=== PATIENT | female | born 1965 | race Caucasian/White ===

== ENCOUNTER 2022-11-11 10:47 | Outpatient (OUT) | payer OTHER, SELFPAY ==
[2022-11-11 12:00] LABS: Alanine Aminotransferase 26 U/L (14-59); Albumin Globulin Ratio 0.9; Albumin Level 3.7 g/dL (3.4-5.0); Alkaline Phosphatase 127 U/L (46-116); Aspartate Amino Transferase 17 U/L (15-37); BUN Creatinine Ratio 19.7; Bilirubin Total 0.4 mg/dL (0.2-1.0); Calcium 9.3 mg/dL (8.5-10.1); Carbon Dioxide 31.5 mmol/L (21.0-32.0); Chloride 103 mmol/L (98-107); Chol HDL Ratio 2.6; Cholesterol 187 mg/dL (<=200); Estimated GFR (African America 58 (>=60); Estimated GFR (Non-African Ame 48 (>=60); Free T3 1.47 pg/mL (2.18-3.98); Globulin 4.2 g/dL; Glucose 93 mg/dL (74-106); HDL Cholesterol 71 mg/dL (40-60); Potassium 4.5 mmol/L (3.5-5.1); Sodium 139 mmol/L (136-145); Total Protein 7.9 g/dL (6.4-8.2); Triglycerides 50 mg/dL (<=150)
[2022-11-11 12:33] LABS: Free T4 0.91 ng/dL (0.76-1.46)
== END 2022-11-11 10:48 | disposition home or self-care (01) ==
PROVIDERS: PCP Family Medicine; Visit Provider Family Medicine
DX: I10 Essential (primary) hypertension (principal); E78.2 Mixed hyperlipidemia; E03.8 Other specified hypothyroidism; E07.81 Sick-euthyroid syndrome
CPT/HCPCS: 36415; 80053; 80061; 84439; 84481

== ENCOUNTER 2023-02-07 09:50 | Outpatient (OUT) | payer OTHER, SELFPAY ==
[2023-02-07 11:09] LABS: Free T3 1.75 pg/mL (2.18-3.98)
[2023-02-08 10:10] LABS: Triiodothyronine (T3) 56 ng/dL (71-180)
[2023-02-11 00:11] LABS: Reverse T3, Serum 14.7 ng/dL (9.2-24.1)
== END 2023-02-07 09:51 | disposition home or self-care (01) ==
PROVIDERS: PCP Family Medicine; Visit Provider Family Medicine
DX: E07.81 Sick-euthyroid syndrome (principal); E03.8 Other specified hypothyroidism
CPT/HCPCS: 36415; 84439; 84480; 84481; 84482

== ENCOUNTER 2023-02-20 12:16 | Day surgery (SDC) | payer OTHER, SELFPAY ==
--- NOTE | 2023-02-20 | FL_ITS ---
[address] [address] Patient Name: FLOYD COLLINS MRN: [id number] date: 1965 Sex: F Assigned Patient Location: [place] Current Patient Location: [place] Accession/Order Number: [id number] Exam Date: 02/20/2023 12:35 Report Date: 02/20/2023 13:43 At the request of: PROSPER ZENDEJAS Procedure: FL hip inj RT EXAMINATION: FL hip inj RT HISTORY: osteoarthritis COMPARISON: No relevant comparison available. FLUOROSCOPY TIME: Fluoro time measures 1.3 min and 2 images were obtained. TECHNIQUE: A joint injection was performed in the usual sterile manner after obtaining informed consent. Standard level fluoroscopic mode of operation utilized. FINDINGS: JOINT: right hip. NEEDLE: 22 gauge, 3.5 spinal needle. MEDICATION: 5cc buffered 1% lidocaine for subcutaneous anesthesia Mixture of Kenalog 40 mg, 0.5% Bupivacaine 2 mL and Omnipaque 300 10mL was injected into the joint space. TECHNIQUE: Anterior approach with prior localization of the femoral artery. A single stick was successful in gaining access to the joint space. CLINICAL: Near complete resolution of hip pain following the injection. COMPLICATIONS: None. OTHER: Negative. FL/FL hip inj RT IMPRESSION: Technically successful right hip arthrogram Electronically authenticated by: TEODORA VIDAL Date: 02/20/2023 13:43
[2023-02-20] MEDS: BUPIVACAINE HCL 0.5% PF 50 MG/10 ML VIAL 2 ML INJ (13:05)
[2023-02-20] MEDS: TRIAMCINOLONE ACETONIDE 40 MG/ML VIAL IM (13:05)
[2023-02-20] MEDS: LIDOCAINE HCL 10 ML, SODIUM BICARBONATE 1 MEQ INJ (13:05)
--- NOTE | 2023-02-20 14:44 | PC.NURSE ---
Pressure applied to site for 2 minutes and then telfa pad and paper tape applied.
== END 2023-02-20 13:25 | disposition home or self-care (01) ==
LOC: FL 12:17
PROVIDERS: Radiology Diagnostic Radiology; PCP Family Medicine; Visit Provider Family Medicine
DX: M16.11 Unilateral primary osteoarthritis, right hip (principal); M25.551 Pain in right hip; G89.29 Other chronic pain
CPT/HCPCS: 20610; 77002; Q9967

== ENCOUNTER 2023-04-24 10:35 | Outpatient (OUT) | payer OTHER, SELFPAY ==
--- NOTE | 2023-04-24 10:40 | MR_ITS ---
[facility] [id number] Patient Name: FLOYD COLLINS MRN: [id number] date: 1965 Sex: F Assigned Patient Location: MRI Current Patient Location: Accession/Order Number: [id number] Exam Date: 04/24/2023 11:10 Report Date: 04/25/2023 08:20 At the request of: NON-STAFF PHYSICIAN Procedure: MR hip RT wo con EXAM: MR hip RT wo con REASON FOR EXAM: Right Hip Pain. TECHNIQUE: Multiplanar, multisequence imaging of the right hip was performed without contrast COMPARISON: [facility], most recent 02/20/2023. FINDINGS: On small iucwr-nb-nyww imaging of the right hip, the right femur is well seated within the acetabulum. No fracture identified. There is serpiginous T1 hypointense, heterogeneous T2 hyperintense signal involving the majority the central weightbearing femoral head measuring 2.1 x 2.3 cm (AP by TR). This is consistent with avascular necrosis. There is also mild subchondral collapse of approximately 2 to 3 mm. Reactive edema is noted in the femoral head dissipating inferiorly into the femoral neck. Again no fracture identified. Diffuse high-grade chondrosis of the femoral acetabular cartilage with reactive subchondral marrow edema involving the right acetabulum. A moderate size joint effusion with synovitis is present. The right hip regional musculature is without discrete muscle strain or tendon tear. On large beaxn-ht-ucyx imaging, moderate multilevel degenerative disc disease of the visualized lower lumbar spine. The sacroiliac joints are congruent with mild joint space narrowing and marginal osteophytes. Trace effusions are present bilaterally. The pubic symphysis is congruent. The left femur is well seated within the acetabulum without fracture or AVN. Mild joint space narrowing marginal osteophytes. The visualized left hip regional musculature is without discrete muscle strain or tendon tear. Limited evaluation of the pelvic viscera is without acute or suspicious abnormality. MR/MR hip RT wo con IMPRESSION: 1. Avascular necrosis involving the majority the central weightbearing femoral head with subchondral collapse. Severe osteoarthritis of the right hip with a moderate size joint effusion and synovitis. 2. Moderate degenerative disc disease the visualized lower lumbar spine, incompletely characterized. 3. Mild osteoarthritis the sacroiliac joints with trace effusions bilaterally likely reflecting mild sacroiliitis bilaterally. Electronically authenticated by: RICARDO MEJIA Date: 04/25/2023 08:20
== END 2023-04-24 10:36 | disposition home or self-care (01) ==
LOC: MRI 10:35
PROVIDERS: PCP Family Medicine
DX: M25.551 Pain in right hip (principal); M87.88 Other osteonecrosis, other site
CPT/HCPCS: 73721

== ENCOUNTER 2023-07-14 10:00 | Outpatient (RCR) | payer OTHER, SELFPAY | END 2023-08-05 15:29 | disposition home or self-care (01) | LOC: PT 10:00 | PROVIDERS: PCP Family Medicine | DX: Z47.1 Aftercare following joint replacement surgery (principal); Z96.641 Presence of right artificial hip joint | CPT/HCPCS: 97110; 97161 ==

== ENCOUNTER 2023-08-07 15:00 | Outpatient (OUT) | payer OTHER, SELFPAY ==
[2023-08-07 16:14] LABS: Free T4 0.63 ng/dL (0.76-1.46)
[2023-08-07 16:20] LABS: Free T3 1.64 pg/mL (2.18-3.98)
== END 2023-08-07 15:01 | disposition home or self-care (01) ==
LOC: LAB 15:00
PROVIDERS: PCP Family Medicine; Visit Provider Family Medicine
DX: N30.01 Acute cystitis with hematuria (principal); E03.8 Other specified hypothyroidism; G93.32 Myalgic encephalomyelitis/chronic fatigue syndrome; E07.81 Sick-euthyroid syndrome
CPT/HCPCS: 36415; 84439; 84481; 87086

== ENCOUNTER 2023-08-29 10:18 | Outpatient (OUT) | payer OTHER, SELFPAY ==
--- NOTE | 2023-08-29 10:21 | US_ITS ---
[address] [address] Patient Name: FLOYD COLLINS MRN: [id number] date: 1965 Sex: F Assigned Patient Location: [facility] Current Patient Location: [facility] Accession/Order Number: [id number] Exam Date: 08/29/2023 10:22 Report Date: 08/29/2023 13:41 At the request of: QUINCY HOWELL Procedure: US pelvis w/ transvaginal EXAMINATION: US pelvis w/ transvaginal HISTORY: VAGINAL BLEEDING POST HYSTERECTOMY IN 2004 COMPARISON: No relevant comparison available. FINDINGS: Transabdominal and transvaginal images The uterus is surgically absent The ovaries are not visualized No focal mass or free fluid US/US pelvis w/ transvaginal IMPRESSION: Nonvisualization of the uterus and ovaries Electronically authenticated by: TEODORA VIDAL Date: 08/29/2023 13:41
--- OUTSIDE RECORDS SUMMARY | 2023-08-29 10:34 | XMS_ITS | CCD ---
Author Organization [facility] Care Team Providers Care 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 Name Role Phone PROSPER ZENDEJAS Primary Care Physician [phone] Tete Romero Unavailable Prosper Zendejas MD Primary Care Provider [phone] CARL RODGERS Referring Unavailable PROSPER ZENDEJAS Primary Care Unavailable KINGSLEY MARTI Referring Unavailable PROSPER ZENDEJAS Primary Care Unavailable CARL RODGERS Referring Unavailable PROSPER ZENDEJAS Primary Care Unavailable Alma Delia RN, Taco Unavailable Unavailbrittany Zendejas MD, Prosper Lopez Primary Care Provider LEONORA CURIEL Attending Unavailable JAKE MARKS JR Referring Unav ailable PROSPER ZENDEJAS Primary Care Unavailab le HEMEYER ., DR CHENG Admitting Unavailable HEMEYER ., DR CHENG Attending Unavailable HEMEYER ., DR CHENG Primary Care Unavailable HEMEYER ., DR CHENG Admitting Unavailable HEMEYER ., DR CHENG Attending Unavailable HEMEYER ., DR CHENG Consulting Unavailable HEMEYER ., DR CHENG Primary Care Unavailable HEMEYER ., DR CHENG Primary Care Unavailable KARASIK ., DR LOVETT Attending Unavailabl e KARASIK ., DR LOVETT Consulting Unavailabl e RASHMI ., DR LOVETT Admitting Unavailabl e SELINA, DR JOSEPH Admitting Unavailable SELINA, DR JOSEPH Attending Unavailable SELINA, DR JOSEPH Consulting Unavailable HEMEARMIDA ., DR CHENG Primary Care Unavailable ZIEBRANJIT, DR ANALISA Brady Consulting Unavailable Cristiana GARCIA, Prosper Lopez Primary Care Provider Prosper Zendejas MD Primary Care Provider Prosper Zendejas MD Unavailable TOMASZ OTERO Admitting Unavailable TOMASZ OTERO Attending Unavailable CRISTIANA ARJUNMIGUELITO LOPEZ Primary Care Unavailab PROSPER Marcelo Primary Care Unavailab TOMASZ Luna Referring Unavailable TOMASZ OTERO Referring Unavailable PROSPER ZENDEJAS Primary Care Unavailab PROSPER Marcelo Attending Unavailable PROSPER ZENDEJAS Attending Unavailable SHENA LICONA Attending Unavailab PROSPER Marcelo Attending Unavailable PROSPER ZENDEJAS Attending Unavailable SHLOMO VAIL Attending Unavailable PROSPER ZENDEJAS Attending Unavailable Allergies Allergy Classification Reported Allergen(s) Allergy Type Date of Onset Reaction(s) Facility (10 sources) Morphine; Translations: [MORPHINE] Drug Allergy 1 Other (See Comments), GI Upset, Nausea/vomitin g, Itching [facility] [facility] Other (1 source) Adhesive Bandages Drug allergy Unknown [place] [facility] Other (2 sources) Adhesive Tape Propensity to adverse reactions to drug 1 Rash [facility] (4 sources) gabapentin Drug Allergy 1 Swelling [facility] Work Phone: (2 sources) Desonide Drug Allergy 4 [facility] (1 source) gabapentin Drug Allergy 3 [facility] (2 sources) Morphine Drug Allergy 4 [facility] (2 sources) Onion extract; Translations: [ONION] Drug Allergy 4 [facility] (1 source) Misc-Food; Translations: [Misc-Food] Food allergy (disorder) 3 [facility] (1 source) onions; Translations: [onions] Food allergy (disorder) [facility] (2 sources) nut Drug allergy (disorder) 7 [facility] (3 sources) Onion extract Drug Allergy 4 [facility] Work Phone: (4 sources) Adhesive Tape-Silicones; Translations: [ADHESIVE TAPE-SILICONES] Drug Allergy 4 Other [facility] (2 sources) Onion extract Drug Allergy 3 Headache [facility] (2 sources) Wound Dressing Adhesive Propensity to adverse reactions 3 Rash [facility] Medications Current Medications Medication Drug Class(es) Dates Sig (Normalized) Sig (Original) acetaminophen 325 mg oral tablet (5 sources) Start: 06-15-2023 take 2 tablets by mouth every six hours acetaminophen (Tylenol) 325 mg tablet Indications: S/P total right hip arthroplasty Take 2 tablets (650 mg) by mouth every 6 hours. 0 06/15/2023 Active Start: 06-14-2023 take 650 mg by mouth every six hours for pain 650 mg, oral, Every 6 hours scheduled, First dose on Mon06/14/23 at 1345, Phase II/On Unit If ordered PRN for pain, nurse is permitted to administer this medication for higher pain scores based on patient preference? Yes Start: 06-13-2023 End: 06-27-2023 take 2 tablets by mouth three times daily for pain, then take 2 tablets by mouth every eight hours for pain acetaminophen (Tylenol) 500 mg tablet Indications: S/P total right hip arthroplasty Take 2 tablets (1,000 mg) by mouth 3 times a day for 14 days. Take two tablets by mouth every 8 hours for 2 weeks for pain after surgery 84 tablet 0 06/13/2023 06/27/2023 Active acetaminophen (T ylenol) 500 mg tablet Take by mouth every 6 hours if needed for mild pain (1 - 3). 0 Suspended ALPRAZolam 0.25 mg oral tablet (5 sources) Benzodiazepine Start: 06-12-2023 End: 07-12-2023 take 1 tablet by mouth once daily as needed for anxiety ALPRAZolam (Xanax) 0.25 MG tablet Indications: Anxiety Take 1 tablet (0.25 mg) by mouth Daily as needed for anxiety (1 tablet as needed for severe anxiety) 30 tablet 0 06/12/2023 07/12/2023 Active Start: 07-13-2021 take 1 tablet by maureen th once daily as needed for anxiety ALPRAZolam (XANAX) 0.25 MG tablet TAKE 1 TO 1 & 1/2 TABLETS BY MOUTH ONCE DAILY NEEDED FOR ANXIETY 0 07/13/2021 Active take 1 tablet by maureen th every twenty-four hours as needed ALPRAZolam 0.25 mg dissolvable tablet Take 0.25 mg by mouth at bedtime as needed. 0 Active Comment on above: Take 0.25 mg by mout h at bedtime as needed. ascorbic acid 1000 mg oral tablet (1 source) Vitamin C take 1 tablet by mouth once daily Ascorbic Acid 1000 MG 1 tablet Orally Once a day Active aspirin 81 mg delayed release oral tablet (2 sources) Platelet Aggregation Inhibitor, Nonsteroidal Anti-inflammatory Drug Start: 4 End: 4 take 81 mg by mouth twice daily 81 mg, oral, 2 times daily, First dose on Mon06/14/23 at 1345, Phase II/On Unit Do not crush, chew, or split. Biotin (1 source) take 2 tablets by mouth once daily Biotin 5000 MCG 2 tablet Orally Once a day Active black cohosh extract 540 mg oral capsule (1 source) Black Cohosh 540 MG Orally Active calcium carbonate 1500 mg / cholecalciferol 200 unt oral tablet (1 source) Vitamin D take 1 tablet by mouth every twenty-four hours Calcium + D 600-200 MG-UNIT 1 tablet with food Orally Once a day Active calcium citrate 950 mg oral tablet (4 sources) take 1 tablet by mouth in the morning calcium citrate (Calcitrate) 950 (200 Ca) MG tablet Take 950 mg by mouth in the morning. 0 Active take 1 tablet by mouth once melinda y calcium citrate (CALCITRATE) 950 (200 Ca) MG tablet Take 1 tablet by mouth daily 0 Active cephalexin 500 mg oral capsule (2 sources) Cephalosporin Antibacterial Start: 06-13-2023 End: 06-20-2023 take 1 capsule by mouth three times daily, then take 1 capsule by mouth every eight hours cephalexin (Keflex) 500 mg capsule Indications: S/P total right hip arthroplasty Take 1 capsule (500 mg) by mouth 3 times a day for 7 days. Take one capsule by mouth every 8 hours for infection prevention after surgery 21 capsule 0 06/13/2023 06/20/2023 Active Start: 02-17-2021 take 1 capsule by mo [facility] every eight hours Cephalexin 500 MG 1 capsule Orally tid for 10 day(s) Feb, Active cholecalciferol 0.125 mg oral tablet (8 sources) Vitamin D Start: 06-14-2023 take 5000 [IU] by mouth once daily 5,000 Units, oral, Daily, First dose on Mon06/14/23 at 1345, Phase II/On Unit take 1 capsule by mouth every we ek cholecalciferol (Vitamin D-3) 1.25 MG (66770 UT) capsule Take 50,000 Units by mouth 1 (one) time per week. 0 Active cyclobenzaprine hydrochloride 10 mg oral tablet (10 sources) Muscle Relaxant Start: 09-26-2016 take 1 tablet by mouth every twenty-four hours as needed 10 mg, oral, Daily PRN, muscle spasms, Starting on Mon06/14/23 at 1318, Phase II/On Unit take 1 tablet by maureen th three times daily as needed cyclobenzaprine (Flexeril) 10 MG tablet Take 10 mg by mouth 3 (three) times a day as needed 0 Active Comment on above: Take by mouth three times daily. diphenhydrAMINE (1 source) Histamine-1 Receptor Antagonist Start: take 12.5 mg intravenously every six hours as needed 12.5 mg, intravenous, Every 6 hours PRN, itching, Starting on Mon06/14/23 at 1318, Phase II/On Unit If giving IV push, max rate of 25 mg/min. docusate sodium 100 mg oral capsule (2 sources) Start: End: take 1 capsule by mouth twice daily as needed for constipation, then take 1 capsule by mouth twice daily as needed for constipation docusate sodium (Colace) 100 mg capsule Indications: S/P total right hip arthroplasty Take 1 capsule (100 mg) by mouth 2 times a day for 7 days. Take one capsule by mouth twice daily as needed for constipation prevention while taking narcotics 14 capsule 0 06/13/2023 06/20/2023 Active take 2 capsules by m outh every twenty-four hours Stool Softener 250 MG 2 capsule as needed Orally Once a day Active 168 hr estradiol 0.96627 mg/hr transdermal system (5 sources) Estrogen Start: 12-08-2022 estradiol (Cli dave) 0.075 MG/24HR Indications: Primary ovarian failure Place 1 patch over 7 days on the skin 1 (one) time per week. 12 patch 3 12/08/2022 Active estradiol (Clima ra) 0.075 mg/[address] 1 patch on the skin 1 (one) time per week. Monday 0 Suspended estrogens, conjugated (shelter) 0.625 mg oral tablet (4 sources) Estrogen Start: 12-05-2016 take 1 tablet by mouth once daily estrogens, conjugated, (PREMARIN) 0.625 MG tablet Take 0.625 mg by mouth daily 0 12/05/2016 Active Premarin 0.45 MG 1 tablet Orally Daily for Three Weeks, 1 Week off Active Comment on above: Take 0.625 mg by maureen th once daily. 72 hr fentaNYL 0.025 mg/hr transdermal system (14 sources) Opioid Agonist Start: 05-11-2023 fentaNYL (DURAGESIC) 25 MCG/HR Indications: Chronic Pain Place 1 patch over 72 hours on the skin every 3rd (third) day 10 patch 0 05/12/2023 Active Start: 11-30-2016 fentaNYL (DURA GESIC) 25 MCG/HR apply 1 dose transde rmal route every hour fentaNYL (Duragesic) 25 mcg/hr patch Place 1 patch on the skin every 3rd day. 0 Suspended fentaNYL (DURAGE SIC) 25 mcg/hr Apply 1 Patch as directed every 72 hours. 0 Active fentaNYL Active Comment on above: Apply 1 Patch as dir ected every 72 hours. Glucosamine Chondroitin Complx (1 source) Glucosamine Sameer droitin Complx Orally Active 0.5 ml HYDROmorphone hydrochloride 1 mg/ml prefilled syringe (3 sources) Opioid Agonist Start: 06-14-2023 0.5 mg, intravenous, Every 2 hour PRN, pain breakthrough, Starting on Mon06/14/23 at 1318, Phase II/On Unit Start: 06-14-2023 End: 06-14-2023 HYDROmorphone (Dilaudid) inj ection 1 mg Start: 06-14-2023 End: 06-14-2023 HYDROmorphone (Dilaudid) inj ection 0.5 mg Iron (1 source) take 1 tablet by mouth once daily Iron 325 (65 Fe) MG 1 tablet Orally Once a day Active lamoTRIgine 150 mg oral tablet (10 sources) Mood Stabilizer, Anti-epileptic Agent Start: 06-12-2023 take 150 mg by mouth twice daily 150 mg, oral, 2 times daily, First dose on Mon06/14/23 at 1345, Phase II/On Unit Start: 02-07-2022 lamoTRIgine (L AMICTAL) 150 MG tablet take 2 tablets by mo uth every twenty-four hours lamoTRIgine 200 MG 2 tablet Orally Once a day Active Comment on above: Take 150 mg by mouth once daily. levothyroxine sodium 0.2 mg oral tablet (4 sources) l-Thyroxine Start: take 0.5 tablet by mouth twice daily levothyroxine (SYNTHROID) 200 MCG tablet TAKE 1/2 TABLET BY MOUTH ON EMPTY STOMACH TWICE DAILY 0 07/12/2021 Active take 1 tablet by maureen once daily before breakfast levothyroxine (SYNTHROID) 200 mcg tablet Take 200 mcg by mouth daily before breakfast. 0 Active Levothroid Activ e Comment on above: Take 200 mcg by mout h daily before breakfast. liothyronine sodium 0.005 mg oral tablet (9 sources) l-Triiodothyronine Start: 05-11-2023 take 5 ug by mouth twice daily 5 mcg, oral, 2 times daily, First dose on Mon06/14/23 at 1345, Phase II/On Unit Start: 07-15-2021 liothyronine ( CYTOMEL) 5 MCG tablet TAKE 2 TABLETS BY MOUTH ON EMPTY STOMACH TWICE DAILY*[employer]* 0 07/15/2021 Active Comment on above: Take 10 mcg by mouth once daily. losartan potassium 50 mg oral tablet (10 sources) Angiotensin 2 Receptor Millie Start: 02-08-2022 take 50 mg by mouth once daily 50 mg, oral, Daily, First dose on Mon06/14/23 at 1345, Phase II/On Unit Losartan [facility] Active Comment on above: Take 50 mg by mouth once daily. magnesium oxide 400 mg oral tablet (8 sources) Start: 06-14-19 take 400 mg by mouth once daily 400 mg, oral, Daily, First dose on Mon06/14/23 at 1345, Phase II/On Unit meloxicam 15 mg oral tablet (1 source) Nonsteroidal Anti-inflammatory Drug Start: 06-13-19 End: 07-11-19 take 1 tablet by mouth once daily for pain, then take 1 tablet by mouth once daily for pain meloxicam (Mobic) 15 mg tablet Indications: S/P total right hip arthroplasty Take 1 tablet (15 mg) by mouth once daily for 28 days. Take one tablet by mouth daily for pain and swelling after surgery. 28 tablet 0 06/13/2023 07/11/2023 Active metFORMIN hydrochloride 850 mg oral tablet (8 sources) Biguanide Start: 11-23-19 End: 11-07-19 24 take 1 tablet by mouth in the morning metFORMIN (Glucophage) 850 MG tablet Indications: Insulin resistance Take 1 tablet (850 mg) by mouth in the morning and 1 tablet (850 mg) in the evening. Take with meals. 180 tablet 1 05/11/2023 11/07/2023 Active take 1 tablet by maureen th every twenty-four hours metFORMIN HCl 850 MG 1 tablet with a meal Orally Once a day Active 1 ml morphine sulfate 2 mg/ml prefilled syringe (1 source) Opioid Agonist Start: 06-14-2023 morphine injection 2 mg Multiple Vitamins-Minerals (THERAPEUTIC MULTIVITAMIN-MINERAL S) tablet (2 sources) take 1 tablet by mouth once daily Multiple Vitamins-Minerals (THERAPEUTIC MULTIVITAMIN-MINERA LS) tablet Take 1 tablet by mouth daily 0 Active Multivitamin preparation (1 source) Multivitamin Ora lly Active multivitamin with minerals 1 tablet (1 source) Start: 06-14-2023 take 1 tablet by mouth once daily 1 tablet, oral, Daily, First dose on Mon06/14/23 at 1345, Phase II/On Unit nabumetone 750 mg oral tablet (6 sources) Nonsteroidal Anti-inflammatory Drug Start: 08-05-2022 take 1 tablet by mouth in the morning nabumetone (Relafen) 750 MG tablet Take 750 mg by mouth in the morning and 750 mg before bedtime. 0 08/05/2022 Active Comment on above: Take 750 mg by mouth twice daily. Naloxone (1 source) Opioid Antagonist Start: 06-14-2023 0.2 mg, intravenous, Every 5 min PRN, respiratory depression, Starting on Mon06/14/23 at 1318, Phase II/On Unit If respiratory rate is less than 8 breaths/minute or patient is difficult to arouse stop any narcotics and contact physician. Administer slow IV push. Repeat as ordered until patient's respiratory rate is greater than 12 breaths/minute. omeprazole 20 mg delayed release oral capsule (1 source) Proton Pump Inhibitor Start: 06-13-2023 End: 07-18-2023 take 1 capsule by mouth once daily, then take 1 capsule by mouth once daily omeprazole (PriLOSEC) [address] capsule Indications: S/P total right hip arthroplasty Take 1 capsule (20 mg) by mouth once daily. Do not crush or chew. Take one capsule by mouth daily for preventing stomach irritation while taking aspirin 35 capsule 0 06/13/2023 07/18/2023 Active ondansetron 4 mg disintegrating oral tablet (1 source) Serotonin-3 Receptor Antagonist Start: 06-13-2023 End: 06-16-2023 take 1 tablet by mouth every eight hours as needed for nausea and nausea, then take 1 tablet by mouth every eight hours as needed for nausea and nausea ondansetron ODT (Zofran-ODT) 4 mg disintegrating tablet Indications: S/P total right hip arthroplasty Take 1 tablet (4 mg) by mouth every 8 hours if needed for nausea or vomiting for up to 3 days. Take one tablet (oral dissolving) by mouth as needed every 8 hours for nausea 6 tablet 0 06/13/2023 06/16/2023 Active ondansetron ODT (Zofran-ODT) disintegrating tablet 4 mg (1 source) Start: 06-14-2023 take 1 tablet by mouth every eight hours as needed ondansetron ODT (Zofran-ODT) disintegrating tablet 4 mg oxyCODONE hydrochloride 10 mg oral tablet (5 sources) Opioid Agonist Start: 06-14-2023 take 1 tablet by mouth every four hours as needed 5 mg, oral, Every 4 hours PRN, pain moderate (4-6), first line, Starting on Mon06/14/23 at 1318, Phase II/On Unit If ordered PRN for pain, nurse is permitted to administer this medication for higher pain scores based on patient preference? Yes Start: 06-14-2023 take 1 tablet by maureen th every four hours as needed oxyCODONE (Roxicodone) immediate release tablet 10 mg Start: 06-13-2023 End: 06-20-2023 take 1 tablet by mouth every six hours as needed oxyCODONE (Roxicodone) immediate release tablet 5 mg oxygen (O2) therapy (1 source) Start: 06-14-2023 2 L/min, inhalation, Continuous, Starting on Mon06/14/23 at 1345, Phase II/On Unit Titrate supplemental oxygen to maintain oxygen saturation greater than or equal to 92%. Device: Nasal Cannula Rate in liters per minute: 2 LPM Keep O2 Sat Above: 92% polyethylene glycol 3350 65717 mg powder for oral solution (1 source) Osmotic Laxative Start: 06-14-2023 17 g, oral, D aily, First dose on Mon06/14/23 at 1345, Phase II/On Unit Bowel Regimen - for prevention of constipation. QUEtiapine 200 mg oral tablet (10 sources) Atypical Antipsychotic Start: 06-14-2023 take 400 mg by mouth once daily 400 mg, oral, Nightly, First dose on Mon06/14/23 at 2100, Phase II/On Unit Start: 01-10-2022 End: 09-10-2023 take 1 tablet by mouth at bedtime QUEtiapine (SEROquel) 400 MG tablet Indications: Bipolar Mood Disorder Take 1 tablet (400 mg) by mouth at bedtime 90 tablet 0 06/12/2023 09/10/2023 Active take 1 tablet by maureen th every twenty-four hours QUEtiapine Fumarate 200 MG 1 tablet at bedtime Orally Once a day Active Comment on above: Take 400 mg by mouth daily at bedtime. sennosides, shelter 8.6 mg oral tablet (1 source) Start: 06-14-2023 take 1 tablet by mouth twice daily 17.2 mg (2 tablet), oral, 2 times daily, First dose on Mon06/14/23 at 1345, Phase II/On Unit Bowel Regimen - for prevention of constipation Ho ld for loose stools sertraline 100 mg oral tablet (9 sources) Serotonin Reuptake Inhibitor Start: 06-12-2023 End: 09-10-2023 take 100 mg by mouth twice daily 100 mg, oral, 2 times daily, First dose on Mon06/14/23 at 1345, Phase II/On Unit Start: 02-16-2022 sertraline (ZO LOFT) 100 MG tablet Comment on above: Take 100 mg by mouth once daily. spironolactone 25 mg oral tablet (8 sources) Aldosterone Antagonist Start: 01-11-20 take 1 tablet by mouth once daily as needed spironolactone (ALDACTONE) 25 MG tablet TAKE 1 TABLET BY MOUTH EVERY DAY NEEDED FOR SWELLING 0 01/10/2022 Active Comment on above: Take 25 mg by mouth once daily. therapeutic multivitamin-minerals (Theragran-M) tablet (2 sources) take 1 tablet by mouth in the morning therapeutic multivitamin-minerals (Theragran-M) tablet Take 1 tablet by mouth in the morning. 0 Active thyroid (shelter) 30 mg oral tablet (6 sources) Start: 06-14-19 take 60 mg by mouth twice daily 60 mg, oral, 2 times daily, First dose on Mon06/14/23 at 1345, Phase II/On Unit Start: 03-02-2023 End: 08-29-2023 take 1 tablet by mouth in the morning thyroid (INTERNAL MEDICINE PHYSICIAN ASSISTANT Thyroid) 60 MG tablet Indications: Central hypothyroidism (CMS/HCC) , Sick-euthyroid syndrome Take 1 tablet (60 mg) by mouth in the morning and 1 tablet (60 mg) in the evening. Take before meals. 180 tablet 1 03/02/2023 08/29/2023 Active zaleplon 10 mg oral capsule (8 sources) gamma-Aminobutyric Acid A Receptor Agonist Start: 08-26-2021 End: 07-15-2023 take 1 capsule by mouth at bedtime zaleplon (Sonata) 10 MG capsule Indications: Other insomnia Take 1 capsule (10 mg) by mouth at bedtime 30 capsule 1 05/16/2023 07/15/2023 Active Comment on above: Take by mouth daily at bedtime. zolpidem tartrate 12.5 mg extended release oral tablet (1 source) gamma-Aminobutyric Acid-ergic Agonist take 1 tablet by mouth every twenty-four hours Zolpidem Tartrate ER 12.5 MG 1 tablet at bedtime as needed Orally Once a day Active Completed/Discontinued Medications Medication Drug Class(es) Dates Sig (Normalized) Sig (Original) albuterol 0.83 mg/ml inhalation solution (1 source) beta2-Adrenergic Agonist Start: 06-14-2023 End: 06-14-2023 albuterol 2.5 mg /3 mL (0.083 %) nebulizer solution 2.5 mg calcium chloride 0.0014 meq/ml / potassium chloride 0.004 meq/ml / sodium chloride 0.103 meq/ml / sodium lactate 0.028 meq/ml injectable solution (2 sources) Start: 06-14-2023 End: 06-15-2023 take 85 mL intravenously every hour 85 mL/hr, intravenous, Continuous, Starting on Mon06/14/23 at 1345, For 24 hours, Phase II/On Unit Start: 06-14-2023 End: 06-14-2023 lactated Ringer's infusion ceFAZolin 2000 mg injection (1 source) Cephalosporin Antibacterial Start: 06-14-2023 End: 06-15-2023 take 2 g intravenously every eight hours 2 g, intravenous, Administer over 30 Minutes, Every 8 hours, First dose on Mon06/14/23 at 1830, For 2 doses, Phase II/On Unit Start 8 hours after pre-op dose given. premix bag Dosing of this medication varies based on severity of illness. Does this patient have sepsis or concern for sepsis (probable or documented infection plus systemic manifestations of infection)? No Suspected Indication (Select all that apply): Surgical Prophylaxis celecoxib 200 mg oral capsule (1 source) Nonsteroidal Anti-inflammatory Drug Start: 06-14-2023 End: 06-14-2023 celecoxib (CeleBREX) capsule 400 mg chlorhexidine gluconate 1.2 mg/ml mouthwash (5 sources) Start: 05-22-2023 chlorhexidine (Peridex) 0.12 % solution Indications: mouth infection prevention , preop 15 milliliter(s) orally once a day for 2 doses 15 ml the night before surgery and 15 ml morning of surgery - swish for 30 seconds -DO NOT SWALLOW, SPIT OUT 473 mL 0 05/22/2023 Suspended 1 ml dexamethasone phosphate 10 mg/ml injection (1 source) Corticosteroid Start: 06-14-2023 End: 06-14-2023 dexAMETHasone (PF) (Decadron) injection 10 mg diazePAM 5 mg oral tablet (1 source) Benzodiazepine Start: 10-13-2014 take 1 tablet by mouth once daily at bedtime Valium 5 mg 1 tab(s) Orally qhs for 5 days Oct, Not-Taking DULoxetine 30 mg delayed release oral capsule (1 source) Serotonin and Norepinephrine Reuptake Inhibitor take 1 capsule by mouth every twelve hours DULoxetine HCl 30 MG 1 capsule Orally Twice a day Not-Taking iopamidol (ISOVUE-370) 76 % injection 120 mL (1 source) Start: 03-08-2022 End: 03-08-2022 iopamidol (ISOVUE-370) 76 % injection 120 mL multivitamin tablet (3 sources) take 1 tablet by mouth once daily multivitamin tablet Take 1 tablet by mouth once daily. 0 Suspended take 1 tablet by mouth once melinda y multivitamin tablet Take 1 tablet by mouth once daily. 0 Active promethazine (Phenergan) 6.25 mg in sodium chloride 0.9% 50 mL IV (1 source) Start: 06-14-2023 End: 06-14-2023 promethazine (Phenergan) 6.25 mg in sodium chloride 0.9% 50 mL IV terbinafine hydrochloride 10 mg/ml topical cream (1 source) Allylamine Antifungal terbinafine HCl (LAMISIL) 1 % cream Apply to affected area twice daily. 0 Active Comment on above: Apply to affected ar ea twice daily. Problems Active Problems Problem Classification Problem Date Documented Da te Episodic/Chronic Anxiety disorders (4 sources) Generalized anxiety disorder; Translations: [Generalized anxiety disorder] Onset: 6 Resolved: 3 09-06-2022 Chronic Disorders of lipid metabolism (2 sources) Secondary hypertriglyceridemia; Translations: [Pure hyperglyceridemia] Onset: 9 10-24-2022 Chronic Esophageal disorders (2 sources) Gastroesophageal reflux disease without esophagitis; Translations: [Gastro-esophageal reflux disease without esophagitis] Onset: 7 10-24-2022 Chronic Essential hypertension (2 sources) Benign essential hypertension; Translations: [Essential (primary) hypertension] Onset: 5 10-24-2022 Chronic Genitourinary symptoms and ill-defined conditions (3 sources) Stress incontinence (female) (male); Translations: [Genuine stress incontinence] Onset: 2 11-15-2022 Chronic Hypertension with complications and secondary hypertension (2 sources) Hypertensive renal disease; Translations: [Hypertensive chronic kidney disease with stage 1 through stage 4 chronic kidney disease, or unspecified chronic kidney disease] Onset: 1 10-24-2022 Chronic Malaise and fatigue (2 sources) Chronic fatigue syndrome; Translations: [Chronic fatigue syndrome] Onset: 5 10-24-2022 Chronic Menopausal disorders (4 sources) Primary ovarian failure; Translations: [Other primary ovarian failure] Onset: 5 10-24-2022 Chronic Mood disorders (6 sources) Bipolar affective disorder, currently depressed, moderate; Translations: [Bipolar disorder, current episode depressed, moderate] Onset: 5 Resolved: 3 10-24-2022 Chronic Osteoarthritis (13 sources) Osteoarthritis of right hip joint; Translations: [Unilateral primary osteoarthritis, right hip] Onset: 3 Resolved: 3 Chronic Other connective tissue disease (3 sources) History of total hip arthroplasty; Translations: [Presence of right artificial hip joint] Onset: 4 06-13-2023 Chronic Other connective tissue disease (3 sources) History of total replacement of right hip joint; Translations: [Presence of right artificial hip joint] Onset: 4 06-15-2023 Chronic Other connective tissue disease (2 sources) Presence of right artificial hip joint; Translations: [Presence of right artificial hip joint] Onset: 4 Chronic Other gastrointestinal disorders (2 sources) Irritable bowel syndrome with diarrhea; Translations: [Irritable bowel syndrome with diarrhea] Onset: 5 10-24-2022 Chronic Other nervous system disorders (2 sources) Chronic pain syndrome; Translations: [Chronic pain syndrome] Onset: 6 10-24-2022 Chronic Other nervous system disorders (2 sources) Inattention; Translations: [Attention and concentration deficit] Onset: 5 10-24-2022 Chronic Other nutritional; endocrine; and metabolic disorders (1 source) Severe obesity; Translations: [Morbid (severe) obesity due to excess calories] Chronic Other nutritional; endocrine; and metabolic disorders (2 sources) Insulin resistance; Translations: [Insulin resistance] Onset: 6 10-24-2022 Chronic Other nutritional; endocrine; and metabolic disorders (2 sources) Morbid obesity; Translations: [Morbid (severe) obesity due to excess calories] Onset: 9 10-24-2022 Chronic Other upper respiratory disease (2 sources) Allergic rhinitis; Translations: [Allergic rhinitis, unspecified] Onset: 5 10-24-2022 Chronic Residual codes; unclassified (2 sources) Insomnia; Translations: [Other insomnia] Onset: 3 10-06-2022 Chronic Residual codes; unclassified (2 sources) Obstructive sleep apnea syndrome; Translations: [Obstructive sleep apnea (adult) (pediatric)] Onset: 5 10-24-2022 Chronic Spondylosis; intervertebral disc disorders; other back problems (10 sources) Lumbosacral spondylosis without myelopathy; Translations: [Spondylosis without myelopathy or radiculopathy, lumbosacral region] Onset: 8 Resolved: 3 10-24-2022 Chronic Thyroid disorders (2 sources) Central hypothyroidism; Translations: [Other specified hypothyroidism] Onset: 5 10-24-2022 Chronic Unclassified (2 sources) CONTACT W/AND (SUSP) EXPOS COVID-19; Translations: [CONTACT W/AND (SUSP) EXPOS COVID-19] Onset: 2 Unclassified (1 source) COUGH, UNSPECIFIED; Translations: [COUGH, UNSPECIFIED] Onset: 2 Viral infection (1 source) COVID-19; Translations: [COVID-19] Onset: 2 Past or Other Problems Problem Classification Problem Date Documented Da te Episodic/Chronic Abdominal hernia (2 sources) Hiatal hernia; Translations: [Diaphragmatic hernia without obstruction or gangrene] Onset: 01-02-2017 10-24-2022 Episodic Bacterial infection; unspecified site (4 sources) Bartonellosis; Translations: [Bartonellosis, unspecified] Onset: 03-19-2015 10-24-2022 Episodic Conditions associated with dizziness or vertigo (4 sources) Benign paroxysmal positional vertigo; Translations: [Benign paroxysmal vertigo, unspecified ear] Onset: 07-04-2016 Resolved: 02-28-2023 10-24-2022 Episodic Genitourinary symptoms and ill-defined conditions (5 sources) Microscopic hematuria; Translations: [Other microscopic hematuria] Onset: 04-19-2018 Episodic Headache; including migraine (2 sources) Headache disorder; Translations: [Headache disorder] Onset: 04-17-2020 10-24-2022 Episodic Heart valve disorders (2 sources) Heart murmur; Translations: [Cardiac murmur, unspecified] Onset: 08-23-2017 10-24-2022 Episodic Immunizations and screening for infectious disease (1 source) Encounter for screening for human papillomavirus (HPV); Translations: [ENC SCREENING HUMAN PAPILLOMAVIRUS] Onset: 10-18-2021 Episodic Other aftercare (2 sources) Drug therapy finding; Translations: [Other fdc (current) drug therapy] Onset: 07-06-2020 05-11-2023 Episodic Other aftercare (2 sources) Taking high risk medication; Translations: [Other oil heaterman (current) drug therapy] Onset: 07-06-2020 Resolved: 11-15-2022 11-15-2022 Episodic Other connective tissue disease (2 sources) Myofascial pain syndrome of neck; Translations: [Myalgia, other site] Onset: 09-13-2018 10-24-2022 Episodic Other connective tissue disease (2 sources) Nocturnal muscle cramp; Translations: [Cramp and spasm] Onset: 11-15-2022 11-15-2022 Episodic Other diseases of veins and lymphatics (2 sources) Peripheral venous insufficiency; Translations: [Venous insufficiency (chronic) (peripheral)] Onset: 06-16-2017 10-24-2022 Episodic Other disorders of stomach and duodenum (2 sources) Cyclical vomiting syndrome; Translations: [Cyclical vomiting syndrome unrelated to migraine] Onset: 03-02-2017 10-24-2022 Episodic Other female genital disorders (2 sources) History of vaginal intraepithelial neoplasia; Translations: [Personal history of vaginal dysplasia] Onset: 11-15-2022 11-15-2022 Episodic Other gastrointestinal disorders (2 sources) Disorder of intestine; Translations: [Other specified diseases of intestine] Onset: 03-28-2016 Resolved: 02-28-2023 02-28-2023 Episodic Other infections; including parasitic (2 sources) Lyme disease; Translations: [Lyme disease, unspecified] Onset: 11-15-2022 11-15-2022 Episodic Other lower respiratory disease (1 source) Respiratory disorder, unspecified; Translations: [RESPIRATORY DISORDER UNSPECIFIED] Onset: 04-16-2022 Episodic Other lower respiratory disease (2 sources) Chronic lung disease; Translations: [Other disorders of lung] Onset: 11-15-2022 11-15-2022 Episodic Other nervous system disorders (2 sources) Paresthesia; Translations: [Paresthesia of skin] Onset: 11-15-2022 11-15-2022 Episodic Other nervous system disorders (2 sources) Skin sensation disturbance; Translations: [Unspecified disturbances of skin sensation] Onset: 09-18-2018 Resolved: 02-28-2023 02-28-2023 Episodic Other non-traumatic joint disorders (2 sources) Multiple joint pain; Translations: [Pain in unspecified joint] Onset: 02-06-2015 10-24-2022 Episodic Other nutritional; endocrine; and metabolic disorders (2 sources) Obese abdomen; Translations: [Abdominal obesity and metabolic syndrome] Onset: 09-28-2018 Resolved: 11-15-2022 11-15-2022 Chronic Other nutritional; endocrine; and metabolic disorders (2 sources) Body mass index 40+ - severely obese; Translations: [Body mass index (BMI) 45.0-49.9, adult] Onset: 11-15-2022 Resolved: 02-28-2023 02-28-2023 Chronic Other screening for suspected conditions (not mental disorders or infectious disease) (4 sources) Encounter for screening for malignant neoplasm of cervix; Translations: [ENC SCREENING MALIG NEOPLASM CERV] Onset: 10-15-2021 Episodic Other upper respiratory infections (1 source) Acute pharyngitis, unspecified; Translations: [ACUTE PHARYNGITIS UNSPECIFIED] Onset: 04-16-2022 Episodic Poisoning by nonmedicinal substances (1 source) Toxic effect of venom of other arthropod, accidental (unintentional), initial encounter; Translations: [Insect stings, accidental or unintentional, initial encounter T63.481A] Onset: 02-17-2021 Resolved: 02-17-2021 Episodic Residual codes; unclassified (1 source) Pain, unspecified; Translations: [PAIN UNSPECIFIED] Onset: 04-16-2022 Episodic Residual codes; unclassified (2 sources) History of hysterectomy for benign disease; Translations: [Acquired absence of both cervix and uterus] Onset: 10-26-2022 10-26-2022 Episodic Screening and history of mental health and substance abuse codes (2 sources) Ex-cigarette smoker; Translations: [Personal history of nicotine dependence] Onset: 11-15-2022 11-15-2022 Episodic Skin and subcutaneous tissue infections (1 source) Cellulitis of left upper limb; Translations: [Cellulitis of forearm, left L03.114] Onset: 02-17-2021 Resolved: 02-17-2021 Episodic Spondylosis; intervertebral disc disorders; other back problems (4 sources) Lumbar radiculopathy; Translations: [Radiculopathy, lumbar region] Onset: 03-06-2019 10-24-2022 Episodic Thyroid disorders (2 sources) Sick-euthyroid syndrome; Translations: [Sick-euthyroid syndrome] Onset: 03-22-2021 03-02-2023 Episodic Unclassified (1 source) CONTACT W/AND (SUSP) EXPOS COVID-19; Translations: [CONTACT W/AND (SUSP) EXPOS COVID-19] Onset: 04-11-2022 Varicose veins of lower extremity (2 sources) Varicose veins of lower extremity; Translations: [Varicose veins of bilateral lower extremities with pain] Onset: 11-15-2022 11-15-2022 Episodic Results Test Name Value Interpretation Reference Range Facility ALL CBC WITH AUTO DIFFon Erythrocyte distribution width (RBC) [Ratio] 13.6 % 11.5 - 14.5 % [facility] Hematocrit (Bld) [Volume fraction] 29.8 % Low 36.0 - 46.0 % [facility] Hemoglobin (Bld) [Mass/Vol] 9.1 g/dL Low 12.0 - 16.0 g/dL [facility] Interpretation and review of laboratory results Abnormal [facility] MCH (RBC) [Entitic mass] 28.1 pg 26.0 - 34.0 pg [facility] MCHC (RBC) [Mass/Vol] 30.5 g/dL Low 32.0 - 36.0 g/dL [facility] MCV (RBC) [Entitic vol] 92 fL 80 - 100 fL [facility] NUCLEATED RBC 0.0 [facility] PLT 311 [facility] RBC 3.24 Low [facility] WBC 8.9 [facility] Original Ordering Provider: JENIFER TORREZ [facility] Basic metabolic 2000 panelon 06-15-2023 Anion gap [Moles/Vol] 12 mmol/L Normal 10-20 [facility] Comment on above: Performed By: #### 2 4321-2 #### EARL NGO ([id number]) [facility] [place] [place] [address] [place] [address] Calcium [Mass/Vol] 8.9 mg/dL Normal 8.6-10.3 [facility] Comment on above: Performed By: #### 2 4321-2 #### EARL NGO ([id number]) [facility] [place] [place] [address] [place] [address] Chloride [Moles/Vol] 102 mmol/L Normal 98-107 [facility] Comment on above: Performed By: #### 2 4321-2 #### EARL NGO ([id number]) [facility] [place] [place] [address] [place] [address] CO2 [Moles/Vol] 25 mmol/L Normal 21-32 [facility] Comment on above: Performed By: #### 2 4321-2 #### EARL NGO ([id number]) [facility] [place] [place] [address] [place] [address] Creatinine [Mass/Vol] 0.96 mg/dL Normal 0.50-1.05 [facility] Comment on above: Performed By: #### 2 4321-2 #### EARL NGO ([id number]) [facility] ([facility] [place] [address] [place] [address] Glomerular filtration rate/1.73 sq M.predicted 68 mL/min/1.73m*2 Normal >60 [facility] Comment on above: Result Comment: Calc ulations of estimated GFR are performed using the 2020 CKD-EPI Study Refit equation without the race variable for the IDMS-Traceable creatinine methods. https://jasn.asnjournals.org/content//ASN.05771490 88 Performed By: #### 2 4321-2 #### [employer]L [employer] ([id number]) [facility] [place] [place] [address] [place] [address] Glucose [Mass/Vol] 118 mg/dL High 74-99 [facility] Comment on above: Performed By: #### 2 4321-2 #### EARL NGO ([id number]) [facility] ([facility] [place] [address] [place] [address] Potassium [Moles/Vol] 4.7 mmol/L Normal 3.5-5.3 [facility] Comment on above: Performed By: #### 2 4321-2 #### E[employer]L [employer] ([id number]) [facility] ([facility] [place] [address] [place] [address] Sodium [Moles/Vol] 134 mmol/L Low 136-145 [facility] Comment on above: Performed By: #### 2 4321-2 #### EARL NGO ([id number]) [facility] ([facility] [place] [address] [place] [address] Urea nitrogen [Mass/Vol] 21 mg/dL Normal 6-23 [facility] Comment on above: Performed By: #### 2 4321-2 #### EARL NGO ([id number]) [facility] ([facility] [place] [address] [place] [address] Anion gap [Moles/Vol] 12 mmol/L 10 - 20 mmol/L [facility] Calcium [Mass/Vol] 8.9 mg/dL 8.6 - 10. 3 mg/dL [facility] Chloride [Moles/Vol] 102 mmol/L 98 - 107 mmol/L [facility] CO2 [Moles/Vol] 25 mmol/L 21 - 32 mmol/L [facility] Creatinine [Mass/Vol] 0.96 mg/dL 0.50 - 1.05 mg/dL [facility] GFR/1.73 sq M.predicted among non-blacks MDRD (S/P/Bld) [Vol rate/Area] 68 mL/min/{1.73_m2} - PINF [facility] Comment on above: Calculations of kristen mated GFR are performed using the 2020 CKD-EPI Study Refit equation without the race variable for the IDMS-Traceable creatinine methods. https://jasn.asnjournals.org/content//ASN.76039316 88 Glucose [Mass/Vol] 118 mg/dL High 74 - 99 mg/dL [facility] Interpretation and review of laboratory results Abnormal [facility] Potassium [Moles/Vol] 4.7 mmol/L 3.5 - 5.3 mmol/L [facility] Sodium [Moles/Vol] 134 mmol/L Low 136 - 145 mmol/L [facility] Urea nitrogen [Mass/Vol] 21 mg/dL 6 - 23 mg/dL [facility] CBC panel Auto (Bld)on 06-15 Erythrocyte distribution width (RBC) [Ratio] 13.6 % Normal 11.5-14.5 [facility] Comment on above: Performed By: #### 5 8410-2 #### EARL [employer] ([id number]) [facility] ([facility] [place] [address] [place] [address] Hematocrit (Bld) [Volume fraction] 29.8 % Low 36.0-46.0 [facility] Comment on above: Performed By: #### 5 8410-2 #### E[employer]L [employer] ([id number]) [facility] ([facility] [place] [address] [place] [address] Hemoglobin (Bld) [Mass/Vol] 9.1 g/dL Low 12.0-16.0 [facility] Comment on above: Performed By: #### 5 8410-2 #### EARL NGO ([id number]) [facility] ([facility] [place] [address] [place] [address] MCH (RBC) [Entitic mass] 28.1 pg Normal 26.0-34.0 [facility] Comment on above: Performed By: #### 5 8410-2 #### E[employer]L [employer] ([id number]) [facility] ([facility] [place] [address] [place] [address] MCHC (RBC) [Mass/Vol] 30.5 g/dL Low 32.0-36.0 [facility] Comment on above: Performed By: #### 5 8410-2 #### [employer]L [employer] ([id number]) [facility] ([facility] [place] [address] [place] [address] MCV (RBC) [Entitic vol] 92 fL Normal 80-100 [facility] Comment on above: Performed By: #### 5 8410-2 #### E[employer]L NGO ([id number]) [facility] ([facility] [place] [address] [place] [address] Nucleated RBC/100 WBC (Bld) [Ratio] 0.0 /100 WBCs Normal 0.0-0.0 [facility] Comment on above: Performed By: #### 5 8410-2 #### [employer]L [employer] ([id number]) [facility] ([facility] [place] [address] [place] [address] Platelets (Bld) [#/Vol] 311 x10*3/uL Normal 150-450 [facility] Comment on above: Performed By: #### 5 8410-2 #### EARL NGO ([id number]) [facility] ([facility] [place] [address] [place] [address] RBC (Bld) [#/Vol] 3.24 x10*6/uL Low 4.00-5.20 [facility] Comment on above: Performed By: #### 5 8410-2 #### EARL NGO ([id number]) [facility] ([facility] [place] [address] [place] [address] WBC (Bld) [#/Vol] 8.9 x10*3/uL Normal 4.4-11.3 [facility] Comment on above: Performed By: #### 5 8410-2 #### EARL NGO ([id number]) [facility] [place] [place] [address] [place] [address] Erythrocyte distribution width (RBC) [Ratio] 13.6 % 11.5 - 14.5 % [facility] Hematocrit (Bld) [Volume fraction] 29.8 % Low 36.0 - 46.0 % [facility] Hemoglobin (Bld) [Mass/Vol] 9.1 g/dL Low 12.0 - 16.0 g/dL [facility] Interpretation and review of laboratory results Abnormal [facility] MCH (RBC) [Entitic mass] 28.1 pg 26.0 - 34.0 pg [facility] MCHC (RBC) [Mass/Vol] 30.5 g/dL Low 32.0 - 36.0 g/dL [facility] MCV (RBC) [Entitic vol] 92 fL 80 - 100 fL [facility] Nucleated RBC/100 WBC (Bld) [Ratio] 0.0 % [facility] Platelets (Bld) [#/Vol] 311 10*3/uL [facility] RBC (Bld) [#/Vol] 3.24 10*6/uL Low [facility] WBC (Bld) [#/Vol] 8.9 10*3/uL [facility] ECG 12-LEADon 06-14-2023 ECG 12-LEAD Ventricular Rate 65 Atrial Rate 65 P-R Interval 188 QRS Duration 90 Q-T Interval 422 QTC Calculation(Bazett) 438 P [place] 47 R [place] 10 T [place] 38 QRS Count 11 Q Onset 218 P Onset 124 P Offset 184 T Offset 429 QTC Fredericia 433 Diagnosis Normal sinus rhythm Low voltage QRS in frontal leads Late transition Borderline ECG When compared with ECG of 22-MAY-2023 09:08, No significant change was found Confirmed by Agustin Nair ([id number]) on 06/18/2023 5:34:04 PM Normal [facility] XR HIP RIGHT WITH PELVIS WHE N PERFORMED 2 OR 3 VIEWSon 06-14-2023 XR HIP RIGHT WITH PELVIS WHEN PERFORMED 2 OR 3 VIEWS Interpreted By: Lei Alves, STUDY: XR HIP RIGHT WITH PELVIS WHEN PERFORMED 2 OR 3 VIEWS INDICATION: Signs/Symptoms:ap and cross table lateral s/p hip replacement, xrays in pacu. COMPARISON: None ACCESSION NUMBER(S): [id number] ORDERING CLINICIAN: TOMASZ OTERO FINDINGS: Right total hip arthroplasty without fracture or dislocation. Alignment normal. IMPRESSION: Satisfactory appearance status post right total hip arthroplasty. Signed by: Lei Alves 06/14/2023 11:04 AM Dictation workstation: [id number] [facility] Comment on above: Order Comment: ap an d cross table lateral s/p hip replacement, xrays in pacu XR Hip Viewson 06-14-2023 Satisfactory appearance status post right total hip arthroplasty. Signed by: Lei Alves 06/14/2023 11:04 AM Dictation workstation: [id number] MMODAL Interpreted By: Lei Alves, STUDY: XR HIP RIGHT WITH PELVIS WHEN PERFORMED 2 OR 3 VIEWS INDICATION: Signs/Symptoms:ap and cross table lateral s/p hip replacement, xrays in pacu. COMPARISON: None ACCESSION NUMBER(S): [id number] ORDERING CLINICIAN: TOMASZ OTERO FINDINGS: Right total hip arthroplasty without fracture or dislocation. Alignment normal. MMODAL Lei lAves MD - 06/14/2023 Interpreted By: Lei Alves, STUDY: XR HIP RIGHT WITH PELVIS WHEN PERFORMED 2 OR 3 VIEWS INDICATION: Signs/Symptoms:ap and cross table lateral s/p hip replacement, xrays in pacu. COMPARISON: None ACCESSION NUMBER(S): [id number] ORDERING CLINICIAN: TOMASZ OTERO FINDINGS: Right total hip arthroplasty without fracture or dislocation. Alignment normal. IMPRESSION: Satisfactory appearance status post right total hip arthroplasty. Signed by: Lei Alves 06/14/2023 11:04 AM Dictation workstation: [id number] [facility] Work Phone: Radiology Study observation (narrative) [facility] Work Phone: XR Hip ViewsOrdered By: Tonny Alves on 06-14-2023 [facility] Work Phone: CT HIP RIGHT WO IV CONTRASTo n 06-02-2023 CT HIP RIGHT WO IV CONTRAST These images are not reportable by radiology and will not be interpreted by Radiologists. [facility] Comment on above: Order Comment: Jamal protocol CT Hip - right WO contraston 06-02-2023 These images are not reportable by radiology and will not be interpreted by Radiologists. IMAGING ECG 12-LEADon 05-22-2023 ECG 12-LEAD Ventricular Rate 74 Atrial Rate 74 P-R Interval 174 QRS Duration 86 Q-T Interval 392 QTC Calculation(Bazett) 435 P [place] 45 R [place] 4 T [place] 27 QRS Count 12 Q Onset 220 P Onset 133 P Offset 191 T Offset 416 QTC Fredericia 420 Diagnosis Normal sinus rhythm Normal ECG No previous ECGs available Confirmed by Ambrose Griffith ([id number]) on 05/23/2023 7:11:15 AM Normal [facility] Staphylococcus aureus.methic illin resistant isolateon 05-22-2023 MRSA isol Org specific cx Ql (Nose) Test: Staphylococcus aureus/MRSA colonization, Culture Specimen Source: Nares/Axilla/Groin Specimen Type: Swab Specimen Date: 05/22/2023 9:40 AM Result Date: 05/24/2023 9:27 AM Result Status: Final result Abnormal: No Resulting Lab: [facility] [address] [place] [address] CULTURE No Staphylococcus aureus isolated Normal [facility] Comment on above: Performed By: #### 5 2969-3 #### LEANDRA Cameron ([id number]) [facility] ([facility]) [address] [place] [address] Lab Reportson 10-04-2022 Lab Reports [id number]:127 Normal [facility] XR HIP RT INJon 08-29-2022 XR HIP RT INJ EXAMINATION: XR HIP RT INJ HISTORY: Osteoarthritis COMPARISON: No relevant comparison available. TECHNIQUE: A joint injection was performed in the usual sterile manner after obtaining informed consent. Standard level fluoroscopic mode of operation utilized. FINDINGS: JOINT: Right hip. NEEDLE: 22 gauge, 3.5 spinal needle. MEDICATION: 2cc buffered 1% lidocaine for subcutaneous anesthesia 2cc Omnipaque-300 iodinated contrast to visualize the joint space Mixture of Kenalog 40 mg, 0.5% Bupivacaine 2 mL, and Omnipaque 300 4 mL was injected into the joint space. TECHNIQUE: Anterior approach with prior localization of the femoral artery. A single stick was successful in gaining access to the joint space. CLINICAL: Near complete resolution of hip pain following the injection (4/10 preinjection; 1/10 post injection). COMPLICATIONS: None. OTHER: Negative. IMPRESSION: 1. Successful therapeutic right hip injection. Electronically authenticated by: ANALISA HUBBARD Date: 2022-08-29 14:16 Normal [facility] CNOVon 08-12-2022 CNOV Office Visit (ORTHMN ) ITALIA COLLINS ([id number]) 1965 F Date Time Provider Department 08/12/22 8:00 AM LEONORA CURIEL During your visit today, we recorded the following information about you: Weight Height 121.6 kg 1.6 m Leonora Curiel MD 08/12/2022 10:03 AM Signed Subjective: [place] Collins is a 57 year old female. Patient was accompanied to the office by her . 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 She has been seen closer to home in [facility] and surgery was deferred secondary to her weight. She has had bariatric surgery in the past. Uses a rolling walker for ambulation. 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 Past Social History: Past Surgical History: No past surgical history on file. Past Medical History: Current Outpatient Medications Medication Sig zaleplon (SONATA) 10 mg capsule Take by mouth daily at bedtime. nabumetone (RELAFEN) 750 mg tablet Take 750 mg by mouth twice daily. spironolactone (ALDACTONE) 25 mg tablet Take 25 mg by mouth once daily. losartan (COZAAR) 50 mg tablet Take 50 mg by mouth once daily. cyclobenzaprine (FLEXERIL) 10 mg tablet Take by mouth three times daily. fentaNYL (DURAGESIC) 25 mcg/hr Apply 1 Patch as directed every 72 hours. levothyroxine (SYNTHROID) 200 mcg tablet Take 200 mcg by mouth daily before breakfast. liothyronine (CYTOMEL) 5 mcg tablet Take 10 mcg by mouth once daily. estrogens conjugated (PREMARIN) 0.625 mg tablet Take 0.625 mg by mouth once daily. QUEtiapine (SEROQUEL) 400 mg tablet Take 400 mg by mouth daily at bedtime. sertraline (ZOLOFT) 100 mg tablet Take 100 mg by mouth once daily. lamoTRIgine (LAMICTAL) 150 mg tablet Take 150 mg by mouth once daily. ALPRAZolam 0.25 mg dissolvable tablet Take 0.25 mg by mouth at bedtime as needed. terbinafine HCl (LAMISIL) 1 % cream Apply to affected area twice daily. No current facility-administered medications for this visit. Past Family History: No family history on file. Review Of Systems GENERAL:No weight loss, malaise or fevers HEENT:Negative for frequent or significant headaches, No changes in hearing or vision, no nose bleeds or other nasal problems NECK:Negative for lumps, goiter, pain and significant neck swelling RESPIRATORY: Negative for cough, hemoptysis, wheezing, COPD, dyspnea or shortness of breath CARDIOVASCULAR: Negative for chest pain, leg swelling, hypertension, CHF or palpitations GASTROINTESTINAL: No nausea, vomiting, or diarrhea GENITOURINARY: Patient has history of stage III CKD. GARNISHMENT SPECIALIST: Negative for abnormal vaginal bleeding, abnormal vaginal discharge MUSCULOSKELETAL: Negative for joint pain or swelling, back pain or muscle pain NEUROLOGIC:Negative for focal numbness or weakness, headaches and dizziness or syncope. SKIN:Negative for lesions, rash, and itching PSYCHIATRIC: Negative for sleep disturbance, mood disorder and recent psychosocial stressors. HEMATOLOGIC/LYMPHATIC /IMMUNOLOGIC:Negative for prolonged bleeding, bruising easily or swollen nodes ENDOCRINE: Negative for cold or heat intolerance, polyuria, polydipsia and goiter The remainder of the ROS was negative. Objective: Ht 160 cm (5' 3 ) Wt 121.6 kg (268 lb) BMI 47.47 kg/m? Physical Exam: Patient is a morbidly obese female no acute distress. She is able to rise from a chair on her own power. She walks across the room with an antalgic gait favoring the right hip. She has 2+ edema in both lower extremities. Motor and sensory intact in both feet. She has tenderness with internal rotation of the right hip. Right hip range of motion is 80 degrees of flexion 10 degree flexion contracture abduction of 20 degrees adduction of 10 degrees internal Tatian of 10 degrees and X rotation of 25 degrees. Imaging Studies: Plain x-rays demonstrate advanced him joint disease of the right hip. 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 She is less than an ideal surgical candidate secondary to her morbid obesity. She was counseled on the risks and complications related to excessive weight. Weight reduction to below 35 BMI was recommended. Will be on as-needed basis. Consultation with bariatrics was provided. MD NAI WuA Professor, Orthopaedic Surgery [facility] [employer] [employer] Referring Provider: JAKE MARKS JR [[id number]] Allergies As of Date: 08/12/2022 Noted Allergy Reaction MORPHINE 08/12/2022 8 - GI Upset Date Reviewed: 08/12/2022 Reviewed by: Leandra Sarah Ma - Fully Assessed Reason for Visit: Right Hip Pain [1554] Primary Visit Diagnosis:Class 2 severe obesity with serious comorbidity in adult, unspecified BMI, unspecified obesity type (HCC) [E66.01] Other Visit Diagnosis:Primary osteoarthritis of right hip [M16.11] Order(s):[facility] [[id number]] Order #: [id number]: 1 FUTURE P (more content not included)... Normal [facility] Covid-19 PCR (CVDTBH)on SARS-CoV-2 (COVID-19) RNA VERNON+probe Ql (Unsp spec) Detected Critically abnormal NOT DETECTED [facility] Comment on above: Result Comment: This test is not yet approved or cleared by the [place] FDA. When there are no FDA-approved or cleared tests available, and other criteria are met, FDA can make tests available under an emergency access mechanism called an Emergency Use Authorization (EUA). The EUA for this test is supported by the Cardiopulmonary Technician of Health and Human Service's (HHS's) declaration that circumstances exist to justify the emergency use of in vitro diagnostics for the detection and/or diagnosis of the virus that causes COVID-19. This EUA will remain in effect (meaning this test can be used) for the duration of the COVID-19 declaration justifying emergency of IVDs, unless it is terminated or revoked by FDA (after which the test may no longer be used). Performed By: #### [facility] #### [facility] [address] [place] [address] UROGRAMon 03-11-2022 CT UROGRAM EXAMINATION: CT UROGRAM 03/08/2022 10:10 am TECHNIQUE: CT of the abdomen and pelvis was performed before and after the administration of intravenous contrast as per CT urogram protocol. Multiplanar reformatted images as well as MIP urogram images are provided for review. Dose modulation, iterative reconstruction, and/or weight based adjustment of the mA/kV was utilized to reduce the radiation dose to as low as reasonably achievable. 3D reconstructed images were performed on a separate workstation and provided for review. COMPARISON: None HISTORY: ORDERING SYSTEM PROVIDED HISTORY: Microscopic hematuria FINDINGS: Lower Chest: Visualized portion of the lower chest demonstrates no acute abnormality. Kidneys and Urinary Tract: Unenhanced images demonstrate no evidence of renal or ureteral calculi. No urinary bladder calculus. Following the administration of IV contrast, there is symmetric and homogeneous enhancement of the renal parenchyma. No solid or cystic renal mass. There is bilateral renal excretion. No masslike filling defect in the renal collecting systems or opacified portions of the ureters. No abnormal urinary bladder wall thickening or evidence of intraluminal mass. Organs: The liver, spleen, pancreas, and adrenal glands are unremarkable. Gallbladder is surgically absent. GI/Bowel: There is evidence of previous gastric bypass surgery. There is no abnormal bowel distention or pericolonic inflammation. No free intraperitoneal air or fluid. Appendix is normal. Pelvis: Uterus is surgically absent. No pelvic lymphadenopathy. Peritoneum/Retroperit oneum: The abdominal aorta is normal in caliber. There is no retroperitoneal or mesenteric lymphadenopathy. Bones/Soft Tissues: There is laxity of the ventral abdominal wall with a broad-based ventral hernia in the anterior pelvic wall, which contains loops of nonobstructed small bowel. Multilobulated tiny fat containing ventral hernias are also noted above and below the umbilicus. IMPRESSION: 1. No urolithiasis or obstructive uropathy. No evidence of renal or urinary bladder mass. No CT urogram findings to explain the patient's reported hematuria. If there is persistent clinical concern, consider cystoscopy and/or retrograde urography. 2. Laxity of the ventral abdominal wall with multifocal ventral hernias. Interpreted by: Reshma Rodriguez DO Signed by: Reshma Rodriguez DO 03/11/22 Final result Normal [facility] BUN & Creatinineon 2 Creatinine [Mass/Vol] 0.94 mg/dL High 0.50 - 0.90 mg/dL [facility] GFR/1.73 sq M.predicted MDRD (S/P/Bld) [Vol rate/Area] - PINF [facility] Comment on above: Effective Feb 07, 2022 These results are not intended for use in patients <18 years of age. eGFR results are calculated without a race factor using the 2020 CKD-EPI equation. Careful clinical correlation is recommended, particularly when comparing to results calculated using previous equations. The CKD-EPI equation is less accurate in patients with extremes of muscle mass, extra-renal metabolism of creatine, excessive creatine ingestion, or following therapy that affects renal tubular secretion. Interpretation and review of laboratory results Abnormal [facility] Urea nitrogen (BldV) [Mass/Vol] 25 mg/dL High 6 - 20 mg/dL [facility] BUN + Creatinineon 2 Creatinine [Mass/Vol] 0.94 mg/dL High 0.50-0.90 [facility] Comment on above: Performed By: #### B UNCRT #### [facility] [address] [place] [address] [place] Head: Jamari Landry MD GFR/1.73 sq M.predicted among non-blacks MDRD (S/P/Bld) [Vol rate/Area] mL/min/{1.73_m2} Normal >60 [facility] Comment on above: Result Comment: Effective Feb 07, 2022 These results are not intended for use in patients <18 years of age. eGFR results are calculated without a race factor using the 2020 CKD-EPI equation. Careful clinical correlation is recommended, particularly when comparing to results calculated using previous equations. The CKD-EPI equation is less accurate in patients with extremes of muscle mass, extra-renal metabolism of creatine, excessive creatine ingestion, or following therapy that affects renal tubular secretion. Performed By: #### B UNCRT #### [facility] [address] [place] [address] [place] Head: Jamari Landry MD Urea nitrogen [Mass/Vol] 25 mg/dL High 6-20 [facility] Comment on above: Performed By: #### B UNCRT #### [facility] [address] [place] [address] [place] Head: Jamari Landry MD Cult,Urineon 02-26-2022 Cult,Urine Specimen Description .CLEAN CATCH URINE Culture NO SIGNIFICANT GROWTH Report Status FINAL 02/26/2022 Normal [facility] Comment on above: Performed By: #### U RC #### [facility] [address] [place], [place] [id number] Tem[place] Head: [place] MD [facility] [address] [place] [address] [place] Head: Jamari Landry MD Urinalysis w/ Microon 2021 Bacteria 2+ Abnormal NONE [facility] Comment on above: Performed By: #### U AMIC #### [facility] [address] [place] [address] [place] Head: Jamari Landry MD Epithelial cells LM Ql (Urine sed) 10 TO 20 Normal 0-25 [facility] Comment on above: Performed By: #### U AMIC #### [facility] [address] [place] [address] [place] Head: Jamari Landry MD Urine RBC's 5 TO 10 Normal 0-2 [facility] Comment on above: Performed By: #### U AMIC #### [facility] [address] [place] [address] [place] Head: Jamari Landry MD Urine WBC's GREATER THAN 100 Normal 0-5 [facility] Comment on above: Performed By: #### U AMIC #### [facility] [address] [place] [address] [place] Head: Jamari Landry MD Bilirubin, SemiQt,Ur Negative Normal NEG [facility] Comment on above: Performed By: #### U AMIC #### [facility] [address] [place] [address] [place] [address] [place] Head: Jamari Landry MD Blood, Urine 1+ Abnormal NEG [facility] Comment on above: Performed By: #### U AMIC #### [facility] [address] [place] [address] [place] [address] [place] Head: Jamari Landry MD Clarity (U) Cloudy Abnormal CLEAR [facility] Comment on above: Performed By: #### U AMIC #### [address] [place] [address] [place] Head: Jamari Landry MD Color (U) Yellow Normal YEL [facility] Comment on above: Performed By: #### U AMIC #### [facility] [address] [place] [address] Dr[place], [place] [id number] [place] Head: Jamari Landry MD Glucose Ql (U) Negative Normal NEG [facility] Comment on above: Performed By: #### U AMIC #### [address] [place] [address] [place] Head: Jamari Landry MD Ketones Ql (U) TRACE Abnormal NEG [facility] Comment on above: Performed By: #### U AMIC #### [facility] [address] [place] [address] Dr[place], [place] [id number] [place] Head: Jamari Landry MD Leukocyte esterase Test strip Ql (U) MODERATE Abnormal NEG [facility] Comment on above: Performed By: #### U AMIC #### [facility] [address] [place] [address] [place] [address] [place] Head: Jamari Landry MD Nitrite,Ur Negative Normal NEG [facility] Comment on above: Performed By: #### U AMIC #### [facility] [address] [place], [place] [id number] [place]: Jamari Landry MD PH,Ur 6.0 Normal 5.0-9.0 [facility] Comment on above: Performed By: #### U AMIC #### [facility] [address] [place], [place] [id number] [place] Head: Jamari Landry MD Protein Ql (U) Negative Normal NEG [facility] Comment on above: Performed By: #### U AMIC #### [facility] [address] [place], [place] [id number] [place] Head: Jamari aLndry MD Spec. Central,Ur >1.030 High 1.010-1.020 [facility] Comment on above: Performed By: #### U AMIC #### [facility] [address] [place], [place] [id number] [place] Head: Jamari Landry MD Urobilinogen,Ur Normal Normal NORM [facility] Comment on above: Performed By: #### U AMIC #### [facility] [address] [place], [place] [id number] [place] Head: Jamari Landry MD US Venous Reflux/Insuff, Esvin Loweron 11-23-2021 US Venous Reflux/Insuff, Esvin Lower RIGHT LEFT DIAMETER RELUX (msec) DIAMETER REFLUX 1.2 CFV1.5 1.1 SFV PROX.65 795 .61SFV MID.88 1522 .84SFV DIS1.09 0 .84SF JUNCTION.92 3064 .94POP1.11 0 .62 GSV PROX1.05 905 .46GSV MID.66 2395 .51GSV DIST.53 2576 .648497AZK KNEE.47 1284 .84067BHG CALF.55 1479 .36GSV ANKLE .33 1292 .11SP JUNCTION.30 0 .11SSV PROX.31 701 .06SSV DIST .23 0 IMPRESSION: Right reflux study: Minimal reflux right greater saphenous vein at the knee level. Left reflex study: Gross reflux throughout the greater saphenous vein and deep system. Resting ALEJANDRO: Normal (Above 0.96), Stenosis (Mild .71-.96), (Moderate .31-.7), (Severe .00-.31) Exercise ALEJANDRO: Normal: Increase or no change in ALEJANDRO Abnormal (Single Segment): Decrease in ALEJANDRO with Recovery within 2-6 minutes Abnormal (Multilevel Segment): Decrease in ALEJANDRO without Recovery after 10 minutes Report reported and signed by John Yanes on 11/23/2021 1210 Normal [facility] Digital Content Marketing Manager PAP ACOG PANEL 2: 30 to 65on 10-19-2021 . . Normal [facility] Comment on above: Result Comment: Perf ormed at: WB Performed By: #### [id number] #### [facility] [address] [address] [address] Marquise aH Age Gdln ACOG Testing 30-65 Normal [facility] Comment on above: Performed By: #### 4 [id number] #### [facility] [address] [address] [address] Marquise Ha DIAGNOSIS: Comment Normal [facility] Comment on above: Result Comment: NEGA TIVE FOR INTRAEPITHELIAL LESION OR MALIGNANCY. Performed at: WB Performed By: #### 4 [id number] #### [facility] [address] [address] [address] Marquise Ha HPV Aptima Negative Normal Negative [facility] Comment on above: Result Comment: This nucleic acid amplification test detects fourteen high-risk HPV types (16,18,31,33,35,39,45,51,52,56,58,59,66,68) without differentiation. Performed at: =G Performed By: #### 4 [id number] #### [facility] [address] [address] [address] Marquise Ha Methodology: Comment Normal [facility] Comment on above: Result Comment: This liquid based ThinPrep(R) pap test was screened with the use of an image guided system. Performed at: WB Performed By: #### 4 [id number] #### [facility] [address] [address] [address] Marquise Ha Note: Comment Normal [facility] Comment on above: Result Comment: The Pap smear is a screening test designed to aid in the detection of premalignant and malignant conditions of the uterine cervix. It is not a diagnostic procedure and should not be used as the sole means of detecting cervical cancer. Both false-positive and false-negative reports do occur. . Performed at: WB Performed By: #### [id number] #### [facility] [address] [address] [address] Marquise Ha Performed by: Comment Normal [facility] Comment on above: Result Comment: Lisandra De Los Santos, Cable Supervisor (ASCP) Performed at: WB Performed By: #### 4 [id number] #### [facility] [address] [address] [address] Marquise Ha Specimen adequacy: Comment Normal [facility] Comment on above: Result Comment: Sati sfactory for evaluation. No endocervical cells are present. This is consistent with a history of hysterectomy. Performed at: WB Performed By: #### 4 [id number] #### [facility] [address] [address] [address] 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 Maximum aortic diameter 1.6 cm, right common iliac 12 mm, left common iliac 10 mm. No significant arterial or venous stenosis. No thrombus within either Common iliac veins or IVC. Normal relationship and size of the bilateral common iliac arteries and veins. No significant compression or venous compromise from the neighboring iliac arteries. Both common iliac veins (approximately 1.0 cm) neighbor normal appearing, non tortuous and non aneurysmal common iliac arteries. IMPRESSION: 1. No significant extrinsic impression upon either common iliac vein. 2. No common iliac or IVC thrombus. 3. No aortic or iliac arterial aneurysm. Report reported and signed by John Yanes on 06/29/2021 1215 Normal [facility] Digital Content Marketing Manager Free T3on 06-14-2021 FT3 3.29 pg/mL Normal 2.00-4.40 [facility] Digital Content Marketing Manager Comment on above: Performed By: #### F T3, FT4 #### [facility] [address] [place], [place] [id number] Free T4on 06-14-2021 Free T4 [Mass/Vol] 1.22 ng/dL Normal 0.80-1.80 [facility] Comment on above: Performed By: #### F T3, FT4 #### [facility] [address] [place], [place] [id number] Q - T3 TOTALon 06-14-2021 T3, TOTAL 137 ng/dL Normal 76-181 [facility] Comment on above: Order Comment: [facility] Testing performed at: [facility], [facility], [address], [address] [place], [address], Metal Buildings Assembler: Spencer Aguero MD [facility] Date/Time: [facility] Results Received Date/Time: [facility] Reported Date/Time: Performed By: #### 8 [id number], [id number] #### [facility] Default [address] [place] [address] Q - T3,REVERSE,LC/MS/MSon T3 REVERSE, LC/MS/MS 14 ng/dL Normal 8-25 [facility] Specialist Comment on above: Order Comment: [facility] Testing performed at: [facility], [facility], [address], [place], [place], , Metal Buildings Assembler: Joao Langston M.D.,PhD [facility] Date/Time: [facility] Results Received Date/Time: [facility] Reported Date/Time: Result Comment: This test was developed and its analytical performance characteristics have been determined by [employer] [place], [place]. It has not been cleared or approved by the U.S. Food and Drug Administration. This assay has been validated pursuant to the CLIA regulations and is used for clinical purposes. Performed By: #### 8 59X, [id number] #### [facility] [address] [place] [address] US Venous, Bilateral, Lower Stout 05-06-2021 US Venous, Bilateral, Lower Ext ASK VEDA WHAT VEINS ARE REFLUXING DON'T SEND OUT HISTORY: Varicose veins FINDINGS: The deep venous system of both lower extremities exhibits full compressibility and normal flow augmentation. These specifically include bilateral common femoral, superficial femoral, and popliteal veins. No evidence of deep venous thrombosis is present. Bilateral reflux identified, both greater and lesser saphenous veins, greater on the left. No cystic or soft tissue mass in the popliteal fossa. IMPRESSION: 1. Bilateral venous insufficiency of both greater and lesser saphenous veins, greater on the left. 2. No deep venous thrombosis. Report reported and signed by John Yanes on 05/10/2021 0852 Normal [facility] Digital Content Marketing Manager Vital Signs Date Time Vital Sign Value Performing Clinician Facility 06-15-2023 16:00-0500 Body temperature 97.9 [degF] Tomasz Otero MD Work Phone: [facility] 06-15-2023 16:00-0500 Diastolic blood pressure 56 mm[Hg] Tomasz Otero MD Work Phone: [facility] 06-15-2023 16:00-0500 Heart rate 85 /min Tomasz Otero MD Work Phone: [facility] 06-15-2023 16:00-0500 Respiratory rate 15 /min Tomasz Otero MD Work Phone: [facility] 06-15-2023 16:00-0500 SaO2% (BldA) [Mass fraction] 97 % Tomasz Otero MD Work Phone: [facility] 06-15-2023 16:00-0500 Systolic blood pressure 118 mm[Hg] Tomasz Otero MD Work Phone: [facility] 06-14-2023 06:44-0500 Body height 160 cm Tomasz Otero MD Work Phone: [facility] 06-14-2023 06:44-0500 Body mass index (BMI) [Ratio] 39.68 kg/m2 Tomasz Otero MD Work Phone: [facility] 06-14-2023 06:44-0500 Body weight 101.61 kg Tomasz Otero MD Work Phone: [facility] 08-12-2022 08:31-0400 Body height 160 cm Leonora Curiel MD Work Phone: [facility] 08-12-2022 08:31-0400 Body weight 121.56 kg Leonora Curiel MD Work Phone: [facility] 02-17-2021 10:50-0400 Body height 160.02 cm Tete Heather Other [facility] Other 02-17-2021 10:50-0400 Body mass index (BMI) [Ratio] 46.94 kg/m2 Tete Heather Other [facility] Other 02-17-2021 10:50-0400 Body temperature 96.8 [degF] Tete Heather Other [facility] Other 02-17-2021 10:50-0400 Body weight 120.2 kg Tete Heather Other [facility] Other 02-17-2021 10:50-0400 Diastolic blood pressure 61 mm[Hg] Tete Heather Other [facility] Other 02-17-2021 10:50-0400 Respiratory rate 18 /min Tete Heather Other [facility] Other 02-17-2021 10:50-0400 SaO2% (BldA) [Mass fraction] 99 % Tete Romero Other [facility] Other 02-17-2021 10:50-0400 Systolic blood pressure 125 mm[Hg] Tete Romero Other [facility] Other Encounters Encounter Date Encounter Type Care Provider Facility Start: 08-21-2023 End: 08-21-2023 ambulatory PROSPER ZENDEJAS Not Available Start: 08-15-2023 End: 08-15-2023 ambulatory SHLOMO VAIL Not Available Start: 08-08-2023 End: 08-08-2023 ambulatory PROSPER ZENDEJAS Not Available Start: 08-01-2023 End: 08-01-2023 ambulatory PROSPER ZENDEJAS Not Available Start: 06-15-2023 Clinisync Result Encounter Generic External Data Provider [facility] External Department Unsolicited Start: 06-15-2023 Clinisync Result Encounter Generic External Data Provider [facility] External Department Unsolicited Start: 06-14-2023 End: 06-15-2023 ambulatory [facility] Start: 06-14-2023 End: 06-15-2023 Subsequent hospital visit by physician Tomasz Otero MD Work Phone: [facility] 4 Observation Comment on above: S/P total right hip arthroplasty (Primary Dx); History of total hip replacement, right Start: 06-13-2023 Refill Prosper garcía MD Work Phone: [facility] Start: 06-12-2023 End: 06-12-2023 ambulatory SHENA Siria LICONA Not Available Start: 06-06-2023 End: 06-06-2023 ambulatory PROSPER ZENDEJAS Not Available Start: 06-02-2023 End: 06-03-2023 ambulatory [facility] Start: 06-02-2023 End: 06-02-2023 Subsequent hospital visit by physician [address] 1 [facility] Comment on above: Unilateral primary o steoarthritis, right hip Start: 05-22-2023 End: 05-23-2023 ambulatory [facility] Start: 05-22-2023 End: 05-23-2023 Encounter for other preprocedural examination [facility] Start: 05-11-2023 End: 05-11-2023 ambulatory PROSPER ZENDEJAS Not Available Start: 09-29-2022 ambulatory Facility:[facility] Start: 08-29-2022 End: 08-29-[address] JAKE MARKS Facility:[facility] Start: 08-12-2022 End: 08-12-2022 ambulatory LEONORA CURIEL Facility:[facility] Start: 08-12-2022 End: 08-12-2022 Patient encounter procedure Leonora Curiel MD Work Phone: Orthopaedics Comment on above: Class 2 severe obesi ty with serious comorbidity in adult, unspecified BMI, unspecified obesity type (HCC) (Primary Dx); Primary osteoarthritis of right hip Start: 04-11-2022 End: 04-11-[address] PROSPER ZENDEJAS . Facility:[facility] Start: 03-08-2022 End: 03-11-2022 ambulatory [facility]ODG[facility] Start: 03-08-2022 End: 03-10-2022 Subsequent hospital visit by physician [facility] Scan Room [facility] Laboratory Comment on above: Microscopic hematuri a Start: 02-25-2022 End: 02-26-2022 ambulatory [facility] Start: 01-06-[address] PROSPER ZENDEJAS . Fac ility:[facility] Start: 10-15-2021 End: 10-15-[address] PROSPER ZENDEJAS . Facility:[facility] Start: 09-06-2021 End: 09-06-2021 Lab Drop off [facility] Start: 06-24-2021 End: 10-13-2021 Recurring [facility] Start: 02-17-2021 Office outpatient ne w 20 minutes Tete Romero [facility] Procedures Date Procedure Procedure Detail Performing Clinician Start: 06-15-2023 DISCHARGE PATIENT FAUSTINO OTERO Start: 06-15-2023 Basic metabolic 2000 panel - Serum or Plasma TOMASZ OTERO Start: 06-15-2023 CBC panel - Blood by Automated count TOMASZ OTERO Start: 06-15-2023 ALL CBC WITH AUTO DIFF Generic External Data Provider Start: 06-15-2023 Basic metabolic pane l calcium total Jenifer M Barmasse PA-C Work Phone: Start: 06-14-2023 FOLLOW-UP EDUCATION ORDER TOMASZ OTERO Start: 06-14-2023 INITIATE EXTENDED RECOVERY TOMASZ OTERO Start: 06-14-2023 INITIATE OBSERVATION STATUS TOMASZ OTERO Start: 06-14-2023 ECG 12-LEAD TOMASZ APPLE Start: 06-14-2023 XR HIP RIGHT WITH PE LVIS WHEN PERFORMED 2 OR 3 VIEWS TOMASZ OTERO Start: 06-14-2023 PULSE OXIMETRY, CONTINUOUS TOMASZ OTERO Start: 06-14-2023 Ecg routine ecg w/le ast 12 lds trcg only w/o i&r Jenifer Paulino PA-C Work Phone: Start: 06-14-2023 Radex hip unilateral with pelvis 2-3 views Tomasz Otero MD Work Phone: Start: 06-14-2023 PULSE OXIMETRY, CONTINUOUS Liv Hammond MD Work Phone: Start: 06-14-2023 FULL CODE TOMASZ GAN ZECHARIAH Start: 06-14-2023 PULSE OXIMETRY, SPOT WI TISHA OTERO Start: 06-14-2023 PLACE IN OUTPATIENT/HOSPITAL AMBULATORY SURGERY TOMASZ OTERO Start: 06-14-2023 End: 06-14-2023 Arthrp acetblr/prox fem prostc agrft/algrft Tomasz Otero MD Work Phone: Start: 06-14-2023 PULSE OXIMETRY, SPOT Wi tisha Otero MD Work Phone: Start: 06-02-2023 CT HIP RIGHT WO IV CONTRAST TOMASZ OTERO Start: 06-02-2023 Ct lower extremity w /o contrast material Tomasz Otero MD Work Phone: Start: 05-22-2023 STAPHYLOCOCCUS AUREU S/MRSA COLONIZATION, CULTURE TOMASZ OTERO Start: 05-22-2023 ECG 12-LEAD TOMASZ APPLE Start: 03-08-2022 Assay of urea nitrog en quantitative Carl Rodgers MACHINE SCALLOP CUTTER - TRIM SETTER HELPER Work Phone: Start: 10-15-2021 Microscopic observat ion [Identifier] in Cervix by Cyto stain Prosper Zendejas MD Work Phone: Start: 10-10-2017 Mammography Prosper alexandra MD Work Phone: Start: 09-16-2013 Colonoscopy Prosper alexandra MD Work Phone: Plan of Treatment Date Care Activity Detail Author Start: 10-15-2026 Screening for malign ant neoplasm of cervix [facility] Start: 10-15-2024 Screening for malign ant neoplasm of cervix Pap smear [facility] Start: 09-17-2023 Screening for malign ant neoplasm of colon [facility] Start: 09-11-2023 End: 09-11-2023 Patient encounter procedure 09/11/2023 1:00 PM EDT Office Visit [facility] [address] [address] Shena Licona, MACHINE SCALL[employer] [facility] [address] [address] [facility] Start: 08-08-2023 End: 08-08-2023 Patient encounter procedure 08/08/2023 10:00 AM EDT Office Visit [facility] [address] [place] [address] Prosper Zendejas MD [address] [place] [address] (Fax) [facility] Start: 06-14-2023 End: 06-14-2023 Admission to same day surgery center 06/14/2023 1:45 PM EST - 06/14/2023 5:00 PM EST [place] [facility] [place] [address] [place] [address] [place] [address] [place] [address] Right posterior total hip replacement with Jamal [91137 (CPT )] [facility] [place] Comment on above: Right posterior tota l hip replacement with Jamal [63010 (CPT )] Start: 06-14-2023 End: 06-14-2023 Arthrp acetblr/prox fem prostc agrft/algrft Arthroplasty Total Hip Posterior Approach Unilateral primary osteoarthritis, right hip 06/14/2023 1:45 PM EST [facility] Start: 06-14-2023 Subsequent hospital visit by physician 06/14/2023 12:15 PM EST Hospital Encounter [facility] [place] [address] [place] [address] [place] [address] [place] [address] [facility] [place] Start: 01-06-2023 Influenza vaccination C [facility] Start: 05-08-2022 DEPRESSION ASSESSMENT DEPRESSION ASS ESSMENT [facility] Start: 03-10-2022 End: 03-10-2022 Patient encounter procedure 03/10/2022 Procedure visit Urology [facility] UROLOGY Part [facility] Start: 12-06-2021 Influenza vaccination Flu vaccine (# 1) [facility] Start: 10-10-2018 Screening for malign ant neoplasm of breast Mammogram [facility] Start: 02-03-2014 Screening for malign ant neoplasm of breast Breast cancer screen [facility] Start: 02-03-2014 Shingles vaccine (1 of 2) Shingles vaccine (1 of 2) [facility] Start: 02-03-2014 SHINGRIX VACCINE (1 of 2) SHINGRIX VACCINE (1 of 2) [facility] Start: 02-03-2014 Zoster Vaccines (1 of 2) Zoste r Vaccines (1 of 2) [facility] Start: 07-24-2009 MMR Vaccines (1 of 1 - Standard series) MMR Vaccines (1 of 1 - Standard series) [facility] Start: 02-03-2009 COLOGUARD (FIT-DNA) COLOGUARD (FIT-D NA) [facility] Start: 02-03-2009 Colonoscopy COLONOSCOPY [facility] Start: 02-03-2009 COLORECTAL CANCER SCREENING COLORECTAL CANCER SCREENING [facility] Start: 02-03-[address] COLONOGRAPHY [facility] Start: 02-03-2009 DIABETES SCREEN DIABETES SCREEN [facility] Start: 02-03-2009 FECAL OCCULT BLOOD FECAL OCCULT BLOO D [facility] Start: 02-03-2009 LIPID SCREEN LIPID SCREEN [facility] Start: 02-03-2009 Screening for malign ant neoplasm of colon [facility] Start: 02-03-2009 SIGMOIDOSCOPY SIGMOIDOSCOPY [facility] Start: 2004 Lipid panel Lipids [facility] Start: 2004 Mammography MAMMOGRAM [facility] Start: 2004 Screening for malign ant neoplasm of breast Mammogram [facility] Start: 02-03-1999 Diabetes screen Diabetes screen [facility] Start: 02-03-1994 HPV TESTING HPV TESTING [facility] Start: 02-03-1986 DTaP/Tdap/Td Vaccine s (1 - Tdap) DTaP/Tdap/Td Vaccines (1 - Tdap) [facility] Start: 02-03-1985 PAP TESTING PAP TESTING [facility] Start: 02-03-1985 Screening for malign ant neoplasm of cervix [facility] Start: 02-03-1983 DTaP/Tdap/Td vaccine (1 - Tdap) DTaP/Tdap/Td vaccine (1 - Tdap) [facility] Start: 02-03-1983 Urine microalbumin profile DTAP,TDAP,TD (1 - Tdap) [facility] Start: 02-03-1982 Diabetes mellitus screening Diabetes Screening [facility] Start: 02-03-1982 Hepatitis C screening B ON [facility] Start: 02-03-1982 HEPATITIS C SCREENING HEPATITIS C SC REENING [facility] Start: 02-03-1982 HIV SCREENING HIV SCREENING [facility] Start: 02-03-1979 HIV screening HIV screen [facility] Start: 1976 Depression Screen Depression Screen [facility] Start: 1964 COVID-19 Vaccine (#1) COVID-19 Vacci ne (#1) [facility] Start: 1964 HEPATITIS B (1 of 3 - 3-dose series) HEPATITIS B (1 of 3 - 3-dose series) [facility] Start: 1964 Hepatitis B Vaccines (1 of 3 - 3-dose series) Hepatitis B Vaccines (1 of 3 - 3-dose series) [facility] Start: 1964 HIV screening HIV Screening [facility] Start: 1964 Lipid panel Lipid Panel [facility] Start: 1964 Screening for malign ant neoplasm of colon [facility] Start: 1964 Thyroid stimulating hormone measurement TSH Level [facility] Start: 1964 Yearly Adult Physical Yearly Adult P hysical [facility] End: 03-08-2022 CT UROGRAM [facility] Work Phone: Comment on above: 1 Occurrences starti ng 03/08/2022 until 03/08/2022 ECG 12 Lead ECG 12 Lead ECG STAT 06/14/2023 11:55 AM EST [facility] Work Phone: Electrocardiogram, 12-lead PRN ACS symptoms Electrocardiogram, 12-lead PRN ACS symptoms ECG Routine As needed until discontinued starting 06/14/2023 [facility] Work Phone: Comment on above: As needed until disc ontinued starting 06/14/2023 End: 06-14-2023 Incentive spirometry Instruct Incentive spirometry Instruct Respiratory Care Routine Once for 1 Occurrences starting 06/14/2023 until 06/14/2023 [facility] Service Area Work Phone: Comment on above: Once for 1 Occurrenc es starting 06/14/2023 until 06/14/2023 [facility] Immunizations Immunization Date Immunization Notes Care Provider Fa [facility] 02-07-2020 influenza, high dose seasonal, preservative-free Prosper Zendejas MD Work Phone: [facility] 02-07-2020 influenza, injectabl e, quadrivalent, preservative free Prosper Zendejas MD Work Phone: [facility] 02-07-2020 influenza virus vaccine, unspecified formulation Stj 1 [facility] Work Phone: 01-29-2019 influenza, injectabl e, quadrivalent, preservative free Prosper Zendejas MD Work Phone: [facility] 12-29-2017 influenza, injectabl e, quadrivalent, preservative free Prosper Zendejas MD Work Phone: [facility] 12-29-2017 influenza, seasonal, injectable Prosper Zendejas MD Work Phone: [facility] 02-05-2016 influenza, seasonal, injectable, preservative free Prosper Zendejas MD Work Phone: [facility] 02-18-2015 influenza, seasonal, injectable Prosper Zendejas MD Work Phone: [facility] 02-18-2015 influenza, seasonal, injectable, preservative free Prosper Zendejas MD Work Phone: [facility] 01-12-2015 influenza, injectabl e, quadrivalent, preservative free Prosper Zendejas MD Work Phone: [facility] 10-13-2014 Toradol per 15 mg Tete Dym ond Other [employer] Other 06-26-2009 novel [id number], preservative-free, injectable Prosper Zendejas MD Work Phone: [facility] Payers Date Payer Category Payer Unknown [id number] 2021 Unknown [employer] 2021-Present [phone] [address] [place] [address] [employer] [id number] 2021 Unknown [employer] 2013 Unknown [id number] 1964 Unknown [id number] 1964 Unknown [id number] [id number] 1964 Unknown [id number] [id number] 1964 Unknown [id number] 2.16.840.1.332602.3.579.2.593 1964 Unknown [id number] 2.16.840.1.394205.3.579.2.593 1964 Unknown [id number] 2.16.840.1.755429.3.579.2.593 1964 Unknown [id number] 2.16.840.1.103935.3.579.2.593 1964 Unknown [id number] 2.16.840.1.508911.3.579.2.727 1964 Unknown [id number] 2.16.840.1.216243.3.579.2.124 3 1964 Unknown [id number] 2.16.840.1.586435.3.579.2.124 3 1964 Unknown [id number] 2.16.840.1.601236.3.579.2.124 3 1964 Unknown [id number] 2.16.840.1.083460.3.579.2.125 9 1964 Unknown [id number] 2.16.840.1.190391.3.579.2.125 9 1964 Unknown [id number] 2.16.840.1.720480.3.579.2.125 9 1964 Unknown [id number] 2.16.840.1.539598.3.579.2.125 9 1964 Unknown [id number] 2.16.840.1.216549.3.579.2.125 9 1964 Unknown [id number] 2.16.840.1.308902.3.579.2.125 9 1964 Unknown [id number] 2.16.840.1.774470.3.579.2.125 9 1959 Unknown [id number] [id number] 1959 Unknown [id number] [id number] 1959 Unknown [id number] Social History Date Type Detail Facility Tobacco smoking status [employer] Other Start: 10-25-2022 End: 05-22-2023 Sex Assigned At Female [facility] [employer] Other Start: 02-25-2022 End: 05-10-2023 Tobacco smoking status MAIS Ex-smoker [employer] Phone: End: 05-08-2002 History of tobacco use Current smoker [employer] Phone: End: 05-08-2002 History of tobacco use Cigarette Smoker [employer] Phone: Start: 02-25-2022 End: 05-10-2023 Tobacco use and exposure Smokeless tobacco non-user [employer] Phone: Start: 02-25-2022 End: 03-10-2022 Alcohol intake Current drinker of alcohol (finding) [employer] Phone: Start: 02-25-2022 Alcohol Comment rare [employer] Phone: Start: 1965 Sex Assigned At Not on file B ON [employer] Phone: Tobacco smoking status [facility] Tobacco smoking consumption unknown [facility] Start: 1965 Sex Assigned At Female C [facility] History of tobacco use Passive smoker [facility] Work Phone: Start: 05-22-2023 End: 06-14-2023 Alcohol intake Lifetime non-drinker (finding) [facility] Work Phone: Start: 10-25-2022 End: 05-22-2023 History of Social function [facility] Start: 09-25-2022 Gender identity Identifies as female gender (finding) [facility] Work Phone: Start: 05-23-2023 End: 06-14-2023 Exposure to SARS-CoV-2 (event) Not sure [facility] Has the electric, gas, oil, or water company threatened to shut off services in your home in past 12Mo Patient declined [facility] How often to you hav e a drink containing alcohol? Never [facility] Start: 06-12-2023 Alcohol intake Ex-drinker (finding) [facility] Within the last year , have you been afraid of your partner or ex-partner? No [facility] Are you now , , , , never or living with a partner? [facility] How often to you hav e a drink containing alcohol? Monthly or less [facility] How many standard drinks containing alcohol do you have on a typical day? 1 or 2 [facility] Do you feel stress - tense, restless, nervous, or anxious, or unable to sleep at night because your mind is troubled all the time - these days [OSQ] Only a little [facility] (I/We) worried whether (my/our) food would run out before (I/we) got money to buy more. Never true [facility] Start: 05-10-2023 Tobacco Comment Last smoked : > 10 years [facility] Start: 05-10-2023 Alcohol Comment Caffeine intak e: 2-3 cups weekly [facility] Start: 09-25-2022 Sexual orientation Heterosexual (jose slater) [facility] NEGATED: Highlighted rowStart: AMANDAF History of tobacco use Passive smoker [facility] [employer] Work Phone: Medical Equipment Procedure Code Equipment Code Equipment Origin al Text Equipment Identifier Dates Insignia Hip Mark Anthony m, High Offset. [id number])N/A, [id number] [facility] Start: 06-14-2023 Shell, Trident I i, Tritanium, Clusterhole, 48d - Sn/A - [id number] [id number]()N/A, [id number] FDA Start: 06-14-2023 Liner, Cocr, Mdm , 38mm D - Sn/A - [id number] Start: 06-14-2023 Head, Femur V40 22.2/+1 Cocr Lfit - Sn/A - [id number] [id number] ()N/A, [id number] FDA Start: 06-14-2023 Insert, Mdm X3 Confucianist, 38od 22id X 7.7mm - Sn/A - [id number] ()N/A, [id number] FDA Start: 06-14-2023 Screw, Low Profi le Hex, 6.5 X 25 Mm - Sn/A - [id number] Start: 06-14-2023 4mm X 170mm Stry ker Pin Bone (Formerly Mfr'D By Jamal) [id number] Start: 06-14-2023 Clinical Notes 02-17-2021 to 06-15-2023 Brandt Landa LPN - 06/15/2023 5:20 PM Mariann Landa LPN - 06/15/2023 5:20 PM Jose Ramirez - 06/15/2023 3:44 PM Rubi Chacko OT - 06/15/2023 1:40 PM ESTDischarge Instructions Note Date & Type Note Facility 06-15-2023 Nurse Note Pt discharge teaching completed. Pt & pt's voiced understanding. IV removed, Pt medicated with a pain pill before she left Home care info has been sent over to [facility] Pt waiting for a wheelchair to head down to the car Bp 118/56 Hr 85 17:50 Pt heading down to the car in the wheelchair [facility] 02-08-2024 Nurse Note Pt discharge teaching completed. Pt & pt's voiced understanding. IV removed, Pt medicated with a pain pill before she left Home care info has been sent over to [facility] Pt waiting for a wheelchair to head down to the car Bp 118/56 Hr 85 17:50 Pt heading down to the car in the wheelchair documented in this encounter [facility] Work Phone: 06-15-2023 History of Presen t illness Narrative Spiritual Care Visit Clinical Encounter Type Visited With: Patient and family together Routine Visit: Introduction Continue Visiting: No Taxonomy Intended Effects: Preserve dignity and respect, Promote sense of peace Methods: Offer spiritual/taoism support Interventions: Share words of hope and inspiration, [place] Patient was with her . Patient is a Religious. Shut Off Worker provided companionship and validation. Shut Off Worker was a supportive presence. Occupational Therapy Evaluation Patient Name: Italia Collins Today's Date: 06/15/2023 Time Calculation Start Time: 938 Stop Time: 1000 Time Calculation (min): 21 min Eval only Assessment IP OT Assessment Prognosis: Good End of Session Communication: Bedside nurse End of Session Patient Position: Up in chair, Alarm on Patient presents with decline in ADLs, functional transfers, functional mobility and would benefit from OT during acute stay to improve functional independence and safety. Recommend low intensity OT to maximize functional independence and safety. Plan: Treatment Interventions: ADL retraining, Functional transfer training, Patient/family training, Equipment evaluation/education, Compensatory technique education OT Frequency: Daily OT Discharge Recommendations: Low intensity level of continued care Equipment Recommended upon Discharge: Wheeled walker (shower chair, security researcher, sock aide, LH shoe horn) OT - OK to Discharge: Yes from acute care OT services to the next level of care when cleared by medical team Subjective Current Problem: 1. S/P total right hip arthroplasty acetaminophen (Tylenol) 500 mg tablet aspirin 81 mg EC tablet cephalexin (Keflex) 500 mg capsule docusate sodium (Colace) 100 mg capsule meloxicam (Mobic) 15 mg tablet omeprazole (PriLOSEC) [address] capsule ondansetron ODT (Zofran-ODT) 4 mg disintegrating tablet oxyCODONE (Roxicodone) 5 mg immediate release tablet General: General Reason for Referral: recent surgery, right posterior DONALDO Referred By: Tomasz Otero MD Past Medical History Relevant to Rehab: Admitted 06/14/2023 after having right posterior THR completed by Dr Otero. Family/Caregiver Present: Yes (spouse) Co-Treatment: PT Co-Treatment Reason: for safety Patient Position Received: Up in chair, Alarm on Preferred Learning Style: verbal General Comment: Patient seated in bedside chair and agreeable to participate in OT evaluation. Precautions: LE Weight Bearing Status: Weight Bearing as Tolerated (right LE) Medical Precautions: Fall precautions Post-Surgical Precautions: Right hip precautions Pain: Pain Assessment Pain Assessment: 0-10 Pain Score: 5 - Moderate pain Pain Type: Surgical pain Pain Location: Hip Pain Orientation: Right Pain Interventions: Rest Objective Cognition: Overall Cognitive Status: Within Functional Limits Home Living: Home Living Comments: Pateint lives at home with spouse with 2 MARK ANTHONY with no railing. Has WIS with shower chair. Prior Function: Prior Function Comments: Was independent with all ADLs. Spouse manages IADLs. Owns cane and WW. ADL: LE Dressing Assistance: Moderate (security researcher) ADL Comments: Educated patient on safety with lower body dressing and use of AE for lower body dressing and patient verbalized understanding. Activity Tolerance: Endurance: Decreased tolerance for upright activites Transfers: CGA sit <>stand with min verbal cues for proper hand placement and technique. Patient reported feeling dizzy on initial stand but symptoms resolved after standing a couple minutes.CGA with WW functional mobility task. Educated patient on safety with car transfers and patient verbalized understanding. Patient reports owning security researcher and sock aide at home from previous spine surgery. Reports will have family to assist as needed. Extremities: RUE RUE : Within Functional Limits and LUE LUE: Within Functional Limits Outcome Measures: [facility] Daily Activity Putting on and taking off regular lower body clothing: A little Bathing (including washing, rinsing, drying): A little Putting on and taking off regular upper body clothing: A little Toileting, which includes using toilet, bedpan or urinal: A little Taking care of personal grooming such as brushing teeth: A little Eating Meals: None Daily Activity - Total Score: 19 EDUCATION: Education Individual(s) Educated: Patient Education Provided: Fall precautons (safety and comp strategies with lower body dressing, safety with car transfers) Patient Response to Education: Patient/Caregiver Verbalized Understanding of Information Goals: Encounter Problems Encounter Problems (Active) Balance STG-Patient will be independent with assistive device dynamic stand task >5 minutes for ADL completion (Progressing) Start: 06/15/23 Expected End: 06/29/23 Dressings Lower Extremities STG - Patient will complete lower body dressing independently with AE and comp strategies (Progressing) Start: 06/15/23 Expected End: 06/29/23 Mobility STG-Patient will be independent with assistive device functional mobility tasks (Progressing) Start: 06/15/23 Expected End: 06/29/23 Transfers STG - Patient will perform car transfers independently demonstrating good safety (Progressing) Start: 06/15/23 Expected End: 06/29/23 STG-Patient will be independent with functional transfers demonstrating good safety (Progressing) Start: 06/15/23 Expected End: 06/29/23 Physical Therapy Physical Therapy Physical Therapy Treatment Patient Name: Italia Collins Today's Date: 06/15/2023 Time Calculation Start Time: 1204 Stop Time: 1244 Time Calculation (min): 40 min 06/15/23 1204 PT Visit PT Received On 06/15/23 General Reason for Referral R DONALDO Prior to Session Communication Bedside nurse Patient Position Received Up in chair General Comment Pt agreeable to therapy and cleared for participation Precautions LE Weight Bearing Status Weight Bearing as Tolerated Medical Precautions Fall precautions Post-Surgical Precautions Right hip precautions Pain Assessment Pain Score 6 Pain Type Surgical pain Pain Location Hip Pain Orientation Right Cognition Overall Cognitive Status WFL Therapeutic Exercise Therapeutic Exercise Performed Yes Therapeutic Exercise Activity 1 GS/QS/AP x10 Ambulation/Gait Training Ambulation/Gait Training Performed Yes Ambulation/Gait Training 1 Surface 1 Level tile Device 1 Rolling walker Gait Support Devices Gait belt Assistance 1 Contact guard Quality of Gait 1 Diminished heel strike;Inconsistent stride length;Decreased step length;Antalgic Comments/Distance (ft) 1 60'x1- step to gait pattern, multiple standing rest breaks with cues to breathe. Increased time and effort to complete Transfers Transfer Yes Transfer 1 Transfer From 1 Sit to Transfer to 1 Stand Technique 1 Sit to stand;Stand to sit Transfer Device 1 Walker;Gait belt Transfer Level of Assistance 1 Close supervision Trials/Comments 1 x6 with cues for hand placement and sequencing Stairs Stairs Yes Stairs Device 1 Single point cane Support Devices 1 Gait belt Assistance 1 Minimum assistance;Moderate assistance Comment/Number of Steps 1 2x 3- min/modAx1 mod cues for sequencing and safety, good follow through. seated rest break between trials Activity Tolerance Endurance Tolerates 10 - 20 min exercise with multiple rests PT Assessment End of Session Communication Bedside nurse Assessment Comment Pt requires increased time and effort for all activities. Cues for pursed lip breathing. Good safety awareness. End of Session Patient Position Up in chair Outcome Measures: [facility] Basic Mobility Turning from your back to your side while in a flat bed without using bedrails: A little Moving from lying on your back to sitting on the side of a flat bed without using bedrails: A little Moving to and from bed to chair (including a wheelchair): A little Standing up from a chair using your arms (e.g. wheelchair or bedside chair): A little To walk in hospital room: A little Climbing 3-5 steps with railing: A lot Basic Mobility - Total Score: 17 EDUCATION: Education Documentation Precautions, taught by Kendra Aguilera PTA at 06/15/2023 1:00 PM. Learner: Family, Patient Readiness: Acceptance Method: Explanation, Demonstration Response: Verbalizes Understanding, Demonstrated Understanding Body Mechanics, taught by Kendra Aguilera PTA at 06/15/2023 1:00 PM. Learner: Family, Patient Readiness: Acceptance Method: Explanation, Demonstration Response: Verbalizes Understanding, Demonstrated Understanding Home Exercise Program, taught by Kendra Aguilera PTA at 06/15/2023 1:00 PM. Learner: Family, Patient Readiness: Acceptance Method: Explanation, Demonstration Response: Verbalizes Understanding, Demonstrated Understanding Mobility Training, taught by Kendra Aguilera PTA at 06/15/2023 1:00 PM. Learner: Family, Patient Readiness: Acceptance Method: Explanation, Demonstration Response: Verbalizes Understanding, Demonstrated Understanding Education Comments No comments found. GOALS: Encounter Problems Encounter Problems (Active) PT Problem Pt will perform bed mobility with mod I. (Progressing) Start: 06/15/23 Expected End: 06/29/23 Pt will complete sit <> stand and bed <> chair transfers with mod I. (Progressing) Start: 06/15/23 Expected End: 06/29/23 Pt will ambulate 300 feet mod I using FWW with no significant gait deviations. (Progressing) Start: 06/15/23 Expected End: 06/29/23 Pt will ascend/descend at least 2 stairs with cane SBA in order to navigate home environment. (Progressing) Start: 06/15/23 Expected End: 06/29/23 Pt will verbalize and demonstrate understanding of DONALDO supine/seated exercises. (Progressing) Start: 06/15/23 Expected End: 06/29/23 Physical Therapy Physical Therapy Evaluation Patient Name: Italia Collins Today's Date: 06/15/2023 Time Calculation Start Time: 937 Stop Time: 957 Time Calculation (min): 20 min Assessment/Plan PT Assessment PT Assessment Results: Decreased strength, Decreased range of motion, Decreased endurance, Impaired balance, Decreased mobility, Pain, Orthopedic restrictions Rehab Prognosis: Good Evaluation/Treatment Tolerance: Patient limited by fatigue Medical Staff Made Aware: Yes End of Session Communication: Bedside nurse Assessment Comment: Pt presents today below baseline level of function and requires continued PT during hospital stay. Pt requires PT at a low intensity level at discharge to maximize functional mobility and safety. End of Session Patient Position: Up in chair, Alarm on IP OR SWING BED PT PLAN Inpatient or Swing Bed: Inpatient PT Plan Treatment/Interventions: Bed mobility, Transfer training, Gait training, Balance training, Neuromuscular re-education, Strengthening, Endurance training, Range of motion, Therapeutic exercise, Therapeutic activity, Home exercise program, Stair training PT Plan: Skilled PT PT Frequency: BID PT Discharge Recommendations: Low intensity level of continued care PT Recommended Transfer Status: Assist x1 (FWW, gait belt) PT - OK to Discharge: Yes (To next level of care when cleared by medical team ) Subjective General Visit Information: General Reason for Referral: DONALDO Referred By: Tomasz Otero MD Past Medical History Relevant to Rehab: Admitted 06/14/23 following completion of right posterior DONALDO. PMH: biplor disorder, HTN, CKD, anemia, glaucoma, COPD, DM Missed Visit: Yes Family/Caregiver Present: Yes (spouse) Co-Treatment: OT Co-Treatment Reason: for safety Prior to Session Communication: Bedside nurse Patient Position Received: Alarm on, Up in chair Preferred Learning Style: verbal General Comment: Pt agreeable to PT, nursing cleared for treatment. Home Living: Home Living Type of Home: House Lives With: Spouse Home Adaptive Equipment: Walker rolling or standard, Cane Home Layout: One level Home Access: Stairs to enter without rails Entrance Stairs-Number of Steps: 2 Bathroom Shower/Tub: Walk-in shower Bathroom Equipment: Shower chair with back Home Living Comments: spouse able to assist Prior Level of Function: Prior Function Per Pt/Caregiver Report ADL Assistance: Independent Homemaking Assistance: (spouse completes) Ambulatory Assistance: Independent Prior Function Comments: denies any falls in the past 6 months Precautions: Precautions LE Weight Bearing Status: Weight Bearing as Tolerated (right LE) Medical Precautions: Fall precautions Post-Surgical Precautions: (posterior hip precautions) Vital Signs: Objective Pain: Pain Assessment Pain Assessment: 0-10 Pain Score: 5 - Moderate pain Pain Type: Surgical pain Pain Location: Hip Pain Orientation: Right Cognition: Cognition Overall Cognitive Status: Within Functional Limits General Assessments: Activity Tolerance Endurance: Tolerates 10 - 20 min exercise with multiple rests Sensation Sensation Comment: numbness and tingling right foot Static Sitting Balance Static Sitting-Comment/Number of Minutes: good Dynamic Sitting Balance Dynamic Sitting-Comments: good Static Standing Balance Static Standing-Comment/Number of Minutes: fair Dynamic Standing Balance Dynamic Standing-Comments: fair Functional Assessments: Bed Mobility Bed Mobility: No Transfers Transfer: Yes Transfer 1 Transfer From 1: Sit to Transfer to 1: Stand Transfer Device 1: Walker Transfer Level of Assistance 1: Close supervision Transfers 2 Transfer From 2: Stand to Transfer to 2: Sit Transfer Device 2: Walker Transfer Level of Assistance 2: Close supervision Ambulation/Gait Training Ambulation/Gait Training Performed: Yes Ambulation/Gait Training 1 Device 1: Rolling walker Gait Support Devices: Gait belt Assistance 1: Contact guard Quality of Gait 1: Decreased step length, Inconsistent stride length, Antalgic (slow pace) Comments/Distance (ft) 1: 30 feet x 2, limited by pain Treatment Cues for safe hand placement with use of FWW for sit<>stand. Instruction provided in gait pattern with cues given for sequencing with FWW. Cues given for turning strategy to avoid pivoting on right LE. Instruction provided in ankle pumps, quad sets, glute sets in order to maximize strength and circulation. Cues given for proper technique and parameters. Extremity/Trunk Assessments: RLE RLE : Within Functional Limits LLE LLE : Within Functional Limits Outcome Measures: [facility] Basic Mobility Turning from your back to your side while in a flat bed without using bedrails: A little Moving from lying on your back to sitting on the side of a flat bed without using bedrails: A little Moving to and from bed to chair (including a wheelchair): A little Standing up from a chair using your arms (e.g. wheelchair or bedside chair): A little To walk in hospital room: A little Climbing 3-5 steps with railing: A little Basic Mobility - Total Score: 18 Goals: Encounter Problems Encounter Problems (Active) PT Problem Pt will perform bed mobility with mod I. Start: 06/15/23 Expected End: 06/29/23 Pt will complete sit <> stand and bed <> chair transfers with mod I. Start: 06/15/23 Expected End: 06/29/23 Pt will ambulate 300 feet mod I using FWW with no significant gait deviations. Start: 06/15/23 Expected End: 06/29/23 Pt will ascend/descend at least 2 stairs with cane SBA in order to navigate home environment. Start: 06/15/23 Expected End: 06/29/23 Pt will verbalize and demonstrate understanding of DONALDO supine/seated exercises. Start: 06/15/23 Expected End: 06/29/23 Education Documentation Precautions, taught by Leigh Cerrato PT at 06/15/2023 12:32 PM. Learner: Patient Readiness: Acceptance Method: Explanation Response: Verbalizes Understanding, Demonstrated Understanding Body Mechanics, taught by Leigh Cerrato PT at 06/15/2023 12:32 PM. Learner: Patient Readiness: Acceptance Method: Explanation Response: Verbalizes Understanding, Demonstrated Understanding Home Exercise Program, taught by Leigh Cerrato PT at 06/15/2023 12:32 PM. Learner: Patient Readiness: Acceptance Method: Explanation Response: Verbalizes Understanding, Demonstrated Understanding Mobility Training, taught by Leigh Cerrato PT at 06/15/2023 12:32 PM. Learner: Patient Readiness: Acceptance Method: Explanation Response: Verbalizes Understanding, Demonstrated Understanding Education Comments No comments found. 06/15/23 0926 Discharge Planning Living Arrangements Spouse/significant other Support Systems Spouse/significant other Type of Residence Private residence Home or Post Acute Services In home services Type of Home Care Services Home OT;Home PT Patient expects to be discharged to: home with HHC Does the patient need discharge transport arranged? No Met with patient at bedside. Admitted for right total hip replacement. Pt lives with spouse and was independent [employer] with no HHC. Pt has a walker. Pt was able to drive and obtain medications. Therapy evals pending. Pt plans to return home with [facility] PT/OT. Referral built and sent in [facility]. Will need outgoing home care referral. Family will provide transport home. [id number] Spoke with [facility] [phone]. They are able to accept patient. SOC with in 48 hours. Therapy updates, progress notes and Home care orders sent in [facility]. Italia Collins is a 58 y.o. female presenting with History of total hip replacement, right. Subjective Ms. Collins tells me that she is feeling much better today, less pain. She was able to sleep a bit overnight. She is looking forward to working with therapy and going home later today. Objective Physical Exam Vitals reviewed. HENT: Head: Normocephalic. Mouth/Throat: Mouth: Mucous membranes are moist. Pharynx: Oropharynx is clear. Eyes: Extraocular Movements: Extraocular movements intact. Cardiovascular: Rate and Rhythm: Normal rate. Pulmonary: Effort: Pulmonary effort is normal. Abdominal: Palpations: Abdomen is soft. Musculoskeletal: Comments: Right hip dressing is dry and intact. light touch sensation is intact, ankle dorsiflexion/plantar flexion is intact. DP 2+/2 palpable Skin: General: Skin is warm and dry. Capillary Refill: Capillary refill takes less than 2 seconds. Neurological: General: No focal deficit present. Mental Status: She is alert. Mental status is at baseline. Psychiatric: Mood and Affect: Mood normal. Last Recorded Vitals Blood pressure 125/53, pulse 65, temperature 36.9 C (98.4 F), temperature source Temporal, resp. rate 18, height 1.6 m (5' 3 ), weight 102 kg (224 lb), SpO2 98 %. Intake/Output last 3 Shifts: I/O last 3 completed shifts: In: 4379.5 (43.1 mL/kg) [P.O.:150; I.V.:4029.5 (39.7 mL/kg); IV Piggyback:200] Out: 1200 (11.8 mL/kg) [Urine:600 (0.2 mL/kg/hr); Blood:600] Weight: 101.6 kg Relevant Results Scheduled medications acetaminophen, 650 mg, oral, q6h INDERJIT acetaminophen, 650 mg, oral, q6h INDERJIT aspirin, 81 mg, oral, BID cholecalciferol, 5,000 Units, oral, Daily fentaNYL, 1 patch, transdermal, q72h lamoTRIgine, 150 mg, oral, BID liothyronine, 5 mcg, oral, BID losartan, 50 mg, oral, Daily magnesium oxide, 400 mg, oral, Daily multivitamin with minerals, 1 tablet, oral, Daily polyethylene glycol, 17 g, oral, Daily QUEtiapine, 400 mg, oral, Nightly sennosides, 2 tablet, oral, BID sertraline, 100 mg, oral, BID thyroid (pork), 60 mg, oral, BID tranexamic acid, 1,000 mg, intravenous, Once tranexamic acid, 1,000 mg, intravenous, Once Continuous medications lactated Ringer's, 85 mL/hr, Last Rate: Stopped (06/15/23 0546) oxygen, 2 L/min PRN medications PRN medications: cyclobenzaprine, diphenhydrAMINE, HYDROmorphone, morphine, naloxone, ondansetron ODT OR ondansetron, oxyCODONE, oxyCODONE, oxyCODONE, oxyCODONE Results for orders placed or performed during the hospital encounter of 06/14/23 (from the past 24 hour(s)) ECG 12 Lead Result Value Ref Range Ventricular Rate 65 BPM Atrial Rate 65 BPM VT Interval 188 ms QRS Duration 90 ms QT Interval 422 ms QTC Calculation(Bazett) 438 ms P [place] 47 degrees R [place] 10 degrees T [place] 38 degrees QRS Count 11 beats Q Onset 218 ms P Onset 124 ms P Offset 184 ms T Offset 429 ms QTC [place] 433 ms CBC Result Value Ref Range WBC 8.9 4.4 - 11.3 x10*3/uL nRBC 0.0 0.0 - 0.0 /100 WBCs RBC 3.24 (L) 4.00 - 5.20 x10*6/uL Hemoglobin 9.1 (L) 12.0 - 16.0 g/dL Hematocrit 29.8 (L) 36.0 - 46.0 % MCV 92 80 - 100 fL MCH 28.1 26.0 - 34.0 pg MCHC 30.5 (L) 32.0 - 36.0 g/dL RDW 13.6 11.5 - 14.5 % Platelets 311 150 - 450 x10*3/uL Basic metabolic panel Result Value Ref Range Glucose 118 (H) 74 - 99 mg/dL Sodium 134 (L) 136 - 145 mmol/L Potassium 4.7 3.5 - 5.3 mmol/L Chloride 102 98 - 107 mmol/L Bicarbonate 25 21 - 32 mmol/L Anion Gap 12 10 - 20 mmol/L Urea Nitrogen 21 6 - 23 mg/dL Creatinine 0.96 0.50 - 1.05 mg/dL eGFR 68 >60 mL/min/1.73m*2 Calcium 8.9 8.6 - 10.3 mg/dL ECG 12 Lead Result Date: 06/15/2023 Normal sinus rhythm Low voltage QRS Borderline ECG When compared with ECG of 22-MAY-2023 09:08, No significant change was found XR hip right with pelvis when performed 2 or 3 views Result Date: 06/14/2023 Interpreted By: Lei Alves, STUDY: XR HIP RIGHT WITH PELVIS WHEN PERFORMED 2 OR 3 VIEWS INDICATION: Signs/Symptoms:ap and cross table lateral s/p hip replacement, xrays in pacu. COMPARISON: None ACCESSION NUMBER(S): [id number] ORDERING CLINICIAN: TOMASZ OTERO FINDINGS: Right total hip arthroplasty without fracture or dislocation. Alignment normal. Satisfactory appearance status post right total hip arthroplasty. Signed by: Lei Alves 06/14/2023 11:04 AM Dictation workstation: [id number] XR hip right with pelvis when performed 2 or 3 views Result Date: 06/14/2023 ap and cross table lateral s/p hip replacement, xrays in pacu Interpreted By: Lei Alves, STUDY: XR HIP RIGHT WITH PELVIS WHEN PERFORMED 2 OR 3 VIEWS INDICATION: Signs/Symptoms:ap and cross table lateral s/p hip replacement, xrays in pacu. COMPARISON: None ACCESSION NUMBER(S): [id number] ORDERING CLINICIAN: TOMASZ OTERO FINDINGS: Right total hip arthroplasty without fracture or dislocation. Alignment normal. IMPRESSION: Satisfactory appearance status post right total hip arthroplasty. Signed by: Lei Alves 06/14/2023 11:04 AM Dictation workstation: [id number] Assessment/Plan Principal Problem: History of total hip replacement, right Active Problems: S/P total right hip arthroplasty POD #1 s/p right DONALDO Continue PT/OT, WBAT right LE Using incentive spirometer Reviewed am labs Multimodal pain regimen Surgical hip dressing to be removed at follow up appointment with Dr. Otero VTE prophylaxis: aspirin 81mg BID X 30 days When appropriate, will discharge home with [facility] Follow up with Dr. Otero in 2 weeks I spent 25 minutes in the professional and overall care of this patient. Jenifer Paulino PA-C Agree with above. I saw her this AM. Pain was reasonably well controlled. She had been up to the chair. Tolerating PO and able to void. Exam showed dressing C/D/I, minimal swelling, distally NVI. Expected acute blood loss anemia. She is eager to get home today. Will see how she does with PT/OT. Dr. Otero Physical Therapy Therapy Communication Note Patient Name: Italia Collins Today's Date: 06/14/2023 Discipline: Physical Therapy Missed Visit Reason: PT order received, chart reviewed. Attempted PT evaluation at 1411. Per RN pt is not appropriate for PT evaluation at this time due to severe pain. Will reattempt PT evaluation as appropriate. Missed Time: Attempt documented in this encounter [facility] Work Phone: 06-15-2023 Plan of care note The patient's goals for the shift include The clinical goals for the shift include pain control and participate in falls intervention preventions Over the shift, the patient did make progress toward the following goals of pain control and participate in falls intervention prevention. [facility] 06-15-2023 Miscellaneous Notes The patient's goals for the shift include The clinical goals for the shift include pain control and participate in falls intervention preventions Over the shift, the patient did make progress toward the following goals of pain control and participate in falls intervention prevention. Right posterior total hip replacement with Jamal (R) Operative Note Date: 06/14/2023 OR Location: [facility] OR Name: Italia Collins, : 1965, Age: 58 y.o., , Sex: female Procedure Summary Anesthesia: Spinal ASA: II Anesthesia Staff: Anesthesiologist: Liv Hammond MD COMPRESSOR OPERATOR: HARITHA Maloney Estimated Blood Loss: 300mL Intra-op Medications: Administrations occurring from 0730 to 1045 on 06/14/23: Medication Name Total Dose bupivacaine PF (Marcaine) 0.5 % (5 mg/mL) injection 30 mL ketorolac (Toradol) injection 30 mg HYDROmorphone (Dilaudid) injection 0.5 mg 1 mg lactated Ringer's infusion 150 mL dexAMETHasone (PF) (Decadron) injection 10 mg 10 mg promethazine (Phenergan) 6.25 mg in sodium chloride 0.9% 50 mL IV 6.25 mg Anesthesia Record Intraprocedure I/O Totals Intake Tranexamic Acid 20.00 mL The total shown is the total volume documented since Anesthesia Start was filed. Propofol Drip 23.77 mL The total shown is the total volume documented since Anesthesia Start was filed. lactated Ringer's infusion 1200.00 mL Total Intake 1243.77 mL Output Est. Blood Loss 300 mL Total Output 300 mL Net Net Volume 943.77 mL Specimen: No specimens collected Staff: Lithographic General Worker: Puma Agustin RN Scrub Person: Arlet Richardson; Sarthak Andrew; Judie Ruggiero RN Drains and/or Catheters: * None in log * Tourniquet Times: Implants: Implants Type Name Action Serial No. 4MM X 170MM Likez PIN BONE (FORMERLY MFR'D BY JAMAL) Implanted Joint HEAD, FEMUR V40 22.2/+1 COCR LFIT - SN/A - [id number] Implanted N/A Insignia hip stem, High offset. Implanted N/A Joint INSERT, MDM X3 CONFUCIANIST, 38OD 22ID X 7.7MM - SN/A - [id number] Implanted N/A Joint Hip SHELL, TRIDENT II, TRITANIUM, CLUSTERHOLE, 48D - SN/A - [id number] Implanted N/A Joint Hip LINER, COCR, MDM, 38MM D - SN/A - [id number] Implanted N/A Screw SCREW, LOW PROFILE HEX, 6.5 X 25 MM - SN/A - [id number] Implanted N/A SURGEON: Tomasz Otero M.D. SHARED SERVICES MANAGER(S): Arjun Andrew SA No qualified resident was available to assist during the case. The assistance was needed in helping position the patient, holding retractors, and assisting with wound closure. 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 Obesity with BMI recorded today of 39.68 POSTOPERATIVE DIAGNOSIS: same PROCEDURE: Right Total Hip Arthroplasty with Jamal Robotic assistance IMPLANTS: Acetabular component: John Trident II Tritanium 48 mm Acetabular screws: 25 mm Acetabular liner: MDM size D Femoral component: john insignia high offset size 4 Femoral head: 22.2 ID +3mm, 38 OD SURGICAL DETAILS: 1) Incision type: Posterior 2) Incision length: Approximately 25-30 cm 3) Muscle repair: External rotators 4) Case duration: 121 min 5) Estimated blood loss: 300cc 6) Crystalloid replacement: IV crystalloid 7) Anesthesia type: General 8) Capsular injection: Bupivacaine with Ketorolac 9) Specimens removed: Femoral head and acetabular reamings consistent with DJD related to AVN, therefore not sent for pathologic review 10) Preoperative antibiotics: weightbased cefazolin 11) TXA: 1g IV TXA at start of case, 1g IV TXA at time of closure INDICATIONS FOR PROCEDURE: This patient presents for total hip arthroplasty for advanced degenerative joint disease of the hip. The patient has failed non-operative treatment. Risks, complications, and benefits of the procedure have been discussed preoperatively to include but not limited to infection, bleeding, anesthesia risks, sciatic nerve palsy, instability, limb length discrepancy, aseptic loosening, osteolysis, DVT, continued pain, iatrogenic fracture, PR, stroke, and . The patient completed preoperative medical clearance and joint arthroplasty education. PROCEDURE: The patient was seen in the preoperative holding area. The operative site was confirmed and marked. SCD was placed on the nonoperative leg. The risks, benefits, and alternatives to surgery were again confirmed with the patient and they wished to proceed. The patient was given iodine swabs for the nares for MRSA decolonization. The patient was brought to the operating room and placed on the operating room table in the supine position. An EKG lead was placed and secured to the area overlying the patella to aid in referencing leg lengths using the Jamal technology. After anesthesia was established, the patient was positioned in the lateral decubitus position with the operative side up. All bony prominences were padded. A surgical time out was taken to confirm the operative side and planned procedure. The patient was given prophylactic antibiotics within one hour of skin incision. The patient was also given TXA at the start of the case and again at skin closure. The hip was prepped and draped in the usual sterile fashion. A formal posterior approach to the hip was performed. The incision was carried through the subcutaneous tissue to the underlying fascia alivia and gluteus dieter fascia, which were incised. The Charnley retractor was placed after carefully palpating the sciatic nerve which was protected throughout the case. The piriformis was released. The posterior capsule with the external rotators was incised maintaining a rectangular flap. The Jamal array pins were placed intra incisional due to her body habitus with a small incision made over the iliac crest for the Jamal crest point. These were placed while avoiding injury to surrounding structures. Check points were placed to the greater trochanter and pelvis and the data for the Jamal was collected. The femoral neck cut was performed after verifying its position using the Jamal tool to mich out the neck cut. The head was removed. The acetabulum was exposed, data collected, and then the acetabulum was reamed to give a line to line press fit, using the Media Armor Robotic arm for assistance. The acetabular component was impacted into position targeting 40 degrees of abduction and 20 degrees of anteversion. Screw fixation was utilized to enhance acetabular component fixation. The acetabular liner was placed and impacted into position. The liner locking mechanism engaged. Attention was then turned to the femoral side. Femoral preparation was started with a box osteotome and Charnley awl. The canal was sequentially broached to a stable fit. The final broach was impacted into position in approximately 15 degrees of anteversion. The trial head was placed and the hip reduced. The Jamal was used to check the offset and leg lengths. Leg length measurements on the table demonstrated good reconstruction of the limb lengths according to our preoperative plan. The hip stability was assessed. I was not happy with the initial stability of the hip with the standard offset stem so we trialed with the high offset stem and also subsequently increased her leg length some to give her greater hip stability. She is a very high risk for post operative dislocation given her body habitus, avascular necrosis, and prior spine surgery. I was ultimately happy with the stability with the high offset stem trial with +3 mm neck adjustment. The hip was stable in extension and external rotation as well as in flexion, adduction of 20 degrees and internal rotation to 80 degrees. Her leg length was slightly longer on the operative side but I elected to accept this due to the high risk of dislocation and felt that at even leg lengths even with the high offset option this still did not provide enough stability to the hip. We had discussed possible leg length discrepancy preoperatively and she was accepting of this risk. The hip was dislocated, the trial broach was removed, the canal irrigated with pulsatile lavage and dried, and the final stem was inserted in routine fashion. After placement of the stem, the trunnion was cleansed and dried and the modular dual mobility head firmly impacted in place and the hip reduced. Again, leg length assessment and stability assessment of the hip were performed to confirm optimal component selection. The wound was irrigated with diluted sterile betadine solution and hemostasis obtained. The pericapsular injection was performed with local anesthetic. The posterior capsule and external rotators were repaired utilizing the #5 Fiberwire through drill holes in the greater trochanter. The piriformis was repaired with #5 Fiberwire through the gluteus medius insertion into the greater trochanter. The fascia alivia and subcutaneous tissue was closed in layers with Stratafix with skin closure using a running subcuticular and glue and mesh dressing followed by Aquacel dressing. The crest incision was closed with monocryl and dressed with a sterile dressing. Abduction pillow was placed and a SCD to the operative limb. The patient tolerated the procedure well and was taken to the recovery room in good condition. Complications: none. Sponge, instrument, and needle counts were correct x 2. The patient underwent risk stratification preoperatively and ASA 81 mg BID was chosen for DVT prophylaxis. This is an addendum for the 22 modifier. Given the patient's obesity, this took additional time for larger skin incision, placement of retractors, maintenance of retractors, and layered wound closure. Thus, this required increased time and effort to complete this procedure compared to the routine case and increased our operative time and effort by 50%. Post-operatively will have her follow strict posterior hip precautions and use of abduction pillow while in bed. I was present for all critical portions of the procedure. Tomasz Otero documented in this encounter [facility] Work Phone: 06-14-2023 Note Formatting of this n ote is different from the original. Right posterior total hip replacement with Jamal (R) Operative Note Date: 06/14/2023 OR Location: [facility] OR Name: Italia Collins, : 1965, Age: 58 y.o., , Sex: female Procedure Summary Anesthesia: Spinal ASA: II Anesthesia Staff: Anesthesiologist: Liv Hammond MD COMPRESSOR OPERATOR: Wali Quinonez APRN-LANCE Estimated Blood Loss: 300mL Intra-op Medications: Administrations occurring from 0730 to 1045 on 06/14/23: Medication Name Total Dose bupivacaine PF (Marcaine) 0.5 % (5 mg/mL) injection 30 mL ketorolac (Toradol) injection 30 mg HYDROmorphone (Dilaudid) injection 0.5 mg 1 mg lactated Ringer's infusion 150 mL dexAMETHasone (PF) (Decadron) injection 10 mg 10 mg promethazine (Phenergan) 6.25 mg in sodium chloride 0.9% 50 mL IV 6.25 mg Anesthesia Record Intraprocedure I/O Totals Intake Tranexamic Acid 20.00 mL The total shown is the total volume documented since Anesthesia Start was filed. Propofol Drip 23.77 mL The total shown is the total volume documented since Anesthesia Start was filed. lactated Ringer's infusion 1200.00 mL Total Intake 1243.77 mL Output Est. Blood Loss 300 mL Total Output 300 mL Net Net Volume 943.77 mL Specimen: No specimens collected Staff: Lithographic General Worker: Puma Agustin RN Scrub Person: Arlet Richardson; Sarthak Andrew; Judie Ruggiero RN Drains and/or Catheters: * None in log * Tourniquet Times: Implants: Implants Type Name Action Serial No. 4MM X 170MM Likez PIN BONE (FORMERLY MFR'D BY JAMAL) Implanted Joint HEAD, FEMUR V40 22.2/+1 COCR LFIT - SN/A - [id number] Implanted N/A Insignia hip stem, High offset. Implanted N/A Joint INSERT, MDM X3 CONFUCIANIST, 38OD 22ID X 7.7MM - SN/A - [id number] Implanted N/A Joint Hip SHELL, TRIDENT II, TRITANIUM, CLUSTERHOLE, 48D - SN/A - [id number] Implanted N/A Joint Hip LINER, COCR, MDM, 38MM D - SN/A - [id number] Implanted N/A Screw SCREW, LOW PROFILE HEX, 6.5 X 25 MM - SN/A - [id number] Implanted N/A SURGEON: Tomasz Otero M.D. SHARED SERVICES MANAGER(S): Arjun Andrew SA No qualified resident was available to assist during the case. The assistance was needed in helping position the patient, holding retractors, and assisting with wound closure. 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 Obesity with BMI recorded today of 39.68 POSTOPERATIVE DIAGNOSIS: same PROCEDURE: Right Total Hip Arthroplasty with Jamal Robotic assistance IMPLANTS: Acetabular component: John Trident II Tritanium 48 mm Acetabular screws: 25 mm Acetabular liner: MDM size D Femoral component: john insignia high offset size 4 Femoral head: 22.2 ID +3mm, 38 OD SURGICAL DETAILS: 1) Incision type: Posterior 2) Incision length: Approximately 25-30 cm 3) Muscle repair: External rotators 4) Case duration: 121 min 5) Estimated blood loss: 300cc 6) Crystalloid replacement: IV crystalloid 7) Anesthesia type: General 8) Capsular injection: Bupivacaine with Ketorolac 9) Specimens removed: Femoral head and acetabular reamings consistent with DJD related to AVN, therefore not sent for pathologic review 10) Preoperative antibiotics: weightbased cefazolin 11) TXA: 1g IV TXA at start of case, 1g IV TXA at time of closure INDICATIONS FOR PROCEDURE: This patient presents for total hip arthroplasty for advanced degenerative joint disease of the hip. The patient has failed non-operative treatment. Risks, complications, and benefits of the procedure have been discussed preoperatively to include but not limited to infection, bleeding, anesthesia risks, sciatic nerve palsy, instability, limb length discrepancy, aseptic loosening, osteolysis, DVT, continued pain, iatrogenic fracture, PR, stroke, and . The patient completed preoperative medical clearance and joint arthroplasty education. PROCEDURE: The patient was seen in the preoperative holding area. The operative site was confirmed and marked. SCD was placed on the nonoperative leg. The risks, benefits, and alternatives to surgery were again confirmed with the patient and they wished to proceed. The patient was given iodine swabs for the nares for MRSA decolonization. The patient was brought to the operating room and placed on the operating room table in the supine position. An EKG lead was placed and secured to the area overlying the patella to aid in referencing leg lengths using the Media Armor technology. After anesthesia was established, the patient was positioned in the lateral decubitus position with the operative side up. All bony prominences were padded. A surgical time out was taken to confirm the operative side and planned procedure. The patient was given prophylactic antibiotics within one hour of skin incision. The patient was also given TXA at the start of the case and again at skin closure. The hip was prepped and draped in the usual sterile fashion. A formal posterior approach to the hip was performed. The incision was carried through the subcutaneous tissue to the underlying fascia alivia and gluteus dieter fascia, which were incised. The Charnley retractor was placed after carefully palpating the sciatic nerve which was protected throughout the case. The piriformis was released. The posterior capsule with the external rotators was incised maintaining a rectangular flap. The Jamal array pins were placed intra incisional due to her body habitus with a small incision made over the iliac crest for the Jamal crest point. These were placed while avoiding injury to surrounding structures. Check points were placed to the greater trochanter and pelvis and the data for the Jamal was collected. The femoral neck cut was performed after verifying its position using the Jamal tool to mich out the neck cut. The head was removed. The acetabulum was exposed, data collected, and then the acetabulum was reamed to give a line to line press fit, using the Jamal Robotic arm for assistance. The acetabular component was impacted into position targeting 40 degrees of abduction and 20 degrees of anteversion. Screw fixation was utilized to enhance acetabular component fixation. The acetabular liner was placed and impacted into position. The liner locking mechanism engaged. Attention was then turned to the femoral side. Femoral preparation was started with a box osteotome and Charnley awl. The canal was sequentially broached to a stable fit. The final broach was impacted into position in approximately 15 degrees of anteversion. The trial head was placed and the hip reduced. The Jamal was used to check the offset and leg lengths. Leg length measurements on the table demonstrated good reconstruction of the limb lengths according to our preoperative plan. The hip stability was assessed. I was not happy with the initial stability of the hip with the standard offset stem so we trialed with the high offset stem and also subsequently increased her leg length some to give her greater hip stability. She is a very high risk for post operative dislocation given her body habitus, avascular necrosis, and prior spine surgery. I was ultimately happy with the stability with the high offset stem trial with +3 mm neck adjustment. The hip was stable in extension and external rotation as well as in flexion, adduction of 20 degrees and internal rotation to 80 degrees. Her leg length was slightly longer on the operative side but I elected to accept this due to the high risk of dislocation and felt that at even leg lengths even with the high offset option this still did not provide enough stability to the hip. We had discussed possible leg length discrepancy preoperatively and she was accepting of this risk. The hip was dislocated, the trial broach was removed, the canal irrigated with pulsatile lavage and dried, and the final stem was inserted in routine fashion. After placement of the stem, the trunnion was cleansed and dried and the modular dual mobility head firmly impacted in place and the hip reduced. Again, leg length assessment and stability assessment of the hip were performed to confirm optimal component selection. The wound was irrigated with diluted sterile betadine solution and hemostasis obtained. The pericapsular injection was performed with local anesthetic. The posterior capsule and external rotators were repaired utilizing the #5 Fiberwire through drill holes in the greater trochanter. The piriformis was repaired with #5 Fiberwire through the gluteus medius insertion into the greater trochanter. The fascia alivia and subcutaneous tissue was closed in layers with Stratafix with skin closure using a running subcuticular and glue and mesh dressing followed by Aquacel dressing. The crest incision was closed with monocryl and dressed with a sterile dressing. Abduction pillow was placed and a SCD to the operative limb. The patient tolerated the procedure well and was taken to the recovery room in good condition. Complications: none. Sponge, instrument, and needle counts were correct x 2. The patient underwent risk stratification preoperatively and ASA 81 mg BID was chosen for DVT prophylaxis. This is an addendum for the 22 modifier. Given the patient's obesity, this took additional time for larger skin incision, placement of retractors, maintenance of retractors, and layered wound closure. Thus, this required increased time and effort to complete this procedure compared to the routine case and increased our operative time and effort by 50%. Post-operatively will have her follow strict posterior hip precautions and use of abduction pillow while in bed. I was present for all critical portions of the procedure. Tomasz Otero [facility] Work Phone: 06-14-2023 History and physical note History Of Present Illness Italia Collins is a 58 y.o. female presenting with right hip pain and plans for right total hip replacement. Past Medical History She has a past medical history of Anemia, Anxiety, Arthritis, Bipolar disorder (CMS/HCC), CKD (chronic kidney disease), Dysfunctional uterine bleeding, Easy bruising, Hypertension, Hypothyroidism, Irritable bowel syndrome, Lumbar disc disease, PONV (postoperative nausea and vomiting), Prediabetes, Spinal stenosis, and Urinary tract infection. Surgical History She has a past surgical history that includes Cholecystectomy; Colonoscopy; Upper gastrointestinal endoscopy; Bariatric Surgery; Lumbar laminectomy; Small intestine surgery; Hysterectomy; Meniscectomy; and Rotator cuff repair. Social History She reports that she quit smoking about 21 years ago. Her smoking use included cigarettes. She has been exposed to tobacco smoke. She has never used smokeless tobacco. She reports current drug use. Drug: Fentanyl. She reports that she does not drink alcohol. Family History Family History Problem Relation Name Age of Onset Depression Mother Hypertension Mother Hyperlipidemia Mother Emphysema Father Other (back surgeries) Father Stroke Father Other (prediabetes) Father Hypertension Sister Other (back surgeries) Sister Other (hip replacement) Sister Hypertension Brother Other (spinal stenosis) Brother Other (thyroid nodule removal) Brother Hypertension Maternal Grandmother Stroke Maternal Grandfather Heart attack Maternal Grandfather Other (high blood pressure) Maternal Grandfather Glaucoma Maternal Grandfather Aortic aneurysm Maternal Grandfather Colon cancer Paternal Grandmother Stomach cancer Paternal Grandmother Other (spinal cancer) Paternal Grandmother Other (stomach ulcers) Paternal Grandmother Heart disease Paternal Grandfather Heart failure Paternal Grandfather Allergies Morphine, Adhesive tape-silicones, and Onion Review of Systems Physical Exam unchanged Last Recorded Vitals Blood pressure 109/55, pulse 73, temperature 36.3 C (97.3 F), temperature source Temporal, resp. rate 18, height 1.6 m (5' 3 ), weight 102 kg (224 lb), SpO2 98 %. Assessment/Plan Right hip AVN with DJD, plan to proceed with surgery. Office note reviewed, in chart. No significant changes. Informed consent obtained, patient marked. All questions answered. Tomasz Otero MD [facility] Work Phone: 06-14-2023 History and physical note History Of Present Illness Italia Collins is a 58 y.o. female presenting with right hip pain and plans for right total hip replacement. Past Medical History She has a past medical history of Anemia, Anxiety, Arthritis, Bipolar disorder (CMS/HCC), CKD (chronic kidney disease), Dysfunctional uterine bleeding, Easy bruising, Hypertension, Hypothyroidism, Irritable bowel syndrome, Lumbar disc disease, PONV (postoperative nausea and vomiting), Prediabetes, Spinal stenosis, and Urinary tract infection. Surgical History She has a past surgical history that includes Cholecystectomy; Colonoscopy; Upper gastrointestinal endoscopy; Bariatric Surgery; Lumbar laminectomy; Small intestine surgery; Hysterectomy; Meniscectomy; and Rotator cuff repair. Social History She reports that she quit smoking about 21 years ago. Her smoking use included cigarettes. She has been exposed to tobacco smoke. She has never used smokeless tobacco. She reports current drug use. Drug: Fentanyl. She reports that she does not drink alcohol. Family History Family History Problem Relation Name Age of Onset Depression Mother Hypertension Mother Hyperlipidemia Mother Emphysema Father Other (back surgeries) Father Stroke Father Other (prediabetes) Father Hypertension Sister Other (back surgeries) Sister Other (hip replacement) Sister Hypertension Brother Other (spinal stenosis) Brother Other (thyroid nodule removal) Brother Hypertension Maternal Grandmother Stroke Maternal Grandfather Heart attack Maternal Grandfather Other (high blood pressure) Maternal Grandfather Glaucoma Maternal Grandfather Aortic aneurysm Maternal Grandfather Colon cancer Paternal Grandmother Stomach cancer Paternal Grandmother Other (spinal cancer) Paternal Grandmother Other (stomach ulcers) Paternal Grandmother Heart disease Paternal Grandfather Heart failure Paternal Grandfather Allergies Morphine, Adhesive tape-silicones, and Onion Review of Systems Physical Exam unchanged Last Recorded Vitals Blood pressure 109/55, pulse 73, temperature 36.3 C (97.3 F), temperature source Temporal, resp. rate 18, height 1.6 m (5' 3 ), weight 102 kg (224 lb), SpO2 98 %. Assessment/Plan Right hip AVN with DJD, plan to proceed with surgery. Office note reviewed, in chart. No significant changes. Informed consent obtained, patient marked. All questions answered. Tomasz Otero MD documented in this encounter [facility] Work Phone: 06-13-2023 Hospital Discharg e instructions Tomasz Otero MD - 06/13/2023 3:06 PM EST See written discharge instructions from Dr. Otero documented in this encounter [facility] Work Phone: 08-12-2022 Note HNO ID: [id number] Author: Leonora Curiel MD Service: ? Author Type: Physician Type: Progress Notes Filed: 08/12/2022 10:03 AM Note Text: Subjective: Italia Collins is a 57 year old female. Patient was accompanied to the office by her . 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 She has been seen closer to home in [facility] and surgery was deferred secondary to her weight. She has had bariatric surgery in the past. Uses a rolling walker for ambulation. 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 Past Social History: Past Surgical History: No past surgical history on file. Past Medical History: Current Outpatient Medications Medication Sig zaleplon (SONATA) 10 mg capsule Take by mouth daily at bedtime. nabumetone (RELAFEN) 750 mg tablet Take 750 mg by mouth twice daily. spironolactone (ALDACTONE) 25 mg tablet Take 25 mg by mouth once daily. losartan (COZAAR) 50 mg tablet Take 50 mg by mouth once daily. cyclobenzaprine (FLEXERIL) 10 mg tablet Take by mouth three times daily. fentaNYL (DURAGESIC) 25 mcg/hr Apply 1 Patch as directed every 72 hours. levothyroxine (SYNTHROID) 200 mcg tablet Take 200 mcg by mouth daily before breakfast. liothyronine (CYTOMEL) 5 mcg tablet Take 10 mcg by mouth once daily. estrogens conjugated (PREMARIN) 0.625 mg tablet Take 0.625 mg by mouth once daily. QUEtiapine (SEROQUEL) 400 mg tablet Take 400 mg by mouth daily at bedtime. sertraline (ZOLOFT) 100 mg tablet Take 100 mg by mouth once daily. lamoTRIgine (LAMICTAL) 150 mg tablet Take 150 mg by mouth once daily. ALPRAZolam 0.25 mg dissolvable tablet Take 0.25 mg by mouth at bedtime as needed. terbinafine HCl (LAMISIL) 1 % cream Apply to affected area twice daily. No current facility-administered medications for this visit. Past Family History: No family history on file. Review Of Systems GENERAL:No weight loss, malaise or fevers HEENT:Negative for frequent or significant headaches, No changes in hearing or vision, no nose bleeds or other nasal problems NECK:Negative for lumps, goiter, pain and significant neck swelling RESPIRATORY: Negative for cough, hemoptysis, wheezing, COPD, dyspnea or shortness of breath CARDIOVASCULAR: Negative for chest pain, leg swelling, hypertension, CHF or palpitations GASTROINTESTINAL: No nausea, vomiting, or diarrhea GENITOURINARY: Patient has history of stage III CKD. GARNISHMENT SPECIALIST: Negative for abnormal vaginal bleeding, abnormal vaginal discharge MUSCULOSKELETAL: Negative for joint pain or swelling, back pain or muscle pain NEUROLOGIC:Negative for focal numbness or weakness, headaches and dizziness or syncope. SKIN:Negative for lesions, rash, and itching PSYCHIATRIC: Negative for sleep disturbance, mood disorder and recent psychosocial stressors. HEMATOLOGIC/LYMPHATIC/IMMUNOLOG IC:Negative for prolonged bleeding, bruising easily or swollen nodes ENDOCRINE: Negative for cold or heat intolerance, polyuria, polydipsia and goiter The remainder of the ROS was negative. Objective: Ht 160 cm (5' 3 ) Wt 121.6 kg (268 lb) BMI 47.47 kg/m? Physical Exam: Patient is a morbidly obese female no acute distress. She is able to rise from a chair on her own power. She walks across the room with an antalgic gait favoring the right hip. She has 2+ edema in both lower extremities. Motor and sensory intact in both feet. She has tenderness with internal rotation of the right hip. Right hip range of motion is 80 degrees of flexion 10 degree flexion contracture abduction of 20 degrees adduction of 10 degrees internal Tatian of 10 degrees and X rotation of 25 degrees. Imaging Studies: Plain x-rays demonstrate advanced him joint disease of the right hip. 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 She is less than an ideal surgical candidate secondary to her morbid obesity. She was counseled on the risks and complications related to excessive weight. Weight reduction to below 35 BMI was recommended. Will be on as-needed basis. Consultation with bariatrics was provided. MD NAI WuA Professor, Orthopaedic Surgery [facility] [employer] [facility] 08-12-2022 History of Presen t illness Narrative Subjective: Italia A Collins is a 57 year old female. Patient was accompanied to the office by her . 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 She has been seen closer to home in [facility] and surgery was deferred secondary to her weight. She has had bariatric surgery in the past. Uses a rolling walker for ambulation. 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 Past Social History: Past Surgical History: No past surgical history on file. Past Medical History: Current Outpatient Medications Medication Sig zaleplon (SONATA) 10 mg capsule Take by mouth daily at bedtime. nabumetone (RELAFEN) 750 mg tablet Take 750 mg by mouth twice daily. spironolactone (ALDACTONE) 25 mg tablet Take 25 mg by mouth once daily. losartan (COZAAR) 50 mg tablet Take 50 mg by mouth once daily. cyclobenzaprine (FLEXERIL) 10 mg tablet Take by mouth three times daily. fentaNYL (DURAGESIC) 25 mcg/hr Apply 1 Patch as directed every 72 hours. levothyroxine (SYNTHROID) 200 mcg tablet Take 200 mcg by mouth daily before breakfast. liothyronine (CYTOMEL) 5 mcg tablet Take 10 mcg by mouth once daily. estrogens conjugated (PREMARIN) 0.625 mg tablet Take 0.625 mg by mouth once daily. QUEtiapine (SEROQUEL) 400 mg tablet Take 400 mg by mouth daily at bedtime. sertraline (ZOLOFT) 100 mg tablet Take 100 mg by mouth once daily. lamoTRIgine (LAMICTAL) 150 mg tablet Take 150 mg by mouth once daily. ALPRAZolam 0.25 mg dissolvable tablet Take 0.25 mg by mouth at bedtime as needed. terbinafine HCl (LAMISIL) 1 % cream Apply to affected area twice daily. No current facility-administered medications for this visit. Past Family History: No family history on file. Review Of Systems GENERAL:No weight loss, malaise or fevers HEENT:Negative for frequent or significant headaches, No changes in hearing or vision, no nose bleeds or other nasal problems NECK:Negative for lumps, goiter, pain and significant neck swelling RESPIRATORY: Negative for cough, hemoptysis, wheezing, COPD, dyspnea or shortness of breath CARDIOVASCULAR: Negative for chest pain, leg swelling, hypertension, CHF or palpitations GASTROINTESTINAL: No nausea, vomiting, or diarrhea GENITOURINARY: Patient has history of stage III CKD. GARNISHMENT SPECIALIST: Negative for abnormal vaginal bleeding, abnormal vaginal discharge MUSCULOSKELETAL: Negative for joint pain or swelling, back pain or muscle pain NEUROLOGIC:Negative for focal numbness or weakness, headaches and dizziness or syncope. SKIN:Negative for lesions, rash, and itching PSYCHIATRIC: Negative for sleep disturbance, mood disorder and recent psychosocial stressors. HEMATOLOGIC/LYMPHATIC/IMMUNOLOG IC:Negative for prolonged bleeding, bruising easily or swollen nodes ENDOCRINE: Negative for cold or heat intolerance, polyuria, polydipsia and goiter The remainder of the ROS was negative. Objective: Ht 160 cm (5' 3 ) Wt 121.6 kg (268 lb) BMI 47.47 kg/m Physical Exam: Patient is a morbidly obese female no acute distress. She is able to rise from a chair on her own power. She walks across the room with an antalgic gait favoring the right hip. She has 2+ edema in both lower extremities. Motor and sensory intact in both feet. She has tenderness with internal rotation of the right hip. Right hip range of motion is 80 degrees of flexion 10 degree flexion contracture abduction of 20 degrees adduction of 10 degrees internal Tatian of 10 degrees and X rotation of 25 degrees. Imaging Studies: Plain x-rays demonstrate advanced him joint disease of the right hip. 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 She is less than an ideal surgical candidate secondary to her morbid obesity. She was counseled on the risks and complications related to excessive weight. Weight reduction to below 35 BMI was recommended. Will be on as-needed basis. Consultation with bariatrics was provided. Leonora Curiel MD LAUREEN Professor, Orthopaedic Surgery [facility] [employer] documented in this encounter [facility] 09-06-2021 Evaluation + Plan note Diagnostic Tests PendingWound Culture 09/06/21 [facility] 02-17-2021 Evaluation note Encounter Date Diagnosis Assessment Notes Feb, Insect stings, accidental or unintentional , initial encounter (ICD-10 - T63.481A) Feb, Cellulitis of forearm, left (ICD-10 - L03.114) Take the antibiotic as prescribed until gone. Continue home medications as prescribed. You may apply [id number] hydrocortisone cream to the area. Continue to take Benadryl for itching. Apply warm compresses to the area once or twice a day. Follow-up with your family physician if no improvement in 2 to 3 days [employer] Other Evaluation note* Diagnosis Microscopic hematuria documented in this encounter [employer] Phone: evaluation note* Diagnosis Microscopic hematuria documented in this encounter [facility] [employer] Phone: evaluation note* Diagnosis Class 2 severe obesity with serious comorbidity in adult, unspecified BMI, unspecified obesity type (HCC)- Primary Primary osteoarthritis of right hip Primary localized osteoarthrosis, pelvic region and thigh [facility] Unilateral primary osteoarthritis, right hip Unilateral primary osteoarthritis, right hip documented in this encounter [facility] [employer] Phone: Evaluation note* Diagnosis History of total hip replacement, right- Primary S/P total right hip arthroplasty History of total hip replacement, right S/P total right hip arthroplasty documented in this encounter [facility] Work Phone: History general Narrative - Reported* Type Description Date Medical History Bipolar affective disorder Medical History Hypertension Medical History kidney disease-stage 3 Medical History Arthritis in Spine Medical History Hypothyroidism Surgical History back surgery x 2 Surgical History hysterectomy Surgical History breast biopsy Surgical History cholecystectomy Surgical History shoulder surgery Surgical History knee arthroscopy Surgical History bladder suspension, unspecified Surgical History bariatric surgery Surgical History ddd Hospitalization History see above [employer] Other Hospital course Narrative No data available for this section [facility] No data available for this section [facility] Summary Purpose Family History No Family History Records FoundNo Family History Records FoundNo Family History Records FoundNo Family History Records FoundNo Family History Records FoundNo Family History Records FoundNo Family History Records FoundNo Family History Records Found Advance Directives No Advanced Directives Records FoundLatest Code Status on File Code Status Date Activated Date Inactivated Comments Full Code 06/14/2023 6:09 AM Question Answer Comments Plan of Care: Code Status Discussion Not Compl eted Decision Maker: Provider Rationale: Patient condition do es not warrant discussion Reason for Referral Specialty Diagnoses / Procedures Referred By Contac t Referred To Contact Home Health Services Diagnoses S/P total right hip arthroplasty History of total hip replacement, right Jyotsna Hurtado PA-C [address], [address] [place] [address] Referral ID Status Reason Start Date Expiration Date Visits Requested Visits Authorized [id number] Authorized Specialty Services Required 06/15/2023 06/14/2024 999 999 Specialty Diagnoses / Procedures Referred By Contac t Referred To Contact Radiology Diagnoses Unilateral primary osteoarthritis, right hip Procedures CT hip [place] [address] [place] [address] Referral ID Status Reason Start Date Expiration Date Visits Requested Visits Authorized [id number] Authorized Perform Procedure 05/15/2023 05/14/2024 1 1 Specialty Diagnoses / Procedures Referred By Contac t Referred To Contact Diagnoses Class 2 severe obesity with serious comorbidity in adult, unspecified BMI, unspecified obesity type (HCC) Procedures [facility] Leonora Curiel MD [address] [place] [address] Referral ID Status Reason Start Date Expiration Date Visits Requested Visits Authorized [id number] Ref Not Required PCP Requested Referral 08/12/2022 08/12/2023 1 1 Specialty Diagnoses / Procedures Referred By Contac t Referred To Contact Radiology Diagnoses Microscopic hematuria R31.29 (ICD-10-CM) - Microscopic hematuria Procedures CT UROGRAM CHG CT SCAN,ABDOMENT AND PELVIS,COMBO [address]1136 - CHG CT SCAN,ABDOMENT AND PELVIS,COMBO Carl Rodgers W, MACHINE SCALLOP CUTTER - TRIM SETTER HELPER [address] [facility] [address] [place] [address] Referral ID Status Reason Start Date Expiration Date Visits Re quested Visits Authorized [id number] Closed 03/07/2022 02/28/2023 1 1 Additional Source Comments REASON FOR VISIT (unrecogniz ed section and content) Specialty Diagnoses / Procedures Referred By Contac t Referred To Contact Radiology Diagnoses Microscopic hematuria R31.29 (ICD-10-CM) - Microscopic hematuria Procedures CT UROGRAM CHG CT SCAN,ABDOMENT AND PELVIS,COMBO [address]8972 - CHG CT SCAN,ABDOMENT AND PELVIS,COMBO Carl Rodgers, MACHINE SCALLOP CUTTER - TRIM SETTER HELPER [address] [facility] [place] [address] Referral ID Status Reason Start Date Expiration Date Visits Re quested Visits Authorized [id number] Closed 03/07/2022 02/28/2023 1 1 Reason Comments Right Hip Pain Specialty Diagnoses / Procedures Referred By Contac t Referred To Contact Radiology Diagnoses Unilateral primary osteoarthritis, right hip Procedures CT hip [place] [address] [place] [address] Referral ID Status Reason Start Date Expiration Date Visits Requested Visits Authorized [id number] Authorized Perform Procedure 05/15/2023 05/14/2024 1 1 Specialty Diagnoses / Procedures Referred By Contac t Referred To Contact Diagnoses Unilateral primary osteoarthritis, right hip M16.11 - Unilateral primary osteoarthritis, right hip, 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 Procedures VT ARTHRP ACETBLR/PROX FEM PROSTC AGRFT/ALGRFT Right posterior [place] [address] [place] [address] [place] [address] [place] [address] Referral ID Status Reason Start Date Expiration Date Visits Re quested Visits Authorized [id number] 1 1 Reason Comments Med Refill INFORMATION SOURCE (unrecogn ized section and content) DATE CREATED AUTHOR 11/26/2021 [facility] dical Specialist DATE CREATED AUTHOR AUTHOR'S ORGANIZ ATION 03/11/2022 [facility] DATE CREATED AUTHOR AUTHOR'S ORGANIZ ATION 08/14/2022 [facility] DATE CREATED AUTHOR AUTHOR'S ORGANIZ ATION 09/02/2022 [facility] DATE CREATED AUTHOR AUTHOR'S ORGANIZ ATION 10/14/2022 Gallo Hennessy [facility] DATE CREATED AUTHOR AUTHOR'S ORGANIZ ATION 06/19/2023 [facility] DATE CREATED AUTHOR AUTHOR'S ORGANIZ ATION 06/20/2023 [facility] DATE CREATED AUTHOR AUTHOR'S ORGANIZ ATION 08/21/2023 [facility] dical Specialists EPIC Care Teams (unrecognized sec tion and content) 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 Relationship Specialty Start Date End Date Prosper Zendejas MD [address] [place] [address] PCP - General 02/25/22 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 Relationship Specialty Start Date End Date Prosper Zendejas MD [address] [place] [address] PCP - General 02/25/22 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 Relationship Specialty Start Date End Date Prosper Zendejas MD [address] [place] [address] (Fax) PCP - General Family Medicine 07/27/22 Taco Flannery, RN Registered Nurse 07/26/22 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 Relationship Specialty Start Date End Date Prosper Zendejas MD [address] [place] [address] (Fax) PCP - General Family Medicine 05/15/23 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 Relationship Specialty Start Date End Date Prosper Zendejas MD [address] [place] [address] (Fax) PCP - General Family Medicine 05/15/23 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 Relationship Specialty Start Date End Date Prosper Zendejas MD [address] [place] [address] (Fax) PCP - General 09/25/22 Prosper Zendejas MD [address] [place] [address] PCP - Medical [employer] 10/06/22 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 Relationship Specialty Start Date End Date Prosper Zendejas MD [address] [place] [address] PCP - General 09/25/22 Prosper Zendejas MD [address] [place] [address] PCP - Medical [employer] 10/06/22 Source Comments (unrecognize d section and content) In the event this informatio n is protected by the Federal Confidentiality of Alcohol and Drug Abuse Patient Records regulations: The Federal rules restrict any use of the information to criminally investigate or prosecute any alcohol or drug abuse patient.[facility] Scheduled Active and Recently Administ ered Medications (unrecognized section and content) Medication Order 06/13/2023 06/14/2023 06/15/2023 acetaminophen (Tylenol) tablet 650 mg 650 mg, oral, Every 6 hours scheduled, First dose on Mon06/14/23 at 1345, Phase II/On Unit, If ordered PRN for pain, nurse is permitted to administer this medication for higher pain scores based on patient preference? Yes 1345 (Not Given - Provider: Celio Thomas RN - Reason: Patient/family refused)1711 (Given - Provider: Tena Thomas RN) 0006 (Given - Provider: Lennie Emerson RN)0536 (Given - Provider: Lennie Emerson RN)1223 (Given - Provider: Brandt Landa LPN)1800 (Due) acetaminophen (Tylenol) tablet 650 mg 650 mg, oral, Every 6 hours scheduled, First dose on Mon06/14/23 at 1345, Recovery & On Unit, If ordered PRN for pain, nurse is permitted to administer this medication for higher pain scores based on patient preference? Yes 1345 (Not Given - Provider: Celio Thomas RN - Reason: Patient/family refused)1800 (Not Given - Provider: Tena Thomas RN - Reason: Other - Comment: duplicate order) 0000 (Not Given - Provider: Lennie Emerson RN - Reason: Contraindicated - Comment: duplicate order)0600 (Not Given - Provider: Lennie Emerson RN - Reason: Contraindicated - Comment: duplicate order)1200 (Not Given - Provider: Brandt Landa LPN - Reason: See Provider Order - Comment: duplicate order)1800 (Due) aspirin EC tablet 81 mg 81 mg, oral, 2 times daily, First dose on Mon06/14/23 at 1345, Phase II/On Unit, Do not crush, chew, or split. 1345 (Not Given - Provider: Celio Thomas RN - Reason: Patient/family refused)2153 (Given - Provider: Lennie mEerson RN) 0950 (Given - Provider: Brandt Landa LPN)2100 (Due) ceFAZolin in dextrose (iso-os) (Ancef) IVPB 2 g (COMPLETED) 2 g, intravenous, Administer over 30 Minutes, Every 8 hours, First dose on Mon06/14/23 at 1830, For 2 doses, Phase II/On Unit, Start 8 hours after pre-op dose given. premix bag, Dosing of this medication varies based on severity of illness. Does this patient have sepsis or concern for sepsis (probable or documented infection plus systemic manifestations of infection)? No, Suspected Indication (Select all that apply): Surgical Prophylaxis 184 (New Bag - Provider: Tena Thomas RN)191 (Stopped - Provider: Lennie Emerson RN) 0237 (New Bag - Provider: Lennie Emerson RN)0307 (Stopped - Provider: Lennie Emerson RN) celecoxib (CeleBREX) capsule 400 mg (COMPLETED) 400 mg, oral, Once, On Mon06/14/23 at 0630, For 1 dose, Preprocedure, In preop before surgery Capsules may be opened and sprinkled on a spoonful of cold or room temperature applesauce. 0655 (Given - Provider: Lisa Lebron RN) cholecalciferol (Vitamin D-3) tablet 5,000 Units 5,000 Units, oral, Daily, First dose on Mon06/14/23 at 1345, Phase II/On Unit 1345 (Not Given - Provider: Celio Thomas RN - Reason: Patient/family refused) 0950 (Given - Provider: Brandt Landa LPN) dexAMETHasone (PF) (Decadron) injection 10 mg (COMPLETED) 10 mg, intravenous, Once, On Mon06/14/23 at 1015, For 1 dose, Recovery (only), On immediate arrival to PACU (this in addition to OR dose) 1024 (Given - Provider: Beryl Nye RN) fentaNYL (Duragesic) 25 mcg/hr patch 1 patch 1 patch, transdermal, Administer over 72 Hours, Every 72 hours, First dose on Jennifer 06/15/23 at 0945, Do not cut patch. Rotate site with each application to intact non-irritated upper arm, chest, back, or flank. Press firmly in place with palm of hand for 30 seconds, ensuring contact especially at the edges. Do not expose to heat sources. If patch begins to pull away, may apply first aid tape to edges, or overlay with transparent adhesive film if necessary. When remove patch, fold adhesive side of patch to itself before disposing per policy. Wash hands immediately after handling patch. 1259 (Medication Devika lied - Provider: Brandt Landa LPN) lamoTRIgine (LaMICtal) tablet 150 mg 150 mg, oral, 2 times daily, First dose on Mon06/14/23 at 1345, Phase II/On Unit 1345 (Not Given - Provider: Celio Thomas RN - Reason: Other - Comment: taken prior to arrival)2155 (Given - Provider: Lennie Emerson RN) 0951 (Given - Provider: Brandt Landa LPN)2100 (Due) liothyronine (Cytomel) tablet 5 mcg 5 mcg, oral, 2 times daily, First dose on Mon06/14/23 at 1345, Phase II/On Unit 1345 (Not Given - Provider: Celio Thomas RN - Reason: Other - Comment: taken prior to arrival) 0539 (Given - Provider: Lennie Emerson RN)1507 (Given - Provider: Brandt Landa LPN) losartan (Cozaar) tablet 50 mg 50 mg, oral, Daily, First dose on Mon06/14/23 at 1345, Phase II/On Unit 1345 (Not Given - Provider: Celio Thomas RN - Reason: Patient/family refused) 0900 (Not Given - Provider: Brandt Landa LPN - Reason: Order parameters not met) magnesium oxide (Mag-Ox) tablet 400 mg 400 mg, oral, Daily, First dose on Mon06/14/23 at 1345, Phase II/On Unit 1431 (Given - Provider: Tena Thomas RN) 0950 (Given - Provider: Brandt Landa LPN) multivitamin with minerals 1 tablet 1 tablet, oral, Daily, First dose on Mon06/14/23 at 1345, Phase II/On Unit 1345 (Not Given - Provider: Celio Thomas RN - Reason: Patient/family refused) 0950 (Given - Provider: Brandt Landa LPN) polyethylene glycol (Glycolax, Miralax) packet 17 g 17 g, oral, Daily, First dose on Mon06/14/23 at 1345, Phase II/On Unit, Bowel Regimen - for prevention of constipation. 1345 (Not Given - Provider: Celio Thomas RN - Reason: Patient/family refused) 0951 (Given - Provider: Brandt Landa LPN) QUEtiapine (SEROquel) tablet 400 mg 400 mg, oral, Nightly, First dose on Mon06/14/23 at 2100, Phase II/On Unit 2153 (Given - Provider: Lennie Emerson, JACLYN) 2100 (Due) sennosides (Senokot) tablet 17.2 mg 17.2 mg (2 tablet), oral, 2 times daily, First dose on Mon06/14/23 at 1345, Phase II/On Unit, Bowel Regimen - for prevention of constipation Hold for loose stools 1345 (Not Given - Provider: Celio Thomas RN - Reason: Patient/family refused)2153 (Given - Provider: Lennie Emerson RN) 0950 (Given - Provider: Brandt Landa LPN)2100 (Due) sertraline (Zoloft) tablet 100 mg 100 mg, oral, 2 times daily, First dose on Mon06/14/23 at 1345, Phase II/On Unit 1345 (Not Given - Provider: Celio Thomas RN - Reason: Other - Comment: taken prior to arrival) 0537 (Given - Provider: Lennie Emerson RN - Comment: pt. takes at 0500 and 1500)1507 (Given - Provider: Brandt Landa LPN) thyroid (pork) (Seagrove) tablet 60 mg 60 mg, oral, 2 times daily, First dose on Mon06/14/23 at 1345, Phase II/On Unit 1345 (Not Given - Provider: Celio Thomas RN - Reason: Patient/family refused) 0537 (Given - Provider: Lennie Emerson RN - Comment: pt. takes at 0500 and 1500)1507 (Given - Provider: Brandt Landa LPN)2100 (Due) tranexamic acid in NaCl,iso-os 1,000 mg/100 mL (10 mg/mL) IV 1,000 mg 1,000 mg, intravenous, Once, On Mon06/14/23 at 1345, For 1 dose, Intraprocedure, 1 g IV at start of case , Tranexamic Acid Indication: Surgical Prophylaxis: Orthopedic 1344 (Not Given - Provider: Celio Thomas RN - Reason: Other - Comment: taken prior to arrival) tranexamic acid in NaCl,iso-os 1,000 mg/100 mL (10 mg/mL) IV 1,000 mg 1,000 mg, intravenous, Once, On Mon06/14/23 at 1345, For 1 dose, Intraprocedure, 1 gram IV at skin closure, Tranexamic Acid Indication: Surgical Prophylaxis: Orthopedic 1344 (Not Given - Provider: Celio Thomas RN - Reason: Other - Comment: given in OR) Continuous Medication Order 06/13/2023 06/14/2023 06/15/2023 lactated Ringer's infusion (CANCELED) 500 mL/hr, intravenous, Continuous, Starting on Mon06/14/23 at 0630, Preprocedure, Give 500 ml bolus and then run at 100 mL/hour 0656 (New Bag - Provider: Lisa Lebron RN)0729 (Paused - Provider: Wali Quinonez APRN-COMPRESSOR OPERATOR - Comment: Switch to gravity)0730 (New Bag - Provider: Wali Quinonez APRNCOMPRESSOR OPERATOR)0744 (Canceled Entry - Provider: Wali Quinonez APRNCOMPRESSOR OPERATOR)0950 (New Bag - Provider: Wali Quinonez APRNCOMPRESSOR OPERATOR)1023 (Stopped - Provider: Wali Quinonez APRNCOMPRESSOR OPERATOR)1027 (New Bag - Provider: Beryl Nye, RN)1318 (Stopped - Provider: Celio Thomas RN) lactated Ringer's infusion 85 mL/hr, intravenous, Continuous, Starting on Mon06/14/23 at 1345, For 24 hours, Phase II/On Unit 1433 (New Bag - Provider: Tena Thomas RN)2133 (Rate/Dose Verify - Provider: Lennie Emerson, JACLYN)2316 (New Bag - Provider: Patsy Neves RN) 0430 (Rate/Dose Verify - Provider: Lennie Emerson, RN)0546 (Stopped - Provider: Lennie Emerson RN) oxygen (O2) therapy 2 L/min, inhalation, Continuous, Starting on Mon06/14/23 at 1345, Phase II/On Unit, Titrate supplemental oxygen to maintain oxygen saturation greater than or equal to 92%., Device: Nasal Cannula, Rate in liters per minute: 2 LPM, Keep O2 Sat Above: 92% 1345 (Start - Provider: Tena Thomas RN) PRN Medication Order 06/13/2023 06/14/2023 06/15/2023 albuterol 2.5 mg /3 mL (0.083 %) nebulizer solution 2.5 mg (CANCELED) 2.5 mg, nebulization, Every 20 min PRN, wheezing, Starting on Mon06/14/23 at 0958, For 3 doses, Recovery (only) 1055 (Given - Provider: Beryl Nye, JACLYN) bupivacaine PF (Marcaine) 0.5 % (5 mg/mL) injection (CANCELED) As needed, Starting on Mon06/14/23 at 0940, Intraprocedure 0940 (Given - Provider: Tomasz Otero MD) cyclobenzaprine (Flexeril) tablet 10 mg 10 mg, oral, Daily PRN, muscle spasms, Starting on Mon06/14/23 at 1318, Phase II/On Unit 1348 (Given - Provider: Celio Thomas RN) diphenhydrAMINE (BENADryl) injection 12.5 mg 12.5 mg, intravenous, Every 6 hours PRN, itching, Starting on Mon06/14/23 at 1318, Phase II/On Unit, If giving IV push, max rate of 25 mg/min. HYDROmorphone (Dilaudid) injection 0.5 mg (CANCELED) 0.5 mg, intravenous, Every 5 min PRN, pain moderate (4-6), first line, Starting on Mon06/14/23 at 0958, Recovery (only), Max total of 4 mg regardless of dose. 1027 (Given - Provider: Beryl Nye RN)1040 (Given - Provider: Beryl Nye RN)1200 (Given - Provider: Ladonna Bedolla RN) HYDROmorphone (Dilaudid) injection 0.5 mg 0.5 mg, intravenous, Every 2 hour PRN, pain breakthrough, Starting on Mon06/14/23 at 1318, Phase II/On Unit HYDROmorphone (Dilaudid) injection 1 mg (CANCELED) 1 mg, intravenous, Every 5 min PRN, pain severe (7-10), first line, Starting on Mon06/14/23 at 0958, Recovery (only), Max total of 4 mg regardless of dose. 1116 (Given - Provider: Ladonna Bedolla, JACLYN) ketorolac (Toradol) injection (CANCELED) As needed, Starting on Mon06/14/23 at 0940, Intraprocedure 0940 (Given - Provider: Tomasz Otero MD) morphine injection 2 mg 2 mg, intravenous, Every 2 hour PRN, pain breakthrough, Starting on Mon06/14/23 at 1318, Recovery & On Unit naloxone (Narcan) injection 0.2 mg 0.2 mg, intravenous, Every 5 min PRN, respiratory depression, Starting on Mon06/14/23 at 1318, Phase II/On Unit, If respiratory rate is less than 8 breaths/minute or patient is difficult to arouse stop any narcotics and contact physician. Administer slow IV push. Repeat as ordered until patient's respiratory rate is greater than 12 breaths/minute. ondansetron (Zofran) injection 4 mg(Linked Group 1) 4 mg, intravenous, Every 8 hours PRN, nausea/vomiting, first line, nausea, vomiting,, Starting on Mon06/14/23 at 1408, Give IV if patient is unable to take orally. When administering via IV Push, administer over 3-5 minutes. 1431 (Given - Provider: Tena Thomas RN) ondansetron ODT (Zofran-ODT) disintegrating tablet 4 mg(Linked Group 1) 4 mg, oral, Every 8 hours PRN, nausea/vomiting, first line, nausea, vomiting,, Starting on Mon06/14/23 at 1408, Patient should allow tablet to dissolve on tongue. Do not remove from blister pack until just before administering. 1431 (See Alternative - Provider: Tena Thomas RN) oxyCODONE (Roxicodone) immediate release tablet 10 mg 10 mg, oral, Every 4 hours PRN, pain severe (7-10), first line, Starting on Mon06/14/23 at 1318, Phase II/On Unit, If ordered PRN for pain, nurse is permitted to administer this medication for higher pain scores based on patient preference? Yes 8471 (Given - Provider: Lennie Emerson RN) oxyCODONE (Roxicodone) immediate release tablet 10 mg 10 mg, oral, Every 4 hours PRN, pain severe (7-10), first line, Starting on Mon06/14/23 at 1318, Recovery & On Unit, If ordered PRN for pain, nurse is permitted to administer this medication for higher pain scores based on patient preference? Yes 1348 (Given - Provider: Celio Thomas RN) oxyCODONE (Roxicodone) immediate release tablet 5 mg 5 mg, oral, Every 4 hours PRN, pain moderate (4-6), first line, Starting on Mon06/14/23 at 1318, Phase II/On Unit, If ordered PRN for pain, nurse is permitted to administer this medication for higher pain scores based on patient preference? Yes 1634 (Given - Provid er: Brandt Landa LPN) oxyCODONE (Roxicodone) immediate release tablet 5 mg 5 mg, oral, Every 6 hours PRN, pain moderate (4-6), first line, Starting on Mon06/14/23 at 1318, Recovery & On Unit, If ordered PRN for pain, nurse is permitted to administer this medication for higher pain scores based on patient preference? Yes 1223 (Given - Provid er: Brandt Landa LPN) promethazine (Phenergan) 6.25 mg in sodium chloride 0.9% 50 mL IV (COMPLETED) 6.25 mg, intravenous, Administer over 15 Minutes, Once as needed, Nausea/vomiting, second line, Starting on Mon06/14/23 at 0958, For 1 dose, Recovery (only) 1045 (New Bag - Provider: Beryl Nye RN)1100 (Stopped - Provider: Ladonna Bedolla RN) Linked Groups Order Group 1: ondansetron ODT (Zofran-ODT) disintegrating tablet 4 mgJump to med 4 mg, oral, Every 8 hours PRN, nausea/vomiting, first line, nausea, vomiting,, Starting on Mon06/14/23 at 1408
Patient should allow tablet to dissolve on tongue. Do not remove from blister pack until just before administering.
Or ondansetron (Zofran) injection 4 mgJump to med 4 mg, intravenous, Every 8 hours PRN, nausea/vomiting, first line, nausea, vomiting,, Starting on Mon06/14/23 at 1408
Give IV if patient is unable to take orally. When administering via IV Push, administer over 3-5 minutes.
FOR RECORDS PERTAINING TO PATIENTS WHO ARE OR HAVE BEEN ENROLLED IN A CHEMICAL DEPENDENCY/SUBSTANCEABUSE PROGRAM, SOME INFORMATION MAY BE OMITTED. This clinical summary was aggregated from multiple sources. Caution should be exercised in using it in the provision of clinical care. This summary normalizes information from multiple sources, and as a consequence, information in this document may materially change the coding, format and clinical context of patient data. In addition, data may be omitted in some cases. CLINICAL DECISIONS SHOULD BE BASED ON THE PRIMARY CLINICAL RECORDS. [facility]. provides no warranty or guarantee of the accuracy or completeness of information in this document.
== END 2023-08-29 10:19 | disposition home or self-care (01) ==
LOC: NOMS 10:19
PROVIDERS: PCP Family Medicine; Visit Provider Obstetrics & Gynecology
DX: N94.9 Unspecified condition associated with female genital organs and menstrual cycle (principal); N93.9 Abnormal uterine and vaginal bleeding, unspecified
CPT/HCPCS: 76830; 76856

== ENCOUNTER 2023-09-20 14:48 | Outpatient (OUT) | payer OTHER, SELFPAY ==
[2023-09-20 15:39] LABS: Free T3 2.44 pg/mL (2.18-3.98)
[2023-09-20 16:49] LABS: Free T4 0.53 ng/dL (0.76-1.46)
== END 2023-09-20 14:49 | disposition home or self-care (01) ==
LOC: LAB 14:51
PROVIDERS: PCP Family Medicine; Visit Provider Family Medicine
DX: E03.8 Other specified hypothyroidism (principal)
CPT/HCPCS: 36415; 84439; 84481

== ENCOUNTER 2023-10-03 10:45 | Outpatient (OUT) | payer OTHER, SELFPAY ==
--- OUTSIDE RECORDS SUMMARY | 2023-10-03 10:54 | XMS_ITS ---
Patient Summarization (C-CDA 2.1 CCD) Created on: October 03, 2023 Laron UGALDE~KARINA : 1965 Sex: Female Author Organization Sample organization Care Team Providers Care Assistant Librarian Name Role Phone RAMIREZ ZENDEJAS Primary Care Physician Tete Romero Unavailable Ramirez Zendejas MD Primary Care Provider CARL RODGERS Referring Unavailable HEMERAMIREZ HUFFMAN Primary Care Unavailable KINGSLEY MARTI Referring Unavailable HEMERAMIREZ HUFFMAN Primary Care Unavailable CARL RODGERS Referring Unavailable HEMEYER, RAMIREZ Nails Primary Care Unavailable Taco Flannery RN Unavailable Unavailbrittany Zendejas MD, Ramirez Lopez Primary Care Provider LEONORA CURIEL Attending Unavailable JAKE MARKS JR Referring Unav ailable HEMEYER, RAMIREZ LOPEZ Primary Care Unavailab le HEMEYER ., DR CHENG Admitting Unavailable HEMEYER ., DR CHENG Attending Unavailable HEMEYER ., DR CHENG Primary Care Unavailable HEMEYER ., DR CHENG Admitting Unavailable HEMEYER ., DR CHENG Attending Unavailable HEMEYER ., DR CHENG Consulting Unavailable HEMEYER ., DR CHENG Primary Care Unavailable HEMEYER ., DR CHENG Primary Care Unavailable KARASIK ., DR LOVETT Attending Unavailabl e KARRACHEAL ., DR LOVETT Consulting Unavailabl e RASHMI ., DR LOVETT Admitting Unavailabl e STEPPAUL, DR JOSEPH Admitting Unavailable SELINA, DR JOSEPH Attending Unavailable SELINA, DR JOSEPH Consulting Unavailable CRISTIANA ., DR CHENG Primary Care Unavailable STEVIE, DR ANALISA Brady Consulting Unavailable Cristiana GARCIA, Ramirez Lopez Primary Care Provider Ramirez Zendejas MD Primary Care Provider Ramirez Zendejas MD Unavailable TOMASZ OTERO Admitting Unavailable TOMASZ OTERO Attending Unavailable RAMIREZ ZENDEJAS Primary Care Unavailab RAMIREZ Marcelo Primary Care Unavailab TOMASZ Luna Referring Unavailable TOMASZ OTERO Referring Unavailable RAMIREZ ZENDEJAS Primary Care Unavailab deanna NOEUNICE, AVINASH M Referring Unavailable RAMIREZ ZENDEJAS Primary Care Unavailable AVINASH ADEN Referring Unavailable RAMIREZ ZENDEJAS Primary Care Unavailable RAMIREZ ZENDEJAS Attending Unavailable RAMIREZ ZENDEJAS Attending Unavailable SHENA LICONA Attending Unavailab RAMIREZ Marcelo Attending Unavailable RAMIREZ ZENDEJAS Attending Unavailable SHLOMO VAIL Attending Unavailable RAMIREZ ZENDEJAS Attending Unavailable QUINCY HOWELL Attending Unavailable CLEO MARIE Attending Unavailable Allergies Allergy Classification Reported Allergen(s) Allergy Type Date of Onset Reaction(s) Facility (10 sources) Morphine; Translations: [MORPHINE] Drug Allergy 1 Other (See Comments), GI Upset, Nausea/vomitin g, Itching LE TOTE Other (1 source) Adhesive Bandages Drug allergy Unknown LE TOTE Other (2 sources) Adhesive Tape Propensity to adverse reactions to drug 1 Rash [facility] [employer] (5 sources) gabapentin; Translations: [GABAPENTIN] Drug Allergy 1 Swelling [facility] [employer] Work Phone: (2 sources) Desonide Drug Allergy 4 [facility] Repository (1 source) gabapentin Drug Allergy 3 [facility] Repository (2 sources) Morphine Drug Allergy 4 [facility] Repository (3 sources) Onion extract; Translations: [ONION] Drug Allergy 3 [facility] Repository (1 source) Misc-Food; Translations: [Misc-Food] Food allergy (disorder) 3 [facility] Repository (1 source) onions; Translations: [onions] Food allergy (disorder) [facility] Repository (2 sources) nut Drug allergy (disorder) 7 [facility] Repository (3 sources) Onion extract Drug Allergy 4 Headache [facility] Work Phone: (4 sources) Adhesive Tape-Silicones; Translations: [ADHESIVE TAPE-SILICONES] Drug Allergy 4 Other [facility] (2 sources) Onion extract Drug Allergy 3 Headache [facility] (2 sources) Wound Dressing Adhesive Propensity to adverse reactions 3 Rash [facility] (1 source) Adhesive agent; Translations: [ADHESIVE] Propensity to adverse reactions to drug (disorder) 1 [facility] Repository (1 source) Morphine; Translations: [MORPHINE SULFATE] Drug Allergy 1 [facility] Repository Encounters Encounter Date Encounter Type Care Provider Facility Start: 09-20-2023 End: 09-20-2023 ambulatory CLEO MARIE Not Available Start: 09-15-2023 End: 09-19-2023 ambulatory [facility] Start: 09-11-2023 End: 09-15-2023 ambulatory [facility] Start: 09-04-2023 End: 09-04-2023 ambulatory QUINCY HOWELL Not Available Start: 08-21-2023 End: 08-21-2023 ambulatory RAMIREZ ZENDEJAS Not Available Start: 08-15-2023 End: 08-15-2023 ambulatory SHLOMO VAIL Not Available Start: 08-08-2023 End: 08-08-2023 ambulatory RAMIREZ ZENDEJAS Not Available Start: 08-01-2023 End: 08-01-2023 ambulatory RAMIREZ ZENDEJAS Not Available Start: 06-15-2023 Clinisync Result Encounter Generic External Data Provider [facility] External Department Unsolicited Start: 06-15-2023 Clinisync Result Encounter Generic External Data Provider [facility] External Department Unsolicited Start: 06-14-2023 End: 06-15-2023 ambulatory TOMASZ OTERO [facility] Start: 06-14-2023 End: 06-15-2023 Subsequent hospital visit by physician Tomasz Otero MD Work Phone: [facility] 4 Observation Comment on above: S/P total right hip arthroplasty (Primary Dx); History of total hip replacement, right Start: 06-13-2023 Refill Ramirez garcía MD Work Phone: [facility] Start: 06-12-2023 End: 06-12-2023 ambulatory SHENA LICONA Not Available Start: 06-06-2023 End: 06-06-2023 ambulatory RAMIREZ ZENDEJAS Not Available Start: 06-02-2023 End: 06-03-2023 ambulatory TOMASZ Brady [facility] Start: 06-02-2023 End: 06-02-2023 Subsequent hospital visit by physician eGrry Ct 1 [facility] Comment on above: Unilateral primary o steoarthritis, right hip Start: 05-22-2023 End: 05-23-2023 ambulatory RAMIREZ LOPEZ [facility] Start: 05-22-2023 End: 05-23-2023 Encounter for other preprocedural examination MIGUELITO [facility] Start: 05-11-2023 End: 05-11-2023 ambulatory RAMIREZ ZENDEJAS Not Available Start: 09-29-2022 ambulatory Facility:[facility] Start: 08-29-2022 End: 08-29-[address] JAKE MARKS Facility: Start: 08-12-2022 End: 08-12-2022 ambulatory LEONORA CURIEL Facility:[facility] Start: 08-12-2022 End: 08-12-2022 Patient encounter procedure Leonora Curiel MD Work Phone: Orthopaedics Comment on above: Class 2 severe obesi ty with serious comorbidity in adult, unspecified BMI, unspecified obesity type (HCC) (Primary Dx); Primary osteoarthritis of right hip Start: 04-11-2022 End: 04-11-[address] RAMIREZ ZENDEJAS . Facility: Start: 03-08-2022 End: 03-11-2022 ambulatory CARL RODGERS [facility] Start: 03-08-2022 End: 03-10-2022 Subsequent hospital visit by physician [facility] Cat Scan Room [facility] Laboratory Comment on above: Microscopic hematuri a Start: 02-25-2022 End: 02-26-2022 ambulatory KINGSLEY [facility] Start: 01-06-[address] RAMIREZ ZENDEJAS . Fac ility:[facility] Start: 10-15-2021 End: 10-15-[address] RAMIREZ ZENDEJAS . Facility:[facility] Start: 09-06-2021 End: 09-06-2021 Lab Drop off [facility] Start: 06-24-2021 End: 10-13-2021 Recurring [facility] Start: 02-17-2021 Office outpatient ne w 20 minutes Tete Romero [facility] Equipment Procedure Code Equipment Code Equipment Origin al Text Equipment Identifier Dates Insignia Hip Mark Anthony m, High Offset. [id number] [id number])N/A, [id number] FDA Start: 06-14-2023 Shell, Trident I i, Tritanium, Clusterhole, 48d - Sn/A - [id number] [id number]()N/A, [id number] FDA Start: 06-14-2023 Liner, Cocr, Mdm , 38mm D - Sn/A - [id number] Start: 06-14-2023 Head, Femur V40 22.2/+1 Cocr Lfit - Sn/A - [id number] [id number] (21)N/A, [id number] FDA Start: 06-14-2023 Insert, Mdm X3 Lutheran, 38od 22id X 7.7mm - Sn/A - [id number] [id number] ()N/A, [id number] FDA Start: 06-14-2023 Screw, Low Profi le Hex, 6.5 X 25 Mm - Sn/A - [id number] Start: 06-14-2023 4mm X 170mm Stry ker Pin Bone (Formerly Mfr'D By Jamal) [id number] Start: 06-14-2023 Immunizations Immunization Date Immunization Notes Care Provider Fa rupesh 02-07-2020 influenza, high dose seasonal, preservative-free Ramirez Zendejas MD Work Phone: [facility] 02-07-2020 influenza, injectabl e, quadrivalent, preservative free Ramirez Zendejas MD Work Phone: [facility] 02-07-2020 influenza virus vaccine, unspecified formulation [address] Work Phone: 01-29-2019 influenza, injectabl e, quadrivalent, preservative free Ramirez eZndejas MD Work Phone: [facility] 12-29-2017 influenza, injectabl e, quadrivalent, preservative free Ramirez Zendejas MD Work Phone: [facility] 12-29-2017 influenza, seasonal, injectable Ramirez Zendejas MD Work Phone: [facility] 02-05-2016 influenza, seasonal, injectable, preservative free Ramirez Zendejas MD Work Phone: [facility] 02-18-2015 influenza, seasonal, injectable Ramirez Zendejas MD Work Phone: [facility] 02-18-2015 influenza, seasonal, injectable, preservative free Ramirez Zendejas MD Work Phone: [facility] 01-12-2015 influenza, injectabl e, quadrivalent, preservative free Ramirez Zendejas MD Work Phone: [facility] 10-13-2014 Toradol per 15 mg Tete Dym ond Other LE TOTE Other 06-26-2009 novel [id number], preservative-free, injectable Ramirez Zendejas MD Work Phone: [facility] Medications Current Medications Medication Drug Class(es) [...] Start: 02-17-2021 take 1 capsule by mo uth every eight hours Cephalexin 500 MG 1 capsule Orally tid for 10 day(s) Feb, Active cholecalciferol 0.125 mg oral tablet (8 sources) Vitamin D Start: 06-14-2023 take 5000 [IU] by mouth once daily 5,000 Units, oral, Daily, First dose on Mon06/14/23 at 1345, Phase II/On Unit take 1 capsule by mouth every we ek cholecalciferol (Vitamin D-3) 1.25 MG (73418 UT) capsule Take 50,000 Units by mouth [...] Once a day Active 168 hr estradiol 0.11585 mg/hr transdermal system (5 sources) Estrogen Start: 12-08-2022 estradiol (Cli dave) 0.075 MG/24HR Indications: Primary ovarian failure Place 1 patch over 7 days on the skin 1 (one) time per week. 12 patch 3 12/08/2022 Active estradiol (Clima ra) 0.075 mg/[address] 1 patch on the skin 1 (one) time per week. Monday 0 Suspended estrogens, conjugated (assisted) 0.625 mg oral tablet (4 sources) Estrogen Start: 12-05-2016 take 1 tablet by mouth once daily estrogens, conjugated, (PREMARIN) 0.625 MG tablet Take 0.625 mg by mouth daily 0 12/05/2016 Active Premarin 0.45 MG 1 tablet Orally Daily for Three Weeks, 1 Week off Active Comment on above: Take 0.625 mg by maureen once daily. 72 hr fentaNYL 0.025 mg/hr [...] 150 MG tablet take 2 tablets by [facility] every twenty-four hours lamoTRIgine 200 MG 2 tablet Orally Once a day Active Comment on above: Take 150 mg by mouth once daily. levothyroxine sodium 0.2 mg oral tablet (4 sources) l-Thyroxine Start: take 0.5 tablet by mouth twice daily levothyroxine (SYNTHROID) 200 MCG tablet TAKE 1/2 TABLET BY MOUTH ON EMPTY STOMACH TWICE DAILY 0 07/12/2021 Active take 1 tablet by [facility] once daily before breakfast levothyroxine (SYNTHROID) 200 mcg tablet Take 200 mcg by mouth daily before breakfast. 0 Active Levothroid Activ e Comment on above: Take 200 mcg by mopa h daily before breakfast. liothyronine sodium 0.005 [...] Mon06/14/23 at 1345, Phase II/On Unit Losartan Potassi um Active Comment on above: Take 50 mg [...] (8 sources) Biguanide Start: 11-23-19 End: 11-07-19 take 1 tablet by mouth in the [...] O2 Sat Above: 92% polyethylene glycol 3350 12017 mg powder for oral solution (1 source) [...] mg by mouth daily at bedtime. sennosides, assisted 8.6 mg oral tablet (1 source) Start: [...] mouth in the morning. 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 Payers Date Payer Category Payer Unknown [id number] 2021 Unknown [employer] R [employer] 2021-Present [phone] [address] [place] [address] [employer] [id number] 2021 Unknown [id number] 2013 Unknown [id number] .[id number] 1965 Unknown [id number] 2.16.840.1.112951.3.579.2.173 1965 Unknown [id number] 2.16.840.1.951024.3.579.2.173 1965 Unknown [id number] 2.16.840.1.621652.3.579.2.173 1965 Unknown [id number] 2.16.840.1.265513.3.579.2.593 1964 Unknown [id number] 2.16.840.1.008130.3.579.2.593 1964 Unknown [id number] 2.16.840.1.229686.3.579.2.593 1964 Unknown [id number] 2.16.840.1.710159.3.579.2.593 1964 Unknown [id number] 2.16.840.1.000479.3.579.2.727 1964 Unknown [id number] 2.16.840.1.414854.3.579.2.124 3 1965 Unknown [id number] 2.16.840.1.782341.3.579.2.124 3 1965 Unknown [id number] 2.16.840.1.803567.3.579.2.124 3 1965 Unknown [id number] 2.16.840.1.304720.3.579.2.125 9 1965 Unknown [id number] 2.16.840.1.069976.3.579.2.125 9 1964 Unknown [id number] 2.16.840.1.824255.3.579.2.125 9 1964 Unknown [id number] 2.16.840.1.965409.3.579.2.125 9 1965 Unknown [id number] 2.16.840.1.628565.3.579.2.125 9 1964 Unknown [id number] 2.16.840.1.749689.3.579.2.125 9 1964 Unknown [id number] 2.16.840.1.688548.3.579.2.125 9 1965 Unknown [id number] 2.16.840.1.874965.3.579.2.125 9 1964 Unknown [id number] 2.16.840.1.499752.3.579.2.125 9 1959 Unknown [id number] 2.16.840.1.725622.19 1959 Unknown [id number] 2.16.840.1.039239.19 1959 Unknown [id number] Plan of Treatment Date Care Activity Detail Author Start: 10-15-2026 Screening for malign ant neoplasm of cervix [facility] Start: 10-15-2024 Screening for malign ant neoplasm of cervix Pap smear [facility] Start: 09-17-2023 Screening for malign ant neoplasm of colon [facility] Start: 09-11-2023 End: 09-11-2023 Patient encounter procedure 09/11/2023 1:00 PM EDT Office Visit [facility] [address] [facility] [address] [place] [address] Shena Licona, DOCK COORDINATOR-[facility] [address] [facility] [address] [place] [address] [facility] Start: 08-08-2023 End: 08-08-2023 Patient encounter procedure 08/08/2023 10:00 AM EDT Office Visit [facility] [address] [place] [address] Ramirez Zendejas MD [address] [place] [address] [facility] S Start: 06-14-2023 End: 06-14-2023 Admission to same day surgery center 06/14/2023 1:45 PM EST - 06/14/2023 5:00 PM EST [place] [facility] [place] [address] [place] [id number] [place] [address] [place] [address] Right posterior total hip replacement with Jamal [85732 (CPT )] [facility] [place] Comment on above: Right posterior tota l hip replacement with Jamal [[id number] (CPT )] Start: 06-14-2023 End: 06-14-2023 Arthrp acetblr/prox fem prostc agrft/algrft Arthroplasty Total Hip Posterior Approach Unilateral primary osteoarthritis, right hip 06/14/2023 1:45 PM EST Virtual [facility] Start: 06-14-2023 Subsequent hospital visit by physician 06/14/2023 12:15 PM EST Hospital Encounter [facility] [place] [address] [place] [phone] [place] [address] [place] [address] [facility] [place] Start: 01-06-2023 Influenza vaccination [facility] Start: 05-08-2022 DEPRESSION ASSESSMENT DEPRESSION ASS ESSMENT [facility] Start: 03-10-2022 End: 03-10-2022 Patient encounter procedure 03/10[facility]22 [facility] Start: 12-06-2021 Influenza vaccination Flu vaccine (# 1) [facility] Start: 10-10-2018 Screening for malign ant neoplasm of breast Mammogram [facility] Start: 02-03-2014 Screening for malign ant neoplasm of breast Breast cancer screen [facility] Start: 02-03-2014 Shingles vaccine (1 of 2) Shingles vaccine (1 of 2) [facility] Start: 02-03-2014 SHINGRIX VACCINE (1 of 2) SHINGRIX VACCINE (1 of 2) [facility] Start: 02-03-2014 Zoster Vaccines (1 of 2) Zoste r Vaccines (1 of 2) [facility] Start: 07-24-2009 MMR Vaccines (1 of 1 - Standard series) MMR Vaccines (1 of 1 - Standard series) [facility] Start: 02-03-2009 COLOGUARD (FIT-DNA) COLOGUARD (FIT-D NA) [facility] Start: 02-03-2009 Colonoscopy COLONOSCOPY [facility] Start: 02-03-2009 COLORECTAL CANCER SCREENING COLORECTAL CANCER SCREENING [facility] Start: 02-03-[address] COLONOGRAPHY [facility] Start: 02-03-2009 DIABETES SCREEN DIABETES SCREEN [facility] Start: 02-03-2009 FECAL OCCULT BLOOD FECAL OCCULT BLOO D [facility] Start: 02-03-2009 LIPID SCREEN LIPID SCREEN [facility] Start: 02-03-2009 Screening for malign ant neoplasm of colon [facility] Start: 02-03-2009 SIGMOIDOSCOPY SIGMOIDOSCOPY [facility] Start: 2004 Lipid panel Lipids [facility] Start: 2004 Mammography MAMMOGRAM [facility] Start: 2004 Screening for malign ant neoplasm of breast Mammogram [facility] Start: 02-03-1999 Diabetes screen Diabetes screen [facility] Start: 02-03-1994 HPV TESTING HPV TESTING [facility] Start: 02-03-1986 DTaP/Tdap/Td Vaccine s (1 - Tdap) DTaP/Tdap/Td Vaccines (1 - Tdap) [facility] Start: 02-03-1985 PAP TESTING PAP TESTING [facility] Start: 02-03-1985 Screening for malign ant neoplasm of cervix [facility] Start: 02-03-1983 DTaP/Tdap/Td vaccine (1 - Tdap) DTaP/Tdap/Td vaccine (1 - Tdap) [facility] Start: 02-03-1983 Urine microalbumin profile DTAP,TDAP,TD (1 - Tdap) [facility] Start: 02-03-1982 Diabetes mellitus screening Diabetes Screening [facility] Start: 02-03-1982 Hepatitis C screening B [facility] Start: 02-03-1982 HEPATITIS C SCREENING HEPATITIS C [facility] Start: 02-03-1982 HIV SCREENING HIV SCREENING [facility] Start: 02-03-1979 HIV screening HIV screen [facility] Start: 1976 Depression Screen Depression Screen [facility] Start: 1965 COVID-19 Vaccine (#1) COVID-19 Vacci ne (#1) [facility] Start: 1965 HEPATITIS B (1 of 3 - 3-dose series) HEPATITIS B (1 of 3 - 3-dose series) [facility] Start: 1965 Hepatitis B Vaccines (1 of 3 - 3-dose series) Hepatitis B Vaccines (1 of 3 - 3-dose series) [facility] Start: 1964 HIV screening HIV Screening [facility] Start: 1964 Lipid panel Lipid Panel [facility] Start: 1964 Screening for malign ant neoplasm of colon [facility] Start: 1964 Thyroid stimulating hormone measurement TSH Level [facility] Start: 1964 Yearly Adult Physical Yearly Adult P hysical [facility] End: 03-08-2022 CT UROGRAM [facility] Work Phone: Comment on above: 1 Occurrences starti ng 03/08/2022 until 03/08/2022 ECG 12 Lead ECG 12 Lead ECG STAT 06/14/2023 11:55 AM EST [facility] Work Phone: Electrocardiogram, 12-lead PRN ACS symptoms Electrocardiogram, 12-lead PRN ACS symptoms ECG Routine As needed until discontinued starting 06/14/2023 [facility] Work Phone: Comment on above: As needed until disc ontinued starting 06/14/2023 End: 06-14-2023 Incentive spirometry Instruct Incentive spirometry Instruct Respiratory Care Routine Once for 1 Occurrences starting 06/14/2023 until 06/14/2023 [facility] Service Area Work Phone: Comment on above: Once for 1 Occurrenc es starting 06/14/2023 until 06/14/2023 [facility] Problems Active Problems Problem Classification Problem Date [...] concentration deficit] Onset: 5 10-24-2022 Chronic Other non-traumatic joint disorders (1 source) Pain in right hip; Translations: [Pain in right hip] Onset: 4 Episodic Other nutritional; endocrine; and metabolic disorders (1 [...] apnea (adult) (pediatric)] Onset: 5 10-24-2022 Chronic Residual codes; unclassified (2 sources) Pain, unspecified; Translations: [PAIN UNSPECIFIED] Onset: 2 Episodic Spondylosis; intervertebral disc disorders; other back [...] (2 sources) Drug therapy finding; Translations: [Other assisted (current) drug therapy] Onset: 07-06-2020 05-11-2023 Episodic Other aftercare (2 sources) Taking high risk medication; Translations: [Other assisted (current) drug therapy] Onset: 07-06-2020 Resolved: 11-15-2022 [...] 02-17-2021 Resolved: 02-17-2021 Episodic Residual codes; unclassified (2 sources) History [...] extremities with pain] Onset: 11-15-2022 11-15-2022 Episodic Procedures Date Procedure Procedure Detail Performing Clinician Start: 06-15-2023 DISCHARGE PATIENT WILLI KERLINE ADALID Start: 06-15-2023 Basic metabolic 2000 panel - Serum or Plasma TOMASZ OTERO Start: 06-15-2023 CBC panel - Blood by Automated count TOMASZ OTERO Start: 06-15-2023 ALL CBC WITH AUTO DIFF Generic External Data Provider Start: 06-15-2023 Basic metabolic pane l calcium total Jenifer Paulino PA-C Work Phone: Start: 06-14-2023 FOLLOW-UP EDUCATION [...] Work Phone: Start: 06-14-2023 FULL CODE TOMASZ APPLE Start: 06-14-2023 PULSE OXIMETRY, SPOT WI TISHA [...] of urea nitrog en quantitative Carl Rodgers DOCK COORDINATOR - CORE MACHINE OPERATOR Work Phone: Start: 10-15-2021 Microscopic observat ion [Identifier] in Cervix by Cyto stain Ramirez Zendejas MD Work Phone: Start: 10-10-2017 Mammography Ramirez alexandra MD Work Phone: Start: 09-16-2013 Colonoscopy Ramirez alexandra MD Work Phone: Results Test Name Value Interpretation Reference Range Facility XR HIP RT 2-3 VIEWS W OR WO PELVISon 09-15-2023 XR HIP RT 2-3 VIEWS W OR WO PELVIS XR HIP RT 2-3 VIEWS W OR WO PELVIS History: Right hip pain Exam/Technique: AP view pelvis, AP and frog-leg views right hip Comparison: No relevant prior studies available. Findings: There are surgical changes of total right hip arthroplasty with satisfactory gross alignment and no gross hardware failure. Left hip joint is grossly unremarkable. IMPRESSION: Satisfactory postsurgical changes with no acute or gross osseous abnormality Finalized by Rosangela Lott MD on 09/15/2023 9:23 AM Normal [facility] XR SPINE LUMBAR 2 OR 3 VWSon 09-11-2023 XR SPINE LUMBAR 2 OR 3 VWS XR SPINE LUMBAR 2 OR 3 VWS XR SPINE LUMBAR 2 OR 3 VWS: 09/11/2023 12:06 PM Clinical: Injury with back pain EXAM: LUMBAR SPINE RADIOGRAPHS Views: Frontal and lateral views only. Comparison: none Findings: There is left convex lumbar scoliosis. There is no compression deformity, malalignment, or destructive lesion. Severe degenerative changes from L2 to L5 with disc space narrowing and spurring and facet hypertrophy. Laminectomy changes. Multiple upper abdominal surgical clips and sutures. Impression: * Scoliosis and degenerative and postoperative changes consider MRI if symptoms persist. Finalized by James Mercedes MD on 09/11/2023 12:18 PM Normal [facility] ALL CBC WITH AUTO DIFFon [facility] NUCLEATED RBC 0.0 [facility] PLT 311 [facility] RBC 3.24 Low [facility] WBC 8.9 [facility] Healthcare Original Ordering Provider: JENIFER PAULINO CLINISYNC Basic metabolic 2000 panelon 06-15-2023 Anion gap [Moles/Vol] 12 mmol/L Normal 10-20 [facility] Comment on above: Performed By: #### 2 4321-2 #### [employer]L [employer] ([id number]) [facility] [address] [place] [address] Calcium [Mass/Vol] 8.9 mg/dL Normal 8.6-10.3 [facility] Comment on above: Performed By: #### 2 4321-2 #### [employer] ([id number]) [facility] ([facility] [address] [place] [address] Chloride [Moles/Vol] 102 mmol/L Normal 98-107 [facility] Comment on above: Performed By: #### 2 4321-2 #### [employer] ([id number]) [facility] ([facility] [address] [place] [address] CO2 [Moles/Vol] 25 mmol/L Normal 21-32 [facility] Comment on above: Performed By: #### 2 4321-2 #### [employer] ([id number]) [facility] ([facility] [address] [place] [address] Creatinine [Mass/Vol] 0.96 mg/dL Normal 0.50-1.05 [facility] Comment on above: Performed By: #### 2 4321-2 #### [employer] ([id number]) [facility] ([facility] [address] [place] [address] GFR/1.73 sq M.predicted among non-blacks MDRD (S/P/Bld) [Vol rate/Area] 68 mL/min/{1.73_m2} - [facility] Comment on above: Calculations of kristen mated GFR are performed using the 2020 CKD-EPI Study Refit equation without the race variable for the IDMS-Traceable creatinine methods. https://jasn.asnjournals.org/content/early/ASN.04917062 88 Glomerular filtration rate/1.73 sq M.predicted 68 mL/min/1.73m*2 Normal >60 [facility] Comment on above: Result Comment: Calc ulations of estimated GFR are performed using the 2020 CKD-EPI Study Refit equation without the race variable for the IDMS-Traceable creatinine methods. https://jasn.asnjournals.org/content/early/ASN.36124812 88 Performed By: #### 2 4321-2 #### [employer] ([id number]) [facility] ([facility] [address] [place] [address] Glucose [Mass/Vol] 118 mg/dL High 74-99 [facility] Comment on above: Performed By: #### 2 4321-2 #### [employer] ([id number]) [facility] ([facility] [address] [place] [address] Potassium [Moles/Vol] 4.7 mmol/L Normal 3.5-5.3 [facility] Comment on above: Performed By: #### 2 4321-2 #### [employer] ([id number]) [facility] ([facility] [address] [place] [address] Sodium [Moles/Vol] 134 mmol/L Low 136-145 [facility] Comment on above: Performed By: #### 2 4321-2 #### [employer] ([id number]) [facility] ([facility] [address] [place] [address] Urea nitrogen [Mass/Vol] 21 mg/dL Normal 6-23 [facility] Comment on above: Performed By: #### 2 4321-2 #### [employer] ([id number]) [facility] ([facility] [address] [place] [address] CBC panel Auto (Bld)on 06-15 Erythrocyte distribution width (RBC) [Ratio] 13.6 % Normal 11.5-14.5 [facility] Comment on above: Performed By: #### 5 8410-2 #### [employer] ([id number]) [facility] ([facility] [address] [place] [address] Hematocrit (Bld) [Volume fraction] 29.8 % Low 36.0-46.0 [facility] Comment on above: Performed By: #### 5 8410-2 #### [employer] ([id number]) [facility] ([facility] [address] [place] [address] Hemoglobin (Bld) [Mass/Vol] 9.1 g/dL Low 12.0-16.0 [facility] Comment on above: Performed By: #### 5 8410-2 #### [employer] ([id number]) [facility] ([facility] [address] [place] [address] MCH (RBC) [Entitic mass] 28.1 pg Normal 26.0-34.0 [facility] Comment on above: Performed By: #### 5 8410-2 #### [employer] ([id number]) [facility] ([facility] [id number] [place] [address] MCHC (RBC) [Mass/Vol] 30.5 g/dL Low 32.0-36.0 [facility] Comment on above: Performed By: #### 5 8410-2 #### [employer] ([id number]) [facility] ([facility] [address] [place] [address] MCV (RBC) [Entitic vol] 92 fL Normal 80-100 [facility] Comment on above: Performed By: #### 5 8410-2 #### [employer] ([id number]) [facility] ([facility] [id number] [place] [address] Nucleated RBC/100 WBC (Bld) [Ratio] 0.0 % [facility] Nucleated RBC/100 WBC (Bld) [Ratio] 0.0 /100 WBCs Normal 0.0-0.0 [facility] Comment on above: Performed By: #### 5 8410-2 #### [employer] ([id number]) [facility] ([facility] [address] [place] [address] Platelets (Bld) [#/Vol] 311 10*3/uL [facility] Platelets (Bld) [#/Vol] 311 x10*3/uL Normal 150-450 [facility] Comment on above: Performed By: #### 5 8410-2 #### [employer] ([id number]) [facility] ([facility] [address] [place] [address] RBC (Bld) [#/Vol] 3.24 10*6/uL Low [facility] RBC (Bld) [#/Vol] 3.24 x10*6/uL Low 4.00-5.20 [facility] Comment on above: Performed By: #### 5 8410-2 #### [employer] ([id number]) [facility] ([facility] [address] [place] [address] WBC (Bld) [#/Vol] 8.9 10*3/uL [facility] WBC (Bld) [#/Vol] 8.9 x10*3/uL Normal 4.4-11.3 [facility] Comment on above: Performed By: #### 5 8410-2 #### [employer] ([id number]) [facility] ([facility] [address] [place] [address] Laboratory - Hematology and Cell countson 06-15-2023 Erythrocyte distribution width (RBC) [Ratio] 13.6 % 11.5 - 14.5 % [facility] Hematocrit (Bld) [Volume fraction] 29.8 % Low 36.0 - 46.0 % [facility] Hemoglobin (Bld) [Mass/Vol] 9.1 g/dL Low 12.0 - 16.0 g/dL [facility] MCH (RBC) [Entitic mass] 28.1 pg 26.0 - 34.0 pg [facility] MCHC (RBC) [Mass/Vol] 30.5 g/dL Low 32.0 - 36.0 g/dL [facility] MCV (RBC) [Entitic vol] 92 fL 80 - 100 fL [facility] No Panel Informationon 06-15 Interpretation and review of laboratory results Abnormal [facility] ECG 12-LEADon 06-14-2023 ECG 12-LEAD Ventricular Rate 65 Atrial Rate 65 P-R Interval 188 QRS Duration 90 Q-T Interval 422 QTC Calculation(Bazett) 438 P Bellerose 47 R Bellerose 10 T Bellerose 38 QRS Count 11 Q Onset 218 P Onset 124 P Offset 184 T Offset 429 QTC Fredericia 433 Diagnosis Normal sinus rhythm Low voltage QRS in frontal leads Late transition Borderline ECG When compared with ECG of 22-MAY-2023 09:08, No significant change was found Confirmed by Agustin Nair ([id number]) on 06/18/2023 5:34:04 PM Normal [facility] XR HIP RIGHT WITH PELVIS WHE N PERFORMED 2 OR 3 VIEWSon 06-14-2023 XR HIP RIGHT WITH PELVIS WHEN PERFORMED 2 OR 3 VIEWS Interpreted By: Lei Alves, STUDY: XR HIP RIGHT WITH PELVIS WHEN PERFORMED 2 OR 3 VIEWS INDICATION: Signs/Symptoms:ap and cross table lateral s/p hip replacement, xrays in pacu. COMPARISON: None ACCESSION NUMBER(S): [id number] ORDERING CLINICIAN: TOMASZ OTERO FINDINGS: Right total hip arthroplasty without fracture or dislocation. Alignment normal. IMPRESSION: Satisfactory appearance status post right total hip arthroplasty. Signed by: Lei Alves 06/14/2023 11:04 AM Dictation workstation: [id number] [facility] Comment on above: Order Comment: ap an d cross table lateral s/p hip replacement, xrays in pacu XR Hip Viewson 06-14-2023 Radiology Study observation (narrative) [facility] Work Phone: Satisfactory appearance status post right total hip arthroplasty. Signed by: Lei Alves 06/14/2023 11:04 AM Dictation workstation: [id number] [facility] MMODAL Interpreted By: Lei Alves, STUDY: XR HIP RIGHT WITH PELVIS WHEN PERFORMED 2 OR 3 VIEWS INDICATION: Signs/Symptoms:ap and cross table lateral s/p hip replacement, xrays in pacu. COMPARISON: None ACCESSION NUMBER(S): [id number] ORDERING CLINICIAN: TOMASZ OTERO FINDINGS: Right total hip arthroplasty without fracture or dislocation. Alignment normal. [facility] MMODAL Lei Alves MD - 06/14/2023 Interpreted By: Lei Alves, STUDY: XR HIP RIGHT WITH PELVIS WHEN PERFORMED 2 OR 3 VIEWS INDICATION: Signs/Symptoms:ap and cross table lateral s/p hip replacement, xrays in pacu. COMPARISON: None ACCESSION NUMBER(S): [id number] ORDERING CLINICIAN: TOMASZ OTERO FINDINGS: Right total hip arthroplasty without fracture or dislocation. Alignment normal. IMPRESSION: Satisfactory appearance status post right total hip arthroplasty. Signed by: Lei Alves 06/14/2023 11:04 AM Dictation workstation: [id number] [facility] Work Phone: XR Hip ViewsOrdered By: Tonny Alves on 06-14-2023 [facility] Work Phone: CT HIP RIGHT WO IV CONTRASTo n 06-02-2023 CT HIP RIGHT WO IV CONTRAST These images are not reportable by radiology and will not be interpreted by Radiologists. Normal [facility] Comment on above: Order Comment: Jamal protocol CT Hip - right WO contraston 06-02-2023 These images are not reportable by radiology and will not be interpreted by Radiologists. IMAGING ECG 12-LEADon 05-22-2023 ECG 12-LEAD Ventricular Rate 74 Atrial Rate 74 P-R Interval 174 QRS Duration 86 Q-T Interval 392 QTC Calculation(Bazett) 435 P Bellerose 45 R Bellerose 4 T Bellerose 27 QRS Count 12 Q Onset 220 P Onset 133 P Offset 191 T Offset 416 QTC Fredericia 420 Diagnosis Normal sinus rhythm Normal ECG No previous ECGs available Confirmed by Ambrose Griffith ([id number]) on 05/23/2023 7:11:15 AM Normal [facility] Staphylococcus aureus.methic illin resistant isolateon 05-22-2023 MRSA isol Org specific cx Ql (Nose) Test: Staphylococcus aureus/MRSA colonization, Culture Specimen Source: Nares/Axilla/Groin Specimen Type: Swab Specimen Date: 05/22/2023 9:40 AM Result Date: 05/24/2023 9:27 AM Result Status: Final result Abnormal: No Resulting Lab: [facility] [address] [place] [address] CULTURE No Staphylococcus aureus isolated [facility] Comment on above: Performed By: #### 5 2969-3 #### LEANDRA Cameron ([id number]) [facility] ([facility]) [id number] [place] [address] Lab Reportson 10-04-2022 Lab Reports [id number]:127 Normal [facility] XR HIP RT INJon 08-29-2022 XR HIP [...] by: ANALISA HUBBARD Date: 2022-08-29 14:16 Normal [facility] CNOVon 08-12-2022 CNOV Office Visit (ORTHMN ) ITALIA COLLINS ([id number]) 1965 F Date Time Provider Department 08/12/22 8:00 AM LEONORA CURIEL During your visit today, we recorded the following information about you: Weight Height 121.6 kg 1.6 m Leonora Curiel MD 08/12/2022 10:03 AM Signed Subjective: Italia Collins is a 57 year old female. Patient was accompanied to the office by her . 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 She has been seen closer to home in [facility] and surgery was deferred secondary to her weight. She has had bariatric surgery in the past. Uses a rolling walker for ambulation. 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 Past Social History: Past Surgical History: No [...] Patient has history of stage III CKD. 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: Negative for abnormal vaginal bleeding, abnormal vaginal [...] Leonora Curiel MD LAUREEN Professor, Orthopaedic Surgery [facility] [employer] Referring Provider: JAKE MARKS JR [[id number]] Allergies As of Date: 08/12/2022 Noted Allergy Reaction MORPHINE 08/12/2022 8 - GI Upset Date Reviewed: 08/12/2022 Reviewed by: Leandra Sarah Ma - Fully Assessed Reason for Visit: Right Hip Pain [1554] Primary Visit Diagnosis:Class 2 severe obesity with serious comorbidity in adult, unspecified BMI, unspecified obesity type (HCC) [E66.01] Other Visit Diagnosis:Primary osteoarthritis of right hip [M16.11] Order(s):[facility] [6198650] Order #: [id number]: 1 FUTURE P (more content not included)... Normal [facility] Covid-19 PCR (CVDTBH)on SARS-CoV-2 (COVID-19) RNA VERNON+probe Ql (Unsp spec) Detected Critically abnormal NOT DETECTED [facility] Comment on above: Result Comment: This test is not yet approved or cleared by the [place] FDA. When there are no FDA-approved or cleared tests available, and other criteria are met, FDA can make tests available under an emergency access mechanism called an Emergency Use Authorization (EUA). The EUA for this test is supported by the Freelance Interpreter/Translator of Health and Human Service's (HHS's) declaration [...] longer be used). Performed By: #### [facility] #### [facility] [address] [place] [address] UROGRAMon 03-11-2022 CT [...] Reshma Rodriguez DO 03/11/22 Final result Normal [facility] BUN & Creatinineon 2 Creatinine [Mass/Vol] 0.94 mg/dL High 0.50 - 0.90 mg/dL [facility] GFR/1.73 sq M.predicted MDRD (S/P/Bld) [Vol rate/Area] - PINF [facility] Comment on above: Effective Feb 07, 2022 [...] Interpretation and review of laboratory results Abnormal [facility] Urea nitrogen (BldV) [Mass/Vol] 25 mg/dL High 6 - 20 mg/dL [facility] BUN + Creatinineon 2 Creatinine [Mass/Vol] 0.94 mg/dL High 0.50-0.90 [facility] Comment on above: Performed By: #### B [facility] #### [facility] [address] [place] [address] [employer]acking And Final Assembly Supervisor: Jamari Landry MD GFR/1.73 sq M.predicted among non-blacks MDRD (S/P/Bld) [Vol rate/Area] mL/min/{1.73_m2} Normal >60 [facility] Comment on above: Result Comment: [...] secretion. Performed By: #### B [facility] #### [address] [place] [address] Packing And Final Assembly Supervisor: Jamari Landry MD Urea nitrogen [Mass/Vol] 25 mg/dL High 6-20 [facility] Comment on above: Performed By: #### B [facility] #### [address] [place] [address] [employer] And Final Assembly Supervisor: Jamari Landry MD Cult,Urineon 02-26-2022 Cult,Urine Specimen Description .CLEAN CATCH URINE Culture NO SIGNIFICANT GROWTH Report Status FINAL 02/26/2022 Normal [facility] Comment on above: Performed By: #### U RC #### [address] [place] [address] [employer]acking And Final Assembly Supervisor: [place] MD [facility] [address] [place] [address] [place] [address] [employer] And Final Assembly Supervisor: Jamari Landry MD Urinalysis w/ Microon 2021 Bacteria 2+ Abnormal NONE [facility] Comment on above: Performed By: #### U AMIC #### [address] [place] [address] [employer] And Final [employer] Supervisor: Jamari Landry MD Bilirubin, SemiQt,Ur Negative Normal NEG [facility] Comment on above: Performed By: #### U AMIC #### [facility] [address] [place], [place] [address] P[employer] Final Assembly Supervisor: Jamari Landry MD Blood, Urine 1+ Abnormal NEG [facility] Comment on above: Performed By: #### U AMIC #### [facility] [address] [place], [place] [address] Packing And Final Assembly Supervisor: Jamari Landry MD Clarity (U) Cloudy Abnormal CLEAR [facility] Comment on above: Performed By: #### U AMIC #### [facility] [address] [place] 2[address] Packing And Final Assembly Supervisor: Jamari Landry MD Color (U) Yellow Normal YEL [facility] Comment on above: Performed By: #### U AMIC #### [address] [place], [place] [address] Packing And Final Assembly Supervisor: Jamari Landry MD Epithelial cells LM Ql (Urine sed) 10 TO 20 Normal 0-25 [facility] Comment on above: Performed By: #### U AMIC #### [address] [place] [address] Packing And Final Assembly Supervisor: Jamari Landry MD Glucose Ql (U) Negative Normal NEG [facility] Comment on above: Performed By: #### U AMIC #### [facility] [address] [place] [address] Dr. [place], [place] [address]6683 Packing And Final Assembly Supervisor: Jamari Landry MD Ketones Ql (U) TRACE Abnormal NEG [facility] Comment on above: Performed By: #### U AMIC #### [facility] [address] [place] [address] [place] [address] Packing And Final Assembly Supervisor: Jamari Landry MD Leukocyte esterase Test strip Ql (U) MODERATE Abnormal NEG [facility] Comment on above: Performed By: #### U AMIC #### [facility] [address] [place] [address] Packing And Final Assembly Supervisor: Jamari Landry MD Nitrite,Ur Negative Normal NEG [facility] Comment on above: Performed By: #### U AMIC #### [facility] [address] [place] [address] Packing And Final Assembly Supervisor: Jamari Landry MD PH,Ur 6.0 Normal 5.0-9.0 [facility] Comment on above: Performed By: #### U AMIC #### [facility] [address] [place] [address] Packing And Final Assembly Supervisor: Jamari Landry MD Protein Ql (U) Negative Normal NEG [facility] Comment on above: Performed By: #### U AMIC #### [facility] [address] [place] [address] [address] [place] [address] Packing And Final Assembly Supervisor: Jamari Landry MD Spec. [place],Ur >1.030 High 1.010-1.020 [facility] Comment on above: Performed By: #### U AMIC #### [facility] [address] [place] [address] [place] [address] Packing And Final Assembly Supervisor: Jamari Landry MD Urine RBC's 5 TO 10 Normal 0-2 [facility] Comment on above: Performed By: #### U AMIC #### [facility] [address] [place], [place] [address] Packing And Final Assembly Supervisor: Jamari Landry MD Urine WBC's GREATER THAN 100 Normal 0-5 [facility] Comment on above: Performed By: #### U AMIC #### [facility] [address] [place], [place] [address] Packing And Final Assembly Supervisor: Jamari Landry MD Urobilinogen,Ur Normal Normal NORM [facility] Comment on above: Performed By: #### U AMIC #### [facility] [address] 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 . Normal [facility] Comment on above: Result Comment: Perf ormed at: WB Performed By: #### 4 [id number] #### [facility] [address] [address] [address] Marquise Ha Age Gdln ACOG Testing 30-65 Normal [facility] Comment on above: Performed By: #### 4 [id number] #### [facility] [address] [address] [address] Marquise Ha DIAGNOSIS: Comment Normal [facility] Comment on above: Result Comment: NEGA TIVE FOR INTRAEPITHELIAL LESION OR MALIGNANCY. Performed at: WB Performed By: #### 4 [id number] #### [facility] [address] [address] [address] Marquise Ha HPV Aptima Negative Normal Negative [facility] Comment on above: Result Comment: This nucleic acid amplification test detects fourteen high-risk HPV types (16,18,31,33,35,39,45,51,52,56,58,59,66,68) without differentiation. Performed at: =G Performed By: #### 4 [id number] #### [facility] [address] [place] [address] Dr. Marquise Ha Methodology: Comment Normal [facility] Comment on above: Result Comment: This liquid based ThinPrep(R) pap test was screened with the use of an image guided system. Performed at: WB Performed By: #### 4 [id number] #### [facility] [address] [place] [address] Dr. Marquise Ha Note: Comment Normal [facility] Comment on above: Result Comment: The Pap smear is a screening test designed to aid in the detection of premalignant and malignant conditions of the uterine cervix. It is not a diagnostic procedure and should not be used as the sole means of detecting cervical cancer. Both false-positive and false-negative reports do occur. . Performed at: WB Performed By: #### 4 [id number] #### [facility] [address] [place] [address] Dr. Marquise Ha Performed by: Comment Normal [facility] Comment on above: Result Comment: Lisandra De Los Santos, Top Dyeing Machine Tender (ASCP) Performed at: WB Performed By: #### 4 [id number] #### [facility] [address] [place] [address] Dr. Marquise Ha Specimen adequacy: Comment Normal [facility] Comment on above: Result Comment: Sati sfactory for evaluation. No endocervical cells are present. This is consistent with a history of hysterectomy. Performed at: WB Performed By: #### 4 [id number] #### [facility] [address] [place], [place] [address] Dr. Marquise Ha Duplex Scan of Illiac [...] by John Yanes on 06/29/2021 1215 Normal [facility] Free T3on 06-14-2021 FT3 3.29 pg/mL Normal 2.00-4.40 [facility] Comment on above: Performed By: #### F T3, FT4 #### [facility] [address] [place], [place] [id number] Free T4on 06-14-2021 Free T4 [Mass/Vol] 1.22 ng/dL Normal 0.80-1.80 [facility] Comment on above: Performed By: #### F T3, FT4 #### [facility] [address] [place], [place] [id number] Q - T3 TOTALon 06-14-2021 T3, TOTAL 137 ng/dL Normal 76-181 [facility] Comment on above: Order Comment: [facility] Testing performed at: [employer] [address], [address] [place] [address], [id number], Polisher And Sander: Spencer Aguero MD [facility] Date/Time: [facility] Results Received Date/Time: [id number] [facility] Reported Date/Time: Performed By: #### 8 59X, 01369 #### [facility] Default [address] [place] [address] Q - T3,REVERSE,LC/MS/MSon T3 REVERSE, LC/MS/MS 14 ng/dL Normal 8-25 [facility] Specialist Comment on above: Order Comment: [facility] Testing performed at: [facility], [address], [place], [place], , Polisher And Sander: Joao Langston M.D.,PhD [facility] Date/Time: [facility] Results Received Date/Time: [id number] [facility] Reported Date/Time: Result Comment: This test was developed and its analytical performance characteristics have been determined by [facility] [place], [place]. It has not been cleared or approved by the U.S. Food and Drug Administration. This assay has been validated pursuant to the CLIA regulations and is used for clinical purposes. 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 Social History Date Type Detail Facility Start: 06-12-2023 Alcohol intake Ex-drinker (finding) [facility] Start: 05-23-2023 End: 06-14-2023 Exposure to SARS-CoV-2 (event) Not sure [facility] Start: 10-25-2022 End: 05-22-2023 Sex Assigned At Female [facility] Other Start: 05-22-2023 End: 06-14-2023 Alcohol intake Lifetime non-drinker (finding) [facility] Work Phone: Start: 10-25-2022 End: 05-22-2023 History of Social function [facility] Start: 05-10-2023 Tobacco Comment Last smoked : > 10 years [facility] Start: 05-10-2023 Alcohol Comment Caffeine intak e: 2-3 cups weekly [facility] Start: 09-25-2022 Gender identity Identifies as female gender (finding) [facility] Work Phone: Start: 09-25-2022 Sexual orientation Heterosexual (fin bryon) [facility] Start: 02-25-2022 End: 05-10-2023 Tobacco smoking status NHIS Ex-smoker [facility] Phone: Start: 02-25-2022 End: 05-10-2023 Tobacco use and exposure Smokeless tobacco non-user [facility] Phone: Start: 02-25-2022 End: 03-10-2022 Alcohol intake Current drinker of alcohol (finding) [facility] Phone: Start: 02-25-2022 Alcohol Comment rare [facility] Phone: Start: 1965 Sex Assigned At Not on file B ON [facility] Phone: Start: 1965 Sex Assigned At Female [facility] Tobacco smoking status [facility] [employer] Other End: 05-08-2002 History of tobacco use Current smoker [facility] Phone: End: 05-08-2002 History of tobacco use Cigarette Smoker [facility] Phone: Tobacco smoking status [facility] Tobacco smoking consumption unknown [facility] History of tobacco use Passive smoker [facility] Work Phone: Has the [employer], [employer], oil, or water [employer] threatened to shut off services in your home in past 12Mo Patient declined [facility] How often to you hav e a drink containing alcohol? Never [facility] Within the last year , [...] to buy more. Never true [facility] NEGATED: Highlighted rowStart: AMANDAF History of tobacco use Passive smoker [facility] Work Phone: Vital Signs Date Time Vital Sign Value Performing Clinician Facility 06-15-2023 16:00-0500 Body temperature 97.9 [degF] Tomasz Otero MD Work Phone: [facility] 06-15-2023 16:00-0500 Diastolic blood pressure 56 mm[Hg] Tomasz Otero MD Work Phone: [facility] 06-15-2023 16:00-0500 Heart rate 85 /min Tomasz Otero MD Work Phone: [facility] 06-15-2023 16:00-0500 Respiratory rate 15 /min Tomasz Otero MD Work Phone: [facility] 06-15-2023 16:00-0500 SaO2% (BldA) [Mass fraction] 97 % Tomasz Otero MD Work Phone: [facility] 06-15-2023 16:00-0500 Systolic blood pressure 118 mm[Hg] Tomasz Otero MD Work Phone: [facility] 06-14-2023 06:44-0500 Body height 160 cm Tomasz Otero MD Work Phone: [facility] 06-14-2023 06:44-0500 Body mass index (BMI) [Ratio] 39.68 kg/m2 Tomasz Otero MD Work Phone: [facility] 06-14-2023 06:44-0500 Body weight 101.61 kg Tomasz Otero MD Work Phone: [facility] 08-12-2022 08:31-0400 Body height 160 cm Leonora Curiel MD Work Phone: [facility] 08-12-2022 08:31-0400 Body weight 121.56 kg Leonora Curiel MD Work Phone: [facility] 02-17-2021 10:50-0400 Body height 160.02 cm Tete Heather Other [facility] Other 02-17-2021 10:50-0400 Body mass index (BMI) [Ratio] 46.94 kg/m2 Tete Heather Other [facility] Other 02-17-2021 10:50-0400 Body temperature 96.8 [degF] Tete Heather Other [facility] Other 02-17-2021 10:50-0400 Body weight 120.2 kg Tete Heather Other [facility] Other 02-17-2021 10:50-0400 Diastolic blood pressure 61 mm[Hg] Tete Heather Other [facility] Other 02-17-2021 10:50-0400 Respiratory rate 18 /min Tete Haether Other [facility] Other 02-17-2021 10:50-0400 SaO2% (BldA) [Mass fraction] 99 % Tete Romero Other [facility] Other 02-17-2021 10:50-0400 Systolic blood pressure 125 mm[Hg] Tete Romero Other [employer] Other Clinical Notes 02-17-2021 to 06-15-2023 Brandt Landa LPN - 06/15/2023 5:20 PM Mariann Landa LPN - 06/15/2023 5:20 PM Jose Ramirez - 06/15/2023 3:44 PM ESTVictorvianney Chacko, OT - 06/15/2023 1:40 PM ESTDischarge Instructions Note Date & Type Note Facility 06-15-2023 Nurse Note Pt discharge teaching completed. Pt & pt's voiced understanding. IV removed, Pt medicated with a pain pill before she left Home care info has been sent over to [facility] Pt waiting for a wheelchair to head down to the car Bp 118/56 Hr 85 17:50 Pt heading down to the car in the wheelchair [facility] 06-15-2023 Nurse Note Pt discharge teaching completed. Pt & pt's voiced understanding. IV removed, Pt medicated with a pain pill before she left Home care info has been sent [facility] Pt waiting for a wheelchair to head down to the car Bp 118/56 Hr 85 17:50 Pt heading down to the car in the wheelchair documented in this encounter [facility] Work Phone: 06-15-2023 History of Presen t illness Narrative Spiritual Care Visit Clinical Encounter Type Visited With: Patient and family together Routine Visit: Introduction Continue Visiting: No Taxonomy Intended Effects: Preserve dignity and respect, Promote sense of peace Methods: Offer spiritual/caodaism support Interventions: Share words of hope and inspiration, [place] Patient was with her . Patient is a Holiness. Technical Mgr provided companionship and validation. Technical Mgr was a supportive presence. Occupational Therapy Evaluation [...] Recommended upon Discharge: Wheeled walker (shower chair, biophysics teacher, sock aide, LH shoe horn) OT - [...] and WW. ADL: LE Dressing Assistance: Moderate (biophysics teacher) ADL Comments: Educated patient on safety with [...] and patient verbalized understanding. Patient reports owning biophysics teacher and sock aide at home from previous spine surgery. Reports will have family to assist as needed. 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 Pt has a walker. Pt was able to drive and obtain medications. Therapy evals pending. Pt plans to return home with [facility] Care PT/OT. Referral built and sent in [facility]. Will need outgoing home care referral. Family will provide transport home. 1458 Sp[facility] with [facility] [phone]. They are able to accept patient. SOC with in 48 hours. Therapy updates, progress notes and Home care orders sent in [facility]. Italia Collins is a 58 y.o. female [...] 422 ms QTC Calculation(Bazett) 438 ms P [place] 47 degrees R [place] 10 degrees T [place] 38 degrees QRS Count 11 beats Q [...] xrays in pacu. COMPARISON: None ACCESSION NUMBER(S): [id number] ORDERING CLINICIAN: TOMASZ OTERO FINDINGS: Right total hip arthroplasty without fracture or dislocation. Alignment normal. Satisfactory appearance status post right total hip arthroplasty. Signed by: Lei Alves 06/14/2023 11:04 AM Dictation workstation: [id number] XR hip right with pelvis when performed 2 or 3 views Result Date: 06/14/2023 ap and cross table lateral s/p hip replacement, xrays in pacu Interpreted By: Lei Alves, STUDY: XR HIP RIGHT WITH PELVIS WHEN PERFORMED 2 OR 3 VIEWS INDICATION: Signs/Symptoms:ap and cross table lateral s/p hip replacement, xrays in pacu. COMPARISON: None ACCESSION NUMBER(S): [id number] ORDERING CLINICIAN: TOMASZ OTERO FINDINGS: Right total hip arthroplasty without fracture or dislocation. Alignment normal. IMPRESSION: Satisfactory appearance status post right total hip arthroplasty. Signed by: Lei Alves 06/14/2023 11:04 AM Dictation workstation: [id number] Assessment/Plan Principal Problem: History of total hip replacement, right Active Problems: S/P total right hip arthroplasty POD #1 s/p right DONALDO Continue PT/OT, WBAT right LE Using incentive spirometer Reviewed am labs Multimodal pain regimen Surgical hip dressing to be removed at follow up appointment with Dr. Otero VTE prophylaxis: aspirin 81mg BID X 30 days When appropriate, will discharge home with [facility] Follow up with Dr. Otero in [...] Missed Time: Attempt documented in this encounter [facility] Work Phone: 06-15-2023 Plan of care note The patient's goals for the shift include The clinical goals for the shift include pain control and participate in falls intervention preventions Over the shift, the patient did make progress toward the following goals of pain control and participate in falls intervention prevention. [facility] 06-15-2023 Miscellaneous Notes The patient's goals for the shift include The clinical goals for the shift include pain control and participate in falls intervention preventions Over the shift, the patient did make progress toward the following goals of pain control and participate in falls intervention prevention. Right posterior total hip replacement with Jamal (R) Operative Note Date: 06/14/2023 OR Location: [facility] OR Name: Italia Collins, : 1965, Age: 58 y.o., , Sex: female Procedure Summary Anesthesia: Spinal ASA: II Anesthesia Staff: Anesthesiologist: Liv Hammond MD BI DEVELOPER: Wali Quinonez APRN-LANCE Estimated Blood Loss: 300mL [...] 943.77 mL Specimen: No specimens collected Staff: Marine Equipment Engineer: Puma Agustin RN Scrub Person: Arlet Richardson; Sarthak Andrew; Judie Ruggiero, JACLYN Drains and/or Catheters: * None in log * Tourniquet Times: Implants: Implants Type Name Action Serial No. 4MM X 170MM ROSA PIN BONE (FORMERLY MFR'D BY JAMAL) Implanted Joint HEAD, FEMUR V40 22.2/+1 COCR LFIT - SN/A - [id number] Implanted N/A Insignia hip stem, High offset. Implanted N/A Joint INSERT, MDM X3 JAIN, 38OD 22ID X 7.7MM - SN/A - [id number] Implanted N/A Joint Hip SHELL, TRIDENT II, TRITANIUM, CLUSTERHOLE, 48D - SN/A - [id number] Implanted N/A Joint Hip LINER, COCR, MDM, 38MM D - SN/A - [id number] Implanted N/A Screw SCREW, LOW PROFILE HEX, 6.5 X 25 MM - SN/A - [id number] Implanted N/A SURGEON: Tomasz Otero M.D. PATROL COMMANDER(S): Wesley Andrew SA No qualified resident was available [...] with Jamal Robotic assistance IMPLANTS: Acetabular component: [place] Trident II Tritanium 48 mm Acetabular screws: 25 mm Acetabular liner: MDM size D Femoral component: rosa insignia high offset size 4 Femoral head: [...] loosening, osteolysis, DVT, continued pain, iatrogenic fracture, RI, stroke, and . The patient completed preoperative [...] procedure. Tomasz Otero documented in this encounter [facility] Work Phone: 06-14-2023 Note Formatting of this n ote is different from the original. Right posterior total hip replacement with Jamal (R) Operative Note Date: 06/14/2023 OR Location: [facility] OR Name: Italia Collins, : 1965, Age: 58 y.o., , Sex: female Procedure Summary Anesthesia: Spinal ASA: II Anesthesia Staff: Anesthesiologist: Liv Hammond MD BI DEVELOPER: Wali Quinonez APRN-LANCE Estimated Blood Loss: 300mL [...] 943.77 mL Specimen: No specimens collected Staff: Marine Equipment Engineer: Puma Agustin RN Scrub Person: Arlet Richardson; Sarthak Andrew; Judie Ruggiero RN Drains and/or Catheters: * None in log * Tourniquet Times: Implants: Implants Type Name Action Serial No. 4MM X 170MM ROSA PIN BONE (FORMERLY MFR'D BY JAMAL) Implanted Joint HEAD, FEMUR V40 22.2/+1 COCR LFIT - SN/A - [id number] Implanted N/A Insignia hip stem, High offset. Implanted N/A Joint INSERT, MDM X3 JAIN, 38OD 22ID X 7.7MM - SN/A - [id number] Implanted N/A Joint Hip SHELL, TRIDENT II, TRITANIUM, CLUSTERHOLE, 48D - SN/A - [id number] Implanted N/A Joint Hip LINER, COCR, MDM, 38MM D - SN/A - [id number] Implanted N/A Screw SCREW, LOW PROFILE HEX, 6.5 X 25 MM - SN/A - [id number] Implanted N/A SURGEON: Tomasz Otero M.D. PATROL COMMANDER(S): Wesley Andrew SA No qualified resident was available [...] with Jamal Robotic assistance IMPLANTS: Acetabular component: Rosa Trident II Tritanium 48 mm Acetabular screws: 25 mm Acetabular liner: MDM size D Femoral component: rosa insignia high offset size 4 Femoral head: [...] loosening, osteolysis, DVT, continued pain, iatrogenic fracture, RI, stroke, and . The patient completed preoperative [...] line to line press fit, using the [employer] Robotic arm for assistance. The acetabular component [...] critical portions of the procedure. Tomasz Otero [facility] Work Phone: 06-14-2023 History and physical note [...] marked. All questions answered. Tomasz Otero MD [facility] Work Phone: 06-14-2023 History and physical note [...] Tomasz Otero MD documented in this encounter [facility] Work Phone: 06-13-2023 Hospital Discharg e instructions Tomasz Otero MD - 06/13/2023 3:06 PM EST See written discharge instructions from Dr. Otero documented in this encounter [facility] Work Phone: 08-12-2022 Note HNO ID: [id number] Author: Leonora Curiel MD Service: ? Author Type: Physician Type: Progress Notes Filed: 08/12/2022 10:03 AM Note Text: Subjective: Italia Collins is a 57 year old female. Patient was accompanied to the office by her . 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 She has been seen closer to home in [facility] and surgery was deferred secondary to her weight. She has had bariatric surgery in the past. Uses a rolling walker for ambulation. 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 Past Social History: Past Surgical History: No [...] Patient has history of stage III CKD. 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 MD NAI WuA Professor, Orthopaedic Surgery [facility] [employer] [facility] 08-12-2022 History of Presen t illness Narrative Subjective: Italia Collins is a 57 year old female. Patient was accompanied to the office by her . 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 She has been seen closer to home in [facility] and surgery was deferred secondary to her weight. She has had bariatric surgery in the past. Uses a rolling walker for ambulation. 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 Past Social History: Past Surgical History: No [...] Patient has history of stage III CKD. 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 MD NAI WuA Professor, Orthopaedic Surgery [facility] [employer] documented in this encounter [facility] 09-06-2021 Evaluation + Plan note Diagnostic Tests PendingWound Culture 09/06/[address] [facility] 02-17-2021 Evaluation note Encounter Date Diagnosis Assessment Notes Feb, Insect stings, accidental or unintentional , initial encounter (ICD-10 - T63.481A) Feb, Cellulitis of forearm, left (ICD-10 - L03.114) Take the antibiotic as prescribed until gone. Continue home medications as prescribed. You may apply adrg-tjk-fwykzli hydrocortisone cream to the area. Continue to take Benadryl for itching. Apply warm compresses to the area once or twice a day. Follow-up with your family physician if no improvement in 2 to 3 days [facility] Other Evaluation note* Diagnosis Microscopic hematuria documented in this encounter [facility] Phone: evaluation note* Diagnosis Microscopic hematuria documented in this encounter [facility] [employer] Phone: evaluation note* Diagnosis Class 2 severe obesity with serious comorbidity in adult, unspecified BMI, unspecified obesity type (HCC)- Primary Primary osteoarthritis of right hip Primary localized osteoarthrosis, pelvic region and thigh [facility] Diagnosis Unilateral primary osteoarthritis, right hip Unilateral primary osteoarthritis, right hip documented in this encounter [facility] Work Phone: Evaluation note* Diagnosis History of total hip replacement, right- Primary S/P total right hip arthroplasty History of total hip replacement, right S/P total right hip arthroplasty documented in this encounter [facility] Work Phone: History general Narrative - Reported* [...] Surgical History ddd Hospitalization History see above [facility] Other Hospital course Narrative No data available for this section [facility] No data available for this section [facility] Summary Purpose Family History No Family History [...] Referral Specialty Diagnoses / Procedures Referred By Nimco garvin Referred To Contact Home Health Services Diagnoses S/P total right hip arthroplasty History of total hip replacement, right Jyotsna Hurtado [place]-C [address] Department [place] [address] Referral ID Status Reason Start Date Expiration Date Visits Requested Visits Authorized [id number] Authorized Specialty Services Required 06/15/2023 06/14/[phone] Specialty Diagnoses / Procedures Referred By Nimco garvin Referred To Contact Radiology Diagnoses Unilateral primary osteoarthritis, right hip Procedures CT hip [place] [address] [place] [address] Referral ID Status Reason Start Date Expiration Date Visits Requested Visits Authorized [id number] Authorized Perform Procedure 05/15/2023 05/14/2024 1 1 Specialty Diagnoses / Procedures Referred By Nimco garvin Referred To Contact Diagnoses Class 2 severe obesity with serious comorbidity in adult, unspecified BMI, unspecified obesity type (HCC) Procedures [facility] Leonora Curiel MD [address] [place] [address] Referral ID Status Reason Start Date Expiration Date Visits Requested Visits Authorized [id number] Ref Not Required PCP Requested Referral 08/12/2022 08/12/2023 1 1 Specialty Diagnoses / Procedures Referred By Contac t Referred To Contact Radiology Diagnoses Microscopic hematuria R31.29 (ICD-10-CM) - Microscopic hematuria Procedures CT UROGRAM CHG CT SCAN,ABDOMENT AND PELVIS,COMBO 10024 - CHG CT SCAN,ABDOMENT AND PELVIS,COMBO Carl Rodgers, DOCK COORDINATOR - CORE MACHINE OPERATOR [address] [place] [address] Referral ID Status Reason Start Date Expiration Date Visits Re quested Visits Authorized [id number] Closed 03/07/2022 02/28/2023 1 1 Additional Source Comments REASON FOR VISIT (unrecogniz ed section and content) Specialty Diagnoses / Procedures Referred By Contac t Referred To Contact Radiology Diagnoses Microscopic hematuria R31.29 (ICD-10-CM) - Microscopic hematuria Procedures CT UROGRAM CHG CT SCAN,ABDOMENT AND PELVIS,COMBO [address]459 - CHG CT SCAN,ABDOMENT AND PELVIS,COMBO Carl Rodgers, DOCK COORDINATOR - CORE MACHINE OPERATOR [address] [place] [address] Referral ID Status Reason Start Date Expiration Date Visits Re quested Visits Authorized [id number] Closed 03/07/2022 02/28/2023 1 1 Reason Comments Right Hip Pain Specialty Diagnoses / Procedures Referred By Contac t Referred To Contact Radiology Diagnoses Unilateral primary osteoarthritis, right hip Procedures CT hip [place] [address] [place] [address] Referral ID Status Reason Start Date Expiration Date Visits Requested Visits Authorized [id number] Authorized Perform Procedure 05/15/2023 05/14/2024 1 1 Specialty Diagnoses / Procedures Referred By Contac t Referred To Contact Diagnoses Unilateral primary osteoarthritis, right hip M16.11 - Unilateral primary osteoarthritis, right hip, 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 Procedures VT ARTHRP ACETBLR/PROX FEM PROSTC AGRFT/ALGRFT Right posterior [place] [address] [place] [address] [place] [address] [place] [address] Referral ID Status Reason Start Date Expiration Date Visits Re quested Visits Authorized [id number] 1 1 Reason Comments Med Refill INFORMATION SOURCE (unrecogn ized section and content) DATE CREATED AUTHOR 11/26/2021 [facility] dical Specialist DATE CREATED AUTHOR AUTHOR'S ORGANIZ ATION 03/11/2022 [facility] DATE CREATED AUTHOR AUTHOR'S ORGANIZ ATION 08/14/2022 [facility] DATE CREATED AUTHOR AUTHOR'S ORGANIZ ATION 09/02/2022 [facility] DATE CREATED AUTHOR AUTHOR'S ORGANIZ ATION 10/14/2022 [facility] ical Center DATE CREATED AUTHOR AUTHOR'S ORGANIZ ATION 06/19/2023 [facility] ical Center DATE CREATED AUTHOR AUTHOR'S ORGANIZ ATION 09/04/2023 [facility] DATE CREATED AUTHOR AUTHOR'S ORGANIZ ATION 09/20/2023 [facility] DATE CREATED AUTHOR AUTHOR'S ORGANIZ ATION 09/22/2023 [facility] dical Specialists EPIC Care Teams (unrecognized sec tion and content) Assistant Librarian Relationship Specialty Start Date End Date Ramirez Zendejas MD [address] [place] [address] PCP - General 02/25/22 Assistant Librarian Relationship Specialty Start Date End Date Ramirez Zendejas MD [address] [place] [address] PCP - General 02/25/22 Assistant Librarian Relationship Specialty Start Date End Date Ramirez Zendejas MD [address] [place] [address] (Fax) PCP - General Family Medicine 07/27/22 Taco Flannery, RN Registered Nurse 07/26/22 Assistant Librarian Relationship Specialty Start Date End Date Ramirez Zendejas MD [address] [place] [address] (Fax) PCP - General Family Medicine 05/15/23 Assistant Librarian Relationship Specialty Start Date End Date Ramirez Zendejas MD [address] [place] [address] (Fax) PCP - General Family Medicine 05/15/23 Assistant Librarian Relationship Specialty Start Date End Date Ramirez Zendejas MD [address] [place] [address] (Fax) PCP - General 09/25/22 Ramirez Zendejas MD [address] [place] [address] (Fax) PCP - Medical [facility] [employer] 10/06/22 Assistant Librarian Relationship Specialty Start Date End Date Ramirez Zendejas MD [address] [place] [address] (Fax) PCP - General 09/25/22 Ramirez Zendejas MD [address] [place] [address] (Fax) PCP - Medical [employer] 10/06/22 Source Comments (unrecognize d section and content) In the event this informatio n is protected by the Federal Confidentiality of Alcohol and Drug Abuse Patient Records regulations: The Federal rules restrict any use of the information to criminally investigate or prosecute any alcohol or drug abuse patient.[facility] Scheduled Active and Recently Administ ered [...] Indication (Select all that apply): Surgical Prophylaxis 1846 (New Bag - Provider: Tena Thomas RN)1916 (Stopped - Provider: Lennie Emerson RN) 0237 [...] II/On Unit 2153 (Given - Provider: Lennie Emerson RN) 2100 (Due) sennosides (Senokot) tablet 17.2 mg 17.2 mg (2 tablet), oral, 2 times daily, First dose on Mon06/14/23 at 1345, Phase II/On Unit, Bowel Regimen - for prevention of constipation Hold for loose stools 1344 (Not Given - Provider: Celio Thomas RN - Reason: Patient/family refused)215 (Given - Provider: Lennie Emerson RN) 0950 [...] - Provider: Brandt Landa LPN) thyroid (pork) ([place]) tablet 60 mg 60 mg, oral, 2 [...] , Tranexamic Acid Indication: Surgical Prophylaxis: Orthopedic 1345 (Not Given - Provider: Celio Thmoas RN - Reason: Other - Comment: taken prior to arrival) tranexamic acid in NaCl,iso-os 1,000 mg/100 mL (10 mg/mL) IV 1,000 mg 1,000 mg, intravenous, Once, On Mon06/14/23 at 1345, For 1 dose, Intraprocedure, 1 gram IV at skin closure, Tranexamic Acid Indication: Surgical Prophylaxis: Orthopedic 1345 (Not Given - Provider: Celio Thomas RN - Reason: Other - Comment: given in OR) Continuous Medication Order 06/13/2023 06/14/2023 06/15/2023 lactated Ringer's infusion (CANCELED) 500 mL/hr, intravenous, Continuous, Starting on Mon06/14/23 at 0630, Preprocedure, Give 500 ml bolus and then run at 100 mL/hour 0656 (New Bag - Provider: Lisa Lebron RN)0729 (Paused - Provider: Wali Quinonez APRN-LANCE - Comment: Switch to gravity)0730 (New Bag - Provider: Wali Quinonez APRN-BI DEVELOPER)0744 (Canceled Entry - Provider: Wali Quinonez APRN-BI DEVELOPER)0950 (New Bag - Provider: Wali Quinonez APRN-BI DEVELOPER)1023 (Stopped - Provider: Wali Quinonez APRN-BI DEVELOPER)1027 (New Bag - Provider: Beryl Nye RN)1318 (Stopped - Provider: Celio Thomas RN) lactated Ringer's infusion 85 mL/hr, intravenous, Continuous, Starting on Mon06/14/23 at 1345, For 24 hours, Phase II/On Unit 1433 (New Bag - Provider: Tena Thomas RN)2133 (Rate/Dose Verify - Provider: Lennie Emerson RN)2316 (New Bag - Provider: Patsy Neves RN) 0430 (Rate/Dose Verify - Provider: Lennie Emerson RN)0546 (Stopped - Provider: Lennie Emerson RN) [...] Recovery (only) 1055 (Given - Provider: Beryl Nye RN) bupivacaine PF (Marcaine) 0.5 % (5 mg/mL) [...] of dose. 1116 (Given - Provider: Ladonna Bedolla RN) ketorolac (Toradol) injection (CANCELED) As needed, Starting [...] pain scores based on patient preference? Yes 2154 (Given - Provider: Lennie Emerson RN) oxyCODONE [...] BE BASED ON THE PRIMARY CLINICAL RECORDS. [facility]. provides no warranty or guarantee of the accuracy or completeness of information in this document.
--- NOTE | 2023-10-03 10:55 | MM_ITS ---
Patient Name: FLOYD COLLINS MR#: [id number] : 1965 Exam Date: 10/03/2023 Ordering Doctor: DR QUINCY HOWELL . RADIOLOGY REPORT PROCEDURE: MM TOMOSYNTHESIS SCREENING BI COMPARISON: MG MAMM SCREEN JIMMY W CAD, 10/10/2017. MG MAMM JIMMY SCRN W CAD DIG, 05/28/2014. INDICATIONS: Screening Calculator Name NCI Breast Cancer Risk Assessment Tool 5 Year Breast Cancer Risk 1.50% Lifetime Breast Cancer Risk 7.90% Personal Breast Cancer No Personal Ovarian Cancer No Treatments None Family Cancers None LOCATION: [facility] BREAST COMPOSITION: There are scattered areas of fibroglandular density. FINDINGS: DIAGNOSTIC CATEGORY 1--NEGATIVE. NO CHANGE FROM COMPARISON ASSESSMENT. RIGHT BREAST: No significant suspicious finding. No significant change has occurred. LEFT BREAST: No significant suspicious finding. No significant change has occurred. RECOMMENDATIONS: ROUTINE MAMMOGRAM AND CLINICAL EVALUATION IN 12 MONTHS. PLEASE NOTE: A NORMAL MAMMOGRAM DOES NOT EXCLUDE THE POSSIBILITY OF BREAST CANCER. A CLINICALLY SUSPICIOUS PALPABLE LUMP SHOULD BE BIOPSIED. Dictated by: Anant Zhou M.D. on 10/03/2023 at 14:39 Approved by: Anant Zhou M.D. on 10/03/2023 at 14:44
--- NOTE | 2023-10-03 10:56 | XR_ITS ---
[address] [address] Patient Name: FLOYD COLLINS MRN: [id number] date: 1965 Sex: F Assigned Patient Location: RAD Current Patient Location: RAD Accession/Order Number: [id number] Exam Date: 10/03/2023 11:15 Report Date: 10/03/2023 11:53 At the request of: QUINCY HOWELL Procedure: XR DEXA axial skeleton EXAMINATION: XR DEXA axial skeleton HISTORY: Postmenopausal state Z78.0 COMPARISON: DEXA bone densitometry 10/10/2017 TECHNIQUE: Dual-energy X-ray absorptiometry (DXA) was performed. FINDINGS: FOREARM ANALYSIS: Average bone mineral density is 0.773 g/cm2. T-score (standard deviation relative to young adult mean): 0.8 . +0.6% change since prior study. HIP ANALYSIS: Lowest bone mineral density is within the left femoral neck, 0.771 g/cm2. T-score (standard deviation relative to young adult mean): -1.9 . +2.1% change since prior study. XR/XR DEXA axial skeleton IMPRESSION: [employer] Classification: Osteopenia - Moderate Fracture Risk FRAX: Cannot be calculated. Electronically authenticated by: ANALISA HUBBARD Date: 10/03/2023 11:53
--- NOTE | 2023-10-03 12:19 | CT_ITS ---
[address] [address] Patient Name: FLOYD COLLINS MRN: [id number] date: 1965 Sex: F Assigned Patient Location: [facility] Current Patient Location: RAD Accession/Order Number: [id number] Exam Date: 10/03/2023 12:13 Report Date: 10/03/2023 14:33 At the request of: QUINCY HOWELL Procedure: CT abdomen pelvis wo con EXAMINATION: CT abdomen pelvis wo con HISTORY: Pelvic pain in female R10.2, Postmenopausal state Z78.0 COMPARISON: CT abdomen pelvis 07/27/2020 TECHNIQUE: Axial, Coronal, and Sagittal images were obtained without and/or with IV contrast as indicated by examination type. Dose reduction techniques were achieved by using automated exposure control and/or adjustment of mA and/or kV according to patient size and/or use of iterative reconstruction technique. FINDINGS: LUNG BASES: Small pericardial effusion. LIVER: No enlargement, atrophy, suspicious density, or significant focal lesion. BILIARY: Cholecystectomy. PANCREAS: No lesion, fluid collection, or abnormal duct dilatation. SPLEEN: No enlargement or focal lesion. ADRENALS: No mass or enlargement. KIDNEYS: No mass, obstruction, or calcification. BOWEL/MESENTERY: Prior gastric bypass surgery. No visible mass, obstruction, or bowel wall thickening. AORTA/VASCULAR: No aneurysm or dissection. RETROPERITONEUM: No mass or adenopathy. LYMPH NODES: No adenopathy. URINARY BLADDER: No visible focal wall thickening, lesion, or calculus. PELVIC ORGANS: Hysterectomy. ABDOMINAL WALL: Supraumbilical 4.0 cm fat filled hernia with wide neck. Eventration of the midline abdominal wall below the umbilicus extending into the pannus, 12.0 9.7 x 4.2 cm. This has a wide neck; no strangulation or obstruction. 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 Prior right hip replacement. OTHER: Negative. CT/CT abdomen pelvis wo con IMPRESSION: 1. 2 separate anterior abdominal wall hernias; both have wide necks without strangulation or obstruction. 2. Prior gastric bypass surgery. No bowel obstruction, abnormal dilation, or acute findings. 3. Small pericardial effusion of uncertain etiology; new since prior study. 4. degenerative changes of lumbar spine. Electronically authenticated by: ANALISA HUBBARD Date: 10/03/2023 14:33
== END 2023-10-03 10:46 | disposition home or self-care (01) ==
PROVIDERS: PCP Family Medicine; Visit Provider Obstetrics & Gynecology
DX: Z12.31 Encounter for screening mammogram for malignant neoplasm of breast (principal); Z78.0 Asymptomatic menopausal state; R10.2 Pelvic and perineal pain; E27.8 Other specified disorders of adrenal gland; K43.9 Ventral hernia without obstruction or gangrene; M85.80 Other specified disorders of bone density and structure, unspecified site
CPT/HCPCS: 74176; 77063; 77067; 77080

== ENCOUNTER 2023-11-10 13:29 | Outpatient (OUT) | payer OTHER, SELFPAY ==
--- OUTSIDE RECORDS SUMMARY | 2023-11-10 13:34 | XMS_ITS | CCD ---
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 Name Role Phone PROSPER ZENDEJAS Primary Care Physician [phone] Tete Romero Unavailable Prosper Zendejas MD Primary Care Provider CARL RODGERS Referring Unavailable PROSPER ZENDEJAS Primary [...] HEMEYER ., DR CHENG Primary Care Unavailable KARASILottie ., DR LOVETT Attending Unavailabl e KARRACHEAL ., DR LOVETT Consulting Unavailabl e KARRACHEAL ., DR LOVETT Admitting Unavailabl e STEPPAUL, DR JOSEPH Admitting Unavailable STEPPAUL, DR JOSEPH Attending Unavailable SELINA, DR JOSEPH Consulting Unavailable HEMEARMIDA ., DR CHENG Primary Care Unavailable STEVIE, DR ANALISA Brayd Consulting Unavailable Cristiana GARCIA, Prosper Lopez Primary Care Provider Prosper Zendejas MD Primary Care Provider Prosper Zendejas MD Unavailable [phone] TOMASZ OTERO Admitting Unavailable TOMASZ OTERO Attending Unavailable PROSPER ZENDEJAS Primary Care Unavailab le CRISTIANA, PROSPER LOPEZ Primary Care Unavailab TOMASZ Luna Referring Unavailable TOMASZ OTERO Referring Unavailable MICHAELPROSPER HUFFMAN Primary Care Unavailab deanna NOAVINASH DAWSON M Referring Unavailable PROSPER ZENDEJAS Primary Care Unavailable AVINASH ADEN Referring Unavailable PROSPER ZENDEJAS Primary Care Unavailable PROSPER ZENDEJAS Attending Unavailable PROSPER ZENDEJAS Attending Unavailable SHENA LICONA Attending Unavailab PROSPER Marcelo Attending Unavailable PROSPER ZENDEJAS Attending Unavailable SHLOMO VAIL Attending Unavailable PROSPER ZENDEJAS Attending Unavailable QUINCY HOWELL Attending Unavailable CLEO MARIE Attending Unavailable PROSPER ZENDEJAS Attending Unavailable Allergies Allergy Classification Reported Allergen(s) Allergy Type Date of Onset Reaction(s) Facility (10 sources) Morphine; Translations: [MORPHINE] Drug Allergy 1 Other (See Comments), GI Upset, Nausea/vomitin g, Itching Beepi Other (1 source) Adhesive Bandages Drug allergy Unknown Beepi Other (2 sources) Adhesive Tape Propensity to adverse reactions to drug 1 Rash [facility] Nonpareil (5 sources) gabapentin; Translations: [GABAPENTIN] Drug Allergy 1 Swelling [facility] Nonpareil Work Phone: (2 sources) Desonide Drug Allergy 4 [facility] Repository (1 source) gabapentin Drug Allergy 3 [facility] (2 sources) Morphine Drug Allergy 4 [facility] (3 sources) Onion extract; Translations: [ONION] Drug Allergy 3 [facility] Rep[facility] (1 source) Misc-Food; Translations: [Misc-Food] Food allergy (disorder) 3 [facility] Rep[facility] (1 source) onions; Translations: [onions] Food allergy (disorder) [facility] (2 sources) nut Drug allergy (disorder) 7 [facility] (3 sources) Onion extract Drug Allergy 4 Headache [facility] Work Phone: (4 sources) Adhesive Tape-Silicones; Translations: [ADHESIVE TAPE-SILICONES] Drug Allergy 4 Other [facility] (2 sources) Onion extract Drug Allergy 3 Headache [facility] (2 sources) Wound Dressing Adhesive Propensity to adverse reactions 3 Rash [facility] (1 source) Adhesive agent; Translations: [ADHESIVE] Propensity to adverse reactions to drug (disorder) 1 [facility] Repository (1 source) Morphine; Translations: [MORPHINE SULFATE] Drug Allergy 1 [facility] Repository Medications Current Medications Medication Drug Class(es) Dates [...] Platelet Aggregation Inhibitor, Nonsteroidal Anti-inflammatory Drug Start: End: 4 take 81 mg by mouth [...] Active Start: 02-17-2021 take 1 capsule by [facility] every eight hours Cephalexin 500 MG 1 capsule Orally tid for 10 day(s) Feb, Active cholecalciferol 0.125 mg oral tablet (8 sources) Vitamin D Start: 06-14-2023 take 5000 [IU] by mouth once daily 5,000 Units, oral, Daily, First dose on Mon06/14/23 at 1345, Phase II/On Unit take 1 capsule by mouth every we ek cholecalciferol (Vitamin D-3) 1.25 MG (16506 UT) capsule Take 50,000 Units by mouth 1 (one) time per week. 0 Active cyclobenzaprine hydrochloride 10 mg oral tablet (10 sources) Muscle Relaxant Start: 09-26-2016 take 1 tablet by mouth every twenty-four hours as needed 10 mg, oral, Daily PRN, muscle spasms, Starting on Mon06/14/23 at 1318, Phase II/On Unit take 1 tablet by [facility] three times daily as needed cyclobenzaprine (Flexeril) [...] Once a day Active 168 hr estradiol 0.33384 mg/hr transdermal system (5 sources) Estrogen Start: 12-08-2022 estradiol (Cli dave) 0.075 MG/24HR Indications: Primary ovarian failure Place 1 patch over 7 days on the skin 1 (one) time per week. 12 patch 3 12/08/2022 Active estradiol (Clima ra) 0.075 mg/[address] 1 patch on the skin 1 (one) time per week. Monday 0 Suspended estrogens, conjugated (retirement) 0.625 mg oral tablet (4 sources) Estrogen [...] MG tablet take 2 tablets by mo [facility] every twenty-four hours lamoTRIgine 200 MG 2 [...] O2 Sat Above: 92% polyethylene glycol 3350 59263 mg powder for oral solution (1 source) [...] mg by mouth daily at bedtime. sennosides, retirement 8.6 mg oral tablet (1 source) Start: [...] mouth in the morning. 0 Active thyroid (retirement) 30 mg oral tablet (6 sources) Start: 06-14-19 take 60 mg by mouth twice daily 60 mg, oral, 2 times daily, First dose on Mon06/14/23 at 1345, Phase II/On Unit Start: 03-02-2023 End: 08-29-2023 take 1 tablet by mouth in the morning thyroid ([employer]IST Thyroid) 60 MG tablet Indications: Central hypothyroidism [...] hypertension; Translations: [Essential (primary) hypertension] Onset: 5 06-19-2023 Chronic Genitourinary symptoms and ill-defined conditions (3 [...] (2 sources) Drug therapy finding; Translations: [Other longterm (current) drug therapy] Onset: 07-06-2020 05-11-2023 Episodic Other aftercare (2 sources) Taking high risk medication; Translations: [Other predatory animal exterminator (current) drug therapy] Onset: 07-06-2020 Resolved: 11-15-2022 [...] Lott MD on 09/15/2023 9:23 AM Normal [facility] XR SPINE LUMBAR 2 OR 3 VWSon [...] Mercedes MD on 09/11/2023 12:18 PM Normal [facility] ALL CBC WITH AUTO DIFFon Erythrocyte distribution width (RBC) [Ratio] 13.6 % 11.5 - 14.5 % [facility] Hematocrit (Bld) [Volume fraction] 29.8 % Low 36.0 - 46.0 % [facility] Hemoglobin (Bld) [Mass/Vol] 9.1 g/dL Low 12.0 - 16.0 g/dL [facility] Interpretation and review of laboratory results Abnormal [facility] MCH (RBC) [Entitic mass] 28.1 pg 26.0 - 34.0 pg [facility] MCHC (RBC) [Mass/Vol] 30.5 g/dL Low 32.0 - 36.0 g/dL [facility] MCV (RBC) [Entitic vol] 92 fL 80 - 100 fL [facility] NUCLEATED RBC 0.0 [facility] PLT 311 [facility] RBC 3.24 Low [facility] WBC 8.9 [facility] Original Ordering Provider: JENIFER TORREZ [facility] Basic metabolic 2000 panelon 06-15-2023 Anion gap [Moles/Vol] 12 mmol/L Normal 10-20 [facility] Comment on above: Performed By: #### 2 4321-2 #### EARL [employer] ([id number]) [facility]) [address] [place] [address] Calcium [Mass/Vol] 8.9 mg/dL Normal 8.6-10.3 [facility] Comment on above: Performed By: #### 2 4321-2 #### [employer] ([id number]) [facility]) [address] [place] [address] Chloride [Moles/Vol] 102 mmol/L Normal 98-107 [facility] Comment on above: Performed By: #### 2 4321-2 #### [employer] ([id number]) [facility]) [address] [place] [address] CO2 [Moles/Vol] 25 mmol/L Normal 21-32 [facility] Comment on above: Performed By: #### 2 4321-2 #### [employer] ([id number]) [facility]) [address] [place] [address] Creatinine [Mass/Vol] 0.96 mg/dL Normal 0.50-1.05 [facility] Comment on above: Performed By: #### 2 4321-2 #### [employer] ([id number]) [facility]) [address] [place] [address] Glomerular filtration rate/1.73 sq M.predicted 68 mL/min/1.73m*2 Normal >60 [facility] Comment on above: Result Comment: Calc ulations of estimated GFR are performed using the 2020 CKD-EPI Study Refit equation without the race variable for the IDMS-Traceable creatinine methods. https://jasn.asnjournals.org/content//ASN.21839354 88 Performed By: #### 2 4321-2 #### [employer] ([id number]) [facility]) [address] [place] [address] Glucose [Mass/Vol] 118 mg/dL High 74-99 [facility] Comment on above: Performed By: #### 2 4321-2 #### [employer] ([id number]) [facility]) [address] [place] [address] Potassium [Moles/Vol] 4.7 mmol/L Normal 3.5-5.3 [facility] Comment on above: Performed By: #### 2 4321-2 #### [employer] ([id number]) [facility] ([facility]) [address] [place] [address] Sodium [Moles/Vol] 134 mmol/L Low 136-145 [facility] Comment on above: Performed By: #### 2 4321-2 #### [employer] ([id number]) [facility] ([facility]) [address] [place] [address] Urea nitrogen [Mass/Vol] 21 mg/dL Normal 6-23 [facility] Comment on above: Performed By: #### 2 4321-2 #### [employer] ([id number]) [facility]) [address] [place] [address] Anion gap [Moles/Vol] 12 mmol/L 10 - 20 mmol/L [facility] Calcium [Mass/Vol] 8.9 mg/dL 8.6 - 10. 3 mg/dL [facility] Chloride [Moles/Vol] 102 mmol/L 98 - 107 mmol/L [facility] CO2 [Moles/Vol] 25 mmol/L 21 - 32 mmol/L [facility] Creatinine [Mass/Vol] 0.96 mg/dL 0.50 - 1.05 mg/dL [facility] GFR/1.73 sq M.predicted among non-blacks MDRD (S/P/Bld) [Vol rate/Area] 68 mL/min/{1.73_m2} - PINF [facility] Comment on above: Calculations of kristen mated GFR are performed using the 2020 CKD-EPI Study Refit equation without the race variable for the IDMS-Traceable creatinine methods. https://jasn.asnjournals.org/content//ASN.56359740 88 Glucose [Mass/Vol] 118 mg/dL High 74 - 99 mg/dL [facility] Interpretation and review of laboratory results Abnormal [facility] Potassium [Moles/Vol] 4.7 mmol/L 3.5 - 5.3 mmol/L [facility] Sodium [Moles/Vol] 134 mmol/L Low 136 - 145 mmol/L [facility] Urea nitrogen [Mass/Vol] 21 mg/dL 6 - 23 mg/dL [facility] CBC panel Auto (Bld)on 06-15 Erythrocyte distribution width (RBC) [Ratio] 13.6 % Normal 11.5-14.5 [facility] Comment on above: Performed By: #### 5 8410-2 #### [employer] ([id number]) [facility]) [address] [place] [address] Hematocrit (Bld) [Volume fraction] 29.8 % Low 36.0-46.0 [facility] Comment on above: Performed By: #### 5 8410-2 #### [employer] ([id number]) [facility] ([facility]) [address] [place] [address] Hemoglobin (Bld) [Mass/Vol] 9.1 g/dL Low 12.0-16.0 [facility] Comment on above: Performed By: #### 5 8410-2 #### [employer] ([id number]) [facility] ([facility]) [address] [place] [address] MCH (RBC) [Entitic mass] 28.1 pg Normal 26.0-34.0 [facility] Comment on above: Performed By: #### 5 8410-2 #### [employer] ([id number]) [facility] ([facility]) [address] [place] [address] MCHC (RBC) [Mass/Vol] 30.5 g/dL Low 32.0-36.0 [facility] Comment on above: Performed By: #### 5 8410-2 #### [employer] ([id number]) [facility] ([facility]) [address] [place] [address] MCV (RBC) [Entitic vol] 92 fL Normal 80-100 [facility] Comment on above: Performed By: #### 5 8410-2 #### [employer] ([id number]) [facility] ([facility]) [address] [place] [address] Nucleated RBC/100 WBC (Bld) [Ratio] 0.0 /100 WBCs Normal 0.0-0.0 [facility] Comment on above: Performed By: #### 5 8410-2 #### [employer] ([id number]) [facility] ([facility]) [address] [place] [address] Platelets (Bld) [#/Vol] 311 x10*3/uL Normal 150-450 [facility] Comment on above: Performed By: #### 5 8410-2 #### [employer] ([id number]) [facility]) [address] [place] [address] RBC (Bld) [#/Vol] 3.24 x10*6/uL Low 4.00-5.20 [facility] Comment on above: Performed By: #### 5 8410-2 #### [employer] ([id number]) [facility]) [address] [place] [address] WBC (Bld) [#/Vol] 8.9 x10*3/uL Normal 4.4-11.3 [facility] Comment on above: Performed By: #### 5 8410-2 #### [employer] ([id number]) [facility]) [address] [place] [address] Erythrocyte distribution width (RBC) [Ratio] 13.6 % 11.5 - 14.5 % [facility] Hematocrit (Bld) [Volume fraction] 29.8 % Low 36.0 - 46.0 % [facility] Hemoglobin (Bld) [Mass/Vol] 9.1 g/dL Low 12.0 - 16.0 g/dL [facility] Interpretation and review of laboratory results Abnormal [facility] MCH (RBC) [Entitic mass] 28.1 pg 26.0 - 34.0 pg [facility] MCHC (RBC) [Mass/Vol] 30.5 g/dL Low 32.0 - 36.0 g/dL [facility] MCV (RBC) [Entitic vol] 92 fL 80 - 100 fL [facility] Nucleated RBC/100 WBC (Bld) [Ratio] 0.0 % [facility] Platelets (Bld) [#/Vol] 311 10*3/uL [facility] RBC (Bld) [#/Vol] 3.24 10*6/uL Low [facility] WBC (Bld) [#/Vol] 8.9 10*3/uL [facility] ECG 12-LEADon 06-14-2023 ECG 12-LEAD Ventricular Rate 65 Atrial Rate 65 P-R Interval 188 QRS Duration 90 Q-T Interval 422 QTC Calculation(Bazett) 438 P Cerrillos 47 R Cerrillos 10 T Cerrillos 38 QRS Count 11 Q Onset 218 P Onset 124 P Offset 184 T Offset 429 QTC Fredericia 433 Diagnosis Normal sinus rhythm Low voltage QRS in frontal leads Late transition Borderline ECG When compared with ECG of 22-MAY-2023 09:08, No significant change was found Confirmed by Agustin Nair ([id number]) on 06/18/2023 5:34:04 PM Normal [facility] XR HIP RIGHT WITH PELVIS WHE N PERFORMED 2 OR 3 VIEWSon 06-14-2023 XR HIP RIGHT WITH PELVIS WHEN PERFORMED 2 OR 3 VIEWS Interpreted By: Lei Alves, STUDY: XR HIP RIGHT WITH PELVIS WHEN PERFORMED 2 OR 3 VIEWS INDICATION: Signs/Symptoms:ap and cross table lateral s/p hip replacement, xrays in pacu. COMPARISON: None ACCESSION NUMBER(S): [id number] ORDERING CLINICIAN: TOMASZ OTERO FINDINGS: Right total hip arthroplasty without fracture or dislocation. Alignment normal. IMPRESSION: Satisfactory appearance status post right total hip arthroplasty. Signed by: Lei Alves 06/14/2023 11:04 AM Dictation workstation: [id number] [facility] Comment on above: Order Comment: ap an d cross table lateral s/p hip replacement, xrays in pacu XR Hip Viewson 06-14-2023 Satisfactory appearance status post right total hip arthroplasty. Signed by: Lei Alves 06/14/2023 11:04 AM Dictation workstation: [id number] [facility]AL Interpreted By: Lei Alves, STUDY: XR HIP RIGHT WITH PELVIS WHEN PERFORMED 2 OR 3 VIEWS INDICATION: Signs/Symptoms:ap and cross table lateral s/p hip replacement, xrays in pacu. COMPARISON: None ACCESSION NUMBER(S): [id number] ORDERING CLINICIAN: TOMASZ OTERO FINDINGS: Right total hip arthroplasty without fracture or dislocation. Alignment normal. MMODAL Lei Alves MD - 06/14/2023 Interpreted By: Lei Alves, STUDY: XR HIP RIGHT WITH PELVIS WHEN PERFORMED 2 OR 3 VIEWS INDICATION: Signs/Symptoms:ap and cross table lateral s/p hip replacement, xrays in pacu. COMPARISON: None ACCESSION NUMBER(S): [id number] ORDERING CLINICIAN: TOMASZ OTERO FINDINGS: Right total hip arthroplasty without fracture or dislocation. Alignment normal. IMPRESSION: Satisfactory appearance status post right total hip arthroplasty. Signed by: Lei Alvse 06/14/2023 11:04 AM Dictation workstation: [id number] [facility] Work Phone: Radiology Study observation (narrative) [facility] Work Phone: XR Hip ViewsOrdered By: Tonny Alves on 06-14-2023 [facility] Work Phone: CT HIP RIGHT WO IV CONTRASTo n 06-02-2023 CT HIP RIGHT WO IV CONTRAST These images are not reportable by radiology and will not be interpreted by Radiologists. [facility] Comment on above: Order Comment: Jamal protocol CT Hip - right WO contraston 06-02-2023 These images are not reportable by radiology and will not be interpreted by Radiologists. IMAGING ECG 12-LEADon 05-22-2023 ECG 12-LEAD Ventricular Rate 74 Atrial Rate 74 P-R Interval 174 QRS Duration 86 Q-T Interval 392 QTC Calculation(Bazett) 435 P Cerrillos 45 R Cerrillos 4 T Cerrillos 27 QRS Count 12 Q Onset 220 P Onset 133 P Offset 191 T Offset 416 QTC Fredericia 420 Diagnosis Normal sinus rhythm Normal ECG No previous ECGs available Confirmed by Ambrose Griffith ([id number]) on 05/23/2023 7:11:15 AM Normal [facility] Staphylococcus aureus.methic illin resistant isolateon 05-22-2023 MRSA isol Org specific cx Ql (Nose) Test: Staphylococcus aureus/MRSA colonization, Culture Specimen Source: Nares/Axilla/Groin Specimen Type: Swab Specimen Date: 05/22/2023 9:40 AM Result Date: 05/24/2023 9:27 AM Result Status: Final result Abnormal: No Resulting Lab: [facility] [address] [place] [address] CULTURE No Staphylococcus aureus isolated Normal [facility] Comment on above: Performed By: #### 5 2969-3 #### LEANDAR Cameron ([id number]) [facility] ([facility]) [address] [place] [address] Lab Reportson 10-04-2022 Lab Reports [id number]:127 Normal [facility] XR HIP RT INJon 08-29-2022 XR HIP [...] by: ANALISA HUBBARD Date: 2022-08-29 14:16 Normal [facility] CNOVon 08-12-2022 CNOV Office Visit (ORTHMN ) ITALIA COLLINS ([id number]) 1965 F Date Time Provider Department 08/12/22 8:00 AM LEONORA CURIEL During your visit today, we recorded the following information about you: Weight Height 121.6 kg 1.6 m Leonora Curiel MD 08/12/2022 10:03 AM Signed Subjective: Italia Collins is a 57 year old female. Patient was accompanied to the office by her . 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 She has been seen closer to home in [facility] and surgery was deferred secondary to her weight. She has had bariatric surgery in the past. Uses a rolling walker for ambulation. 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 Past Social History: Past Surgical History: No [...] Patient has history of stage III CKD. LAB AID: Negative for abnormal vaginal bleeding, abnormal vaginal [...] Leonora Curiel MD LAUREEN Professor, Orthopaedic Surgery [employer] Referring Provider: JAKE MARKS JR [[id number]] Allergies As of Date: 08/12/2022 Noted Allergy Reaction MORPHINE 08/12/2022 8 - GI Upset Date Reviewed: 08/12/2022 Reviewed by: Leandra Sarah Ma - Fully Assessed Reason for Visit: Right Hip Pain [1554] Primary Visit Diagnosis:Class 2 severe obesity with serious comorbidity in adult, unspecified BMI, unspecified obesity type (HCC) [E66.01] Other Visit Diagnosis:Primary osteoarthritis of right hip [M16.11] Order(s):[facility] [[id number]] Order #: [id number]: 1 FUTURE P (more content not included)... Normal [place] Covid-19 PCR (CVDTBH)on SARS-CoV-2 (COVID-19) RNA VERNON+probe Ql (Unsp spec) Detected Critically abnormal NOT DETECTED [facility] Comment on above: Result Comment: This test is not yet approved or cleared by the [place] FDA. When there are no FDA-approved or cleared tests available, and other criteria are met, FDA can make tests available under an emergency access mechanism called an Emergency Use Authorization (EUA). The EUA for this test is supported by the [place] of Health and Human Service's (HHS's) declaration [...] longer be used). Performed By: #### [facility] #### [facility] [address] UROGRAMon 03-11-2022 CT [...] Reshma Rodriguez DO 03/11/22 Final result Normal [facility] BUN & Creatinineon 2 Creatinine [Mass/Vol] 0.94 mg/dL High 0.50 - 0.90 mg/dL [facility] GFR/1.73 sq M.predicted MDRD (S/P/Bld) [Vol rate/Area] - PINF [facility] Comment on above: Effective Feb 07, 2022 [...] and review of laboratory results Abnormal [facility] Urea nitrogen (BldV) [Mass/Vol] 25 mg/dL High 6 - 20 mg/dL [facility] BUN + Creatinineon 2 Creatinine [Mass/Vol] 0.94 mg/dL High 0.50-0.90 [facility] Comment on above: Performed By: #### B UNCRT #### [facility] [address] [place] [address] Video Game Technician: Jamari Landry MD GFR/1.73 sq M.predicted among non-blacks MDRD (S/P/Bld) [Vol rate/Area] mL/min/{1.73_m2} Normal >60 [facility] Comment on above: Result Comment: Effective Feb [...] secretion. Performed By: #### B UNCRT #### [facility] [address] [place] [address] Video Game Technician: Jamari Landry MD Urea nitrogen [Mass/Vol] 25 mg/dL High 6-20 [facility] Comment on above: Performed By: #### B UNCRT #### [facility] [address] [place], [place] [id number] Video Game Technician: Jamari Landry MD Cult,Urineon 02-26-2022 Cult,Urine Specimen Description .CLEAN CATCH URINE Culture NO SIGNIFICANT GROWTH Report Status FINAL 02/26/2022 Normal [facility] Comment on above: Performed By: #### U RC #### [facility] [address] [place], [place] [id number] Video Game Technician: [place] MD [facility] [address] [place] [address] Dr. [place], [place] [id number] Video Game Technician: Jamari Landry MD Urinalysis w/ Microon 2021 Bacteria 2+ Abnormal NONE [facility] Comment on above: Performed By: #### U AMIC #### [facility] [address] [place], [place] [address] Video Game Technician: Jamari Landry MD Epithelial cells LM Ql (Urine sed) 10 TO 20 Normal 0-25 [facility] Comment on above: Performed By: #### U AMIC #### [facility] [address] [place], [place] [address] Video Game Technician: Jamari Landry MD Urine RBC's 5 TO 10 Normal 0-2 [facility] Comment on above: Performed By: #### U AMIC #### [facility] [address] [place], [place] [id number] Video Game Technician: Jamari Landry MD Urine WBC's GREATER THAN 100 Normal 0-5 [facility] Comment on above: Performed By: #### U AMIC #### [facility] [address] [place] [address] Video Game Technician: Jamari Landry MD Bilirubin, SemiQt,Ur Negative Normal NEG [facility] Comment on above: Performed By: #### U AMIC #### [facility] [facility] [address] [place] [address] Dr. Castillo, [facility]83 Video Game Technician: Jamari Landry MD Blood, Urine 1+ Abnormal NEG [facility] Comment on above: Performed By: #### U AMIC #### [facility] [address] [place] [address] Dr. Castillo, [facility]83 Video Game Technician: Jamari Landry MD Clarity (U) Cloudy Abnormal CLEAR [facility] Comment on above: Performed By: #### U AMIC #### [address] [place] [address] Video Game Technician: Jamari Landry MD Color (U) Yellow Normal YEL [facility] Comment on above: Performed By: #### U AMIC #### [address] Castillo, [facility]83 Video Game Technician: Jamari Landry MD Glucose Ql (U) Negative Normal NEG [facility] in Hospital Comment on above: Performed By: #### U AMIC #### [address] [place] [id number] Video Game Technician: Jamari Landry MD Ketones Ql (U) TRACE Abnormal NEG [facility] Hospital Comment on above: Performed By: #### U AMIC #### [address] Castillo, [facility]83 Video Game Technician: Jamari aLndry MD Leukocyte esterase Test strip Ql (U) MODERATE Abnormal NEG [facility] Comment on above: Performed By: #### U AMIC #### [address] [place] [address] Video Game Technician: Jamari Landry MD Nitrite,Ur Negative Normal NEG [facility] Comment on above: Performed By: #### U AMIC #### [facility] [address] Castillo, [place] [id number] Video Game Technician: Jamari Landry MD PH,Ur 6.0 Normal 5.0-9.0 [facility] Comment on above: Performed By: #### U AMIC #### [facility] [address] Castillo, [place] [id number] Video Game Technician: Jamari Landry MD Protein Ql (U) Negative Normal NEG [facility] Comment on above: Performed By: #### U AMIC #### [facility] [address] Castillo, [place] [id number] Video Game Technician: Jamari Landry MD Spec. [place],Ur >1.030 High 1.010-1.020 [facility] Comment on above: Performed By: #### U AMIC #### [facility] [address] [place] [address] Dr. Castillo, [place] [id number] Video Game Technician: Jamari Landry MD Urobilinogen,Ur Normal Normal NORM [facility] Comment on above: Performed By: #### U AMIC #### [facility] [address] [place] [address] Dr. Castillo, [place] [id number] Video Game Technician: Jamari Landry MD US Venous Reflux/Insuff, Esvin Loweron 11-23-2021 US Venous Reflux/Insuff, Esvin Lower RIGHT LEFT DIAMETER RELUX (msec) DIAMETER REFLUX 1.2 CFV1.5 1.1 SFV PROX.65 795 .61SFV MID.88 1522 .84SFV DIS1.09 0 .84SF JUNCTION.92 3064 .94POP1.11 0 .62 GSV PROX1.05 905 .46GSV MID.66 2395 .51GSV DIST.53 2576 .188558WWG KNEE.47 1284 .82785XNT CALF.55 1479 .36GSV ANKLE .33 1292 .11SP [...] by John Yanes on 11/23/2021 1210 Normal [facility] Custodian PAP ACOG PANEL 2: 30 to 65on 10-19-2021 . . Normal [facility] Comment on above: Result Comment: Perf ormed at: WB Performed By: #### 4 [id number] #### [facility] [address] [address] [address] Marquise Ha Age Gdln ACOG Testing 30-65 [facility] Comment on above: Performed By: #### 4 [id number] #### [facility] [address] [address] [address] Marquise Ha DIAGNOSIS: Comment Normal [facility] Comment on above: Result Comment: NEGA TIVE FOR INTRAEPITHELIAL LESION OR MALIGNANCY. Performed at: WB Performed By: #### 4 [id number] #### [facility] [address] [address] [address] Marquise Ha HPV Aptima Negative Normal Negative [facility] Comment on above: Result Comment: This nucleic acid amplification test detects fourteen high-risk HPV types (16,18,31,33,35,39,45,51,52,56,58,59,66,68) without differentiation. Performed at: =G Performed By: #### 4 [id number] #### [facility] [address] [address] [address] Marquise Ha Methodology: Comment Normal [facility] Comment on above: Result Comment: This liquid based ThinPrep(R) pap test was screened with the use of an image guided system. Performed at: WB Performed By: #### 4 [id number] #### [facility] [address] [address] [address] Marquise Ha Note: Comment Normal [facility] Comment on above: Result Comment: The Pap smear is a screening test designed to aid in the detection of premalignant and malignant conditions of the uterine cervix. It is not a diagnostic procedure and should not be used as the sole means of detecting cervical cancer. Both false-positive and false-negative reports do occur. . Performed at: WB Performed By: #### 4 [id number] #### [facility] [address] [address] [address] Marquise Ha Performed by: Comment Normal [facility] Comment on above: Result Comment: Lisandra De Los Santos, Retail Pricing Coordinator (ASCP) Performed at: WB Performed By: #### 4 [id number] #### [facility] [address] [address] [address] Marquise Ha Specimen adequacy: Comment Normal [facility] Comment on above: Result Comment: Sati sfactory for evaluation. No endocervical cells are present. This is consistent with a history of hysterectomy. Performed at: WB Performed By: #### 4 [id number] #### [facility] [address] [address] [address] Marquise Ha Duplex Scan of Illiac [...] by John Yanes on 06/29/2021 1215 Normal [facility] Custodian Free T3on 06-14-2021 FT3 3.29 pg/mL Normal 2.00-4.40 [facility] Custodian Comment on above: Performed By: #### F T3, FT4 #### [facility] [address] [place], [place] [id number] Free T4on 06-14-2021 Free T4 [Mass/Vol] 1.22 ng/dL Normal 0.80-1.80 [facility] Comment on above: Performed By: #### F T3, FT4 #### [facility] [address] [place], [place] [id number] Q - T3 TOTALon 06-14-2021 T3, TOTAL 137 ng/dL Normal 76-181 [facility] Comment on above: Order Comment: [facility] Testing performed at: [facility], [employer] [facility], [address] [facility], [address] [facility], [place], [address], Quarry Extraction Worker: Spencer Aguero MD [facility] Collection Date/Time: [facility] Results Received Date/Time: [facility] Reported Date/Time: Performed By: #### 8 59X, [id number] #### [facility] Default [address] [place] [address] Q - T3,REVERSE,LC/MS/MSon T3 REVERSE, LC/MS/MS 14 ng/dL Normal 8-25 [facility] Comment on above: Order Comment: [facility] Testing performed at: [facility], [employer], [address], [place], [place], , Quarry Extraction Worker: Joao Langston M.D.,PhD [facility] Collection Date/Time: [facility] Results Received Date/Time: [facility] Reported Date/Time: Result Comment: This test was developed and its analytical performance characteristics have been determined by [employer] [place], [place]. It has not been cleared or approved by the U.S. Food and Drug Administration. This assay has been validated pursuant to the CLIA regulations and is used for clinical purposes. Performed By: #### 8 59X, 14030 #### [facility] Default [address] [place] [address] US Venous, Bilateral, Lower [place] 12-30-2021 US Venous, Bilateral, Lower Ext ASK VEDA [...] by John Yanes on 05/10/2021 0852 Normal [facility] Specialist Vital Signs Date Time Vital Sign Value Performing Clinician Facility 06-15-2023 16:00-0500 Body temperature 97.9 [degF] Tomasz Otero MD Work Phone: [facility] 06-15-2023 16:00-0500 Diastolic blood pressure 56 mm[Hg] Tomasz Otero MD Work Phone: [facility] 06-15-2023 16:00-0500 Heart rate 85 /min Tomasz Otero MD Work Phone: [facility] 06-15-2023 16:00-0500 Respiratory rate 15 /min Tomasz Otero MD Work Phone: [facility] 06-15-2023 16:00-0500 SaO2% (BldA) [Mass fraction] 97 % Tomasz Otero MD Work Phone: [facility] 06-15-2023 16:00-0500 Systolic blood pressure 118 mm[Hg] Tomasz Otero MD Work Phone: [facility] 06-14-2023 06:44-0500 Body height 160 cm Tomasz Otero MD Work Phone: [facility] 06-14-2023 06:44-0500 Body mass index (BMI) [Ratio] 39.68 kg/m2 Tomasz Otero MD Work Phone: [facility] 06-14-2023 06:44-0500 Body weight 101.61 kg Tomasz Otero MD Work Phone: [facility] 08-12-2022 08:31-0400 Body height 160 cm Leonora Curiel MD Work Phone: [facility] 08-12-2022 08:31-0400 Body weight 121.56 kg Leonora Curiel MD Work Phone: [facility] 02-17-2021 10:50-0400 Body height 160.02 cm Tete Romero Other [facility] Other 02-17-2021 10:50-0400 Body mass index (BMI) [Ratio] 46.94 kg/m2 Tete Heather Other [facility] Other 02-17-2021 10:50-0400 Body temperature 96.8 [degF] Tete Heather Other [facility] Other 02-17-2021 10:50-0400 Body weight 120.2 kg Tete Heather Other [facility] Other 02-17-2021 10:50-0400 Diastolic blood pressure 61 mm[Hg] Tete Heather Other [facility] Other 02-17-2021 10:50-0400 Respiratory rate 18 /min Tete Romero Other [facility] Other 02-17-2021 10:50-0400 SaO2% (BldA) [Mass fraction] 99 % Tete Romero Other [facility] Other 02-17-2021 10:50-0400 Systolic blood pressure 125 mm[Hg] Tete Romero Other [facility] Other Encounters Encounter Date Encounter Type Care Provider Facility Start: 11-06-2023 End: 11-06-2023 ambulatory PROSPER ZENDEJAS Not Available Start: 09-20-2023 End: 09-20-2023 ambulatory CLEO MARIE Not Available Start: 09-15-2023 End: 09-19-2023 ambulatory AVINASH [facility] Start: 09-11-2023 End: 09-15-2023 ambulatory AVINASH [facility] Start: 09-04-2023 End: 09-04-2023 ambulatory QUINCY HOWELL Not Available Start: 08-21-2023 End: 08-21-2023 ambulatory PROSPER ZENDEJAS [...] Department Unsolicited Start: 06-14-2023 End: 06-15-2023 ambulatory [facility] Start: 06-14-2023 End: 06-15-2023 Subsequent hospital visit by physician Tomasz Otero MD Work Phone: [facility] 4 Observation Comment on above: S/P total right hip arthroplasty (Primary Dx); History of total hip replacement, right Start: 06-13-2023 Refill Prosper garcía MD Work Phone: [facility] Start: 06-12-2023 End: 06-12-2023 ambulatory SHEAN Siria LICONA Not Available Start: 06-06-2023 End: 06-06-2023 ambulatory PROSPER ZENDEJAS Not Available Start: 06-02-2023 End: 06-03-2023 ambulatory [facility] Start: 06-02-2023 End: 06-02-2023 Subsequent hospital visit by physician [address] [facility] Comment on above: Unilateral primary o steoarthritis, right hip Start: 05-22-2023 End: 05-23-2023 ambulatory PROSPER LOPEZ [facility] Start: 05-22-2023 End: 05-23-2023 Encounter for other preprocedural examination [facility] Start: 05-11-2023 End: 05-11-2023 ambulatory PROSPER ZENDEJAS Not Available Start: 09-29-2022 ambulatory Facility: Amanda ALVAREZ Betty Start: 08-29-2022 End: 08-29-[address] JAKE MARKS Facility: Start: 08-12-2022 End: 08-12-2022 ambulatory LEONORA CURIEL Facility:[facility] Start: 08-12-2022 End: 08-12-2022 Patient encounter procedure Leonora Curiel MD Work Phone: Orthopaedics Comment on above: Class 2 severe obesi ty with serious comorbidity in adult, unspecified BMI, unspecified obesity type (HCC) (Primary Dx); Primary osteoarthritis of right hip Start: 04-11-2022 End: 04-11-[address] PROSPER ZENDEJAS . Facility:[facility] Start: 03-08-2022 End: 03-11-2022 ambulatory CARL W AGAANJEL [facility] Start: 03-08-2022 End: 03-10-2022 Subsequent hospital visit by physician [facility] Scan Room [facility] Comment on above: Microscopic hematuri a Start: 02-25-2022 End: 02-26-2022 amb[facility] Start: 01-06-[address] PROSPER ZENDEJAS . Fac ility:[facility] Start: 10-15-2021 End: 10-15-[address] PROSPER ZENDEJAS . Facility:[facility] Start: 09-06-2021 End: 09-06-2021 Lab Drop off [facility] Start: 06-24-2021 End: 10-13-2021 [facility] Start: 02-17-2021 Office outpatient ne w 20 minutes Tete Romero [facility] [place] Procedures Date Procedure Procedure [...] Start: 06-14-2023 PULSE OXIMETRY, SPOT WI TISHA OTEOR Start: 06-14-2023 PLACE IN OUTPATIENT/HOSPITAL AMBULATORY SURGERY [...] CULTURE TOMASZ OTERO Start: 05-22-2023 ECG 12-LEAD TOMSAZ GAN RDNay Start: 03-08-2022 Assay of urea nitrog en quantitative Carl Rodgers SHADING PAINTER - PHOTOENGRAVING APPRENTICE Work Phone: Start: 10-15-2021 Microscopic observat ion [Identifier] in Cervix by Cyto stain Prosper Zendejas MD Work Phone: Start: 10-10-2017 Mammography Prosper alexandra MD Work Phone: Start: 09-16-2013 Colonoscopy Prosper alexandra MD Work Phone: Plan of Treatment Date Care Activity Detail Author Start: 10-15-2026 Screening for malign ant neoplasm of cervix [facility] Start: 10-15-2024 Screening for malign ant neoplasm of cervix Pap smear [facility] Start: 09-17-2023 Screening for malign ant neoplasm of colon [facility] Start: 09-11-2023 End: 09-11-2023 Patient encounter procedure 09/11/2023 1:00 PM EDT Office Visit [facility] [address] [address] Shena Licona, SHADING PAINTER-[facility] [address] [facility] [address] [place] [address] [facility] Start: 08-08-2023 End: 08-08-2023 Patient encounter procedure 08/08/2023 10:00 AM EDT Office Visit [facility] [address] [place] [address] Prosper Zendejas MD [address] [facility] [place] [address] (Fax) [facility] Start: 06-14-2023 End: 06-14-2023 Admission to same day surgery center 06/14/2023 1:45 PM EST - 06/14/2023 5:00 PM EST Surgery [facility] [place] [id number] [place] [address] [place] [address] [place] [address] [facility] [place] [address] Right posterior total hip replacement with Jamal [74084 (CPT )] [facility] [place] Comment on above: Right posterior tota l hip replacement with Jamal [32604 (CPT )] Start: 06-14-2023 End: 06-14-2023 Arthrp acetblr/prox fem prostc agrft/algrft Arthroplasty Total Hip Posterior Approach Unilateral primary osteoarthritis, right hip 06/14/2023 1:45 PM EST [facility] Start: 06-14-2023 Subsequent hospital visit by physician 06/14/2023 12:15 PM EST Hospital Encounter [facility] [place] [id number] [place], [place] [address] [address] [place] [address] [place] [address] [facility] [place] Start: 01-06-2023 Influenza vaccination C [facility] Start: 05-08-2022 DEPRESSION ASSESSMENT DEPRESSION ASS ESSMENT [facility] Start: 03-10-2022 End: 03-10-2022 Patient encounter procedure 03/10/2022 Procedure visit Urology [facility] Start: 12-06-2021 Influenza vaccination Flu vaccine (# 1) [facility] Start: 10-10-2018 Screening for malign ant neoplasm of breast Mammogram [facility] Start: 02-03-2014 Screening for malign ant neoplasm of breast Breast cancer screen [facility] Start: 02-03-2014 Shingles vaccine (1 of 2) Shingles vaccine (1 of 2) [facility] Start: 02-03-2014 SHINGRIX VACCINE (1 of 2) SHINGRIX VACCINE (1 of 2) [facility] Start: 02-03-2014 Zoster Vaccines (1 of 2) Zoste r Vaccines (1 of 2) [facility] Start: 07-24-2009 MMR Vaccines (1 of 1 - Standard series) MMR Vaccines (1 of 1 - Standard series) [facility] Start: 02-03-2009 COLOGUARD (FIT-DNA) COLOGUARD (FIT-D NA) [facility] Start: 02-03-2009 Colonoscopy COLONOSCOPY [facility] Start: 02-03-2009 COLORECTAL CANCER SCREENING COLORECTAL CANCER SCREENING [facility] Start: 02-03-[address] COLONOGRAPHY [facility] Start: 02-03-2009 DIABETES SCREEN DIABETES SCREEN [facility] Start: 02-03-2009 FECAL OCCULT BLOOD FECAL OCCULT BLOO D [facility] Start: 02-03-2009 LIPID SCREEN LIPID SCREEN [facility] Start: 02-03-2009 Screening for malign ant neoplasm of colon [facility] Start: 02-03-2009 SIGMOIDOSCOPY SIGMOIDOSCOPY [facility] Start: 2004 Lipid panel Lipids [facility] Start: 2004 Mammography MAMMOGRAM [facility] Start: 2004 Screening for malign ant neoplasm of breast Mammogram [facility] Start: 02-03-1999 Diabetes screen Diabetes screen [facility] Start: 02-03-1994 HPV TESTING HPV TESTING [facility] Start: 02-03-1986 DTaP/Tdap/Td Vaccine s (1 - Tdap) DTaP/Tdap/Td Vaccines (1 - Tdap) [facility] Start: 02-03-1985 PAP TESTING PAP TESTING [facility] Start: 02-03-1985 Screening for malign ant neoplasm of cervix [facility] Start: 02-03-1983 DTaP/Tdap/Td vaccine (1 - Tdap) DTaP/Tdap/Td vaccine (1 - Tdap) [facility] Start: 02-03-1983 Urine microalbumin profile DTAP,TDAP,TD (1 - Tdap) [facility] Start: 02-03-1982 Diabetes mellitus screening Diabetes Screening [facility] Start: 02-03-1982 Hepatitis C screening B ON [facility] Start: 02-03-1982 HEPATITIS C SCREENING HEPATITIS C SC REENING [facility] Start: 02-03-1982 HIV SCREENING HIV SCREENING [facility] Start: 02-03-1979 HIV screening HIV screen [facility] Start: 1976 Depression Screen Depression Screen [facility] Start: 1964 COVID-19 Vaccine (#1) COVID-19 Vacci ne (#1) [facility] Start: 1964 HEPATITIS B (1 of 3 - 3-dose series) HEPATITIS B (1 of 3 - 3-dose series) [facility] Start: 1964 Hepatitis B Vaccines (1 of 3 - 3-dose series) Hepatitis B Vaccines (1 of 3 - 3-dose series) [facility] Start: 1964 HIV screening HIV Screening [facility] Start: 1964 Lipid panel Lipid Panel [facility] Start: 1964 Screening for malign ant neoplasm of colon [facility] Start: 1964 Thyroid stimulating hormone measurement TSH Level [facility] Start: 1964 Yearly Adult Physical Yearly Adult P hysical [facility] End: 03-08-2022 CT UROGRAM [facility] Work Phone: Comment on above: 1 Occurrences starti ng 03/08/2022 until 03/08/2022 ECG 12 Lead ECG 12 Lead ECG STAT 06/14/2023 11:55 AM EST [facility] Work Phone: Electrocardiogram, 12-lead PRN ACS symptoms Electrocardiogram, 12-lead PRN ACS symptoms ECG Routine As needed until discontinued starting 06/14/2023 [facility] Work Phone: Comment on above: As needed until disc ontinued starting 06/14/2023 End: 06-14-2023 Incentive spirometry Instruct Incentive spirometry Instruct Respiratory Care Routine Once for 1 Occurrences starting 06/14/2023 until 06/14/2023 [facility] Service Area Work Phone: Comment on above: Once for 1 Occurrenc es starting 06/14/2023 until 06/14/2023 [facility] Immunizations Immunization Date Immunization Notes Care Provider Fa edwina 02-07-2020 influenza, high dose seasonal, preservative-free Prosper Zendejas MD Work Phone: [facility] 02-07-2020 influenza, injectabl e, quadrivalent, preservative free Prosper Zendejas MD Work Phone: [facility] 02-07-2020 influenza virus vaccine, unspecified formulation St [facility] Work Phone: 01-29-2019 influenza, injectabl e, quadrivalent, preservative free Prosper Zendejas MD Work Phone: [facility] 12-29-2017 influenza, injectabl e, quadrivalent, preservative free Prosper Zendejas MD Work Phone: [facility] 12-29-2017 influenza, seasonal, injectable Prosper Zendejas MD Work Phone: [facility] 02-05-2016 influenza, seasonal, injectable, preservative free Prosper Zendejas MD Work Phone: [facility] 02-18-2015 influenza, seasonal, injectable Prosper Zendejas MD Work Phone: [facility] 02-18-2015 influenza, seasonal, injectable, preservative free Prosper Zendejas MD Work Phone: [facility] 01-12-2015 influenza, injectabl e, quadrivalent, preservative free Prosper Zendejas MD Work Phone: [facility] 10-13-2014 Toradol per 15 mg Tete Dym ond Other [facility] Other 06-26-2009 novel [id number], preservative-free, injectable Prosper Zendejas MD Work Phone: [facility] Healthcare Payers Date Payer Category Payer Unknown [id number] 2021 Unknown [employer] 2021-Present [phone] [address] [place] [address] [employer] [id number] 2021 Unknown BETTY SCHMID 2013 Unknown [id number] [id number] 1964 Unknown [id number] 2.16.840.1.722238.3.579.2.173 1964 Unknown [id number] 2.16.840.1.301571.3.579.2.173 1964 Unknown [id number] 2.16.840.1.769020.3.579.2.173 1964 Unknown [id number] 2.16.840.1.292985.3.579.2.593 1964 Unknown [id number] 2.16.840.1.618814.3.579.2.593 1964 Unknown [id number] 2.16.840.1.054900.3.579.2.593 1964 Unknown [id number] 2.16.840.1.089112.3.579.2.593 1964 Unknown [id number] 2.16.840.1.734674.3.579.2.727 1964 Unknown [id number] 2.16.840.1.948600.3.579.2.124 3 1964 Unknown [id number] 2.16.840.1.383014.3.579.2.124 3 1964 Unknown [id number] 2.16.840.1.758141.3.579.2.124 3 1964 Unknown [id number] 2.16.840.1.121393.3.579.2.125 9 1964 Unknown [id number] 2.16.840.1.581860.3.579.2.125 9 1964 Unknown [id number] 2.16.840.1.265554.3.579.2.125 9 1964 Unknown [id number] 2.16.840.1.504296.3.579.2.125 9 1964 Unknown [id number] 2.16.840.1.698446.3.579.2.125 9 1964 Unknown [id number] 2.16.840.1.136449.3.579.2.125 9 1964 Unknown [id number] 2.16.840.1.308522.3.579.2.125 9 1964 Unknown [id number] 2.16.840.1.632217.3.579.2.125 9 1964 Unknown [id number] 2.16.840.1.377613.3.579.2.125 9 1964 Unknown [id number] 2.16.840.1.079868.3.579.2.125 9 1959 Unknown [id number] 2.16.840.1.255526.19 1959 Unknown [id number] 2.16.840.1.223322.19 1959 Unknown [id number] Social History Date Type Detail Facility Tobacco smoking status [facility] Other Start: 10-25-2022 End: 05-22-2023 Sex Assigned At Female [facility] Other Start: 02-25-2022 End: 05-10-2023 Tobacco smoking status [facility] Ex-smoker [employer] Phone: End: 05-08-2002 History of tobacco use Current smoker [facility] [employer] Phone: End: 05-08-2002 History of tobacco use Cigarette Smoker [employer] Phone: Start: 02-25-2022 End: 05-10-2023 Tobacco use and exposure Smokeless tobacco non-user [employer] Phone: Start: 02-25-2022 End: 03-10-2022 Alcohol intake Current drinker of alcohol (finding) [facility] [employer] [facility] Phone: Start: 02-25-2022 Alcohol Comment rare [facility] W[facility] [employer] [facility] Phone: Start: 1965 Sex Assigned At Not on file [facility] [employer] Phone: Tobacco smoking status MAIS Tobacco smoking consumption unknown [facility] Start: 1965 Sex Assigned At Female C [facility] History of tobacco use Passive smoker [facility] Work Phone: Start: 05-22-2023 End: 06-14-2023 Alcohol intake Lifetime non-drinker (finding) [facility] Work Phone: Start: 10-25-2022 End: 05-22-2023 History of Social function [facility] Start: 09-25-2022 Gender identity Identifies as female gender (finding) [facility] Work Phone: Start: 05-23-2023 End: 06-14-2023 Exposure to SARS-CoV-2 (event) Not sure [facility] Has the PICS Auditing, gas, oil, or water [employer] threatened to shut off services in your home in past 12Mo Patient declined [facility] How often to you hav e [...] Healthcare Start: 09-25-2022 Sexual orientation Heterosexual (jose lsater) [facility] NEGATED: Highlighted rowStart: AMANDAF History of tobacco use Passive smoker [facility] Work Phone: Medical Equipment Procedure Code Equipment Code Equipment Origin al Text Equipment Identifier Dates Insignia Hip Mark Anthony m, High Offset. [id number] [id number] (21)N/A, [id number] FDA Start: 06-14-2023 Shell, Trident I i, Tritanium, Clusterhole, 48d - Sn/A - [id number] [id number]()N/A, [id number] FDA Start: 06-14-2023 Liner, Cocr, Mdm , 38mm D - Sn/A - [id number] Start: 06-14-2023 Head, Femur V40 22.2/+1 Cocr Lfit - Sn/A - [id number] [id number] (21)N/A, [id number] FDA Start: 06-14-2023 Insert, Mdm X3 Amish, 38od 22id X 7.7mm - Sn/A - [id number] [id number] ()N/A, [id number] FDA Start: 06-14-2023 Screw, Low Profi le Hex, 6.5 X 25 Mm - Sn/A - [id number] Start: 06-14-2023 4mm X 170mm Stry ker Pin Bone (Formerly Mfr'D By Jamal) [id number] Start: 06-14-2023 Clinical Notes 02-17-2021 to 06-15-2023 Brandt Landa LPN - 06/15/2023 5:20 PM Mariann Landa LPN - 06/15/2023 5:20 PM Jose Ramirez - 06/15/2023 3:44 PM ESTGale Chacko, EUGENIA - 06/15/2023 1:40 PM ESTDischarge Instructions Note Date & Type Note Facility 06-15-2023 Nurse Note Pt discharge teaching completed. Pt & pt's voiced understanding. IV removed, Pt medicated with a pain pill before she left Home care info has been sent over to [facility] Pt waiting for a wheelchair to head down to the car Bp 118/56 Hr 85 17:50 Pt heading down to the car in the wheelchair [facility] 06-15-2023 Nurse Note Pt discharge teaching completed. Pt & pt's voiced understanding. IV removed, Pt medicated with a pain pill before she left Home care info has been sent over to [facility] Pt waiting for a wheelchair to head down to the car Bp 118/56 Hr 85 17:50 Pt heading down to the car in the wheelchair documented in this encounter [facility] Work Phone: 06-15-2023 History of Presen t illness Narrative Spiritual Care Visit Clinical Encounter Type Visited With: Patient and family together Routine Visit: Introduction Continue Visiting: No Taxonomy Intended Effects: Preserve dignity and respect, Promote sense of peace Methods: Offer spiritual/adventism support Interventions: Share words of hope and inspiration, Bricelyn Patient was with her . Patient is a Hindu. Atomic Physics Teacher provided companionship and validation. Atomic Physics Teacher was a supportive presence. Occupational Therapy Evaluation Patient Name: Italia Collins Today's Date: 06/15/2023 Time Calculation Start Time: 0939 Stop Time: 1000 Time Calculation (min): 21 [...] Recommended upon Discharge: Wheeled walker (shower chair, business banking representative, sock aide, LH shoe horn) OT - [...] and WW. ADL: LE Dressing Assistance: Moderate (business banking representative) ADL Comments: Educated patient on safety with [...] and patient verbalized understanding. Patient reports owning business banking representative and sock aide at home from previous spine surgery. Reports will have family to assist as needed. Extremities: RUE RUE : Within Functional Limits and LUE LUE: Within Functional Limits Outcome Measures: [facility] Daily Activity Putting on and taking off [...] Patient Position Up in chair Outcome Measures: [facility] Basic Mobility Turning from your back to [...] LLE : Within Functional Limits Outcome Measures: [facility] Basic Mobility Turning from your back to [...] Pt lives with spouse and was independent JORDAN MAN with no HHC. Pt has a walker. Pt was able to drive and obtain medications. Therapy evals pending. Pt plans to return home with [facility] PT/OT. Referral built and sent in [facility]. Will need outgoing home care referral. Family will provide transport home. 1458 Spoke with [facility] [phone]. They are able to accept patient. SOC with in 48 hours. Therapy updates, progress notes and Home care orders sent in [facility]. Italia Collins is a 58 y.o. female [...] Rate 65 BPM Atrial Rate 65 BPM [place] Interval 188 ms QRS Duration 90 ms QT Interval 422 ms QTC Calculation(Bazett) 438 ms P Cerrillos 47 degrees R Cerrillos 10 degrees T Cerrillos 38 degrees QRS Count 11 beats Q [...] xrays in pacu. COMPARISON: None ACCESSION NUMBER(S): [id number] ORDERING CLINICIAN: TOMASZ OTERO FINDINGS: Right total hip arthroplasty without fracture or dislocation. Alignment normal. Satisfactory appearance status post right total hip arthroplasty. Signed by: Lei Alves 06/14/2023 11:04 AM Dictation workstation: [id number] XR hip right with pelvis when performed 2 or 3 views Result Date: 06/14/2023 ap and cross table lateral s/p hip replacement, xrays in pacu Interpreted By: Lei Alves, STUDY: XR HIP RIGHT WITH PELVIS WHEN PERFORMED 2 OR 3 VIEWS INDICATION: Signs/Symptoms:ap and cross table lateral s/p hip replacement, xrays in pacu. COMPARISON: None ACCESSION NUMBER(S): [id number] ORDERING CLINICIAN: TOMASZ OTERO FINDINGS: Right total hip arthroplasty without fracture or dislocation. Alignment normal. IMPRESSION: Satisfactory appearance status post right total hip arthroplasty. Signed by: Lei Alves 06/14/2023 11:04 AM Dictation workstation: [id number] Assessment/Plan Principal Problem: History of total hip replacement, right Active Problems: S/P total right hip arthroplasty POD #1 s/p right DONALDO Continue PT/OT, WBAT right LE Using incentive spirometer Reviewed am labs Multimodal pain regimen Surgical hip dressing to be removed at follow up appointment with Dr. Otero VTE prophylaxis: aspirin 81mg BID X 30 days When appropriate, will discharge home with [facility] Follow up with Dr. Otero in [...] Missed Time: Attempt documented in this encounter [facility] Work Phone: 06-15-2023 Plan of care note The patient's goals for the shift include The clinical goals for the shift include pain control and participate in falls intervention preventions Over the shift, the patient did make progress toward the following goals of pain control and participate in falls intervention prevention. [facility] 06-15-2023 Miscellaneous Notes The patient's goals [...] II Anesthesia Staff: Anesthesiologist: Liv Hammond MD BULK TRUCK DRIVER: Wali Quinonez APRN-LANCE Estimated Blood Loss: 300mL [...] 943.77 mL Specimen: No specimens collected Staff: Sprinkler Irrigation Equipment Mechanic: Puma Agustin RN Scrub Person: Arlet Richardson; Sarthak Andrew; Judie Ruggiero, JACLYN Drains and/or Catheters: * None in log * Tourniquet Times: Implants: Implants Type Name Action Serial No. 4MM X 170MM ROSA PIN BONE (FORMERLY MFR'D BY JAMAL) Implanted Joint HEAD, FEMUR V40 22.2/+1 COCR LFIT - SN/A - [id number] Implanted N/A Insignia hip stem, High offset. Implanted N/A Joint INSERT, MDM X3 ORTHODOX, 38OD 22ID X 7.7MM - SN/A - [id number] Implanted N/A Joint Hip SHELL, TRIDENT II, TRITANIUM, CLUSTERHOLE, 48D - SN/A - [id number] Implanted N/A Joint Hip LINER, COCR, MDM, 38MM D - SN/A - [id number] Implanted N/A Screw SCREW, LOW PROFILE HEX, 6.5 X 25 MM - SN/A - [id number] Implanted N/A SURGEON: Tomasz Otero M.D. FOIL STAMP OPERATOR(S): Wesley Andrew SA No qualified resident was [...] loosening, osteolysis, DVT, continued pain, iatrogenic fracture, ND, stroke, and . The patient completed preoperative [...] line to line press fit, using the [employer] Robotic arm for assistance. The acetabular component [...] procedure. Tomasz Otero documented in this encounter [facility] Work Phone: 06-14-2023 Note Formatting of this n ote is different from the original. Right posterior total hip replacement with Jamal (R) Operative Note Date: 06/14/2023 OR Location: ST OR Name: Italia Collins, : 1965, Age: 58 y.o., , Sex: female Procedure Summary Anesthesia: Spinal ASA: II Anesthesia Staff: Anesthesiologist: Liv Hammond MD BULK TRUCK DRIVER: Wali Quinonez, SHADING PAINTER-BULK TRUCK DRIVER Estimated Blood Loss: 300mL Intra-op Medications: Administrations [...] 943.77 mL Specimen: No specimens collected Staff: Sprinkler Irrigation Equipment Mechanic: Puma Agustin RN Scrub Person: Arlet Richardson; Sarthak Andrew; Judie Ruggiero, JACLYN Drains and/or Catheters: * None in log * Tourniquet Times: Implants: Implants Type Name Action Serial No. 4MM X 170MM ROSA PIN BONE (FORMERLY MFR'D BY JAMAL) Implanted Joint HEAD, FEMUR V40 22.2/+1 COCR LFIT - SN/A - [id number] Implanted N/A Insignia hip stem, High offset. Implanted N/A Joint INSERT, MDM X3 ORTHODOX, 38OD 22ID X 7.7MM - SN/A - [id number] Implanted N/A Joint Hip SHELL, TRIDENT II, TRITANIUM, CLUSTERHOLE, 48D - SN/A - [id number] Implanted N/A Joint Hip LINER, COCR, MDM, 38MM D - SN/A - [id number] Implanted N/A Screw SCREW, LOW PROFILE HEX, 6.5 X 25 MM - SN/A - [id number] Implanted N/A SURGEON: Tomasz Otero M.D. FOIL STAMP OPERATOR(S): Wesley Andrew SA No qualified resident was [...] with Jamal Robotic assistance IMPLANTS: Acetabular component: Scotts Trident II Tritanium 48 mm Acetabular screws: [...] loosening, osteolysis, DVT, continued pain, iatrogenic fracture, ND, stroke, and . The patient completed preoperative [...] critical portions of the procedure. Tomasz Otero [facility] Work Phone: 06-14-2023 History and physical [...] marked. All questions answered. Tomasz Otero MD [facility] Work Phone: 06-14-2023 History and physical note History Of Present Illness Italia Collins is a 58 y.o. female presenting with right hip pain and plans for right total hip replacement. Past Medical History She has a past medical history of Anemia, Anxiety, Arthritis, Bipolar disorder ([facility]), CKD (chronic kidney disease), Dysfunctional uterine bleeding, [...] Tomasz Otero MD documented in this encounter [facility] Work Phone: 06-13-2023 Hospital Discharg e instructions Tomsaz Otero MD - 06/13/2023 3:06 PM EST See written discharge instructions from Dr. Otero documented in this encounter [facility] Work Phone: 08-12-2022 Note HNO ID: [id number] Author: Leonora Curiel MD Service: ? Author Type: Physician Type: Progress Notes Filed: 08/12/2022 10:03 AM Note Text: Subjective: Italia Collins is a 57 year old female. Patient was accompanied to the office by her . 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 She has been seen closer to home in [facility] and surgery was deferred secondary to her weight. She has had bariatric surgery in the past. Uses a rolling walker for ambulation. 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 Past Social History: Past Surgical History: No [...] Patient has history of stage III CKD. LAB AID: Negative for abnormal vaginal bleeding, abnormal vaginal [...] provided. MD NAI WuA Professor, Orthopaedic Surgery [facility] [employer] [place] 08-12-2022 History of Presen t illness Narrative Subjective: Italia Collins is a 57 year old female. Patient was accompanied to the office by her . 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 She has been seen closer to home in [facility] and surgery was deferred secondary to her weight. She has had bariatric surgery in the past. Uses a rolling walker for ambulation. 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 Past Social History: Past Surgical History: No [...] Patient has history of stage III CKD. LAB AID: Negative for abnormal vaginal bleeding, abnormal vaginal [...] Leonora Curiel MD LAUREEN Professor, Orthopaedic Surgery [facility] [employer] documented in this encounter [facility] 09-06-2021 Evaluation + Plan note Diagnostic Tests PendingWound Culture 09/06/21 [facility] 02-17-2021 Evaluation note Encounter Date Diagnosis Assessment Notes Feb, Insect stings, accidental or unintentional , initial encounter (ICD-10 - T63.481A) Feb, Cellulitis of forearm, left (ICD-10 - L03.114) Take the antibiotic as prescribed until gone. Continue home medications as prescribed. You may apply gcjw-uup-vehocfm hydrocortisone cream to the area. Continue to take Benadryl for itching. Apply warm compresses to the area once or twice a day. Follow-up with your family physician if no improvement in 2 to 3 days [facility] Other Evaluation note* Diagnosis Microscopic hematuria documented in this encounter [facility] Phone: evaluation note* Diagnosis Microscopic hematuria documented in this encounter [facility] Phone: evaluation note* Diagnosis Class 2 severe obesity with serious comorbidity in adult, unspecified BMI, unspecified obesity type (HCC)- Primary Primary osteoarthritis of right hip Primary localized osteoarthrosis, pelvic region and thigh [facility] Unilateral primary osteoarthritis, right hip Unilateral primary osteoarthritis, right hip documented in this encounter [facility] Work Phone: Evaluation note* Diagnosis History of total hip replacement, right- Primary S/P total right hip arthroplasty History of total hip replacement, right S/P total right hip arthroplasty documented in this encounter [facility] Work Phone: History general Narrative - [...] Surgical History ddd Hospitalization History see above [facility] Other Hospital course Narrative No data available for this section [facility] No data available for this section [facility] Summary Purpose Family History No Family [...] total hip replacement, right Jyotsna Hurtado PA-C [address] [place] [address] Referral ID Status Reason Start Date Expiration Date Visits Requested Visits Authorized [id number] Authorized Specialty Services Required 06/15/2023 06/14/[phone] Specialty Diagnoses / Procedures Referred By Nimco garvin Referred To Contact Radiology Diagnoses Unilateral primary osteoarthritis, right hip Procedures CT hip [place] [address] [place] [address] Referral ID Status Reason Start Date Expiration Date Visits Requested Visits Authorized [id number] Authorized Perform Procedure 05/15/2023 05/14/2024 1 1 Specialty Diagnoses / Procedures Referred By Nimco garvin Referred To Contact Diagnoses Class 2 severe obesity with serious comorbidity in adult, unspecified BMI, unspecified obesity type (HCC) Procedures [facility] Leonora Curiel MD [address] [place] [address] Referral ID Status Reason Start Date Expiration Date Visits Requested Visits Authorized [id number] Ref Not Required PCP Requested Referral 08/12/2022 08/12/2023 1 1 Specialty Diagnoses / Procedures Referred By Contac t Referred To Contact Radiology Diagnoses Microscopic hematuria R31.29 (ICD-10-CM) - Microscopic hematuria Procedures CT UROGRAM CHG CT SCAN,ABDOMENT AND PELVIS,COMBO 79554 - CHG CT SCAN,ABDOMENT AND PELVIS,COMBO Carl Rodgers, SHADING PAINTER - PHOTOENGRAVING APPRENTICE [address] [place] [address] Referral ID Status Reason Start Date Expiration Date Visits Re quested Visits Authorized [id number] Closed 03/07/2022 02/28/2023 1 1 Additional Source Comments REASON FOR VISIT (unrecogniz ed section and content) Specialty Diagnoses / Procedures Referred By Contac t Referred To Contact Radiology Diagnoses Microscopic hematuria R31.29 (ICD-10-CM) - Microscopic hematuria Procedures CT UROGRAM CHG CT SCAN,ABDOMENT AND PELVIS,COMBO [address] - CHG CT SCAN,ABDOMENT AND PELVIS,COMBO Carl Rodgers, SHADING PAINTER - PHOTOENGRAVING APPRENTICE [address] [place] [address] Referral ID Status Reason Start Date Expiration Date Visits Re quested Visits Authorized [id number] Closed 03/07/2022 02/28/2023 1 1 Reason Comments Right Hip Pain Specialty Diagnoses / Procedures Referred By Contac t Referred To Contact Radiology Diagnoses Unilateral primary osteoarthritis, right hip Procedures CT hip [place] [address] [place] [address] Referral ID Status Reason Start Date Expiration Date Visits Requested Visits Authorized [id number] Authorized Perform Procedure 05/15/2023 05/14/2024 1 1 Specialty Diagnoses / Procedures Referred By Contac t Referred To Contact Diagnoses Unilateral primary osteoarthritis, right hip M16.11 - Unilateral primary osteoarthritis, right hip, 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 Procedures [place] ARTHRP ACETBLR/PROX FEM PROSTC AGRFT/ALGRFT Right posterior [place] [address] [place] [address] [place] [address] [place] [address] Referral ID Status Reason Start Date Expiration Date Visits Re quested Visits Authorized [id number] 1 1 Reason Comments Med Refill INFORMATION SOURCE (unrecogn ized section and content) DATE CREATED AUTHOR 11/26/2021 [facility] dical Specialist DATE CREATED AUTHOR AUTHOR'S ORGANIZ ATION 03/11/2022 [facility] DATE CREATED AUTHOR AUTHOR'S ORGANIZ ATION 08/14/2022 [place] DATE CREATED AUTHOR AUTHOR'S ORGANIZ ATION 09/02/2022 [facility] DATE CREATED AUTHOR AUTHOR'S ORGANIZ ATION 10/14/2022 [facility] DATE CREATED AUTHOR AUTHOR'S ORGANIZ ATION 06/19/2023 [facility] ical Center DATE CREATED AUTHOR AUTHOR'S ORGANIZ ATION 09/04/2023 [facility] DATE CREATED AUTHOR AUTHOR'S ORGANIZ ATION 09/20/2023 [facility] DATE CREATED AUTHOR AUTHOR'S ORGANIZ ATION 11/07/2023 [facility] dical Specialists EPIC Care Teams (unrecognized sec tion and content) Tray Setter Relationship Specialty Start Date End Date Prosper Zendejas MD [address] [place] [address] PCP - General 02/25/22 Tray Setter Relationship Specialty Start Date End Date Prosper Zendejas MD [address] [place] [address] PCP - General 02/25/22 Tray Setter Relationship Specialty Start Date End Date Prosper Zendejas MD [address] [place] [address] (Fax) PCP - General Family Medicine 07/27/22 Taco Flannery, RN Registered Nurse 07/26/22 Tray Setter Relationship Specialty Start Date End Date Prosper Zendejas MD [address] [place] [address] (Fax) PCP - General Family Medicine 05/15/23 Tray Setter Relationship Specialty Start Date End Date Prosper Zendejas MD [address] [place] [address] (Fax) PCP - General Family Medicine 05/15/23 Tray Setter Relationship Specialty Start Date End Date Prosper Zendejas MD [address] [place] [address] (Fax) PCP - General 09/25/22 Prosper Zendejas MD [address] [place] [address] (Fax) PCP - Medical [employer] 10/06/22 Tray Setter Relationship Specialty Start Date End Date Prosper Zendejas MD [address] [place] [address] (Fax) PCP - General 09/25/22 Prosper Zendejas MD [address] [place] [address] (Fax) PCP - Medical [employer] 10/06/22 Source Comments (unrecognize d section and content) In the event this informatio n is protected by the Federal Confidentiality of Alcohol and Drug Abuse Patient Records regulations: The Federal rules restrict any use of the information to criminally investigate or prosecute any alcohol or drug abuse patient.[facility] Scheduled Active and Recently Administ ered [...] 184 (New Bag - Provider: Tena Thomas RN)1916 [...] II/On Unit 1345 (Not Given - Provider: Celoi Thomas RN - Reason: Other - Comment: [...] on Mon06/14/23 at 2100, Phase II/On Unit 215 (Given - Provider: Lennie Emerson RN) 2100 (Due) sennosides (Senokot) tablet 17.2 mg 17.2 mg (2 tablet), oral, 2 times daily, First dose on Mon06/14/23 at 1345, Phase II/On Unit, Bowel Regimen - for prevention of constipation Hold for loose stools 1344 (Not Given - Provider: Celio Thomas RN - Reason: Patient/family refused)2152 (Given - Provider: Lennie Emerson RN) 0950 [...] - Provider: Brandt Landa LPN) thyroid (pork) (Clinton) tablet 60 mg 60 mg, oral, 2 [...] Lebron RN)0729 (Paused - Provider: Wali Quinonez APRN-BULK TRUCK DRIVER - Comment: Switch to gravity)0730 (New Bag - Provider: OFELIA MaloneyBULK TRUCK DRIVER)0744 (Canceled Entry - Provider: Wali Quinonez APRN-BULK TRUCK DRIVER)0950 (New Bag - Provider: OFELIA MaloneyBULK TRUCK DRIVER)1023 (Stopped - Provider: HARITHA Maloney)1027 (New Bag - Provider: Beryl Nye, JACLYN)1318 (Stopped - Provider: Celio Thomas RN) lactated Ringer's infusion 85 mL/hr, intravenous, Continuous, Starting on Mon06/14/23 at 1345, For 24 hours, Phase II/On Unit 1433 (New Bag - Provider: Tena Thomas, JACLYN)2133 (Rate/Dose Verify - Provider: Lennie Emerson, JACLYN)2316 (New Bag - Provider: Patsy Neves, JACLYN) 0430 (Rate/Dose Verify - Provider: Lennie Emerson [...] of dose. 1027 (Given - Provider: Beryl Nye, JACLYN)1040 (Given - Provider: Beryl Nye, JACLYN)1200 (Given - Provider: Ladonna Bedolla RN) HYDROmorphone [...] BE BASED ON THE PRIMARY CLINICAL RECORDS. [employer] provides no warranty or guarantee of the accuracy or completeness of information in this document.
[2023-11-10 14:01] LABS: Basophils Absolute Auto 0.1 10^3/uL (0.0-0.1); Basophils Percent Auto 0.9 % (0.2-2.0); Eosinophils Absolute Auto 0.3 10^3/uL (0.0-0.7); Eosinophils Percent Auto 4.6 % (0.9-7.0); Hematocrit 36.4 % (36.0-48.0); Immature Granulocytes Abs Auto 0.02 10^3/uL (0.00-0.03); Immature Granulocytes Pct Auto 0.3 % (0.0-0.5); Lymphocytes Absolute Auto 1.5 10^3/uL (1.2-3.8); Lymphocytes Percent Auto 20.9 % (20.5-60.0); Mean Corpuscular HGB Conc 30.2 g/dL (29.9-35.2); Mean Corpuscular Hemoglobin 25.8 pg (26.7-34.0); Mean Corpuscular Volume 85.2 fL (81.0-99.0); Mean Platelet Volume 9.2 fL (9.5-13.5); Monocytes Absolute Auto 0.4 10^3/uL (0.3-0.8); Monocytes Percent Auto 5.8 % (1.7-12.0); Neutrophils Absolute Auto 4.7 10^3/uL (1.4-6.5); Neutrophils Percent Auto 67.5 % (43.0-75.0); Platelet Count 335 10^3/uL (150-450); Red Blood Count 4.27 10^6/uL (4.20-5.40); White Blood Count 6.9 10^3/uL (4.0-11.0)
[2023-11-10 14:30] LABS: Free T4 0.57 ng/dL (0.76-1.46)
[2023-11-10 14:40] LABS: Free T3 2.94 pg/mL (2.18-3.98)
[2023-11-10 14:59] LABS: Percent Iron Saturation 13.9 %
== END 2023-11-10 13:30 | disposition home or self-care (01) ==
LOC: LAB 13:30
PROVIDERS: PCP Family Medicine; Visit Provider Family Medicine
DX: E03.8 Other specified hypothyroidism (principal); E07.81 Sick-euthyroid syndrome; G93.32 Myalgic encephalomyelitis/chronic fatigue syndrome; D50.0 Iron deficiency anemia secondary to blood loss (chronic)
CPT/HCPCS: 36415; 83540; 83550; 84439; 84481; 85025

== ENCOUNTER 2024-03-29 07:10 | Emergency (ER) | payer OTHER, SELFPAY ==
[2024-03-29 07:12] VITALS: BP 130/75; PULSE 80; TEMP 36.7; O2SAT 96; BMI 42.5
--- NOTE | 2024-03-29 07:28 | XR_ITS ---
[place] [id number] Patient Name: FLOYD COLLINS MRN: [id number] date: 1965 Sex: F Assigned Patient Location: ER Current Patient Location: ED.MAIN Accession/Order Number: [id number] Exam Date: 03/29/2024 07:53 Report Date: 03/29/2024 08:16 At the request of: LEVAR AMBROCIO Procedure: XR knee RT 3V PROCEDURE: XR femur RT 2V HISTORY: fall COMPARISON: None. FINDINGS: BONES:Right hip replacement; no appreciable hardware fracture or loosening. No bone fracture or dislocation. No significant narrowing of the knee joint spaces. Small degenerative osteophyte along inferior articular margin of the patella. SOFT TISSUES:No visible soft tissue swelling. EFFUSION:None visible. OTHER: Negative. XR/XR knee RT 3V IMPRESSION: 1. No acute bone abnormality of the right hip or right knee. 2. Right hip replacement without evidence of hardware failure. 3. Minimal degenerative changes of the knee. Electronically authenticated by: ANALISA HUBBARD Date: 03/29/2024 08:16
--- NOTE | 2024-03-29 07:28 | XR_ITS ---
[address] [address] Patient Name: FLOYD COLLINS MRN: [id number] date: 1965 Sex: F Assigned Patient Location: ER Current Patient Location: ED.MAIN Accession/Order Number: [id number] Exam Date: 03/29/2024 07:53 Report Date: 03/29/2024 08:16 At the request of: LEVAR AMBROCIO Procedure: XR femur RT 2V PROCEDURE: XR femur RT 2V HISTORY: fall COMPARISON: None. FINDINGS: BONES:Right hip replacement; no appreciable hardware fracture or loosening. No bone fracture or dislocation. No significant narrowing of the knee joint spaces. Small degenerative osteophyte along inferior articular margin of the patella. SOFT TISSUES:No visible soft tissue swelling. EFFUSION:None visible. OTHER: Negative. XR/XR femur RT 2V IMPRESSION: 1. No acute bone abnormality of the right hip or right knee. 2. Right hip replacement without evidence of hardware failure. 3. Minimal degenerative changes of the knee. Electronically authenticated by: ANALISA HUBBARD Date: 03/29/2024 08:16
--- NOTE | 2024-03-29 07:28 | ED.LOWEXI1 ---
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, at the second step the patient felt that her right knee got twisted and she fell to the floor getting out of the bus, there was no head injury, the patient had no loss of consciousness She has been complaining of severe pain in the right knee and she came to us by the EMS she is not able to put weight on it Related Data Home Medications ?Medication ?Instructions ?Recorded ?Confirmed estradiol 0.075 mg/24 hr weekly 1 patch transdermal QWEEK 02/14/23 02/20/23 transdermal patch fentanyl 25 mcg/hr transdermal 1 patch transdermal Q72H 02/14/23 02/20/23 patch lamotrigine 150 mg tablet 150 mg PO BID 02/14/23 02/20/23 losartan 50 mg tablet 50 mg PO DAILY 02/14/23 02/20/23 magnesium oxide 500 mg capsule 500 mg PO DAILY 02/14/23 02/20/23 metformin 850 mg tablet 850 mg PO BID 02/14/23 02/20/23 multivitamin 1 tab PO DAILY 02/14/23 02/20/23 nabumetone 1,000 mg tablet 1,500 mg PO DAILY PRN pain 02/14/23 02/20/23 quetiapine 400 mg tablet 400 mg PO BEDTIME 02/14/23 02/20/23 semaglutide 1 mg/dose (2 mg/1.5 1 mg subcut QWEEK 02/14/23 02/20/23 mL) subcutaneous pen injector (Ozempic) sertraline 100 mg tablet 100 mg PO DAILY 02/14/23 02/20/23 spironolactone 25 mg tablet 25 mg PO QAM 02/14/23 02/20/23 (Aldactone) thyroid 60 mg tablet mg PO 02/20/23 Previous Rx's ?Medication ?Instructions ?Recorded diclofenac sodium 75 mg 75 mg PO Q12H PRN pain #14 tabs 03/29/24 tablet,delayed release Allergies Allergy/AdvReac Type Severity Reaction Status Date / Time adhesive tape Allergy Mild Rash Verified 03/29/24 07:16 gabapentin Allergy swelling Verified 03/29/24 07:16 morphine Allergy Vomiting Verified 03/29/24 07:16 onion Allergy Headache Verified 03/29/24 07:16 nuts AdvReac Nausea Uncoded 03/29/24 07:16 Opioid HPI Opioid Management Most Recent Pain and Opioid Data: Last Pain Scale 2 03/29/24 08:57 03/29/24 Last MAR Pain Assessment 03/29/24 07:37 Review of Systems ROS Status of ROS 10 or more systems reviewed and unremarkable except as noted in history and below [facility] Medical History (Updated 03/29/24 @ 09:06 by Pippa Dyson MD) Normal colonoscopy Normal esophagogastroduodenoscopy (EGD) ?Z01.89 - Encounter for other specified special examinations (ICD-10) Fusion of lumbar spine ?M43.26 - Fusion of spine, lumbar region (ICD-10) Bipolar 1 disorder ?F31.9 - Bipolar disorder, unspecified (ICD-10) IBS (irritable bowel syndrome) ?K58.9 - Irritable bowel syndrome without diarrhea (ICD-10) Diabetes ?E11.9 - Type 2 diabetes mellitus without complications (ICD-10) Anemia ?D64.9 - Anemia, unspecified (ICD-10) Migraines ?G43.909 - Migraine, unspecified, not intractable, without status migrainosus (ICD-10) Hiatal hernia ?K44.9 - Diaphragmatic hernia without obstruction or gangrene (ICD-10) GERD (gastroesophageal reflux disease) ?K21.9 - Gastro-esophageal reflux disease without esophagitis (ICD-10) Lyme disease ?A69.20 - Lyme disease, unspecified (ICD-10) Hypothyroid ?E03.9 - Hypothyroidism, unspecified (ICD-10) CKD (chronic kidney disease) stage 3, GFR 30-59 ml/min ?N18.30 - Chronic kidney disease, stage 3 unspecified (ICD-10) GI bleed ?K92.2 - Gastrointestinal hemorrhage, unspecified (ICD-10) Arthritis ?M19.90 - Unspecified osteoarthritis, unspecified site (ICD-10) Surgical History (Updated 02/14/23 @ 15:24 by Yolis Rodriguez) H/O arthroscopy of shoulder ?Z98.890 - Other specified postprocedural states (ICD-10) H/O arthroscopy of right knee ?Z98.890 - Other specified postprocedural states (ICD-10) H/O arthroscopy of left knee ?Z98.890 - Other specified postprocedural states (ICD-10) History of resection of small bowel ?Z90.49 - Acquired absence of other specified parts of digestive tract (ICD-10) History of vaginal hysterectomy ?Z90.710 - Acquired absence of both cervix and uterus (ICD-10) H/O gastric bypass ?Z98.84 - Bariatric surgery status (ICD-10) History of breast biopsy ?Z98.890 - Other specified postprocedural states (ICD-10) History of laminectomy ?Z98.890 - Other specified postprocedural states (ICD-10) Hx laparoscopic cholecystectomy ?Z90.49 - Acquired absence of other specified parts of digestive tract (ICD-10) History of bladder suspension procedure ?Z98.890 - Other specified postprocedural states (ICD-10) ?Z87.448 - Personal history of other diseases of urinary system (ICD-10) Social History Little interest or pleasure in doing things: not at all Feeling down, depressed, or hopeless: not at all Exam Narrative Exam Narrative: Nurses notes and vital signs reviewed and patient is not hypoxic. Right leg examination: The patient have a good anterior tibial pulse the right ankle and the right foot have no pathology detected no tenderness. The patient have tenderness with palpation of the lateral aspect as well as the inferior to the patella aspect of the knee the patient have tenderness upon palpation mild effusion. In addition to the patient have limited flexion due to pain General: Well-appearing and in no apparent distress. Skin: Warm, dry, no pallor noted. No rash. Head: Normocephalic, atraumatic. Neck: Supple, non-tender. Eye: Pupils are equal, round and EOMI. No scleral icterus. Ears, Nose, Mouth, and Throat: TM are clear, no nasal mucosal hypertrophy. Oral mucosa is moist, no posterior oropharynx erythema, uvula is mid-line Cardiovascular: Regular Rate and Rhythm without murmur, gallop or rub. Respiratory: No accessory muscle use or respiratory distress. Neurological: A&O x4. No cranial nerve dysfunction observed. No truncal ataxia. Moves all extremities. Sensation intact. Psychiatric: Cooperative and interactive. Normal mood and affect. Constitutional Vital Signs, click to edit/add: Last Vital Signs Temp 98.1 F 03/29/24 07:12 Pulse 80 03/29/24 07:12 Resp 18 03/29/24 07:12 BP 130/75 03/29/24 07:12 Pulse Ox 96 03/29/24 07:12 O2 Del Method Room Air 03/29/24 07:12 Course Vital Signs Vital signs: Vital Signs Temperature 98.1 F 03/29/24 07:12 Pulse Rate 80 03/29/24 07:12 Respiratory Rate 18 03/29/24 07:12 Blood Pressure 130/75 03/29/24 07:12 Pulse Oximetry 96 03/29/24 07:12 Oxygen Delivery Method Room Air 03/29/24 07:12 Temperature 98.1 F 03/29/24 07:12 Pulse Rate 80 03/29/24 07:12 Respiratory Rate 18 03/29/24 07:12 Blood Pressure 130/75 03/29/24 07:12 Pulse Oximetry 96 03/29/24 07:12 Oxygen Delivery Method Room Air 03/29/24 07:12 MDM - Extremity Injury (Lower) MDM Narrative Medical decision making narrative: The patient x-ray of the femur as well as x-ray of the right knee showed no acute pathology Right now the patient had a nebulizer applied that she will have nonweightbearing by walker as she mentioned that she have a walker at home and she did not want any crutches The patient will be referred to occupational health and she will need further evaluation by possible MRI in case of no improvement The patient is to rest her right knee elevate and ice addition to NSAIDs Discharge Plan Discharge Chief Complaint: Extremity Injury, Lower Clinical Impression: Injury of knee, ligament Qualifiers: Encounter type: initial encounter Laterality: right Qualified Code(s): S89.91XA - Unspecified injury of right lower leg, initial encounter Patient Disposition: Home, Self-Care Time of Disposition Decision: 09:06 Condition: Good Prescriptions / Home Meds: New diclofenac sodium 75 mg tablet,delayed release (DR/EC) 75 mg PO Q12H PRN (Reason: pain) Qty: 14 0RF Held nabumetone 1,000 mg tablet 1,500 mg PO DAILY PRN (Reason: pain) Hold Instructions: Resume on 04/02/24. until you stop voltaren No Action fentanyl 25 mcg/hr patch 72 hour 1 patch transdermal Q72H lamotrigine 150 mg tablet 150 mg PO BID losartan 50 mg tablet 50 mg PO DAILY magnesium oxide 500 mg capsule 500 mg PO DAILY metformin 850 mg tablet 850 mg PO BID multivitamin Tablet 1 tab PO DAILY quetiapine 400 mg tablet 400 mg PO BEDTIME sertraline 100 mg tablet 100 mg PO DAILY spironolactone [Aldactone] 25 mg tablet 25 mg PO QAM estradiol 0.075 mg/24 hr patch weekly 1 patch transdermal QWEEK Ozempic 1 mg/dose (2 mg/1.5 mL) pen injector 1 mg subcut QWEEK thyroid 60 mg tablet PO Print Language: [place] Instructions: Knee Sprain (DC), Knee Pain (ED), Knee Immobilizer (ED) Referrals: PROSPER ZENDEJAS [Primary Care Provider] - 1 week Anant Hernandez MD [Physician] - 1 week
--- OUTSIDE RECORDS SUMMARY | 2024-03-29 07:28 | XMS_ITS | CCD ---
Author Organization [facility] Care Team Providers Care Grease Man Name Role Phone PROSPER ZENDEJAS Primary Care Physician Tete Romero Unavailable Cristiana GARCIA, Prosper Nails Primary Care Provider CARL RODGERS Referring Unavailable HEMEYER, PROSPER Nails Primary Care Unavailable KINGSLEY MARTI Referring Unavailable HEMEYER, PROSPER Nails Primary Care Unavailable CARL RODGERS Referring Unavailable HEMEYER, PROSPER Nails Primary Care Unavailable Taco Flannery RN Unavailable Unavailbrittany Zendejas MD, Prosper Lopez Primary Care Provider LEONORA CURIEL Attending Unavailable JAKE MARKS JR Referring Unav ailable CRISTIANA, PROSPER LOPEZ Primary Care Unavailab le HEMEYER ., [...] KARASIK ., DR LOVETT Consulting Unavailabl e KARASIK ., DR LOVETT Admitting Unavailabl e STEPPAUL, DR JOSEPH Admitting Unavailable STEPPAUL, DR JOSEPH Attending Unavailable STEPPAUL, DR JOSEPH Consulting Unavailable HEMEYER ., DR CHENG Primary Care Unavailable ZIEBRANJIT, DR ANALISA Brady Consulting Unavailable Cristiana GARCIA, Prosper Lopez Primary Care Provider Prosper Zendejas MD Primary Care Provider Prosper Zendejas MD Unavailable [phone] AVINASH ADEN Referring Unavailable PROSPER ZENDEJAS Primary Care Unavailable AVINASH ADEN Referring Unavailable PROSPER ZENDEJAS Primary Care Unavailable TOMASZ OTERO Admitting Unavailable TOMASZ OTERO Attending Unavailable PROSPER ZENDEJAS Primary Care Unavailable PROSPER ZENDEJAS Primary Care Unavailable TOMASZ OTERO Referring Unavailable TOMASZ OTERO Referring Unavailable PROSPER ZENDEJAS Primary Care Unavailable [place] SKINNER-Shena DANG Unavailable Tomasz Otero MD Unavailable [phone] Idania Singh Unavailable PROSPER ZENDEJAS Attending Unavailable PROSPER ZENDEJAS Attending Unavailable SHENA LICONA Attending Unavailab PROSPER Marcelo Attending Unavailable PROSPER ZENDEJAS Attending Unavailable IDANIA KU Attending Unavailable PROSPER ZENDEJAS Attending Unavailable QUINCY HOWELL Attending Unavailable CLEO MARIE Attending Unavailable PROSPER ZENDEJAS Attending Unavailable SHENA LICONA Attending Unavailab SHENA Ervin Attending Unavailab le PROSPER ZENDEJAS Attending Unavailable PROSPER ZENDEJAS Attending Unavailable Prosper Zendejas MD Primary Care Provider Allergies Allergy Classification Reported Allergen(s) Allergy Type Date of Onset Reaction(s) Facility (17 sources) Morphine; Translations: [MORPHINE] Drug Allergy 1 Other (See Comments), GI Upset, Nausea/vomitin g, Itching [facility] Other (1 source) Adhesive Bandages Drug allergy Unknown [facility] Other (2 sources) Adhesive Tape Propensity to adverse reactions to drug 1 Rash [facility] (12 sources) gabapentin; Translations: [GABAPENTIN] Drug Allergy 1 Swelling [facility] Work Phone: (2 sources) Desonide Drug Allergy 4 [facility] Repository (1 source) gabapentin Drug Allergy 3 [facility] Rep[facility] (2 sources) Morphine Drug Allergy 4 [facility] Rep[facility] (3 sources) Onion extract; Translations: [ONION] Drug Allergy 3 [facility] Rep[facility] (1 source) Misc-Food; Translations: [Misc-Food] Food allergy (disorder) 3 [facility] Rep[facility] (1 source) onions; Translations: [onions] Food allergy (disorder) [facility] (2 sources) nut Drug allergy (disorder) 7 [facility] (3 sources) Onion extract Drug Allergy 4 Headache [facility] Work Phone: (4 sources) Adhesive Tape-Silicones; Translations: [ADHESIVE TAPE-SILICONES] Drug Allergy 4 Other [facility] (9 sources) Onion extract Drug Allergy 3 [facility] (9 sources) Wound Dressing Adhesive Propensity to adverse reactions 3 Rash [facility] (1 source) Adhesive agent; Translations: [ADHESIVE] Propensity to adverse reactions to drug (disorder) 1 [facility] Repository (1 source) Morphine; Translations: [MORPHINE SULFATE] Drug Allergy 1 [facility] Repository Medications Current Medications Medication Drug Class(es) Dates Sig (Normalized) Sig (Original) acetaminophen 325 mg oral tablet (8 sources) Start: 06-15-2023 End: 02-12-2024 acetaminophen (Tylenol) 325 MG tablet Take 650 mg by mouth in the morning and 650 mg at noon and 650 mg in the evening and 650 mg before bedtime. 06/15/2023 02/12/2024 Discontinued (Therapy completed) Start: 06-14-2023 take 650 mg by mouth [...] mild pain (1 - 3). 0 Suspended [id number] 200 actuat albuterol 0.09 mg/actuat metered dose inhaler (4 sources) beta2-Adrenergic Agonist Start: 02-26-2024 End: 03-27-2024 take 2 puff(s) by inhalation every four hours for wheezing albuterol HFA 90 mcg/act inhaler Indications: Pneumonia of right lower lobe due to infectious organism Inhale 2 puffs every 4 (four) hours if needed for wheezing or shortness of breath 18 g 02/26/2024 03/27/2024 Active Start: 06-14-2023 End: 06-14-2023 albuterol 2.5 mg /3 mL (0.08 3 %) nebulizer solution 2.5 mg ALPRAZolam 0.25 mg oral tablet (12 sources) Benzodiazepine Start: 07-13-2021 End: 07-12-2023 take 1 tablet by mouth once daily as needed for anxiety ALPRAZolam (Xanax) 0.25 MG tablet Indications: Anxiety Take 1 tablet (0.25 mg) by mouth Daily as needed for anxiety (1 tablet as needed for severe anxiety) 30 tablet 0 06/12/2023 07/12/2023 Active take 1 tablet by maureen th every twenty-four hours as needed ALPRAZolam 0.25 mg dissolvable tablet Take 0.25 mg by mouth at bedtime as needed. 0 Active Comment on above: Take 0.25 mg by mout h at bedtime as needed. amoxicillin 500 mg oral capsule (3 sources) Penicillin-class Antibacterial Start: 02-26-20 24 take 1 capsule by mouth in the morning, then take 1 capsule by mouth in the evening, then take 1 capsule by mouth at bedtime amoxicillin (Amoxil) 500 MG capsule Take 500 mg by mouth in the morning and 500 mg in the evening and 500 mg before bedtime. 02/26/2024 Active ascorbic acid 1000 mg oral tablet (1 source) Vitamin C take 1 tablet by mouth once daily Ascorbic Acid 1000 MG 1 tablet Orally Once a day Active aspirin 81 mg delayed release oral tablet (2 sources) Platelet Aggregation Inhibitor, Nonsteroidal Anti-inflammatory Drug Start: 06-13-19 End: 07-18-19 24 take 81 mg by mouth twice daily [...] Active Start: 02-17-2021 take 1 capsule by [facility] every eight hours Cephalexin 500 MG 1 capsule Orally tid for 10 day(s) Feb, Active CHELATED IRON PO (7 sources) CHELATED IRON PO Take by mouth Active cholecalciferol 0.125 mg oral tablet (15 sources) Vitamin D Start: 06-14-2023 take 5000 [IU] by mouth once daily 5,000 Units, oral, Daily, First dose on Mon06/14/23 at 1345, Phase II/On Unit take 1 capsule by mouth every we ek cholecalciferol (Vitamin D-3) 1.25 MG (59577 UT) capsule Take 50,000 Units by mouth 1 (one) time per week. Active cyclobenzaprine hydrochloride 10 mg oral tablet (17 sources) Muscle Relaxant Start: 09-26-2016 take 1 tablet by mouth every twenty-four hours as needed 10 mg, oral, Daily PRN, muscle spasms, Starting on Mon06/14/23 at 1318, Phase II/On Unit take 1 tablet by maureen three times daily as needed cyclobenzaprine (Flexeril) 10 MG tablet Take 10 mg by mouth 3 (three) times a day as needed Active Comment on above: Take by mouth [...] Once a day Active 168 hr estradiol 0.17044 mg/hr transdermal system (14 sources) Estrogen Start: 12-18-2023 End: 02-25-2025 estradiol (Climara) 0.075 MG/24HR Indications: Primary ovarian failure Place 1 patch over 7 days on the skin 1 (one) time per week 12 patch 3 02/26/2024 02/25/2025 Active Start: 12-08-2022 estradiol (Cli dave) 0.075 MG/24HR Indications: Primary ovarian failure Place 1 patch over 7 days on the skin 1 (one) time per week. 12 patch 3 12/08/2022 Active estradiol (Clima ra) 0.075 mg/[address] 1 patch on the skin 1 (one) time per week. Monday 0 Suspended estrogens, conjugated (long-term) 0.625 mg oral tablet (4 sources) Estrogen Start: 12-05-2016 take 1 tablet by mouth once daily estrogens, conjugated, (PREMARIN) 0.625 MG tablet Take 0.625 mg by mouth daily 0 12/05/2016 Active Premarin 0.45 MG 1 tablet Orally Daily for Three Weeks, 1 Week off Active Comment on above: Take 0.625 mg by maureen th once daily. 72 hr fentaNYL 0.025 mg/hr transdermal system (20 sources) Opioid Agonist Start: 11-06-2023 End: 04-03-2024 fentaNYL (DURAGESIC) 25 MCG/HR Indications: Chronic pain syndrome Place 1 patch over 72 hours on the skin every 3rd (third) day 10 patch 03/04/2024 04/03/2024 Active Start: 05-11-2023 fentaNYL (DURA GESIC) 25 MCG/HR Indications: Chronic Pain Place 1 [...] day Active lamoTRIgine 150 mg oral tablet (17 sources) Mood Stabilizer, Anti-epileptic Agent Start: 01-29-2024 End: 04-28-2024 take 1 tablet by mouth in the morning lamoTRIgine (LaMICtal) 150 MG tablet Indications: Bipolar affective disorder, currently depressed, moderate (CMS/HCC) Take 1 tablet (150 mg) by mouth in the morning and 1 tablet (150 mg) before bedtime. 180 tablet 01/29/2024 04/28/2024 Active Start: 06-12-2023 take 150 mg by mouth twice pedro ly 150 mg, oral, 2 times daily, First dose on Mon06/14/23 at 1345, Phase II/On Unit Start: 02-07-2022 lamoTRIgine (L AMICTAL) 150 MG tablet take 2 tablets by mo uth every twenty-four hours lamoTRIgine 200 MG 2 tablet Orally Once a day Active Comment on above: Take 150 mg by mouth once daily. levoFLOXacin 750 mg oral tablet (3 sources) Quinolone Antimicrobial Start: End: take 1 tablet by mouth once daily levoFLOXacin (Levaquin) 750 MG tablet Indications: Pneumonia of right lower lobe due to infectious organism Take 1 tablet (750 mg) by mouth Daily for 10 days 10 tablet 02/26/2024 03/07/2024 Active levothyroxine sodium 0.05 mg oral tablet (11 sources) l-Thyroxine Start: End: take 1 tablet by mouth before mealtime levothyroxine (Synthroid) 50 MCG tablet Indications: Central hypothyroidism (CMS/HCC) Take 1 tablet (50 mcg) by mouth in the morning. Take before meals. 90 tablet 01/10/2024 04/09/2024 Active Start: 07-12-2021 take 0.5 tablet by m outh twice daily levothyroxine (SYNTHROID) 200 MCG tablet TAKE 1/2 TABLET BY MOUTH ON EMPTY STOMACH TWICE DAILY 0 07/12/2021 Active take 1 tablet by maureen th once daily before breakfast levothyroxine (SYNTHROID) 200 [...] daily. magnesium oxide 400 mg oral tablet (15 sources) Start: 06-14-19 take 400 mg by mouth once daily 400 mg, oral, Daily, First dose on Mon06/14/23 at 1345, Phase II/On Unit meloxicam 15 mg oral tablet (1 source) Nonsteroidal Anti-inflammatory Drug Start: 06-13-19 End: 07-11-19 24 take 1 tablet by mouth once daily [...] Active metFORMIN hydrochloride 850 mg oral tablet (17 sources) Biguanide Start: 11-23-19 End: 08-11-19 25 take 1 tablet by mouth in the morning metFORMIN (Glucophage) 850 MG tablet Indications: Insulin resistance Take 1 tablet (850 mg) by mouth in the morning and 1 tablet (850 mg) in the evening. Take with meals. 180 tablet 1 02/12/2024 08/10/2024 Active take 1 tablet by maureen th [...] II/On Unit nabumetone 750 mg oral tablet (13 sources) Nonsteroidal Anti-inflammatory Drug Start: 08-05-2022 take 1 tablet by mouth twice daily as needed nabumetone (Relafen) 750 MG tablet Take 750 mg by mouth 2 (two) times a day as needed 08/05/2022 Active Comment on above: Take 750 [...] O2 Sat Above: 92% polyethylene glycol 3350 20622 mg powder for oral solution (1 source) Osmotic Laxative Start: 06-14-2023 17 g, oral, Daily, First dose on Mon06/14/23 at 1345, Phase II/On Unit Bowel Regimen - for prevention of constipation. QUEtiapine 400 mg oral tablet (17 sources) Atypical Antipsychotic Start: 01-29-2024 End: 04-28-2024 take 1 tablet by mouth at bedtime QUEtiapine (SEROquel) 400 MG tablet Indications: Bipolar Mood Disorder Take 1 tablet (400 mg) by mouth at bedtime 90 tablet 01/29/2024 04/28/2024 Active Start: 06-14-2023 take 400 mg by mouth once melinda y 400 mg, oral, Nightly, First dose on [...] mg by mouth daily at bedtime. sennosides, long-term 8.6 mg oral tablet (1 source) Start: 06-14-2023 take 1 tablet by mouth twice daily 17.2 mg (2 tablet), oral, 2 times daily, First dose on Mon06/14/23 at 1345, Phase II/On Unit Bowel Regimen - for prevention of constipation Ho ld for loose stools sertraline 100 mg oral tablet (16 sources) Serotonin Reuptake Inhibitor Start: 01-29-2024 End: 04-28-2024 take 1 tablet by mouth in the morning sertraline (Zoloft) 100 MG tablet Indications: Generalized Anxiety Disorder Take 1 tablet (100 mg) by mouth in the morning and 1 tablet (100 mg) before bedtime. 180 tablet 01/29/2024 04/28/2024 Active Start: 06-12-2023 End: 09-10-2023 take 100 mg by mouth twice daily 100 mg, oral, 2 times daily, First dose on Mon06/14/23 at 1345, Phase II/On Unit Start: 02-16-2022 sertraline (ZO LOFT) 100 MG tablet Comment on above: Take 100 mg by mouth once daily. Spacer/Aero-Holding Chambers (BreatheRite Sofia Spacer Adult) misc (3 sources) Start: 02-26-20 Spacer/Aero-Holding Chambers (BreatheRite Sofia Spacer Adult) misc Indications: Pneumonia of right lower lobe due to infectious organism 2 puffs 4 (four) times a day as needed (sob and cough) 1 each 02/26/2024 Active spironolactone 25 mg oral tablet (15 sources) Aldosterone Antagonist Start: 01-11-20 take 1 tablet by mouth every twenty-four hours as needed spironolactone (Aldactone) 25 MG tablet Take 25 mg by mouth Daily as needed 01/10/2022 Active Comment on above: Take 25 mg by mouth once daily. therapeutic multivitamin-minerals (Theragran-M) tablet (9 sources) take 1 tablet by mouth in the morning therapeutic multivitamin-minerals (Theragran-M) tablet Take 1 tablet by mouth in the morning. Active take 1 tablet by maureen th in the morning therapeutic multivitamin-minerals (Thera gran-M) tablet Take 1 tablet by mouth in the morning. 0 Active thyroid (long-term) 120 mg oral tablet (13 sources) Start: 01-10-2024 End: 04-09-2024 take 1 tablet by mouth in the morning thyroid ([place]) 120 MG tablet Indications: Central hypothyroidism (CMS/HCC) Take 1 tablet (120 mg) by mouth in the morning and 1 tablet (120 mg) in the evening. Take before meals. 180 tablet 01/10/2024 04/09/2024 Active Start: 06-14-2023 take 60 mg by mouth twice daily 60 mg, oral, 2 times daily, First dose on Mon06/14/23 at 1345, Phase II/On Unit Start: 03-02-2023 End: 08-29-2023 take 1 tablet by mouth in the morning thyroid (MONITORING TECH Thyroid) 60 MG tablet Indications: Central hypothyroidism (CMS/HCC) , Sick-euthyroid syndrome Take 1 tablet (60 mg) by mouth in the morning and 1 tablet (60 mg) in the evening. Take before meals. 180 tablet 1 03/02/2023 08/29/2023 Active zaleplon 10 mg oral capsule (15 sources) gamma-Aminobutyric Acid A Receptor Agonist Start: 01-29-2024 End: 03-29-2024 take 1 capsule by mouth at bedtime zaleplon (Sonata) 10 MG capsule Indications: Other insomnia Take 1 capsule (10 mg) by mouth at bedtime 30 capsule 1 01/29/2024 03/29/2024 Active Start: 08-26-2021 End: 07-15-2023 take 1 capsule [...] Drug Class(es) Dates Sig (Normalized) Sig (Original) calcium chloride 0.0014 meq/ml / potassium chloride [...] Date Documented Da te Episodic/Chronic Anxiety disorders (18 sources) Generalized anxiety disorder; Translations: [Generalized anxiety disorder] Onset: 6 Resolved: 3 09-06-2022 Chronic Disorders of lipid metabolism (9 sources) Secondary hypertriglyceridemia; Translations: [Pure hyperglyceridemia] Onset: 9 10-24-2022 Chronic Esophageal disorders (9 sources) Gastroesophageal reflux disease without esophagitis; Translations: [Gastro-esophageal reflux disease without esophagitis] Onset: 7 10-24-2022 Chronic Essential hypertension (9 sources) Benign essential hypertension; Translations: [Essential (primary) hypertension] Onset: 5 10-24-2022 Chronic Genitourinary symptoms and ill-defined conditions (10 sources) Stress incontinence (female) (male); Translations: [Genuine stress incontinence] Onset: 2 11-15-2022 Chronic Hypertension with complications and secondary hypertension (9 sources) Hypertensive renal disease; Translations: [Hypertensive chronic kidney disease with stage 1 through stage 4 chronic kidney disease, or unspecified chronic kidney disease] Onset: 1 10-24-2022 Chronic Malaise and fatigue (9 sources) Chronic fatigue syndrome; Translations: [Chronic fatigue syndrome] Onset: 5 10-24-2022 Chronic Menopausal disorders (20 sources) Primary ovarian failure; Translations: [Other primary ovarian failure] Onset: 5 10-24-2022 Chronic Mood disorders (20 sources) Bipolar affective disorder, currently depressed, moderate; Translations: [Bipolar disorder, current episode depressed, moderate] Onset: 5 Resolved: 3 10-24-2022 Chronic Osteoarthritis (20 sources) Osteoarthritis of right hip joint; Translations: [Unilateral primary osteoarthritis, right hip] Onset: 3 Resolved: 3 Chronic Other connective tissue disease (3 sources) History of total hip arthroplasty; Translations: [Presence of right artificial hip joint] Onset: 4 06-13-2023 Chronic Other connective tissue disease (10 sources) History of total replacement of right hip joint; Translations: [Presence of right artificial hip joint] Onset: 4 06-15-2023 Chronic Other connective tissue disease (2 sources) Presence of right artificial hip joint; Translations: [Presence of right artificial hip joint] Onset: 4 Chronic Other gastrointestinal disorders (9 sources) Irritable bowel syndrome with diarrhea; Translations: [Irritable bowel syndrome with diarrhea] Onset: 5 10-24-2022 Chronic Other lower respiratory disease (2 sources) Wheezing; Translations: [Wheezing] 02-26-2024 Episodic Other nervous system disorders (12 sources) Chronic pain syndrome; Translations: [Chronic pain syndrome] Onset: 6 10-24-2022 Chronic Other nervous system disorders (9 sources) Inattention; Translations: [Attention and concentration deficit] Onset: 5 10-24-2022 Chronic Other non-traumatic joint disorders (1 source) Pain in right hip; Translations: [Pain in right hip] Onset: 4 Episodic Other nutritional; endocrine; and metabolic disorders (1 source) Severe obesity; Translations: [Morbid (severe) obesity due to excess calories] Chronic Other nutritional; endocrine; and metabolic disorders (11 sources) Insulin resistance; Translations: [Insulin resistance] Onset: 6 10-24-2022 Chronic Other nutritional; endocrine; and metabolic disorders (11 sources) Morbid obesity; Translations: [Morbid (severe) obesity due to excess calories] Onset: 9 10-24-2022 Chronic Other nutritional; endocrine; and metabolic disorders (18 sources) Body mass index 40+ - severely obese; Translations: [Body mass index (BMI) 45.0-49.9, adult] Onset: 3 Resolved: 3 02-28-2023 Chronic Other upper respiratory disease (9 sources) Allergic rhinitis; Translations: [Allergic rhinitis, unspecified] Onset: 5 10-24-2022 Chronic Pneumonia (except that caused by tuberculosis or sexually transmitted disease) (2 sources) Right lower zone pneumonia; Translations: [Pneumonia, unspecified organism] 02-26-2024 Episodic Residual codes; unclassified (9 sources) Insomnia; Translations: [Other insomnia] Onset: 3 10-06-2022 Chronic Residual codes; unclassified (9 sources) Obstructive sleep apnea syndrome; Translations: [Obstructive sleep apnea (adult) (pediatric)] Onset: 5 10-24-2022 Chronic Residual codes; unclassified (2 sources) Pain, unspecified; Translations: [PAIN UNSPECIFIED] Onset: 2 Episodic Spondylosis; intervertebral disc disorders; other back problems (20 sources) Lumbosacral spondylosis without myelopathy; Translations: [Spondylosis without myelopathy or radiculopathy, lumbosacral region] Onset: 8 Resolved: 3 10-24-2022 Chronic Thyroid disorders (9 sources) Central hypothyroidism; Translations: [Other specified hypothyroidism] Onset: 5 10-24-2022 Chronic Unclassified (2 sources) CONTACT W/AND (SUSP) EXPOS COVID-19; Translations: [CONTACT W/AND (SUSP) EXPOS COVID-19] Onset: 2 Unclassified (1 source) COUGH, UNSPECIFIED; Translations: [COUGH, UNSPECIFIED] Onset: 2 Viral infection (1 source) COVID-19; Translations: [COVID-19] Onset: 2 Past or Other Problems Problem Classification Problem Date Documented Da te Episodic/Chronic Abdominal hernia (9 sources) Hiatal hernia; Translations: [Diaphragmatic hernia without obstruction or gangrene] Onset: 01-02-2017 10-24-2022 Episodic Bacterial infection; unspecified site (18 sources) Bartonellosis; Translations: [Bartonellosis, unspecified] Onset: 03-19-2015 10-24-2022 Episodic Conditions associated with dizziness or vertigo (18 sources) Benign paroxysmal positional vertigo; Translations: [Benign paroxysmal vertigo, unspecified ear] Onset: 07-04-2016 Resolved: 02-28-2023 10-24-2022 Episodic Genitourinary symptoms and ill-defined conditions (12 sources) Microscopic hematuria; Translations: [Other microscopic hematuria] Onset: 04-19-2018 Episodic Headache; including migraine (9 sources) Headache disorder; Translations: [Headache disorder] Onset: 04-17-2020 10-24-2022 Episodic Heart valve disorders (9 sources) Heart murmur; Translations: [Cardiac murmur, unspecified] Onset: 08-23-2017 10-24-2022 Episodic Immunizations and screening for infectious disease (1 source) Encounter for screening for human papillomavirus (HPV); Translations: [ENC SCREENING HUMAN PAPILLOMAVIRUS] Onset: 10-18-2021 Episodic Mood disorders (7 sources) Mood disorders Onset: 01-29-2024 01-29-2024 Other aftercare (11 sources) Drug therapy finding; Translations: [Other mcc (current) drug therapy] Onset: 07-06-2020 05-11-2023 Episodic Other aftercare (9 sources) Taking high risk medication; Translations: [Other manager intermediate (current) drug therapy] Onset: 07-06-2020 Resolved: 11-15-2022 11-15-2022 Episodic Other connective tissue disease (11 sources) Myofascial pain syndrome of neck; Translations: [Myalgia, other site] Onset: 09-13-2018 10-24-2022 Episodic Other connective tissue disease (11 sources) Nocturnal muscle cramp; Translations: [Cramp and spasm] Onset: 11-15-2022 11-15-2022 Episodic Other diseases of veins and lymphatics (9 sources) Peripheral venous insufficiency; Translations: [Venous insufficiency (chronic) (peripheral)] Onset: 06-16-2017 10-24-2022 Episodic Other disorders of stomach and duodenum (9 sources) Cyclical vomiting syndrome; Translations: [Cyclical vomiting syndrome unrelated to migraine] Onset: 03-02-2017 Resolved: 08-04-2023 10-24-2022 Episodic Other female genital disorders (9 sources) History of vaginal intraepithelial neoplasia; Translations: [Personal history of vaginal dysplasia] Onset: 11-15-2022 11-15-2022 Episodic Other gastrointestinal disorders (9 sources) Disorder of intestine; Translations: [Other specified diseases of intestine] Onset: 03-28-2016 Resolved: 02-28-2023 02-28-2023 Episodic Other infections; including parasitic (9 sources) Lyme disease; Translations: [Lyme disease, unspecified] Onset: 11-15-2022 11-15-2022 Episodic Other lower respiratory disease (1 source) Respiratory disorder, unspecified; Translations: [RESPIRATORY DISORDER UNSPECIFIED] Onset: 04-16-2022 Episodic Other lower respiratory disease (9 sources) Chronic lung disease; Translations: [Other disorders of lung] Onset: 11-15-2022 11-15-2022 Episodic Other nervous system disorders (9 sources) Paresthesia; Translations: [Paresthesia of skin] Onset: 11-15-2022 11-15-2022 Episodic Other nervous system disorders (9 sources) Skin sensation disturbance; Translations: [Unspecified disturbances of skin sensation] Onset: 09-18-2018 Resolved: 02-28-2023 02-28-2023 Episodic Other non-traumatic joint disorders (11 sources) Multiple joint pain; Translations: [Pain in unspecified joint] Onset: 02-06-2015 10-24-2022 Episodic Other nutritional; endocrine; and metabolic disorders (2 sources) Obese abdomen; Translations: [Abdominal obesity and metabolic syndrome] Onset: 09-28-2018 Resolved: 11-15-2022 11-15-2022 Chronic Other nutritional; endocrine; and metabolic disorders (7 sources) Metabolic disease; Translations: [Abdominal obesity and metabolic syndrome] Onset: 09-28-2018 Resolved: 11-15-2022 11-15-2022 Chronic Other screening for suspected conditions (not [...] 02-17-2021 Resolved: 02-17-2021 Episodic Residual codes; unclassified (9 sources) History of hysterectomy for benign disease; Translations: [Acquired absence of both cervix and uterus] Onset: 10-26-2022 10-26-2022 Episodic Screening and history of mental health and substance abuse codes (11 sources) Ex-cigarette smoker; Translations: [Personal history of nicotine dependence] Onset: 11-15-2022 11-15-2022 Episodic Skin and subcutaneous tissue infections (1 source) Cellulitis of left upper limb; Translations: [Cellulitis of forearm, left L03.114] Onset: 02-17-2021 Resolved: 02-17-2021 Episodic Spondylosis; intervertebral disc disorders; other back problems (20 sources) Lumbar radiculopathy; Translations: [Radiculopathy, lumbar region] Onset: 03-06-2019 10-24-2022 Episodic Thyroid disorders (9 sources) Sick-euthyroid syndrome; Translations: [Sick-euthyroid syndrome] Onset: 03-22-2021 03-02-2023 Episodic Unclassified (1 source) CONTACT W/AND (SUSP) EXPOS COVID-19; Translations: [CONTACT W/AND (SUSP) EXPOS COVID-19] Onset: 04-11-2022 Varicose veins of lower extremity (9 sources) Varicose veins of lower extremity; Translations: [...] Lott MD on 09/15/2023 9:23 AM Normal [facility] XR SPINE LUMBAR 2 OR 3 VWSon [...] Mercedes MD on 09/11/2023 12:18 PM Normal [facility] ALL CBC WITH AUTO DIFFon Erythrocyte distribution width (RBC) [Ratio] 13.6 % 11.5 - 14.5 % [facility] Hematocrit (Bld) [Volume fraction] 29.8 % Low 36.0 - 46.0 % [facility] Hemoglobin (Bld) [Mass/Vol] 9.1 g/dL Low 12.0 - 16.0 g/dL [facility] Interpretation and review of laboratory results Abnormal [facility] MCH (RBC) [Entitic mass] 28.1 pg 26.0 - 34.0 pg [facility] MCHC (RBC) [Mass/Vol] 30.5 g/dL Low 32.0 - 36.0 g/dL [facility] MCV (RBC) [Entitic vol] 92 fL 80 - 100 fL [facility] NUCLEATED RBC 0.0 [facility] PLT 311 [facility] RBC 3.24 Low [facility] WBC 8.9 [facility] Original Ordering Provider: JENIFER HAYESISYFER [facility] Basic metabolic 2000 panelon 06-15-2023 Anion gap [Moles/Vol] 12 mmol/L 10 - 20 mmol/L [facility] Calcium [Mass/Vol] 8.9 mg/dL 8.6 - 10. 3 mg/dL [facility] Chloride [Moles/Vol] 102 mmol/L 98 - 107 mmol/L [facility] CO2 [Moles/Vol] 25 mmol/L 21 - 32 mmol/L [facility] Creatinine [Mass/Vol] 0.96 mg/dL 0.50 - 1.05 mg/dL [facility] GFR/1.73 sq M.predicted among non-blacks MDRD (S/P/Bld) [Vol rate/Area] 68 mL/min/{1.73_m2} - PINF [facility] Comment on above: Calculations of kristen mated GFR are performed using the 2020 CKD-EPI Study Refit equation without the race variable for the IDMS-Traceable creatinine methods. https://jasn.asnjournals.org/content//ASN.97632722 88 Glucose [Mass/Vol] 118 mg/dL High 74 - 99 mg/dL [facility] Interpretation and review of laboratory results Abnormal [facility] Potassium [Moles/Vol] 4.7 mmol/L 3.5 - 5.3 mmol/L [facility] Sodium [Moles/Vol] 134 mmol/L Low 136 - 145 mmol/L [facility] Urea nitrogen [Mass/Vol] 21 mg/dL 6 - 23 mg/dL [facility] Anion gap [Moles/Vol] 12 mmol/L Normal 10-20 [facility] Comment on above: Performed By: #### 2 4321-2 #### EARL [employer] ([id number]) [facility] ([facility] [address] [place] [address] Calcium [Mass/Vol] 8.9 mg/dL Normal 8.6-10.3 [facility] Comment on above: Performed By: #### 2 4321-2 #### E[employer] ([id number]) [facility] ([facility] [address] [place] [address] Chloride [Moles/Vol] 102 mmol/L Normal 98-107 [facility] Comment on above: Performed By: #### 2 4321-2 #### [employer] ([id number]) [facility] ([facility] [address] [place] [address] CO2 [Moles/Vol] 25 mmol/L Normal 21-32 [facility] Comment on above: Performed By: #### 2 4321-2 #### [employer] ([id number]) [facility] ([facility] [address] [place] [address] Creatinine [Mass/Vol] 0.96 mg/dL Normal 0.50-1.05 [facility] Comment on above: Performed By: #### 2 4321-2 #### [employer] ([id number]) [facility] ([facility] [address] [place] [address] Glomerular filtration rate/1.73 sq M.predicted 68 mL/min/1.73m*2 Normal >60 [facility] Comment on above: Result Comment: Calc ulations of estimated GFR are performed using the 2020 CKD-EPI Study Refit equation without the race variable for the IDMS-Traceable creatinine methods. https://jasn.asnjournals.org/content///ASN.46260154 88 Performed By: #### 2 4321-2 #### [employer] ([id number]) [facility] ([facility] [address] [place] [address] Glucose [Mass/Vol] 118 mg/dL High 74-99 [facility] Comment on above: Performed By: #### 2 4321-2 #### [employer] ([id number]) [facility] ([facility] [address] [place] [address] Potassium [Moles/Vol] 4.7 mmol/L Normal 3.5-5.3 [facility] Comment on above: Performed By: #### 2 4321-2 #### [employer] ([id number]) [facility] ([facility] [address] [place] [address] Sodium [Moles/Vol] 134 mmol/L Low 136-145 [facility] Comment on above: Performed By: #### 2 4321-2 #### [employer] ([id number]) [facility] ([facility] [address] [place] [address] Urea nitrogen [Mass/Vol] 21 mg/dL Normal 6-23 [facility] Comment on above: Performed By: #### 2 4321-2 #### [employer] ([id number]) [facility] ([facility] [address] [place] [address] CBC panel Auto (Bld)on 06-15 Erythrocyte distribution width (RBC) [Ratio] 13.6 % 11.5 - 14.5 % [facility] Hematocrit (Bld) [Volume fraction] 29.8 % Low 36.0 - 46.0 % [facility] Hemoglobin (Bld) [Mass/Vol] 9.1 g/dL Low 12.0 - 16.0 g/dL [facility] Interpretation and review of laboratory results Abnormal [facility] MCH (RBC) [Entitic mass] 28.1 pg 26.0 - 34.0 pg [facility] MCHC (RBC) [Mass/Vol] 30.5 g/dL Low 32.0 - 36.0 g/dL [facility] MCV (RBC) [Entitic vol] 92 fL 80 - 100 fL [facility] Nucleated RBC/100 WBC (Bld) [Ratio] 0.0 % [facility] Platelets (Bld) [#/Vol] 311 10*3/uL [facility] RBC (Bld) [#/Vol] 3.24 10*6/uL Low [facility] WBC (Bld) [#/Vol] 8.9 10*3/uL [facility] Erythrocyte distribution width (RBC) [Ratio] 13.6 % Normal 11.5-14.5 [facility] Comment on above: Performed By: #### 5 8410-2 #### [employer] ([id number]) [facility] ([facility] [address] [place] [address] Hematocrit (Bld) [Volume fraction] 29.8 % Low 36.0-46.0 [facility] Comment on above: Performed By: #### 5 8410-2 #### [employer] ([id number]) [facility] ([facility] [id number] [place] [address] Hemoglobin (Bld) [Mass/Vol] 9.1 g/dL Low 12.0-16.0 [facility] Comment on above: Performed By: #### 5 8410-2 #### [employer] ([id number]) [facility] ([facility] [address] [place] [address] MCH (RBC) [Entitic mass] 28.1 pg Normal 26.0-34.0 [facility] Comment on above: Performed By: #### 5 8410-2 #### [employer] ([id number]) [facility] ([facility] [address] [place] [address] MCHC (RBC) [Mass/Vol] 30.5 g/dL Low 32.0-36.0 [facility] Comment on above: Performed By: #### 5 8410-2 #### [employer] ([id number]) [facility] ([facility] [address] [place] [address] MCV (RBC) [Entitic vol] 92 fL Normal 80-100 [facility] Comment on above: Performed By: #### 5 8410-2 #### [employer] ([id number]) [facility] ([facility] [address] [place] [address] Nucleated RBC/100 WBC (Bld) [Ratio] 0.0 /100 WBCs Normal 0.0-0.0 [facility] Comment on above: Performed By: #### 5 8410-2 #### [employer] ([id number]) [facility] ([facility] [address] [place] [address] Platelets (Bld) [#/Vol] 311 x10*3/uL Normal 150-450 [facility] Comment on above: Performed By: #### 5 8410-2 #### [employer] ([id number]) [facility] ([facility] [address] [place] [address] RBC (Bld) [#/Vol] 3.24 x10*6/uL Low 4.00-5.20 [facility] Comment on above: Performed By: #### 5 8410-2 #### [employer] ([id number]) [facility] ([facility] [address] [place] [address] WBC (Bld) [#/Vol] 8.9 x10*3/uL Normal 4.4-11.3 [facility] Comment on above: Performed By: #### 5 8410-2 #### [employer] ([id number]) [facility] ([facility] [address] [place] [address] ECG 12-LEADon 06-14-2023 ECG 12-LEAD Ventricular Rate 65 Atrial Rate 65 P-R Interval 188 QRS Duration 90 Q-T Interval 422 QTC Calculation(Bazett) 438 P Hoople 47 R Hoople 10 T Hoople 38 QRS Count 11 Q Onset 218 P Onset 124 P Offset 184 T Offset 429 QTC Fredericia 433 Diagnosis Normal sinus rhythm Low voltage QRS in frontal leads Late transition Borderline ECG When compared with ECG of 22-MAY-2023 09:08, No significant change was found Confirmed by Agustin Nair ([id number]) on 06/18/2023 5:34:[address] [facility] XR HIP RIGHT WITH PELVIS WHE N PERFORMED 2 OR 3 VIEWSon 06-14-2023 XR HIP RIGHT WITH PELVIS WHEN PERFORMED 2 OR 3 VIEWS Interpreted By: Lei Alves, STUDY: XR HIP RIGHT WITH PELVIS WHEN PERFORMED 2 OR 3 VIEWS INDICATION: Signs/Symptoms:ap and cross table lateral s/p hip replacement, xrays in pacu. COMPARISON: None ACCESSION NUMBER(S): [id number] ORDERING CLINICIAN: OTMASZ OTERO FINDINGS: Right total hip arthroplasty without fracture or dislocation. Alignment normal. IMPRESSION: Satisfactory appearance status post right total hip arthroplasty. Signed by: Lei Alves 06/14/2023 11:04 AM Dictation workstation: [id number] [facility] Comment on above: Order Comment: ap an d cross table lateral s/p hip replacement, xrays in pacu XR Hip Viewson 06-14-2023 Satisfactory appearance status post right total hip arthroplasty. Signed by: Lei Alves 06/14/2023 11:04 AM Dictation workstation: [id number] Interpreted By: Lei Alves STUDY: XR HIP RIGHT WITH PELVIS WHEN PERFORMED 2 OR 3 VIEWS INDICATION: Signs/Symptoms:ap and cross table lateral s/p hip replacement, xrays in pacu. COMPARISON: None ACCESSION NUMBER(S): [id number] ORDERING CLINICIAN: TOMASZ OTERO FINDINGS: Right total hip arthroplasty without fracture or dislocation. Alignment normal. [facility] MMODAL Lei Alves MD - 06/14/2023 Interpreted By: Lei Alves STUDY: XR HIP RIGHT WITH PELVIS WHEN PERFORMED 2 OR 3 VIEWS INDICATION: Signs/Symptoms:ap and cross table lateral s/p hip replacement, xrays in pacu. COMPARISON: None ACCESSION NUMBER(S): [id number] ORDERING CLINICIAN: TOMASZ OTERO FINDINGS: Right total hip arthroplasty without fracture or dislocation. Alignment normal. IMPRESSION: Satisfactory appearance status post right total hip arthroplasty. Signed by: Lei Alves 06/14/2023 11:04 AM Dictation workstation: [id number] [facility] Work Phone: Radiology Study observation (narrative) [facility] Work Phone: XR Hip ViewsOrdered By: Tonny Alves on 06-14-2023 [facility] Work Phone: CT HIP RIGHT WO IV CONTRASTo n 06-02-2023 CT HIP RIGHT WO IV CONTRAST These images are not reportable by radiology and will not be interpreted by Radiologists. Normal [facility] Comment on above: Order Comment: Jamal protocol CT Hip - right WO contraston 06-02-2023 These images are not reportable by radiology and will not be interpreted by Radiologists. IMAGING ECG 12-LEADon 05-22-2023 ECG 12-LEAD Ventricular Rate 74 Atrial Rate 74 P-R Interval 174 QRS Duration 86 Q-T Interval 392 QTC Calculation(Bazett) 435 P Hoople 45 R Hoople 4 T Hoople 27 QRS Count 12 Q Onset 220 P Onset 133 P Offset 191 T Offset 416 QTC Fredericia 420 Diagnosis Normal sinus rhythm Normal ECG No previous ECGs available Confirmed by Ambrose Griffith ([id number]) on 05/23/2023 7:11:[address] [facility] Staphylococcus aureus.methic illin resistant isolateon 05-22-2023 MRSA isol Org specific cx Ql (Nose) Test: Staphylococcus aureus/MRSA colonization, Culture Specimen Source: Nares/Axilla/Groin Specimen Type: Swab Specimen Date: 05/22/2023 9:40 AM Result Date: 05/24/2023 9:27 AM Result Status: Final result Abnormal: No Resulting Lab: [facility] [address] [place] [address] CULTURE No Staphylococcus aureus isolated [facility] Comment on above: Performed By: #### 5 2969-3 #### LEANDRA Cameron ([id number]) [facility] ([facility]) [address] [place] [address] Lab Reportson 10-04-2022 Lab Reports [id number]:127 Normal [facility] XR HIP RT INJon 08-29-2022 [...] by: ANALISA HUBBARD Date: 2022-08-29 14:16 Normal [facility] CNOVon 08-12-2022 CNOV Office Visit (ORTHMN ) COLLINSITALIA ([id number]) 1965 F Date Time Provider Department 08/12/22 8:00 AM LEONORA CURIEL During your visit today, we recorded the following information about you: Weight Height 121.6 kg 1.6 m Leonora Curiel MD 08/12/2022 10:03 AM Signed Subjective: Italia Larry Collins is a 57 year old female. Patient was accompanied to the office by her . 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 She has been seen closer to home in [facility] and surgery was deferred secondary to her weight. She has had bariatric surgery in the past. Uses a rolling walker for ambulation. 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 Past Social History: Past Surgical History: No [...] Patient has history of stage III CKD. 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: Negative for abnormal vaginal bleeding, abnormal vaginal [...] Leonora Curiel MD LAUREEN Professor, Orthopaedic Surgery [employer] Referring Provider: JAKE MARKS JR [[id number]] Allergies As of Date: 08/12/2022 Noted Allergy Reaction MORPHINE 08/12/2022 8 - GI Upset Date Reviewed: 08/12/2022 Reviewed by: Leandra Sarah Ma - Fully Assessed Reason for Visit: Right Hip Pain [1554] Primary Visit Diagnosis:Class 2 severe obesity with serious comorbidity in adult, unspecified BMI, unspecified obesity type (HCC) [E66.01] Other Visit Diagnosis:Primary osteoarthritis of right hip [M16.11] Order(s):[facility] [[id number]] Order #: [id number]: 1 FUTURE P (more content not included)... Normal [facility] Covid-19 PCR (CVDTBH)on SARS-CoV-2 (COVID-19) RNA VERNON+probe Ql (Unsp spec) Detected Critically abnormal NOT DETECTED [facility] Comment on above: Result Comment: This test is not yet approved or cleared by the [place] FDA. When there are no FDA-approved or cleared tests available, and other criteria are met, FDA can make tests available under an emergency access mechanism called an Emergency Use Authorization (EUA). The EUA for this test is supported by the [place] of Health and Human Service's (HHS's) declaration [...] longer be used). Performed By: #### [facility] #### [facility] [address] [place] [address] UROGRAMon 03-11-2022 CT [...] Reshma Rodriguez DO 03/11/22 Final result Normal [facility] BUN & Creatinineon 2 Creatinine [Mass/Vol] 0.94 mg/dL High 0.50 - 0.90 mg/dL [facility] GFR/1.73 sq M.predicted MDRD (S/P/Bld) [Vol rate/Area] [facility] Comment on above: Effective Feb 07, [...] Interpretation and review of laboratory results Abnormal [facility] Urea nitrogen (BldV) [Mass/Vol] 25 mg/dL High 6 - 20 mg/dL [facility] BUN + Creatinineon 2 Creatinine [Mass/Vol] 0.94 mg/dL High 0.50-0.90 [facility] Comment on above: Performed By: #### B UNCRT #### [facility] [address] [place] [address] Sales Exhibitor: Jamari Landry MD GFR/1.73 sq M.predicted among non-blacks MDRD (S/P/Bld) [Vol rate/Area] mL/min/{1.73_m2} Normal >60 [facility] Comment on above: Result Comment: Effective [...] secretion. Performed By: #### B [facility]CRT #### [address] [place] [address] Sales Exhibitor: Jamari Landry MD Urea nitrogen [Mass/Vol] 25 mg/dL High 6-20 [facility] Comment on above: Performed By: #### B [facility] #### [address] [place] [address] Sales Exhibitor: Jamari Landry MD Cult,Urineon 02-26-2022 Cult,Urine Specimen Description .CLEAN CATCH URINE Culture NO SIGNIFICANT GROWTH Report Status FINAL 02/26/2022 Normal [facility] Comment on above: Performed By: #### U RC #### [facility] [address] [place] [address] Sales Exhibitor: [place] MD [address] [place] [address] Sales Exhibitor: Jamari Landry MD Urinalysis w/ Microon 2021 Bacteria 2+ Abnormal NONE [facility] Comment on above: Performed By: #### U AMIC #### [address] [place] [address] Sales Exhibitor: Jamari Landry MD Epithelial cells LM Ql (Urine sed) 10 TO 20 Normal 0-25 [facility] Comment on above: Performed By: #### U AMIC #### [address] [place] [id number] Sales Exhibitor: Jamari Landry MD Urine RBC's 5 TO 10 Normal 0-2 [facility] Comment on above: Performed By: #### U AMIC #### [facility] [address] [place] [address] Sales Exhibitor: Jamari Landry MD Urine WBC's GREATER THAN 100 Normal 0-5 [facility] Comment on above: Performed By: #### U AMIC #### [facility] [address] [place], [place] [phone] Sales Exhibitor: Jamari Landry MD Bilirubin, SemiQt,Ur Negative Normal NEG [facility] Comment on above: Performed By: #### U AMIC #### [facility] [address] [place], [place] [phone] Sales Exhibitor: Jamari Landry MD Blood, Urine 1+ Abnormal NEG [facility] Comment on above: Performed By: #### U AMIC #### [facility] [address] [place], [place] [phone] Sales Exhibitor: Jamari Landry MD Clarity (U) Cloudy Abnormal CLEAR [facility] Comment on above: Performed By: #### U AMIC #### [facility] [address] [place], [place] [phone] Sales Exhibitor: Jamari Landry MD Color (U) Yellow Normal YEL [facility] Comment on above: Performed By: #### U AMIC #### [facility] [address] [place], [place] [phone] Sales Exhibitor: Jamari Landry MD Glucose Ql (U) Negative Normal NEG [facility] Comment on above: Performed By: #### U AMIC #### [facility] [address] [place], [place] [phone] Sales Exhibitor: Jamari Landry MD Ketones Ql (U) TRACE Abnormal NEG [facility] Comment on above: Performed By: #### U AMIC #### [facility] [address] [place] [address] Dr. [place], [place] [phone] Sales Exhibitor: Jamari Landry MD Leukocyte esterase Test strip Ql (U) MODERATE Abnormal NEG [facility] Comment on above: Performed By: #### U AMIC #### [facility] [address] [place] [address] Dr. [place], [place] [phone] Sales Exhibitor: Jamari Landry MD Nitrite,Ur Negative Normal NEG [facility] Comment on above: Performed By: #### U AMIC #### [facility] [address] [place] [address] [place], [place] [phone] Sales Exhibitor: Jamari Landry MD PH,Ur 6.0 Normal 5.0-9.0 [facility] Comment on above: Performed By: #### U AMIC #### [facility] [address] [place] [address] Dr. [place], [place] [phone] Sales Exhibitor: Jamari Landry MD Protein Ql (U) Negative Normal NEG [facility] Comment on above: Performed By: #### U AMIC #### [address] [place], [place] [phone] Sales Exhibitor: Jamari Landry MD Spec. [place],Ur >1.030 High 1.010-1.020 [facility] Comment on above: Performed By: #### U AMIC #### [facility] [address] [place] [address] Dr. [place], [place] [phone] Sales Exhibitor: Jamari Landry MD Urobilinogen,Ur Normal Normal NORM [facility] Comment on above: Performed By: #### U AMIC #### [facility] [address] [place] [address] [place] [address] Sales Exhibitor: Jamari Landry MD US Venous Reflux/Insuff, Esvin Loweron 11-23-2021 US Venous Reflux/Insuff, Esvin Lower RIGHT LEFT DIAMETER RELUX (msec) DIAMETER REFLUX 1.2 CFV1.5 1.1 SFV PROX.65 795 .61SFV MID.88 1522 .84SFV DIS1.09 0 .84SF JUNCTION.92 3064 .94POP1.11 0 .62 GSV PROX1.05 905 .46GSV MID.66 2395 .51GSV DIST.53 2576 .484710KDX KNEE.47 1284 .98949WPZ CALF.55 1479 .36GSV ANKLE .33 1292 .11SP [...] by John Yanes on 11/23/2021 1210 Normal [facility] [employer] PAP ACOG PANEL 2: 30 to 65on 10-19-2021 . . Normal [facility] Comment on above: Result Comment: Perf ormed at: WB Performed By: #### 4 [id number] #### [facility] [address] [address] [address] Marquise Ha Age Gdln ACOG Testing 30-65 Normal [facility] Comment on above: Performed By: #### 4 [id number] #### [facility] [address] [address] [address] Marquise Ha DIAGNOSIS: Comment Normal [facility] Comment on above: Result Comment: NEGA TIVE FOR INTRAEPITHELIAL LESION OR MALIGNANCY. Performed at: WB Performed By: #### 4 [id number] #### [facility] [address] [address] [address] Marquise Ha HPV Aptima Negative Normal Negative [facility] Comment on above: Result Comment: This nucleic acid amplification test detects fourteen high-risk HPV types (16,18,31,33,35,39,45,51,52,56,58,59,66,68) without differentiation. Performed at: =G Performed By: #### 4 [id number] #### [facility] [facility] [address] [place] [address] Dr. Marquise Ha Methodology: Comment Normal [facility] Comment on above: Result Comment: This liquid based ThinPrep(R) pap test was screened with the use of an image guided system. Performed at: WB Performed By: #### [id number] #### [facility] [address] [place] [address] Dr. Marquise Ha Note: Comment Normal [facility] Comment on above: Result Comment: The Pap smear is a screening test designed to aid in the detection of premalignant and malignant conditions of the uterine cervix. It is not a diagnostic procedure and should not be used as the sole means of detecting cervical cancer. Both false-positive and false-negative reports do occur. . Performed at: WB Performed By: #### [id number] #### [facility] [address] [place] [address] Dr. Marquise Ha Performed by: Comment Normal [facility] Comment on above: Result Comment: Lisandra De Los Santos, Patient Services Technician (ASCP) Performed at: WB Performed By: #### [id number] #### [facility] [address] [place] [address] Dr. Marquise Ha Specimen adequacy: Comment Normal [facility] Comment on above: Result Comment: Sati sfactory for evaluation. No endocervical cells are present. This is consistent with a history of hysterectomy. Performed at: WB Performed By: #### [id number] #### [facility] [address] [place] [address] Dr. Marquise Ha Duplex Scan of Illiac [...] by John Yanes on 06/29/2021 1215 Normal [facility] Free T3on 06-14-2021 FT3 3.29 pg/mL Normal 2.00-4.40 [facility] Comment on above: Performed By: #### F T3, FT4 #### [facility] [address] [place], [place] [id number] Free T4on 06-14-2021 Free T4 [Mass/Vol] 1.22 ng/dL Normal 0.80-1.80 [facility] Comment on above: Performed By: #### F T3, FT4 #### [facility] [address] [place], [place] [id number] Q - T3 TOTALon 06-14-2021 T3, TOTAL 137 ng/dL Normal 76-181 [facility] Comment on above: Order Comment: [facility] Testing performed at: [facility], [email or web address] [facility], [address] [place] [address], [address] [place] [address], [id number], [employer] Operator: Spencer Aguero MD [facility] Collection Date/Time: [facility] Results Received Date/Time: [facility] Reported Date/Time: Performed By: #### 8 [id number], [id number] #### [facility] Default [address] [place] [address] Q - T3,REVERSE,LC/MS/MSon T3 REVERSE, LC/MS/MS 14 ng/dL Normal 8-25 [facility] Specialist Comment on above: Order Comment: [facility] performed at: [facility], [email or web address] [facility], [address], [place], [place], , [employer] Operator: Joao Langston M.D.,PhD [facility] Collection Date/Time: [id number] [facility] Results Received Date/Time: [id number] [facility] Reported Date/Time: [id number] Result Comment: This test was developed and its analytical performance characteristics have been determined by [place] It has not been cleared or approved by the U.S. Food and Drug Administration. This assay has been validated pursuant to the CLIA regulations and is used for clinical purposes. Performed By: #### 8 [id number], [id number] #### [facility] Default [address] [place] [address] US Venous, Bilateral, Lower [place] 05-06-2021 US Venous, Bilateral, Lower Ext ASK [...] by John Yanes on 05/10/2021 0852 Normal [facility] [employer] Associate Vital Signs Date Time Vital Sign Value Performing Clinician Facility 02-26-2024 11:46-0400 Body height 160 cm Prosper Zendejas MD Work Phone: [facility] 02-26-2024 11:46-0400 Body mass index (BMI) [Ratio] 42.16 kg/m2 Prosper Zendejas MD Work Phone: [facility] 02-26-2024 11:46-0400 Body weight 107.96 kg Prosper Zendejas MD Work Phone: [facility] 02-26-2024 11:46-0400 Heart rate 98 /min Prosper Zendejas MD Work Phone: [facility] 02-26-2024 11:46-0400 SaO2% (BldA) [Mass fraction] 98 % Prosper Zendejas MD Work Phone: [facility] 02-12-2024 09:52-0400 Body height 160 cm Prosper Zendejas MD Work Phone: [facility] 02-12-2024 09:52-0400 Body mass index (BMI) [Ratio] 42.16 kg/m2 Prosper Zendejas MD Work Phone: [facility] 02-12-2024 09:52-0400 Body weight 107.96 kg Prosper Zendejas MD Work Phone: [facility] 02-12-2024 09:52-0400 Heart rate 74 /min Prosper Zendejas MD Work Phone: [facility] 02-12-2024 09:52-0400 SaO2% (BldA) [Mass fraction] 99 % Prosper Zendejas MD Work Phone: [facility] 06-15-2023 16:00-0500 Body temperature 97.9 [degF] Tomasz Otero MD Work Phone: [facility] 06-15-2023 16:00-0500 Diastolic blood pressure 56 mm[Hg] Tomasz Otero MD Work Phone: [facility] 06-15-2023 16:00-0500 Heart rate 85 /min Tomasz Otero MD Work Phone: [facility] 06-15-2023 16:00-0500 Respiratory rate 15 /min Tomasz Otero MD Work Phone: [facility] 06-15-2023 16:00-0500 SaO2% (BldA) [Mass fraction] 97 % Tomasz Otero MD Work Phone: [facility] 06-15-2023 16:00-0500 Systolic blood pressure 118 mm[Hg] Tomasz Otero MD Work Phone: [facility] 06-14-2023 06:44-0500 Body height 160 cm Tomasz Otero MD Work Phone: [facility] 06-14-2023 06:44-0500 Body mass index (BMI) [Ratio] 39.68 kg/m2 Tomasz Otero MD Work Phone: [facility] 06-14-2023 06:44-0500 Body weight 101.61 kg Tomasz Otero MD Work Phone: [facility] 08-12-2022 08:31-0400 Body height 160 cm Leonora Curiel MD Work Phone: [facility] 08-12-2022 08:31-0400 Body weight 121.56 kg Leonora Curiel MD Work Phone: [facility] 02-17-2021 10:50-0400 Body height 160.02 cm Tete Romero Other [facility] Other 02-17-2021 10:50-0400 Body mass index (BMI) [Ratio] 46.94 kg/m2 Tete Heather Other [facility] Other 02-17-2021 10:50-0400 Body temperature 96.8 [degF] Tete Heather Other [facility] Other 02-17-2021 10:50-0400 Body weight 120.2 kg Tete Heather Other [facility] Other 02-17-2021 10:50-0400 Diastolic blood pressure 61 mm[Hg] Tete Heather Other [facility] Other 02-17-2021 10:50-0400 Respiratory rate 18 /min Tete Romero Other [facility] Other 02-17-2021 10:50-0400 SaO2% (BldA) [Mass fraction] 99 % Tete Romero Other [facility] Other 02-17-2021 10:50-0400 Systolic blood pressure 125 mm[Hg] Tete Romero Other [employer] Other Encounters Encounter Date Encounter Type Care Provider Facility Start: 03-04-2024 End: 03-04-2024 Orders Only Prosper Zendejas MD Work Phone: [facility] Comment on above: Chronic pain syndrom e Start: 02-26-2024 End: 02-26-2024 Bamboo flowsheet Prosper Zendejas MD Work Phone: [facility] Start: 02-26-2024 End: 02-26-2024 Bamboo flowsheet Prosper Zendejas MD Work Phone: [facility] Start: 02-26-2024 End: 02-26-2024 Office outpatient visit 25 minutes Prosper Zendejas MD Work Phone: [facility] Comment on above: Pneumonia of right l ower lobe due to infectious organism (Primary Dx); Wheezing; Primary ovarian failure Start: 02-26-2024 End: 02-26-2024 ambulatory PROSPER ZENDEJAS Not Available Start: 02-12-2024 End: 02-12-2024 Bamboo flowsheet Prosper Zendejas MD Work Phone: [facility] Start: 02-12-2024 End: 02-12-2024 Bamboo flowsheet Prosper Zendejas MD Work Phone: [facility] Start: 02-12-2024 End: 02-12-2024 Office outpatient visit 25 minutes Prosper Zendejas MD Work Phone: [facility] Comment on above: Sacroiliitis (CMS/HC C) (Primary Dx); Chronic pain syndrome; Lumbar radiculopathy; Arthralgia of multiple joints; Cervical myofascial pain syndrome; Primary osteoarthritis of right hip; Nocturnal muscle cramps; Controlled substance agreement signed; Former cigarette smoker; Morbid obesity ([facility]); BMI 40.0-44.9, adult ([facility]); Insulin resistance Start: 02-12-2024 End: 02-12-2024 ambulatory PROSPER ZENDEJAS Not Available Start: 01-29-2024 End: 01-29-2024 ambulatory SHENA Beverly BEVERLY-NOSSEK Not Available Start: 11-15-2023 End: 11-15-2023 ambulatory SHENA Beverly [facility] Not Available Start: 11-06-2023 End: 11-06-2023 ambulatory PROSPER ZENDEJAS Not Available Start: 09-20-2023 End: 09-20-2023 ambulatory CLEO MARIE Not Available Start: 09-15-2023 End: 09-19-2023 ambulatory [facility] Start: 09-11-2023 End: 09-15-2023 ambulatory [facility] Start: 09-04-2023 End: 09-04-2023 ambulatory QUINCY DANTE Not Available Start: 08-21-2023 End: 08-21-2023 ambulatory PROSPER ZENDEJAS Not Available Start: 08-15-2023 End: 08-15-2023 ambulatory IDANIA KU Not Available Start: 08-08-2023 End: 08-08-2023 ambulatory PROSPER ZENDEJAS Not Available Start: 08-01-2023 End: 08-01-2023 ambulatory PROSPER ZENDEJAS Not Available Start: 06-15-2023 Clinisync Result Encounter Generic External Data Provider [facility] External Department Unsolicited Start: 06-15-2023 Clinisync Result Encounter Generic External Data Provider [facility] External Department Unsolicited Start: 06-14-2023 End: 06-15-2023 ambulatory TOMASZ OTERO [facility] Start: 06-14-2023 End: 06-15-2023 Subsequent hospital visit by physician Tomasz Otero MD Work Phone: [facility] 4 Observation Comment on above: S/P total right hip arthroplasty (Primary Dx); History of total hip replacement, right Start: 06-13-2023 Refill Prosper garcía MD Work Phone: [facility] Start: 06-12-2023 End: 06-12-2023 ambulatory SHENA M LIVAN Not Available Start: 06-06-2023 End: 06-06-2023 ambulatory PROSPER ZENDEJAS Not Available Start: 06-02-2023 End: 06-02-2023 ambulatory TOMASZ Brady [facility] Start: 06-02-2023 End: 06-02-2023 Subsequent hospital visit by physician Gerry Garcia 1 [facility] Comment on above: Unilateral primary o steoarthritis, right hip Start: 05-22-2023 End: 05-22-2023 ambulatory PROSPER ZENDEJAS [facility] Start: 05-22-2023 End: 05-22-2023 Encounter for other preprocedural examination [facility] Start: 05-11-2023 End: 05-11-2023 ambulatory PROSPER ZENDEJAS Not Available Start: 09-29-2022 ambulatory Facility:[facility] Hern[facility]dez Start: 08-29-2022 End: 08-29-[address] JAKE MARKS Facility: Start: 08-12-2022 End: 08-12-2022 ambulatory LEONORA CURIEL Facility:[facility] Start: 08-12-2022 End: 08-12-2022 Patient encounter procedure Leonora Curiel MD Work Phone: Orthopaedics Comment on above: Class 2 severe obesi ty with serious comorbidity in adult, unspecified BMI, unspecified obesity type (HCC) (Primary Dx); Primary osteoarthritis of right hip Start: 04-11-2022 End: 04-11-[address] PROSPER ZENDEJAS . Facility:[facility] Start: 03-08-2022 End: 03-11-2022 ambulatory [facility] Start: 03-08-2022 End: 03-10-2022 Subsequent hospital visit by physician Mth Cat Scan Room [facility] Comment on above: Microscopic hematuri a Start: 02-25-2022 End: 02-26-2022 ambulatory KINGSLEY [facility] Start: 01-06-[address] PROSPER ZENDEJAS . Fac ility:[facility] Start: 10-15-2021 End: 10-15-[address] PROSPER ZENDEJAS . Facility:[facility] Start: 09-06-2021 End: 09-06-2021 Lab Drop off Aldo [facility] Start: 06-24-2021 End: 10-13-2021 Recurring Aldo Antunez Kristin [facility] Start: 02-17-2021 Office outpatient ne w 20 minutes Tete Romero [facility] [place] Procedures Date Procedure Procedure Detail Performing Clinician Start: 10-03-2023 Mammography Prosper alexandra MD Work Phone: Start: 06-15-2023 DISCHARGE PATIENT FAUSTINO OTERO Start: [...] TOMASZ OTERO Start: 06-14-2023 ECG 12-LEAD TOMASZ GAN RDИрина Start: 06-14-2023 XR HIP RIGHT WITH PE [...] Phone: Start: 06-14-2023 FULL CODE TOMASZ GAN RDY Start: 06-14-2023 PULSE OXIMETRY, SPOT WI TISHA [...] of urea nitrog en quantitative Carl Rodgers BOTTLE ASSEMBLER - VOICER Work Phone: Start: 10-15-2021 Microscopic observat ion [Identifier] in Cervix by Cyto stain Prosper Zendejas MD Work Phone: Start: 10-10-2017 Mammography Prosper alexandra MD Work Phone: Start: 09-16-2013 Colonoscopy Prosper alexandra MD Work Phone: Plan of Treatment Date Care Activity Detail Author Start: 10-15-2026 Screening for malign ant neoplasm of cervix [facility] Start: 10-15-2024 Screening for malign ant neoplasm of cervix Pap smear [facility] Start: 10-02-2024 Screening for malign ant neoplasm of breast Mammogram [facility] Start: 05-06-2024 End: 05-06-2024 Telemedicine consultation with patient [facility] Start: 04-29-2024 End: 04-29-2024 Patient encounter procedure 04/29/2024 11:00 AM EST Office Visit [facility] [address] [place] [id number] Beverly-Nossek, Shena M, BOTTLE ASSEMBLER-WOOD MACHINIST APPRENTICE [address] [facility] [address] [place] [address] [facility] Start: 02-26-2024 End: 02-26-2024 Patient encounter procedure 02/26/2024 11:45 AM EDT Office Visit [facility] [address] [facility] [address] [place] [address] Prosper Zendejas MD [address] [place] [address] (Fax) Arrived [facility] Comment on above: Arrived Start: 02-12-2024 End: 02-12-2024 Patient encounter procedure 02/12/2024 10:00 AM EDT Office Visit [facility] [address] [facility] [address] [place] [address] Prosper Zendejas MD [address] [place] [id number] (Fax) Chronic pain syndrome; Lumbar radiculopathy; Arthralgia of multiple joints; Cervical myofascial pain syndrome; Primary osteoarthritis of right hip; Nocturnal muscle cramps; Controlled substance agreement signed; Former cigarette smoker; Morbid obesity ([facility]/H[facility]); BMI 40.0-44.9, adult ([facility]) [facility] Comment on above: Chronic pain syndrom e; Lumbar radiculopathy; Arthralgia of multiple joints; Cervical myofascial pain syndrome; Primary osteoarthritis of right hip; Nocturnal muscle cramps; Controlled substance agreement signed; Former cigarette smoker; Morbid obesity ([facility]/HCC); BMI 40.0-44.9, adult ([facility]) Start: 01-07-2024 Influenza vaccination Influenza Vacc ine (#1) [facility] Start: 09-17-2023 Screening for malign ant neoplasm of colon [facility] Start: 09-11-2023 End: 09-11-2023 Patient encounter procedure 09/11/2023 1:00 PM EDT Office Visit [facility] [address] [facility] [address] [place] [address] Shena Licona, BOTTLE ASSEMBLER-WOOD MACHINIST APPRENTICE [address] [address] [place] Start: 08-08-2023 End: 08-08-2023 Patient encounter procedure 08/08/2023 10:00 AM EDT Office Visit KIRAN ALVAREZ [address] [place] [address] Prosper Zendejas MD [address] [place] [address] [facility] Start: 06-14-2023 End: 06-14-2023 Admission to same day surgery center 06/14/2023 1:45 PM EST - 06/14/2023 5:00 PM EST Surgery [facility] [place] [address] [address] [place] [phone] [place] [address] [place] [address] Right posterior total hip replacement with Jamal [22394 (CPT )] [facility] [place] Comment on above: Right posterior tota l hip replacement with Jamal [[id number] (CPT )] Start: 06-14-2023 End: 06-14-2023 Arthrp acetblr/prox fem prostc agrft/algrft Arthroplasty Total Hip Posterior Approach Unilateral primary osteoarthritis, right hip 06/14/2023 1:45 PM EST [facility] Start: 06-14-2023 Subsequent hospital visit by physician 06/14/2023 12:15 PM EST Hospital Encounter [facility] [place] [address] [place] [phone] [place] [address] [address] [address] [facility] [place] Start: 01-06-2023 Influenza vaccination C [facility] Start: 05-08-2022 DEPRESSION ASSESSMENT DEPRESSION ASS ESSMENT [facility] Start: 03-10-2022 End: 03-10-2022 Patient encounter procedure 03/10/2022 Procedure visit Urology [facility] Start: 12-06-2021 Influenza vaccination Flu vaccine (# 1) [facility] Start: 10-10-2018 Screening for malign ant neoplasm of breast Mammogram [facility] Start: 02-03-2014 Screening for malign ant neoplasm of breast Breast cancer screen [facility] Start: 02-03-2014 Shingles vaccine (1 of 2) Shingles vaccine (1 of 2) [facility] Start: 02-03-2014 SHINGRIX VACCINE (1 of 2) SHINGRIX VACCINE (1 of 2) [facility] Start: 02-03-2014 Zoster Vaccines (1 of 2) Zoster Vacc lindsey (1 of 2) [facility] Start: 07-24-2009 MMR Vaccines (1 of 1 - Standard series) MMR Vaccines (1 of 1 - Standard series) [facility] Start: 02-03-2009 COLOGUARD (FIT-DNA) COLOGUARD (FIT-D NA) [facility] Start: 02-03-2009 Colonoscopy COLONOSCOPY [facility] Start: 02-03-2009 COLORECTAL CANCER SCREENING COLORECTAL CANCER SCREENING [facility] Start: 02-03-[address] COLONOGRAPHY [facility] Start: 02-03-2009 DIABETES SCREEN DIABETES SCREEN [facility] Start: 02-03-2009 FECAL OCCULT BLOOD FECAL OCCULT BLOO D [facility] Start: 02-03-2009 LIPID SCREEN LIPID SCREEN [facility] Start: 02-03-2009 Screening for malign ant neoplasm of colon [facility] Start: 02-03-2009 SIGMOIDOSCOPY SIGMOIDOSCOPY [facility] Start: 2004 Lipid panel Lipids [facility] Start: 2004 Mammography MAMMOGRAM [facility] Start: 2004 Screening for malign ant neoplasm of breast Mammogram [facility] Start: 02-03-1999 Diabetes screen Diabetes screen [facility] Start: 02-03-1994 HPV TESTING HPV TESTING [facility] Start: 02-03-1986 DTaP/Tdap/Td Vaccine s (1 - Tdap) DTaP/Tdap/Td Vaccines (1 - Tdap) [facility] Start: 02-03-1985 PAP TESTING PAP TESTING [facility] Start: 02-03-1985 Screening for malign ant neoplasm of cervix [facility] Start: 02-03-1983 DTaP/Tdap/Td vaccine (1 - Tdap) DTaP/Tdap/Td vaccine (1 - Tdap) [facility] Start: 02-03-1983 Urine microalbumin profile DTAP,TDAP,TD (1 - Tdap) [facility] Start: 02-03-1982 Diabetes mellitus screening Diabetes Screening [facility] Start: 02-03-1982 Hepatitis C screening B [facility] Start: 02-03-1982 HEPATITIS C SCREENING [facility]IT[facility] C [facility] Start: 02-03-1982 HIV SCREENING HIV SCREENING [facility] Start: 02-03-1979 HIV screening HIV screen [facility] Start: 1976 Depression Screen Depression Screen [facility] Start: 1964 COVID-19 Vaccine (#1) COVID-19 Vacci ne (#1) [facility] Start: 1964 HEPATITIS B (1 of 3 - 3-dose series) HEPATITIS B (1 of 3 - 3-dose series) [facility] Start: 1964 Hepatitis B Vaccines (1 of 3 - 3-dose series) Hepatitis B Vaccines (1 of 3 - 3-dose series) [facility] Start: 1964 HIV screening HIV Screening [facility] Start: 1964 Lipid panel Lipid Panel [facility] Start: 1964 Screening for malign ant neoplasm of colon [facility] Start: 1964 Thyroid stimulating hormone measurement TSH Level [facility] Start: 1964 Yearly Adult Physical Yearly Adult P hysical [facility] End: 03-08-2022 CT UROGRAM [facility] Work Phone: Comment on above: 1 Occurrences starti ng 03/08/2022 until 03/08/2022 ECG 12 Lead ECG 12 Lead ECG STAT 06/14/2023 11:55 AM EST [facility] Work Phone: Electrocardiogram, 12-lead PRN ACS symptoms Electrocardiogram, 12-lead PRN ACS symptoms ECG Routine As needed until discontinued starting 06/14/2023 [facility] Work Phone: Comment on above: As needed until disc ontinued starting 06/14/2023 End: 06-14-2023 Incentive spirometry Instruct Incentive spirometry Instruct Respiratory Care Routine Once for 1 Occurrences starting 06/14/2023 until 06/14/2023 [facility] Service Area Work Phone: Comment on above: Once for 1 Occurrenc es starting 06/14/2023 until 06/14/2023 [facility] Immunizations Immunization Date Immunization Notes Care Provider [facility] 02-07-2020 influenza, high dose seasonal, preservative-free Prosper Zendejas MD Work Phone: [facility] 02-07-2020 influenza, injectabl e, quadrivalent, preservative free Prosper Zendejas MD Work Phone: [facility] 02-07-2020 influenza virus vaccine, unspecified formulation Stj 1 [facility] Work Phone: 01-29-2019 influenza, injectabl e, quadrivalent, preservative free Prosper Zendejas MD Work Phone: [facility] 12-29-2017 influenza, injectabl e, quadrivalent, preservative free Prosper Zendejas MD Work Phone: [facility] 12-29-2017 influenza, seasonal, injectable Prosper Zendejas MD Work Phone: [facility] 02-05-2016 influenza, seasonal, injectable, preservative free Prosper Zendejas MD Work Phone: [facility] 02-18-2015 influenza, seasonal, injectable Prosper Zendejas MD Work Phone: [facility] 02-18-2015 influenza, seasonal, injectable, preservative free Prosper Zendejas MD Work Phone: [facility] 01-12-2015 influenza, injectabl e, quadrivalent, preservative free Prosper Zendejas MD Work Phone: [facility] 10-13-2014 Toradol per 15 mg Tete Dym ond Other [facility] Other 06-26-2009 novel [id number], preservative-free, injectable Prosper Zendejas MD Work Phone: [facility] Payers Date Payer Category Payer Private Health Insurance [employer] [id number] 2022 Unknown [id number] 2021 Unknown [employer] R [employer] 2021-Present [phone] [address] [place] [address] [employer] [id number] 2021 Unknown [id number] 2013 Unknown [id number] [id number]. [id number] 1964 Unknown [id number] 2.16.840.1.323159.3.579.2. 173 1964 Unknown [id number] 2.16.840.1.371652.3.579.2. 173 1964 Unknown [id number] 2.16.840.1.733234.3.579.2. 173 1964 Unknown [id number] 2.16.840.1.285852.3.579.2. 593 1964 Unknown [id number] 2.16.840.1.724058.3.579.2. 593 1964 Unknown [id number] 2.16.840.1.479906.3.579.2. 593 1964 Unknown [id number] 2.16.840.1.498849.3.579.2. 593 1964 Unknown [id number] 2.16.840.1.163507.3.579.2. 727 1964 Unknown [id number] 2.16.840.1.716646.3.579.2. 1243 1964 Unknown [id number] 2.16840.1.036708.3.579.2. 1243 1964 Unknown [id number] 2.16.840.1.716160.3.579.2. 1243 1964 Unknown [id number] 2.16.840.1.498874.3.579.2. 125 1964 Unknown [id number] 2.16.840.1.018817.3.579.2. 1259 1964 Unknown [id number] 2.16840.1.172956.3.579.2. 1259 1964 Unknown [id number] 2.16.840.1.979688.3.579.2. 1259 1964 Unknown [id number] 2.16.840.1.023326.3.579.2. 1259 1964 Unknown [id number] 2.16.840.1.256230.3.579.2. 1259 1964 Unknown [id number] 2.16.840.1.074433.3.579.2. 1259 1964 Unknown [id number] 2.16.840.1.704455.3.579.2. 9 1964 Unknown [id number] 2.16.840.1.724723.3.579.2. 1258 1964 Unknown [id number] 1965 Unknown [id number] 1965 Unknown [id number] [id number] 1965 Unknown [id number] 1258 1965 Unknown [id number] 1959 Unknown [id number] 1959 Unknown [id number] 1959 Unknown [id number] Social History Date Type Detail Facility Tobacco smoking status [facility] Start: 05-22-2023 End: 02-05-2024 Sex Assigned At Female [facility] Start: 02-25-2022 End: 11-06-2023 Tobacco smoking status [facility] Ex-smoker [facility] Phone: End: 05-08-2002 History of tobacco use Current smoker [facility] Phone: End: 05-08-2002 History of tobacco use Cigarette Smoker [facility] Phone: Start: 02-25-2022 End: 11-06-2023 Tobacco use and exposure Smokeless tobacco non-user [facility] Phone: Start: 02-25-2022 End: 03-10-2022 Alcohol intake Current drinker of alcohol (finding) [facility] Phone: Start: 02-25-2022 Alcohol Comment rare ANASTASIA WATTS [facility] Phone: Start: 1965 Sex Assigned At Not on file [facility] Phone: [place] [facility] [place] [facility] consumption [facility] Start: 1965 Sex Assigned At Female [facility] History of tobacco use Passive smoker [facility] Work Phone: Start: 05-22-2023 End: 06-14-2023 Alcohol intake Lifetime non-drinker (finding) [facility] Work Phone: Start: 05-22-2023 End: 02-05-2024 History of Social function [facility] Start: 09-25-2022 Gender identity Identifies as female gender (finding) [facility] Work Phone: Start: 05-23-2023 End: 06-14-2023 Exposure to SARS-CoV-2 (event) Not sure [facility] Has the sifonr, Mobile Messenger, or water [email or web address] threatened to shut off services in your home in past 12Mo Patient declined [facility] How often to you hav e a drink containing alcohol? Never [facility] Start: 06-12-2023 End: 02-26-2024 Alcohol intake Ex-drinker (finding) [facility] Within [...] Only a little [facility] (I/We) worried wheth er (my/our) food would run out before (I/we) got money to buy more. Never true [facility] Start: 05-10-2023 Tobacco Comment Last smoked : > 10 years [facility] Start: 05-10-2023 Alcohol Comment Caffeine intak e: 2-3 cups weekly [facility] Start: 09-25-2022 Sexual orientation Heterosexua l (finding) [facility] Do you belong to any clubs or organizations such as christianity groups, unions, fraternal or athletic groups, or school groups? Yes [facility] How hard is it for y ou to pay for the very basics like food, housing, medical care, and heating Not very hard [facility] Do you feel stress - tense, restless, nervous, or anxious, or unable to sleep at night because your mind is troubled all the time - these days [OSQ] Rather much [facility] Start: 01-29-2024 Alcohol Comment Caffeine intak e: 2-3 cups daily [facility] NEGATED: Highlighted rowStart: AMANDAF History of tobacco use Passive smoker ANASTASIA ROLANDO [facility] Work Phone: Medical Equipment Procedure Code Equipment Code Equipment Origin al Text Equipment Identifier Dates Insignia Hip Mark Anthony m, High Offset. [id number] [id number] (21)N/A, [id number] FDA Start: 06-14-2023 Shell, Trident I i, Tritanium, Clusterhole, 48d - Sn/A - [id number] [id number] A()N/A, [id number] FDA Start: 06-14-2023 Liner, Cocr, Mdm , 38mm D - Sn/A - [id number] Start: 06-14-2023 Head, Femur V40 22.2/+1 Cocr Lfit - Sn/A - [id number] [id number] (21)N/A, [id number] FDA Start: 06-14-2023 Insert, Mdm X3 Anabaptism, 38od 22id X 7.7mm - Sn/A - [id number] [id number] (21)N/A, [id number] [facility] Start: 06-14-2023 Screw, Low Profi le Hex, 6.5 X 25 Mm - Sn/A - [id number] Start: 06-14-2023 4mm X 170mm Stry ker Pin Bone (Formerly Mfr'D By Jamal) [id number] Start: 06-14-2023 Clinical Notes 02-17-2021 to 02-26-2024 Prosper Zendejas MD - 02/26/2024 11:45 AM Mainor Zendejas MD - 02/12/2024 10:00 AM EDTBrandt Landa, [facility] - 06/15/2023 5:20 PM ESTBrandt Landa, [facility] - 06/15/2023 5:20 PM EST Note Date & Type Note Facility 02-26-2024 History of Presen t illness Narrative Images from the original note were not included. Patient ID: Italia Collins is a 59 y.o. female who presents for: Upper Respiratory Infection Patient complains of symptoms of a URI. Symptoms include headache described as top of the head, non productive cough, and wheezing. Onset of symptoms was several days ago, and has been unchanged since that time. Treatment to date: cough suppressants and decongestants. Review of Systems Constitutional: Negative for chills and fever. HENT: Negative for congestion, ear pain, sinus pressure, sinus pain and sore throat. Respiratory: Positive for cough and wheezing. Negative for shortness of breath. Neurological: Positive for headaches. Negative for light-headedness. Objective In general the patient is pleasant and in no acute distress. Oropharynx has moist mucosa there is no specific evidence of thrush. There is mild erythema of the pharynx. Shoddy bilateral anterior cervical adenopathy. No signs of respiratory distress. Patient is speaking full sentences. There are asymmetrical breath sounds, with a decrease in the right lower lung field. No rales are appreciated. Some rhonchi in the right lower lung field. Diffuse inspiratory wheezes in all lung govea with the loudest area of wheezing in the right lower lung field. Skin is warm and dry. No signs of cyanosis. Visit Vitals Pulse 98 Ht 5' 3 Wt 238 lb SpO2 98% BMI 42.16 kg/m OB Status Hysterectomy Smoking Status Former BSA 2.19 m Allergies Allergen Reactions Gabapentin Swelling Morphine Sulfate [Morphine] Itching Onion Headache Wound Dressing Adhesive Rash Current Outpatient Medications on File Prior to Visit Medication Sig Dispense Refill ALPRAZolam (Xanax) 0.25 MG tablet Take 0.25 mg by mouth Daily as needed for anxiety amoxicillin (Amoxil) 500 MG capsule Take 500 mg by mouth in the morning and 500 mg in the evening and 500 mg before bedtime. CHELATED IRON PO Take by mouth cholecalciferol (Vitamin D-3) 1.25 MG (51112 UT) capsule Take 50,000 Units by mouth 1 (one) time per week. cyclobenzaprine (Flexeril) 10 MG tablet Take 10 mg by mouth 3 (three) times a day as needed estradiol (Climara) 0.075 MG/24HR Place 1 patch over 7 days on the skin 1 (one) time per week 12 patch 3 fentaNYL (DURAGESIC) 25 MCG/HR Place 1 patch over 72 hours on the skin every 3rd (third) day 10 patch 0 fentaNYL (DURAGESIC) 25 MCG/HR Place 1 patch over 72 hours on the skin every 3rd (third) day 10 patch 0 fentaNYL (DURAGESIC) 25 MCG/HR Place 1 patch over 72 hours on the skin every 3rd (third) day 10 patch 0 lamoTRIgine (LaMICtal) 150 MG tablet Take 1 tablet (150 mg) by mouth in the morning and 1 tablet (150 mg) before bedtime. 180 tablet 0 levothyroxine (Synthroid) 50 MCG tablet Take 1 tablet (50 mcg) by mouth in the morning. Take before meals. 90 tablet 0 magnesium oxide (Mag-Ox) 400 MG tablet Take 400 mg by mouth in the morning. metFORMIN (Glucophage) 850 MG tablet Take 1 tablet (850 mg) by mouth in the morning and 1 tablet (850 mg) in the evening. Take with meals. 180 tablet 1 nabumetone (Relafen) 750 MG tablet Take 750 mg by mouth 2 (two) times a day as needed QUEtiapine (SEROquel) 400 MG tablet Take 1 tablet (400 mg) by mouth at bedtime 90 tablet 0 sertraline (Zoloft) 100 MG tablet Take 1 tablet (100 mg) by mouth in the morning and 1 tablet (100 mg) before bedtime. 180 tablet 0 spironolactone (Aldactone) 25 MG tablet Take 25 mg by mouth Daily as needed therapeutic multivitamin-minerals (Theragran-M) tablet Take 1 tablet by mouth in the morning. thyroid ([place]) 120 MG tablet Take 1 tablet (120 mg) by mouth in the morning and 1 tablet (120 mg) in the evening. Take before meals. 180 tablet 0 zaleplon (Sonata) 10 MG capsule Take 1 capsule (10 mg) by mouth at bedtime 30 capsule 1 No current facility-administered medications on file prior to visit. 1. Pneumonia of right lower lobe due to infectious organism (Primary) Acute problem. I discussed with her the clinical diagnosis, and she noted she was not surprised. She is not in actual distress. I do think she needs a spacer along with the albuterol. I educated her on use. Also very specifically educated her concerning tendinosis associated with quinolones. In prescribing a new medication consideration of the following encompasses moderate decision making: the current prescriptions and supplements, the current allergies and medication intolerances, the current medical conditions, and potential drug interactions. Risks, benefits, and reason for starting their medication were discussed. The patient was given a chance to ask questions today and all questions were answered. The patient is to contact us if any other questions arise or if any problems occur with the adjustment in their medication. - Spacer/Aero-Holding Chambers (BreatheRite Sofia Spacer Adult) misc; 2 puffs 4 (four) times a day as needed (sob and cough) Dispense: 1 each; Refill: 0 - albuterol HFA 90 mcg/act inhaler; Inhale 2 puffs every 4 (four) hours if needed for wheezing or shortness of breath Dispense: 18 g; Refill: 0 - levoFLOXacin (Levaquin) 750 MG tablet; Take 1 tablet (750 mg) by mouth Daily for 10 days Dispense: 10 tablet; Refill: 0 2. Wheezing As above 3. Primary ovarian failure Chronic problem. Patient in need a refill today. States up-to-date on mammogram. - estradiol (Climara) 0.075 MG/24HR; Place 1 patch over 7 days on the skin 1 (one) time per week Dispense: 12 patch; Refill: 3 documented in this encounter [facility] 02-12-2024 History of Presen t illness Narrative Images from the original note were not included. Patient ID: Italia Collins is a 59 y.o. female who presents for: Patient who presents for evaluation of low back pain. The patient has had recurrent self limited episodes of low back pain in the past and previous spinal surgery. Symptoms have been present for several years and are stable. Onset was related to / precipitated by a remote injury. The pain is located in the right lumbar area, left lumbar area, right sacroiliac area, left sacroiliac area, right gluteal area, left gluteal area, or across the lower back. The pain is described as aching, stabbing, stiffness, and throbbing and occurs all day. She rates her pain as a 4-5 on a scale of 0-10. Symptoms are exacerbated by exercise, extension, flexion, sitting, sneezing, standing, straining, and twisting. Symptoms are improved by heat, ice, muscle relaxants, narcotic pain medications, rest, and stretching. He/She has also tried chiropractic manipulation and NSAIDs which provided no symptom relief. He/She has no other symptoms associated with the back pain. Review of Systems Constitutional: Negative for chills and fever. Respiratory: Negative for cough, shortness of breath and wheezing. Cardiovascular: Negative for chest pain and palpitations. Gastrointestinal: Negative for abdominal pain. Genitourinary: Negative for frequency and urgency. Situational worsening of her anxiety due to some family dynamic issues after the passing of a loved one. Also some worsening with family dynamic issues in a child that is homeless and back in the area. Objective The patient is pleasant and in no acute distress The patient does not appear to have a gross neurologic deficit. The patient has good eye contact and clear speech Her gait is essentially normal at this point. She can get in now the chair easily. She notes her pain is much better since she had the hip replacement and then she believe she is ambulating straighter. She also has a orthotics in her shoes. Exam is somewhat limited due to the obesity. There appears to be some mild hypertonicity in the lumbar paraspinal musculature that is nontender. She does have some decreased range of motion in his slightly forward flexed on ambulating. Visit Vitals Pulse 74 Ht 5' 3 Wt 238 lb SpO2 99% BMI 42.16 kg/m OB Status Hysterectomy Smoking Status Former BSA 2.19 m PDMP reviewed, Prosper Zendejas MD on 02/12/2024 10:02 AM Appears as expected. COMM reviewed Allergies Allergen Reactions Gabapentin Swelling Morphine Sulfate [Morphine] Itching Onion Headache Wound Dressing Adhesive Rash Current Outpatient Medications on File Prior to Visit Medication Sig Dispense Refill ALPRAZolam (Xanax) 0.25 MG tablet Take 0.25 mg by mouth Daily as needed for anxiety CHELATED IRON PO Take by mouth cholecalciferol (Vitamin D-3) 1.25 MG (75388 UT) capsule Take 50,000 Units by mouth 1 (one) time per week. cyclobenzaprine (Flexeril) 10 MG tablet Take 10 mg by mouth 3 (three) times a day as needed estradiol (Climara) 0.075 MG/24HR Place 1 patch over 7 days on the skin 1 (one) time per week 12 patch 3 fentaNYL (DURAGESIC) 25 MCG/HR Place 1 patch over 72 hours on the skin every 3rd (third) day 10 patch 0 fentaNYL (DURAGESIC) 25 MCG/HR Place 1 patch over 72 hours on the skin every 3rd (third) day 10 patch 0 fentaNYL (DURAGESIC) 25 MCG/HR Place 1 patch over 72 hours on the skin every 3rd (third) day 10 patch 0 lamoTRIgine (LaMICtal) 150 MG tablet Take 1 tablet (150 mg) by mouth in the morning and 1 tablet (150 mg) before bedtime. 180 tablet 0 levothyroxine (Synthroid) 50 MCG tablet Take 1 tablet (50 mcg) by mouth in the morning. Take before meals. 90 tablet 0 magnesium oxide (Mag-Ox) 400 MG tablet Take 400 mg by mouth in the morning. metFORMIN (Glucophage) 850 MG tablet Take 1 tablet (850 mg) by mouth in the morning and 1 tablet (850 mg) in the evening. Take with meals. 180 tablet 1 nabumetone (Relafen) 750 MG tablet Take 750 mg by mouth 2 (two) times a day as needed QUEtiapine (SEROquel) 400 MG tablet Take 1 tablet (400 mg) by mouth at bedtime 90 tablet 0 sertraline (Zoloft) 100 MG tablet Take 1 tablet (100 mg) by mouth in the morning and 1 tablet (100 mg) before bedtime. 180 tablet 0 spironolactone (Aldactone) 25 MG tablet Take 25 mg by mouth Daily as needed therapeutic multivitamin-minerals (Theragran-M) tablet Take 1 tablet by mouth in the morning. thyroid ([place]) 120 MG tablet Take 1 tablet (120 mg) by mouth in the morning and 1 tablet (120 mg) in the evening. Take before meals. 180 tablet 0 zaleplon (Sonata) 10 MG capsule Take 1 capsule (10 mg) by mouth at bedtime 30 capsule 1 [DISCONTINUED] acetaminophen (Tylenol) 325 MG tablet Take 650 mg by mouth in the morning and 650 mg at noon and 650 mg in the evening and 650 mg before bedtime. No current facility-administered medications on file prior to visit. 1. Chronic pain syndrome Chronic problem the from a scheduling standpoint we had to work her in a little bit early in it turns out that if I refilled her controlled narcotic pain medication today the 2 week role would kick in. We have mutually agreed that next week when I am back from my time off she is going to contact me with a reminder oil portal message that she is due for the prescription and which pharmacy. At that point we should be able to send it him without the 14 day role. Chronic problem, stable, multifactorial, with complex decision making. The patient presents for re-evaluation of their chronic pain syndrome and treatment recommendations. They note, that the pain is still present but under reasonable control with home therapies and medications. They state that they are taking their medications compliantly and perceiving a benefit specifically from these medications. They deny any significant side effects from the medications themselves. The treatment program enables them to continue their activities of daily living. I specifically note the patient has one or more high risk medications that is a chronic problem that specifically increases complexity of decision making and complicates all prescribing including prescription renewal consistent with a moderate or complex degree of decision making. A high-risk medicine is one that may cause serious health problems if not taken the correct way, or taken with another drug or food item that it may interact with. If the high-risk medication includes a controlled or reportable substance, The OARRS and NARX scores were reviewed and seem to be consistent with their prescribing pattern. The Current Opioid Misuse Measure (COMM) is reviewed and there is no evidence of aberrant behavior or abuse. Treatment regimens are increasingly complex and potentially harmful, and people with high risk medications need regular review and prescribing optimization. 2. Lumbar radiculopathy Chronic problem, a component of the chronic pain syndrome, much improved since the hip surgery. 3. Arthralgia of multiple joints Chronic problem, a component of the chronic pain syndrome, stable, continue to monitor longitudinally. 4. Cervical myofascial pain syndrome Chronic problem, a component of the chronic pain syndrome, stable, continue to monitor longitudinally. 5. Primary osteoarthritis of right hip Chronic problem, a component of the chronic pain syndrome, much improved since the hip surgery. 6. Sacroiliitis (CMS/HCC) Chronic problem, a component of the chronic pain syndrome, much improved since the hip surgery. 7. Nocturnal muscle cramps Chronic problem, a component of the chronic pain syndrome, stable, continue to monitor longitudinally. 8. Controlled substance agreement signed See the scanned document 9. Former cigarette smoker Continue nonsmoking 10. Morbid obesity (CMS/HCC) Try to increase daily exercise regimen. 11. BMI 40.0-44.9, adult (CMS/HCC) Defines the morbid obesity 12. Insulin resistance She notes she is in need a prescription renewal today for this. In prescribing a renewal to their current medication, consideration of the following encompasses moderate decision making; the current prescriptions and supplements, the current allergies and medication intolerances, current medical conditions, and potential drug interactions. Any changes to risks, benefits, and reason for renewing their current medication due to the above were discussed. The patient was given a chance to ask questions today and all questions were answered. The patient is to contact us if any other questions arise or if any problems occur. (Utilizing the original guidelines or the 2020 office/outpatient code guidelines for selecting the level of E/M service, In both sets of guidelines, prescription drug management appears in the moderate medical decision making (MDM) row. Neither the original guidelines nor the new guidelines state that a new prescription or change is needed in order to credit prescription drug management) - metFORMIN (Glucophage) 850 MG tablet; Take 1 tablet (850 mg) by mouth in the morning and 1 tablet (850 mg) in the evening. Take with meals. Dispense: 180 tablet; Refill: 1 documented in this encounter [facility] 06-15-2023 Nurse Note Pt discharge teaching completed. Pt & pt's voiced understanding. IV removed, Pt medicated with a pain pill before she left Home care info has been sent over to [facility] Pt waiting for a wheelchair to head down to the car Bp 118/56 Hr 85 17:50 Pt heading down to the car in the wheelchair [facility] 06-15-2023 Nurse Note Pt discharge teaching completed. Pt & pt's voiced understanding. IV removed, Pt medicated with a pain pill before she left Home care info has been sent [facility] to [facility] Pt waiting for a wheelchair to head down to the car Bp 118/56 Hr 85 17:50 Pt heading down to the car in the wheelchair documented in this encounter [facility] Work Phone: 06-15-2023 History of Presen t illness Narrative Spiritual Care Visit Clinical Encounter Type Visited With: Patient and family together Routine Visit: Introduction Continue Visiting: No Taxonomy Intended Effects: Preserve dignity and respect, Promote sense of peace Methods: Offer spiritual/adventism support Interventions: Share words of hope and inspiration, [place] Patient was with her . Patient is a Sikh. [employer] provided companionship and validation. [employer] was a supportive presence. Occupational Therapy Evaluation [...] Recommended upon Discharge: Wheeled walker (shower chair, supervisor quality control, sock aide, LH shoe horn) OT - [...] and WW. ADL: LE Dressing Assistance: Moderate (supervisor quality control) ADL Comments: Educated patient on safety with [...] and patient verbalized understanding. Patient reports owning supervisor quality control and sock aide at home from previous spine surgery. Reports will have family to assist as needed. 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 Pt has a walker. Pt was able to drive and obtain medications. Therapy evals pending. Pt plans to return home with [facility] PT/OT. Referral built and sent in [facility]. Will need outgoing home care referral. Family will provide transport home. [id number] Spoke with [facility] [phone]. They are able to accept patient. SOC [...] Rate 65 BPM Atrial Rate 65 BPM CA Interval 188 ms QRS Duration 90 ms QT Interval 422 ms QTC Calculation(Bazett) 438 ms P Hoople 47 degrees R Hoople 10 degrees T Hoople 38 degrees QRS Count 11 beats Q [...] xrays in pacu. COMPARISON: None ACCESSION NUMBER(S): [id number] ORDERING CLINICIAN: TOMASZ OTERO FINDINGS: Right total hip arthroplasty without fracture or dislocation. Alignment normal. Satisfactory appearance status post right total hip arthroplasty. Signed by: Lei Alves 06/14/2023 11:04 AM Dictation workstation: [id number] XR hip right with pelvis when performed 2 or 3 views Result Date: 06/14/2023 ap and cross table lateral s/p hip replacement, xrays in pacu Interpreted By: Lei Alves, STUDY: XR HIP RIGHT WITH PELVIS WHEN PERFORMED 2 OR 3 VIEWS INDICATION: Signs/Symptoms:ap and cross table lateral s/p hip replacement, xrays in pacu. COMPARISON: None ACCESSION NUMBER(S): [id number] ORDERING CLINICIAN: TOMASZ OTERO FINDINGS: Right total hip arthroplasty without fracture or dislocation. Alignment normal. IMPRESSION: Satisfactory appearance status post right total hip arthroplasty. Signed by: Lei Alves 06/14/2023 11:04 AM Dictation workstation: [id number] Assessment/Plan Principal Problem: History of total hip replacement, right Active Problems: S/P total right hip arthroplasty POD #1 s/p right DONALDO Continue PT/OT, WBAT right LE Using incentive spirometer Reviewed am labs Multimodal pain regimen Surgical hip dressing to be removed at follow up appointment with Dr. Otero VTE prophylaxis: aspirin 81mg BID X 30 days When appropriate, will discharge home with [facility] Follow up with Dr. Otero in 2 [...] Missed Time: Attempt documented in this encounter [facility] Work Phone: 06-15-2023 Plan of care note The patient's goals for the shift include The clinical goals for the shift include pain control and participate in falls intervention preventions Over the shift, the patient did make progress toward the following goals of pain control and participate in falls intervention prevention. [facility] 06-15-2023 Miscellaneous Notes The patient's goals for the shift include The clinical goals for the shift include pain control and participate in falls intervention preventions Over the shift, the patient did make progress toward the following goals of pain control and participate in falls intervention prevention. Right posterior total hip replacement with Jamal (R) Operative Note Date: 06/14/2023 OR Location: [facility] OR Name: Italia Collins, : 1965, Age: 58 y.o., , Sex: female Procedure Summary Anesthesia: Spinal ASA: II Anesthesia Staff: Anesthesiologist: Liv Hammond MD BOWLING BALL PATCHER: HARITHA Maloney Estimated Blood Loss: 300mL Intra-op Medications: Administrations occurring from 729 to 1045 on 06/14/23: Medication Name Total [...] 943.77 mL Specimen: No specimens collected Staff: Senior Integration Developer: Puma Agustin RN Scrub Person: Arlet Richardson; Sarthak Andrew; Judie Ruggiero, JACLYN Drains and/or Catheters: * None in log * Tourniquet Times: Implants: Implants Type Name Action Serial No. 4MM X 170MM ROSA PIN BONE (FORMERLY MFR'D BY JAMAL) Implanted Joint HEAD, FEMUR V40 22.2/+1 COCR LFIT - SN/A - [id number] Implanted N/A Insignia hip stem, High offset. Implanted N/A Joint INSERT, MDM X3 JEWISH, 38OD 22ID X 7.7MM - SN/A - [id number] Implanted N/A Joint Hip SHELL, TRIDENT II, TRITANIUM, CLUSTERHOLE, 48D - SN/A - [id number] Implanted N/A Joint Hip LINER, COCR, MDM, 38MM D - SN/A - [id number] Implanted N/A Screw SCREW, LOW PROFILE HEX, 6.5 X 25 MM - SN/A - [id number] Implanted N/A SURGEON: Tomasz Otero M.D. ART CONSULTANT(S): Wesley Andrew SA No qualified resident was [...] loosening, osteolysis, DVT, continued pain, iatrogenic fracture, SC, stroke, and . The patient completed preoperative [...] aid in referencing leg lengths using the [employer] technology. After anesthesia was established, the patient [...] line to line press fit, using the [employer] Robotic arm for assistance. The acetabular component [...] procedure. Tomasz Otero documented in this encounter [facility] Work Phone: 06-14-2023 Note Formatting of this n ote is different from the original. Right posterior total hip replacement with Jamal (R) Operative Note Date: 06/14/2023 OR Location: [facility] OR Name: Italia Collins : 1965, Age: 58 y.o., , Sex: female Procedure Summary Anesthesia: Spinal ASA: II Anesthesia Staff: Anesthesiologist: Liv Hammond MD BOWLING BALL PATCHER: Wali Quinonez APRN-LANCE Estimated Blood Loss: 300mL [...] 943.77 mL Specimen: No specimens collected Staff: Senior Integration Developer: Puma Agustin RN Scrub Person: Arlet Richardson; Sarthak Andrew; Judie Ruggiero RN Drains and/or Catheters: * None in log * Tourniquet Times: Implants: Implants Type Name Action Serial No. 4MM X 170MM ROSA PIN BONE (FORMERLY MFR'D BY JAMAL) Implanted Joint HEAD, FEMUR V40 22.2/+1 COCR LFIT - SN/A - [id number] Implanted N/A Insignia hip stem, High offset. Implanted N/A Joint INSERT, MDM X3 JEWISH, 38OD 22ID X 7.7MM - SN/A - [id number] Implanted N/A Joint Hip SHELL, TRIDENT II, TRITANIUM, CLUSTERHOLE, 48D - SN/A - [id number] Implanted N/A Joint Hip LINER, COCR, MDM, 38MM D - SN/A - [id number] Implanted N/A Screw SCREW, LOW PROFILE HEX, 6.5 X 25 MM - SN/A - [id number] Implanted N/A SURGEON: Tomasz Otero M.D. ART CONSULTANT(S): Wesley Andrew SA No qualified resident was [...] with Jamal Robotic assistance IMPLANTS: Acetabular component: [place] Trident II Tritanium 48 mm Acetabular screws: [...] loosening, osteolysis, DVT, continued pain, iatrogenic fracture, SC, stroke, and . The patient completed preoperative [...] was incised maintaining a rectangular flap. The [employer] array pins were placed intra incisional due [...] performed after verifying its position using the [employer] tool to mich out the neck cut. The head was removed. The acetabulum was exposed, data collected, and then the acetabulum was reamed to give a line to line press fit, using the [employer] Robotic arm for assistance. The acetabular component [...] critical portions of the procedure. Tomasz Otero [facility] Work Phone: 06-14-2023 History and physical note [...] marked. All questions answered. Tomasz Otero MD [facility] Work Phone: 06-14-2023 History and physical note [...] Tomasz Otero MD documented in this encounter [facility] Work Phone: 06-13-2023 Hospital Discharg e instructions Tomasz Otero MD - 06/13/2023 3:06 PM EST See written discharge instructions from Dr. Otero documented in this encounter [facility] Work Phone: 08-12-2022 Note HNO ID: [id number] Author: Leonora Curiel MD Service: ? Author Type: Physician Type: Progress Notes Filed: 08/12/2022 10:03 AM Note Text: Subjective: Italia Collins is a 57 year old female. Patient was accompanied to the office by her . 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 She has been seen closer to home in [facility] and surgery was deferred secondary to her weight. She has had bariatric surgery in the past. Uses a rolling walker for ambulation. 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 Past Social History: Past Surgical History: No [...] Patient has history of stage III CKD. 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: Negative for abnormal vaginal bleeding, abnormal vaginal [...] provided. MD NAI WuA Professor, Orthopaedic Surgery [employer] [employer] [facility] 08-12-2022 History of Presen t illness Narrative Subjective: Italia Collins is a 57 year old female. Patient was accompanied to the office by her . 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 She has been seen closer to home in [facility] and surgery was deferred secondary to her weight. She has had bariatric surgery in the past. Uses a rolling walker for ambulation. 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 Past Social History: Past Surgical History: No [...] Patient has history of stage III CKD. 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: Negative for abnormal vaginal bleeding, abnormal vaginal [...] provided. MD NAI WuA Professor, Orthopaedic Surgery [employer] [facility] [employer] documented in this encounter [facility] 09-06-2021 Evaluation + Plan note Diagnostic Tests PendingWound Culture 09/06/21 [facility] 02-17-2021 Evaluation note Encounter Date Diagnosis Assessment Notes Feb, Insect stings, accidental or unintentional , initial encounter (ICD-10 - T63.481A) Feb, Cellulitis of forearm, left (ICD-10 - L03.114) Take the antibiotic as prescribed until gone. Continue home medications as prescribed. You may apply wgyx-jqo-[id number] hydrocortisone cream to the area. Continue to take Benadryl for itching. Apply warm compresses to the area once or twice a day. Follow-up with your family physician if no improvement in 2 to 3 days [facility] Other Evaluation note* Diagnosis Microscopic hematuria documented in this encounter [facility] Phone: evaluation note* Diagnosis Microscopic hematuria documented in this encounter [facility] Phone: evaluation note* Diagnosis Class 2 severe obesity with serious comorbidity in adult, unspecified BMI, unspecified obesity type (HCC)- Primary Primary osteoarthritis of right hip Primary localized osteoarthrosis, pelvic region and thigh [facility] Unilateral primary osteoarthritis, right hip Unilateral primary osteoarthritis, right hip documented in this encounter [facility] Work Phone: Evaluation note* Diagnosis History of total hip replacement, right- Primary S/P total right hip arthroplasty History of total hip replacement, right S/P total right hip arthroplasty documented in this encounter [facility] Work Phone: Evaluation note* Diagnosis Sacroiliitis (CMS/HCC)- Primary Sacroiliitis, not elsewhere classified Chronic pain syndrome Lumbar radiculopathy Thoracic or lumbosacral neuritis or radiculitis, unspecified Arthralgia of multiple joints Pain in joint, multiple sites Cervical myofascial pain syndrome Primary osteoarthritis of right hip Nocturnal muscle cramps Cramp of limb Controlled substance agreement signed Former cigarette smoker Personal history of tobacco use, presenting hazards to health Morbid obesity ([facility]) Morbid obesity BMI 40.0-44.9, adult ([facility]) Insulin resistance Other abnormal glucose documented in this encounter [facility]* Diagnosis Pneumonia of right lower lobe due to infectious organism- Primary Wheezing Primary ovarian failure Other ovarian failure documented in this encounter [facility]* Diagnosis Chronic pain syndrome documented in this encounter [facility] HealthcareHistory general Narrative - Reported* Type Description Date [...] Surgical History ddd Hospitalization History see above [facility] Other Hospital course Narrative No data available for this section [facility] No data available for this section [facility] Summary Purpose Family History No Family History Records FoundNo Family History Records FoundNo Family History Records FoundNo Family History Records FoundNo Family History Records FoundNo Family History Records FoundNo Family History Records FoundNo Family History Records FoundNo Family History Records Found Advance Directives Latest Code Status on File Code Status Date [...] total hip replacement, right Jyotsna Hurtado PA-C [address] [place] [address] Referral ID Status Reason Start Date Expiration Date Visits Requested Visits Authorized [id number] Authorized Specialty Services Required 06/15/2023 06/14/[phone] Specialty Diagnoses / Procedures Referred By Nimco garvin Referred To Contact Radiology Diagnoses Unilateral primary osteoarthritis, right hip Procedures CT hip [place] [address] [place] [address] Referral ID Status Reason Start Date Expiration Date Visits Requested Visits Authorized [id number] Authorized Perform Procedure 05/15/2023 05/14/2024 1 1 Specialty Diagnoses / Procedures Referred By Contac t Referred To Contact Diagnoses Class 2 severe obesity with serious comorbidity in adult, unspecified BMI, unspecified obesity type (HCC) Procedures [facility] Leonora Curiel MD [address] [place] [address] Referral ID Status Reason Start Date Expiration Date Visits Requested Visits Authorized [id number] Ref Not Required PCP Requested Referral 08/12/2022 08/12/2023 1 1 Specialty Diagnoses / Procedures Referred By Contac t Referred To Contact Radiology Diagnoses Microscopic hematuria R31.29 (ICD-10-CM) - Microscopic hematuria Procedures CT UROGRAM CHG CT SCAN,ABDOMENT AND PELVIS,COMBO [address] - CHG CT SCAN,ABDOMENT AND PELVIS,COMBO Carl Rodgers, BOTTLE ASSEMBLER - VOICER [address] [place] [address] Referral ID Status Reason Start Date Expiration Date Visits Re quested Visits Authorized [id number] Closed 03/07/2022 02/28/2023 1 1 Additional Source Comments REASON FOR VISIT (unrecogniz ed section and content) Specialty Diagnoses / Procedures Referred By Contac t Referred To Contact Radiology Diagnoses Microscopic hematuria R31.29 (ICD-10-CM) - Microscopic hematuria Procedures CT UROGRAM CHG CT SCAN,ABDOMENT AND PELVIS,COMBO [address] - CHG CT SCAN,ABDOMENT AND PELVIS,COMBO Carl Rodgers, BOTTLE ASSEMBLER - VOICER [address] [place] [address] Referral ID Status Reason Start Date Expiration Date Visits Re quested Visits Authorized [id number] Closed 03/07/2022 02/28/2023 1 1 Reason Comments Right Hip Pain Specialty Diagnoses / Procedures Referred By Contac t Referred To Contact Radiology Diagnoses Unilateral primary osteoarthritis, right hip Procedures CT hip [place] [address] [place] [address] Referral ID Status Reason Start Date Expiration Date Visits Requested Visits Authorized [id number] Authorized Perform Procedure 05/15/2023 05/14/2024 1 1 Specialty Diagnoses / Procedures Referred By Nimco garvin Referred To Contact Diagnoses Unilateral primary osteoarthritis, right hip M16.11 - Unilateral primary osteoarthritis, right hip, 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 Procedures CA ARTHRP ACETBLR/PROX FEM PROSTC AGRFT/ALGRFT Right posterior [place] [address] [place] [address] [place] [address] [place] [address] Referral ID Status Reason Start Date Expiration Date Visits Re quested Visits Authorized [id number] 1 1 Reason Comments Med Refill Reason Comments Pain Reason Comments URI INFORMATION SOURCE (unrecogn ized section and content) DATE CREATED AUTHOR 11/26/2021 [facility] dical Specialist DATE CREATED AUTHOR AUTHOR'S ORGANIZ ATION 03/11/2022 Estefany Jayfin [facility] DATE CREATED AUTHOR AUTHOR'S ORGANIZ ATION 08/14/2022 [facility] DATE CREATED AUTHOR AUTHOR'S ORGANIZ ATION 09/02/2022 [facility] DATE CREATED AUTHOR AUTHOR'S ORGANIZ ATION 10/14/2022 [facility] DATE CREATED AUTHOR AUTHOR'S ORGANIZ ATION 06/19/2023 [facility] DATE CREATED AUTHOR AUTHOR'S ORGANIZ ATION 09/20/2023 [facility] DATE CREATED AUTHOR AUTHOR'S ORGANIZ ATION 01/29/2024 [facility] DATE CREATED AUTHOR AUTHOR'S ORGANIZ ATION 02/27/2024 [facility] dical Specialists EPIC Care Teams (unrecognized sec tion and content) Grease Man Relationship Specialty Start Date End Date Prosper Zendejas MD [address] [facility] [place] [address] PCP - General 02/25/22 Grease Man Relationship Specialty Start Date End Date Prosper Zendejas MD [address] [facility] [place] [address] PCP - General 02/25/22 Grease Man Relationship Specialty Start Date End Date Prosper Zendejas MD [address] [facility] [place] [address] (Fax) PCP - General Family Medicine 07/27/22 Taco Flannery, JACLYN Registered Nurse 07/26/22 Grease Man Relationship Specialty Start Date End Date Prosper Zendejas MD [address] [facility] (Fax) PCP - General Family Medicine 05/15/23 Grease Man Relationship Specialty Start Date End Date Prosper Zendejas MD [address] [facility] [place] [address] (Fax) PCP - General Family Medicine 05/15/23 Grease Man Relationship Specialty Start Date End Date Prosper Zendejas MD [address] [facility] (Fax) PCP - General 09/25/22 Prosper Zendejas MD [address] [facility] [place] [address] (Fax) PCP - Medical [employer] 10/06/22 Grease Man Relationship Specialty Start Date End Date Prosper Zendejas MD [address] [facility] [place] [address] (Fax) PCP - General 09/25/22 Prosper Zendejas MD [address] [facility] [place] [address] (Fax) PCP - Medical [employer] 10/06/22 Grease Man Relationship Specialty Start Date End Date Prosper Zendejas MD [address] [facility] [place] [address] (Fax) PCP - General 09/25/22 Idania Ku PA [address] [place] [address] Dr [place] [id number] PCP - Medical [employer] 05/08/02 05/07/99 Shena Licona APRN-WOOD MACHINIST APPRENTICE [address] [phone] Nurse Practitioner Behavioral Health 06/15/23 [place] [address] [place] [address] Referring Physician Orthopaedic Surgery 06/15/23 Grease Man Relationship Specialty Start Date End Date Prosper Zendejas MD [address] [place] [address] (Fax) PCP - General 09/25/22 Idania Ku PA [address] [place] [address] [place] [address] PCP - Medical [employer] 05/08/02 05/07/99 Shena Licona APRN-WOOD MACHINIST APPRENTICE [address] [phone] Nurse Practitioner Behavioral Health 06/15/23 [place] [address] [place] [phone] Referring Physician Orthopaedic Surgery 06/15/23 Grease Man Relationship Specialty Start Date End Date Prosper Zendejas MD [address] [place] [address] PCP - General 09/25/22 Idania Ku PA [address] [place] [address] Dr [place] [id number] PCP - Medical [employer] 05/08/02 05/07/99 Shena Licona APRN-WOOD MACHINIST APPRENTICE [address] [phone] Nurse Practitioner Behavioral Health 06/15/23 [place] [address] [place] [address] Referring Physician Orthopaedic Surgery 06/15/23 Grease Man Relationship Specialty Start Date End Date Prosper Zendejas MD [address] [facility] [place] [address] PCP - General 09/25/22 Idania Ku PA [address] [place] [address] [place] [address] PCP - Medical [employer] 05/08/02 05/07/99 Shena Licona APRN-WOOD MACHINIST APPRENTICE [address] [phone] Nurse Practitioner Behavioral Health 06/15/23 [place] [address] [place] [phone] Referring Physician Orthopaedic Surgery 06/15/23 Grease Man Relationship Specialty Start Date End Date Prosper Zendejas MD [address] [place] [address] PCP - General 09/25/22 Idania Ku PA [address] [facility] [place] [address] PCP - Medical [employer] 05/08/02 05/07/99 Shena Licona, BOTTLE ASSEMBLER-WOOD MACHINIST APPRENTICE [address] [phone] Nurse Practitioner Behavioral Health 06/15/23 [place] [address] [place] [phone] Referring Physician Orthopaedic Surgery 06/15/23 Source Comments (unrecognize d section and content) In the event this informatio n is protected by the Federal Confidentiality of Alcohol and Drug Abuse Patient Records regulations: The Federal rules restrict any use of the information to criminally investigate or prosecute any alcohol or drug abuse patient.[facility] Scheduled Active and Recently Administ ered [...] Indication (Select all that apply): Surgical Prophylaxis 1845 (New Bag - Provider: Tena Thomas, JACLYN)191 (Stopped - Provider: Lennie Emerson, RN) 0237 (New Bag - Provider: Lennie Emerson, RN)0307 (Stopped - Provider: Lennie Emerson, RN) celecoxib (CeleBREX) capsule 400 mg (COMPLETED) [...] prevention of constipation Hold for loose stools 134 (Not Given - Provider: Celio Thomas RN - Reason: Patient/family refused)215 (Given - Provider: Lennie Emerson RN) 0950 (Given - Provider: Brandt Landa LPN)2099 (Due) sertraline (Zoloft) tablet 100 mg 100 mg, oral, 2 times daily, First dose on Mon06/14/23 at 1345, Phase II/On Unit 1345 (Not Given - Provider: Celio Thomas RN - Reason: Other - Comment: taken prior to arrival) 0537 (Given - Provider: Lennie Emerson RN - Comment: pt. takes at 0500 and 1500)1507 (Given - Provider: Brandt Landa LPN) thyroid (pork) ([place]) tablet 60 mg 60 mg, oral, 2 times daily, First dose on Mon06/14/23 at 1345, Phase II/On Unit 1345 (Not Given - Provider: Celio Thomas RN - Reason: Patient/family refused) 0537 (Given - Provider: Lennie Emerson RN - Comment: pt. takes at 0500 and 1500)1507 (Given - Provider: Brandt Landa LPN)2099 (Due) tranexamic acid in NaCl,iso-os 1,000 mg/100 [...] 1,000 mg 1,000 mg, intravenous, Once, On 2/7/24 at 1345, For 1 dose, Intraprocedure, 1 [...] Lebron RN)0729 (Paused - Provider: Wali Quinonez APRN-BOWLING BALL PATCHER - Comment: Switch to gravity)0730 (New Bag - Provider: Wali Quinonez APRN-BOWLING BALL PATCHER)0744 (Canceled Entry - Provider: Wali Quinonez APRN-BOWLING BALL PATCHER)0950 (New Bag - Provider: Wali Quinonez APRN-BOWLING BALL PATCHER)1023 (Stopped - Provider: Wali Quinonez APRN-BOWLING BALL PATCHER)1027 (New Bag - Provider: Beryl Nye RN)1318 [...] pain scores based on patient preference? Yes 7863 (Given - Provider: Lennie Emerson RN) oxyCODONE [...] BE BASED ON THE PRIMARY CLINICAL RECORDS. [facility] [employer], [facility]. provides no warranty or guarantee of the accuracy or completeness of information in this document.
[2024-03-29] MEDS: KETOROLAC TROMETHAMINE 60 MG/2 ML VIAL IM (07:37)
== END 2024-03-29 09:27 | disposition home or self-care (01) ==
PROVIDERS: Emergency Provider Emergency Medicine; PCP Family Medicine
DX: S89.91XA Unspecified injury of right lower leg, initial encounter (principal); X50.1XXA Overexertion from prolonged static or awkward postures, initial encounter; W10.8XXA Fall (on) (from) other stairs and steps, initial encounter; Y92.811 Bus as the place of occurrence of the external cause; M25.561 Pain in right knee
CPT/HCPCS: 73552; 73562; 96372; 99284; J1885

== ENCOUNTER 2024-04-29 15:41 | Outpatient (OUT) | payer OTHER, SELFPAY ==
[2024-04-29 16:15] LABS: Percent Iron Saturation 5.8 %
[2024-04-29 16:23] LABS: Free T3 2.26 pg/mL (2.18-3.98)
[2024-04-29 16:36] LABS: Free T4 0.72 ng/dL (0.76-1.46)
[2024-05-01 07:16] LABS: Triiodothyronine (T3) 93 ng/dL (71-180)
[2024-05-05 17:06] LABS: Reverse T3, Serum 13.6 ng/dL (9.2-24.1)
== END 2024-04-29 15:42 | disposition home or self-care (01) ==
LOC: LAB 15:43
PROVIDERS: PCP Family Medicine; Visit Provider Family Medicine
DX: G93.32 Myalgic encephalomyelitis/chronic fatigue syndrome (principal); E07.81 Sick-euthyroid syndrome; E03.8 Other specified hypothyroidism
CPT/HCPCS: 36415; 83540; 83550; 84439; 84443; 84480; 84481; 84482

== ENCOUNTER 2024-05-21 09:58 | Outpatient (OUT) | payer OTHER, SELFPAY ==
--- OUTSIDE RECORDS SUMMARY | 2024-05-21 10:20 | XMS_ITS | CCD ---
Author Organization [facility] Care Team Providers Care [employer] Teacher Name Role Phone PROSPER ZENDEJAS Primary Care Physician [phone] Tete Romero Unavailable Cristiana GARCIA, Prosper Nails Primary Care Provider [phone] CARL RODGERS Referring Unavailable HEMEYER, PROSPER Nails [...] Primary Care Provider Prosper Zendejas MD Unavailable [phone] AVINASH ADEN Referring Unavailable PROSPER ZENDEJAS Primary Care Unavailable AVINASH ADEN Referring Unavailable PROSPER ZENDEJAS Primary Care Unavailable TOMASZ OTERO Admitting Unavailable TOMASZ OTERO Attending Unavailable PROSPER ZENDEJAS Primary Care Unavailable PROSPER ZENDEJAS Primary Care Unavailable TOMASZ OTERO Referring Unavailable TOMASZ OTERO Referring Unavailable PROSPER ZENDEJAS Primary Care Unavailable Beverly-Nossek [employer]IR[employer] 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, 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 Beverly Unavailable Tomasz Otero MD Unavailable Idanai Singh Unavailable Prosper Zendejas MD Primary Care Provider Prosper Zendejas MD Primary Care Provider [phone] PROSPER ZENDEJAS Attending Unavailable PROSPER ZENDEJAS Attending Unavailable BEVERLY-ROBERTH HSIEHICIA M Attending Unavailab PROSPER Marcelo Attending Unavailable PROSPER ZENDEJAS Attending Unavailable IDANIA KU Attending Unavailable PROSPER ZENDEJAS Attending Unavailable QUINCY HOWELL Attending Unavailable CLEO MARIE Attending Unavailable PROSPER ZENDEJAS Attending Unavailable BEVERLY-JIANK SHENA M Attending Unavailab le BEVERLY-SHENA HSIEH M Attending Unavailab PROSPER Marcelo Attending Unavailable PROSPER ZENDEJAS Attending Unavailable BEVERLY-NOSSEK SHENA M Attending Unavailab PROSPER Marcelo Attending Unavailable Allergies Allergy Classification Reported Allergen(s) Allergy Type Date of Onset Reaction(s) Facility (20 sources) Morphine; Translations: [MORPHINE] Drug Allergy 1 Other (See Comments), GI Upset, Nausea/vomitin g, Itching [employer] Other (1 source) Adhesive Bandages Drug allergy Unknown [employer] Other (2 sources) Adhesive Tape Propensity to adverse reactions to drug 1 Rash [facility] (20 sources) gabapentin; Translations: [GABAPENTIN] Drug Allergy 1 Swelling [facility] Work Phone: (2 sources) Desonide Drug Allergy 4 [facility] Repository (1 source) gabapentin Drug Allergy 3 [facility] Repository (2 sources) Morphine Drug Allergy 4 [facility] Repository (3 sources) Onion extract; Translations: [ONION] Drug Allergy 3 [facility] Repository (1 source) Misc-Food; Translations: [Misc-Food] Food allergy (disorder) 3 [facility] Repository (1 source) onions; Translations: [onions] Food allergy (disorder) [facility] Rep[facility] (2 sources) nut Drug allergy (disorder) 7 [facility] Repository (3 sources) Onion extract Drug Allergy 4 [facility] Work Phone: (4 sources) Adhesive Tape-Silicones; Translations: [ADHESIVE TAPE-SILICONES] Drug Allergy 4 Other [facility] (20 sources) Onion extract Drug Allergy 3 Headache [facility] (20 sources) Wound Dressing Adhesive Propensity to adverse reactions 3 Rash [facility] (1 source) Adhesive agent; Translations: [ADHESIVE] Propensity to adverse reactions to drug (disorder) 1 [facility] Repository (1 source) Morphine; Translations: [MORPHINE SULFATE] Drug Allergy 1 [facility] Repository Medications Current Medications Medication Drug Class(es) Dates Sig (Normalized) Sig (Original) acetaminophen 325 mg oral tablet (12 sources) Start: 06-15-2023 End: 02-12-2024 acetaminophen (Tylenol) [...] mild pain (1 - 3). 0 Suspended [id number] 200 actuat albuterol 0.09 mg/actuat metered dose inhaler (11 sources) beta2-Adrenergic Agonist Start: 02-26-2024 End: 03-27-2024 take 2 puff(s) by inhalation every four hours for wheezing albuterol HFA 90 mcg/act inhaler Indications: Pneumonia of right lower lobe due to infectious organism Inhale 2 puffs every 4 (four) hours if needed for wheezing or shortness of breath 18 g 02/26/2024 Active Start: 06-14-2023 End: 06-14-2023 albuterol 2.5 mg /3 mL (0.08 3 %) nebulizer solution 2.5 mg ALPRAZolam 0.25 mg oral tablet (20 sources) Benzodiazepine Start: 07-13-2021 End: 07-12-2023 take [...] as needed. amoxicillin 500 mg oral capsule (5 sources) Penicillin-class Antibacterial Start: 02-26-20 End: 04-29-20 take 1 capsule by mouth in the morning, then take 1 capsule by mouth in the evening, then take 1 capsule by mouth at bedtime amoxicillin (Amoxil) 500 MG capsule Take 500 mg by mouth in the morning and 500 mg in the evening and 500 mg before bedtime. 02/26/2024 04/29/2024 Discontinued (Therapy completed) ascorbic acid 1000 mg oral tablet (1 source) Vitamin C take 1 tablet by mouth once daily Ascorbic Acid 1000 MG 1 tablet Orally Once a day Active aspirin 81 mg delayed release oral tablet (2 sources) Platelet Aggregation Inhibitor, Nonsteroidal Anti-inflammatory Drug Start: 06-13-19 End: 07-18-19 take 81 mg by mouth twice daily [...] Active Start: 02-17-2021 take 1 capsule by [facility] every eight hours Cephalexin 500 MG 1 capsule Orally tid for 10 day(s) Feb, Active CHELATED IRON PO (18 sources) CHELATED IRON PO Take by mouth Active cholecalciferol 0.125 mg oral tablet (20 sources) Vitamin D Start: 06-14-2023 take 5000 [IU] by mouth once daily 5,000 Units, oral, Daily, First dose on Mon06/14/23 at 1345, Phase II/On Unit take 1 capsule by mouth every we ek cholecalciferol (Vitamin D-3) 1.25 MG (19412 UT) capsule Take 50,000 Units by mouth 1 (one) time per week. Active cyclobenzaprine hydrochloride 10 mg oral tablet (20 sources) Muscle Relaxant Start: 09-26-2016 take 1 [...] Once a day Active 168 hr estradiol 0.02400 mg/hr transdermal system (20 sources) Estrogen Start: 12-18-2023 End: 02-25-2025 estradiol [...] per week. Monday 0 Suspended estrogens, conjugated (mcc) 0.625 mg oral tablet (4 sources) Estrogen [...] every 3rd (third) day 10 patch 03/04/2024 Active Start: 05-11-2023 fentaNYL (DURA GESIC) 25 [...] day Active lamoTRIgine 150 mg oral tablet (20 sources) Mood Stabilizer, Anti-epileptic Agent Start: 11-16-2023 End: 07-28-2024 take 1 tablet by mouth in the morning lamoTRIgine (LaMICtal) 150 MG tablet Indications: Bipolar affective disorder, currently depressed, moderate (CMS/HCC) Take 1 tablet (150 mg) by mouth in the morning and 1 tablet (150 mg) before bedtime. 180 tablet 04/29/2024 07/28/2024 Active Start: 06-12-2023 take 150 mg by mouth twice pedro ly 150 mg, oral, 2 times daily, First dose on Mon06/14/23 at 1345, Phase II/On Unit Start: 02-07-2022 lamoTRIgine (L AMICTAL) 150 MG tablet take 2 tablets by [facility] every twenty-four hours lamoTRIgine 200 MG 2 tablet Orally Once a day Active Comment on above: Take 150 mg by mouth once daily. levoFLOXacin 750 mg oral tablet (3 sources) Quinolone Antimicrobial Start: 02-26-20 End: 03-07-20 take 1 tablet by mouth once daily levoFLOXacin (Levaquin) 750 MG tablet Indications: Pneumonia of right lower lobe due to infectious organism Take 1 tablet (750 mg) by mouth Daily for 10 days 10 tablet 02/26/2024 03/07/2024 Active liothyronine sodium 0.005 mg oral tablet (9 sources) l-Triiodothyronine Start: 05-11-19 take 5 ug by mouth twice daily [...] daily. magnesium oxide 400 mg oral tablet (20 sources) Start: 06-14-19 take 400 mg by mouth once daily 400 mg, oral, Daily, First dose on Mon06/14/23 at 1345, Phase II/On Unit meclizine hydrochloride 25 mg oral tablet (1 source) Antiemetic Start: 05-07-20 End: 06-06-19 take 1 tablet by mouth three times daily as needed for dizziness meclizine (Antivert) 25 MG tablet Indications: Vertigo Take 1 tablet (25 mg) by mouth 3 (three) times a day as needed for dizziness Do not take at the same time as Cyclobenzaprine. 90 tablet 05/07/2024 06/06/2024 Active meloxicam 15 mg oral tablet (1 source) [...] Active metFORMIN hydrochloride 850 mg oral tablet (20 sources) Biguanide Start: 11-23-19 End: 08-11-19 take 1 tablet by mouth in the [...] II/On Unit nabumetone 750 mg oral tablet (20 sources) Nonsteroidal Anti-inflammatory Drug Start: 08-05-2022 take [...] O2 Sat Above: 92% polyethylene glycol 3350 50144 mg powder for oral solution (1 source) Osmotic Laxative Start: 06-14-2023 17 g, oral, Daily, First dose on Mon06/14/23 at 1345, Phase II/On Unit Bowel Regimen - for prevention of constipation. QUEtiapine 400 mg oral tablet (20 sources) Atypical Antipsychotic Start: 11-15-2023 End: 07-28-2024 take 1 tablet by mouth at bedtime QUEtiapine (SEROquel) 400 MG tablet Indications: Bipolar Mood Disorder Take 1 tablet (400 mg) by mouth at bedtime 90 tablet 04/29/2024 07/28/2024 Active Start: 06-14-2023 take 400 mg by [...] mg by mouth daily at bedtime. sennosides, mcc 8.6 mg oral tablet (1 source) Start: 06-14-2023 take 1 tablet by mouth twice daily 17.2 mg (2 tablet), oral, 2 times daily, First dose on Mon06/14/23 at 1345, Phase II/On Unit Bowel Regimen - for prevention of constipation Ho ld for loose stools sertraline 100 mg oral tablet (20 sources) Serotonin Reuptake Inhibitor Start: 11-15-2023 End: 07-28-2024 take 1 tablet by mouth in the morning sertraline (Zoloft) 100 MG tablet Indications: Generalized Anxiety Disorder Take 1 tablet (100 mg) by mouth in the morning and 1 tablet (100 mg) before bedtime. 180 tablet 04/29/2024 07/28/2024 Active Start: 06-12-2023 End: 09-10-2023 take 100 mg by mouth twice daily 100 mg, oral, 2 times daily, First dose on Mon06/14/23 at 1345, Phase II/On Unit Start: 02-16-2022 sertraline (ZO LOFT) 100 MG tablet Comment on above: Take 100 mg by mouth once daily. Spacer/Aero-Holding Chambers (BreatheRite Sofia Spacer Adult) misc (10 sources) Start: 02-26-20 Spacer/Aero-Holding Chambers (BreatheRite Sofia Spacer Adult) misc Indications: Pneumonia of right lower lobe due to infectious organism 2 puffs 4 (four) times a day as needed (sob and cough) 1 each 02/26/2024 Active spironolactone 25 mg oral tablet (20 sources) Aldosterone Antagonist Start: 01-11-20 take 1 tablet by mouth every twenty-four hours as needed spironolactone (Aldactone) 25 MG tablet Take 25 mg by mouth Daily as needed 01/10/2022 Active Comment on above: Take 25 mg by mouth once daily. therapeutic multivitamin-minerals (Theragran-M) tablet (20 sources) take 1 tablet by mouth in the morning therapeutic multivitamin-minerals (Theragran-M) tablet Take 1 tablet by mouth in the morning. Active take 1 tablet by maureen th in the morning therapeutic multivitamin-minerals (Thera gran-M) tablet Take 1 tablet by mouth in the morning. 0 Active thyroid (mcc) 180 mg oral tablet (20 sources) Start: 05-06-2024 End: 08-04-2024 take 1 tablet by mouth in the morning thyroid ([place]) 180 MG tablet Indications: Central hypothyroidism (CMS/HCC) , ESS (euthyroid sick syndrome) Take 1 tablet (180 mg) by mouth in the morning and 1 tablet (180 mg) in the evening. Take before meals. 180 tablet 05/06/2024 08/04/2024 Active Start: 12-12-2023 End: 05-29-2024 take 1 tablet by mouth in the morning thyroid ([place]) 120 MG tablet Indications: Central hypothyroidism (CMS/HCC) Take 1 tablet (120 mg) by mouth in the morning and 1 tablet (120 mg) in the evening. Take before meals. 60 tablet 04/29/2024 05/06/2024 Discontinued (Reorder) Start: 06-14-2023 take 60 mg by mouth twice daily 60 mg, oral, 2 times daily, First dose on Mon06/14/23 at 1345, Phase II/On Unit Start: 03-02-2023 End: 08-29-2023 take 1 tablet by mouth in the morning thyroid (BREAKER TENDER Thyroid) 60 MG tablet Indications: Central hypothyroidism (CMS/HCC) , Sick-euthyroid syndrome Take 1 tablet (60 mg) by mouth in the morning and 1 tablet (60 mg) in the evening. Take before meals. 180 tablet 1 03/02/2023 08/29/2023 Active zaleplon 10 mg oral capsule (20 sources) gamma-Aminobutyric Acid A Receptor Agonist Start: 04-11-2024 End: 05-29-2024 take 1 capsule by mouth at bedtime zaleplon (Sonata) 10 MG capsule Indications: Other insomnia Take 1 capsule (10 mg) by mouth at bedtime 30 capsule 1 04/29/2024 05/29/2024 Active Start: 01-16-2024 End: 03-29-2024 take 1 capsule by mouth at bedtime zaleplon (Sonata) 10 MG capsule Indications: Other insomnia Take 1 capsule (10 mg) by mouth at bedtime 30 capsule 1 01/29/2024 03/29/2024 Active Start: 11-15-2023 End: 01-14-2024 take 1 capsule by mouth at bedtime zaleplon (Sonata) 10 MG capsule Indications: Other insomnia Take 1 capsule (10 mg) by mouth at bedtime 30 capsule 1 11/15/2023 01/14/2024 Active Start: 08-26-2021 End: 07-15-2023 take 1 [...] iopamidol (ISOVUE-370) 76 % injection 120 mL levothyroxine sodium 0.05 mg oral tablet (20 sources) l-Thyroxine Start: 12-12-2023 End: 05-29-2024 take 1 tablet by mouth before mealtime levothyroxine (Synthroid) 50 MCG tablet Indications: Central hypothyroidism (CMS/HCC) Take 1 tablet (50 mcg) by mouth in the morning. Take before meals. 30 tablet 04/29/2024 05/06/2024 Discontinued (Dose adjustment) Start: 07-12-2021 take 0.5 tablet by m [...] mcg by mout h daily before breakfast. multivitamin tablet (3 sources) take 1 tablet [...] Date Documented Da te Episodic/Chronic Anxiety disorders (20 sources) Generalized anxiety disorder; Translations: [Generalized anxiety disorder] Onset: 6 Resolved: 3 09-06-2022 Chronic Deficiency and other anemia (2 sources) Anemia of chronic disease; Translations: [Anemia in other chronic diseases classified elsewhere] 05-06-2024 Chronic Disorders of lipid metabolism (20 sources) Secondary hypertriglyceridemia; Translations: [Pure hyperglyceridemia] Onset: 9 10-24-2022 Chronic Esophageal disorders (20 sources) Gastroesophageal reflux disease without esophagitis; Translations: [Gastro-esophageal reflux disease without esophagitis] Onset: 7 10-24-2022 Chronic Essential hypertension (20 sources) Benign essential hypertension; Translations: [Essential (primary) hypertension] Onset: 5 10-24-2022 Chronic Genitourinary symptoms and ill-defined conditions (20 sources) Stress incontinence (female) (male); Translations: [Genuine stress incontinence] Onset: 2 11-15-2022 Chronic Hypertension with complications and secondary hypertension (20 sources) Hypertensive renal disease; Translations: [Hypertensive chronic kidney disease with stage 1 through stage 4 chronic kidney disease, or unspecified chronic kidney disease] Onset: 1 10-24-2022 Chronic Malaise and fatigue (20 sources) Chronic fatigue syndrome; Translations: [Chronic fatigue syndrome] Onset: 5 10-24-2022 Chronic Menopausal disorders (20 sources) Primary ovarian failure; Translations: [Other primary ovarian failure] Onset: 5 10-24-2022 Chronic Mood disorders (20 sources) Bipolar affective disorder, currently depressed, moderate; Translations: [Bipolar disorder, current episode depressed, moderate] Onset: 5 Resolved: 3 10-24-2022 Chronic Nutritional deficiencies (2 sources) Iron deficiency; Translations: [Iron deficiency] 05-06-2024 Episodic Osteoarthritis (20 sources) Osteoarthritis of right hip joint; Translations: [Unilateral primary osteoarthritis, right hip] Onset: 3 Resolved: 3 Chronic Other connective tissue disease (3 sources) History of total hip arthroplasty; Translations: [Presence of right artificial hip joint] Onset: 4 06-13-2023 Chronic Other connective tissue disease (20 sources) History of total replacement of right hip joint; Translations: [Presence of right artificial hip joint] Onset: 4 06-15-2023 Chronic Other connective tissue disease (2 sources) Presence of right artificial hip joint; Translations: [Presence of right artificial hip joint] Onset: 4 Chronic Other gastrointestinal disorders (20 sources) Irritable bowel syndrome with diarrhea; Translations: [Irritable bowel syndrome with diarrhea] Onset: 5 10-24-2022 Chronic Other gastrointestinal disorders (2 sources) Malabsorption syndrome; Translations: [Intestinal malabsorption, unspecified] 05-06-2024 Chronic Other lower respiratory disease (2 sources) Wheezing; Translations: [Wheezing] 02-26-2024 Episodic Other nervous system disorders (20 sources) Chronic pain syndrome; Translations: [Chronic pain syndrome] Onset: 6 10-24-2022 Chronic Other nervous system disorders (20 sources) Inattention; Translations: [Attention and concentration deficit] Onset: 5 10-24-2022 Chronic Other non-traumatic joint disorders (1 source) Pain in right hip; Translations: [Pain in right hip] Onset: 4 Episodic Other nutritional; endocrine; and metabolic disorders (1 source) Severe obesity; Translations: [Morbid (severe) obesity due to excess calories] Chronic Other nutritional; endocrine; and metabolic disorders (20 sources) Insulin resistance; Translations: [Insulin resistance] Onset: 6 10-24-2022 Chronic Other nutritional; endocrine; and metabolic disorders (20 sources) Morbid obesity; Translations: [Morbid (severe) obesity due to excess calories] Onset: 9 10-24-2022 Chronic Other nutritional; endocrine; and metabolic disorders (20 sources) Body mass index 40+ - severely obese; Translations: [Body mass index (BMI) 45.0-49.9, adult] Onset: 3 Resolved: 3 02-28-2023 Chronic Other upper respiratory disease (20 sources) Allergic rhinitis; Translations: [Allergic rhinitis, unspecified] Onset: 5 10-24-2022 Chronic Pneumonia (except that caused by tuberculosis or sexually transmitted disease) (2 sources) Right lower zone pneumonia; Translations: [Pneumonia, unspecified organism] 02-26-2024 Episodic Residual codes; unclassified (20 sources) Insomnia; Translations: [Other insomnia] Onset: 3 10-06-2022 Chronic Residual codes; unclassified (20 sources) Obstructive sleep apnea syndrome; Translations: [Obstructive sleep apnea (adult) (pediatric)] Onset: 5 10-24-2022 Chronic Residual codes; unclassified (2 sources) Pain, unspecified; Translations: [PAIN UNSPECIFIED] Onset: 2 Episodic Spondylosis; intervertebral disc disorders; other back problems (20 sources) Lumbosacral spondylosis without myelopathy; Translations: [Spondylosis without myelopathy or radiculopathy, lumbosacral region] Onset: 8 Resolved: 3 10-24-2022 Chronic Thyroid disorders (20 sources) Central hypothyroidism; Translations: [Other specified hypothyroidism] Onset: 5 06-19-2023 Chronic Thyroid disorders (20 sources) Sick-euthyroid syndrome; Translations: [Sick-euthyroid syndrome] Onset: 1 03-02-2023 Episodic Unclassified (2 sources) CONTACT W/AND (SUSP) EXPOS COVID-19; Translations: [CONTACT W/AND (SUSP) EXPOS COVID-19] Onset: 2 Unclassified (1 source) COUGH, UNSPECIFIED; Translations: [COUGH, UNSPECIFIED] Onset: 2 Viral infection (1 source) COVID-19; Translations: [COVID-19] Onset: 2 Past or Other Problems Problem Classification Problem Date Documented Da te Episodic/Chronic Abdominal hernia (20 sources) Hiatal hernia; Translations: [Diaphragmatic hernia without obstruction or gangrene] Onset: 01-02-2017 10-24-2022 Episodic Bacterial infection; unspecified site (20 sources) Bartonellosis; Translations: [Bartonellosis, unspecified] Onset: 03-19-2015 10-24-2022 Episodic Conditions associated with dizziness or vertigo (20 sources) Benign paroxysmal positional vertigo; Translations: [Benign paroxysmal vertigo, unspecified ear] Onset: 07-04-2016 Resolved: 02-28-2023 10-24-2022 Episodic Genitourinary symptoms and ill-defined conditions (20 sources) Microscopic hematuria; Translations: [Other microscopic hematuria] Onset: 04-19-2018 Episodic Headache; including migraine (20 sources) Headache disorder; Translations: [Headache disorder] Onset: 04-17-2020 10-24-2022 Episodic Heart valve disorders (20 sources) Heart murmur; Translations: [Cardiac murmur, unspecified] Onset: 08-23-2017 10-24-2022 Episodic Immunizations and screening for infectious disease (1 source) Encounter for screening for human papillomavirus (HPV); Translations: [ENC SCREENING HUMAN PAPILLOMAVIRUS] Onset: 10-18-2021 Episodic Mood disorders (18 sources) Mood disorders Onset: 11-15-2023 Resolved: 01-29-2024 01-29-2024 Other aftercare (20 sources) Drug therapy finding; Translations: [Other fci (current) drug therapy] Onset: 07-06-2020 05-11-2023 Episodic Other aftercare (20 sources) Taking high risk medication; Translations: [Other manager long term care (current) drug therapy] Onset: 07-06-2020 Resolved: 11-15-2022 11-15-2022 Episodic Other connective tissue disease (20 sources) Myofascial pain syndrome of neck; Translations: [Myalgia, other site] Onset: 09-13-2018 10-24-2022 Episodic Other connective tissue disease (20 sources) Nocturnal muscle cramp; Translations: [Cramp and spasm] Onset: 11-15-2022 11-15-2022 Episodic Other diseases of veins and lymphatics (20 sources) Peripheral venous insufficiency; Translations: [Venous insufficiency (chronic) (peripheral)] Onset: 06-16-2017 10-24-2022 Episodic Other disorders of stomach and duodenum (20 sources) Cyclical vomiting syndrome; Translations: [Cyclical vomiting syndrome unrelated to migraine] Onset: 03-02-2017 Resolved: 08-04-2023 10-24-2022 Episodic Other female genital disorders (20 sources) History of vaginal intraepithelial neoplasia; Translations: [Personal history of vaginal dysplasia] Onset: 11-15-2022 11-15-2022 Episodic Other gastrointestinal disorders (20 sources) Disorder of intestine; Translations: [Other specified diseases of intestine] Onset: 03-28-2016 Resolved: 02-28-2023 02-28-2023 Episodic Other infections; including parasitic (20 sources) Lyme disease; Translations: [Lyme disease, unspecified] Onset: 11-15-2022 11-15-2022 Episodic Other lower respiratory disease (1 source) Respiratory disorder, unspecified; Translations: [RESPIRATORY DISORDER UNSPECIFIED] Onset: 04-16-2022 Episodic Other lower respiratory disease (20 sources) Chronic lung disease; Translations: [Other disorders of lung] Onset: 11-15-2022 11-15-2022 Episodic Other nervous system disorders (20 sources) Paresthesia; Translations: [Paresthesia of skin] Onset: 11-15-2022 11-15-2022 Episodic Other nervous system disorders (20 sources) Skin sensation disturbance; Translations: [Unspecified disturbances of skin sensation] Onset: 09-18-2018 Resolved: 02-28-2023 02-28-2023 Episodic Other non-traumatic joint disorders (20 sources) Multiple joint pain; Translations: [Pain in unspecified joint] Onset: 02-06-2015 10-24-2022 Episodic Other nutritional; endocrine; and metabolic disorders (3 sources) Obese abdomen; Translations: [Abdominal obesity and metabolic syndrome] Onset: 09-28-2018 Resolved: 11-15-2022 11-15-2022 Chronic Other nutritional; endocrine; and metabolic disorders (17 sources) Metabolic disease; Translations: [Abdominal obesity and [...] 02-17-2021 Resolved: 02-17-2021 Episodic Residual codes; unclassified (20 sources) History of hysterectomy for benign disease; Translations: [Acquired absence of both cervix and uterus] Onset: 10-26-2022 10-26-2022 Episodic Screening and history of mental health and substance abuse codes (20 sources) Ex-cigarette smoker; Translations: [Personal history of nicotine dependence] Onset: 11-15-2022 11-15-2022 Episodic Skin and subcutaneous tissue infections (1 source) Cellulitis of left upper limb; Translations: [Cellulitis of forearm, left L03.114] Onset: 02-17-2021 Resolved: 02-17-2021 Episodic Spondylosis; intervertebral disc disorders; other back problems (20 sources) Lumbar radiculopathy; Translations: [Radiculopathy, lumbar region] Onset: 03-06-2019 10-24-2022 Episodic Unclassified (1 source) CONTACT W/AND (SUSP) EXPOS COVID-19; Translations: [CONTACT W/AND (SUSP) EXPOS COVID-19] Onset: 04-11-2022 Varicose veins of lower extremity (20 sources) Varicose veins of lower extremity; Translations: [Varicose veins of bilateral lower extremities with pain] Onset: 11-15-2022 11-15-2022 Episodic Results Test Name Value Interpretation Reference Range Facility [facility] 2023 Interpretation and review of laboratory results Abnormal [facility] IRON 21 ug/dL Low 50.0 - 170.0 ug/dL [facility] PERCENT IRON SATURATION 5.8 % [facility] TB TOTAL IRON BINDING CAPACITY 364 ug/dL 250.0 - 450.0 ug/dL [facility] XR HIP RT 2-3 VIEWS W OR [...] Lott MD on 09/15/2023 9:23 AM Normal [facility] XR SPINE LUMBAR 2 OR 3 VWSon [...] James Mercedes MD on 09/11/2023 12:18 PM [facility] ALL CBC WITH AUTO DIFFon Erythrocyte distribution width (RBC) [Ratio] 13.6 % 11.5 - 14.5 % [facility] Hematocrit (Bld) [Volume fraction] 29.8 % Low 36.0 - 46.0 % [facility] Hemoglobin (Bld) [Mass/Vol] 9.1 g/dL Low 12.0 - 16.0 g/dL [facility] Interpretation and review of laboratory results Abnormal [facility] MCH (RBC) [Entitic mass] 28.1 pg 26.0 - 34.0 pg [facility] MCHC (RBC) [Mass/Vol] 30.5 g/dL Low 32.0 - 36.0 g/dL [facility] MCV (RBC) [Entitic vol] 92 fL 80 - 100 fL [facility] NUCLEATED RBC 0.0 [facility] UH PLT 311 [facility] RBC 3.24 Low [facility] WBC 8.9 [facility] Original Ordering Provider: JENIFER TORREZ [facility] Basic metabolic 2000 panelon 06-15-2023 Anion gap [Moles/Vol] 12 mmol/L 10 - 20 mmol/L [facility] Calcium [Mass/Vol] 8.9 mg/dL 8.6 - 10. 3 mg/dL [facility] Chloride [Moles/Vol] 102 mmol/L 98 - 107 mmol/L [facility] CO2 [Moles/Vol] 25 mmol/L 21 - 32 mmol/L [facility] Creatinine [Mass/Vol] 0.96 mg/dL 0.50 - 1.05 mg/dL [facility] GFR/1.73 sq M.predicted among non-blacks MDRD (S/P/Bld) [Vol rate/Area] 68 mL/min/{1.73_m2} - PINF [facility] Comment on above: Calculations of kristen mated GFR are performed using the 2020 CKD-EPI Study Refit equation without the race variable for the IDMS-Traceable creatinine methods. https://jasn.asnjournals.org/content//ASN.01626492 88 Glucose [Mass/Vol] 118 mg/dL High 74 - 99 mg/dL [facility] Interpretation and review of laboratory results Abnormal [facility] Potassium [Moles/Vol] 4.7 mmol/L 3.5 - 5.3 mmol/L [facility] Sodium [Moles/Vol] 134 mmol/L Low 136 - 145 mmol/L [facility] Urea nitrogen [Mass/Vol] 21 mg/dL 6 - 23 mg/dL [facility] Anion gap [Moles/Vol] 12 mmol/L Normal 10-20 [facility] Comment on above: Performed By: #### 2 4321-2 #### [employer] ([id number]) [facility] ([facility]) [address] [place] [address] Calcium [Mass/Vol] 8.9 mg/dL Normal 8.6-10.3 [facility] Comment on above: Performed By: #### 2 4321-2 #### [employer] ([id number]) [facility] ([facility]) [address] [place] [address] Chloride [Moles/Vol] 102 mmol/L Normal 98-107 [facility] Comment on above: Performed By: #### 2 4321-2 #### [employer] ([id number]) [facility] ([facility]) [address] [place] [address] CO2 [Moles/Vol] 25 mmol/L Normal 21-32 [facility] Comment on above: Performed By: #### 2 4321-2 #### [employer] ([id number]) [facility] ([facility]) [address] [place] [address] Creatinine [Mass/Vol] 0.96 mg/dL Normal 0.50-1.05 [facility] Comment on above: Performed By: #### 2 4321-2 #### [employer] ([id number]) [facility] ([facility]) [address] [place] [address] Glomerular filtration rate/1.73 sq M.predicted 68 mL/min/1.73m*2 Normal >60 [facility] Comment on above: Result Comment: Calc ulations of estimated GFR are performed using the 2020 CKD-EPI Study Refit equation without the race variable for the IDMS-Traceable creatinine methods. https://jasn.asnjournals.org/content/early//ASN.29846709 88 Performed By: #### 2 4321-2 #### [employer] ([id number]) [facility] ([facility]) [address] [place] [address] Glucose [Mass/Vol] 118 mg/dL High 74-99 [facility] Comment on above: Performed By: #### 2 4321-2 #### [employer] ([id number]) [facility] ([facility]) [address] [place] [address] Potassium [Moles/Vol] 4.7 mmol/L Normal 3.5-5.3 [facility] Comment on above: Performed By: #### 2 4321-2 #### [employer] ([id number]) [facility] ([facility]) [address] [place] [address] Sodium [Moles/Vol] 134 mmol/L Low 136-145 [facility] Comment on above: Performed By: #### 2 4321-2 #### [employer] ([id number]) [facility] ([facility]) [address] [place] [address] Urea nitrogen [Mass/Vol] 21 mg/dL Normal 6-23 [facility] Comment on above: Performed By: #### 2 4321-2 #### [employer] ([id number]) [facility] ([facility]) [address] [place] [address] CBC panel Auto (Bld)on 06-15 Erythrocyte distribution width (RBC) [Ratio] 13.6 % 11.5 - 14.5 % [facility] Hematocrit (Bld) [Volume fraction] 29.8 % Low 36.0 - 46.0 % [facility] Hemoglobin (Bld) [Mass/Vol] 9.1 g/dL Low 12.0 - 16.0 g/dL [facility] Interpretation and review of laboratory results Abnormal [facility] MCH (RBC) [Entitic mass] 28.1 pg 26.0 - 34.0 pg [facility] MCHC (RBC) [Mass/Vol] 30.5 g/dL Low 32.0 - 36.0 g/dL [facility] MCV (RBC) [Entitic vol] 92 fL 80 - 100 fL [facility] Nucleated RBC/100 WBC (Bld) [Ratio] 0.0 % [facility] Platelets (Bld) [#/Vol] 311 10*3/uL [facility] RBC (Bld) [#/Vol] 3.24 10*6/uL Low [facility] WBC (Bld) [#/Vol] 8.9 10*3/uL [facility] Erythrocyte distribution width (RBC) [Ratio] 13.6 % Normal 11.5-14.5 [facility] Comment on above: Performed By: #### 5 8410-2 #### [employer] ([id number]) [facility] ([facility]) [address] [place] [address] Hematocrit (Bld) [Volume fraction] 29.8 % Low 36.0-46.0 [facility] Comment on above: Performed By: #### 5 8410-2 #### [employer] ([id number]) [facility] ([facility]) [address] [place] [address] Hemoglobin (Bld) [Mass/Vol] 9.1 g/dL Low 12.0-16.0 [facility] Comment on above: Performed By: #### 5 8410-2 #### [employer] ([id number]) [facility] ([facility]) [address] [place] [address] MCH (RBC) [Entitic mass] 28.1 pg Normal 26.0-34.0 [facility] Comment on above: Performed By: #### 5 8410-2 #### [employer] ([id number]) [facility] ([facility]) [address] [place] [address] MCHC (RBC) [Mass/Vol] 30.5 g/dL Low 32.0-36.0 [facility] Comment on above: Performed By: #### 5 8410-2 #### [employer] ([id number]) [facility] ([facility]) [address] [place] [address] MCV (RBC) [Entitic vol] 92 fL Normal 80-100 [facility] Comment on above: Performed By: #### 5 8410-2 #### [employer] ([id number]) [facility] ([facility]) [address] [place] [address] Nucleated RBC/100 WBC (Bld) [Ratio] 0.0 /100 WBCs Normal 0.0-0.0 [facility] Comment on above: Performed By: #### 5 8410-2 #### [employer] ([id number]) [facility] ([facility]) [address] [place] [address] Platelets (Bld) [#/Vol] 311 x10*3/uL Normal 150-450 [facility] Comment on above: Performed By: #### 5 8410-2 #### [employer] ([id number]) [facility] ([facility]) [address] [place] [address] RBC (Bld) [#/Vol] 3.24 x10*6/uL Low 4.00-5.20 [facility] Comment on above: Performed By: #### 5 8410-2 #### [employer] ([id number]) [facility] ([facility]) [address] [place] [address] WBC (Bld) [#/Vol] 8.9 x10*3/uL Normal 4.4-11.3 [facility] Comment on above: Performed By: #### 5 8410-2 #### [employer] ([id number]) [facility] ([facility]) [address] [place] [address] ECG 12-LEADon 02-07-2024 ECG 12-LEAD Ventricular Rate 65 Atrial Rate 65 P-R Interval 188 QRS Duration 90 Q-T Interval 422 QTC Calculation(Bazett) 438 P Cobb 47 R Cobb 10 T Cobb 38 QRS Count 11 Q Onset 218 P Onset 124 P Offset 184 T Offset 429 QTC Fredericia 433 Diagnosis Normal sinus rhythm Low voltage QRS in frontal leads Late transition Borderline ECG When compared with ECG of 22-MAY-2023 09:08, No significant change was found Confirmed by Agustin Nair ([id number]) on 06/18/2023 5:34:04 PM Normal [facility] XR HIP RIGHT WITH PELVIS WHE N PERFORMED 2 OR 3 VIEWSon 06-14-2023 XR HIP RIGHT WITH PELVIS WHEN PERFORMED 2 OR 3 VIEWS Interpreted By: Lei Alves, STUDY: XR HIP RIGHT WITH PELVIS WHEN PERFORMED 2 OR 3 VIEWS INDICATION: Signs/Symptoms:ap and cross table lateral s/p hip replacement, xrays in pacu. COMPARISON: None ACCESSION NUMBER(S): [id number] ORDERING CLINICIAN: TOMASZ OTERO FINDINGS: Right total hip arthroplasty without fracture or dislocation. Alignment normal. IMPRESSION: Satisfactory appearance status post right total hip arthroplasty. Signed by: Lei Alves 06/14/2023 11:04 AM Dictation workstation: [id number] [facility] Comment on above: Order Comment: ap an d cross table lateral s/p hip replacement, xrays in pacu XR Hip Viewson 06-14-2023 Satisfactory appearance status post right total hip arthroplasty. Signed by: Lei Alves 06/14/2023 11:04 AM Dictation workstation: [id number] [facility] MMODAL Interpreted By: Lei Alves, STUDY: XR HIP RIGHT WITH PELVIS WHEN PERFORMED 2 OR 3 VIEWS INDICATION: Signs/Symptoms:ap and cross table lateral s/p hip replacement, xrays in pacu. COMPARISON: None ACCESSION NUMBER(S): [id number] ORDERING CLINICIAN: TOMASZ OTERO FINDINGS: Right total hip arthroplasty without fracture or dislocation. Alignment normal. [facility] MMODAL Lei Alves MD - 06/14/2023 Interpreted By: Lei Alves, STUDY: XR HIP RIGHT WITH PELVIS WHEN PERFORMED 2 OR 3 VIEWS INDICATION: Signs/Symptoms:ap and cross table lateral s/p hip replacement, xrays in pacu. COMPARISON: None ACCESSION NUMBER(S): [id number] ORDERING CLINICIAN: TOMASZ OTERO FINDINGS: Right total hip arthroplasty without fracture or dislocation. Alignment normal. IMPRESSION: Satisfactory appearance status post right total hip arthroplasty. Signed by: Lei Alves 06/14/2023 11:04 AM Dictation workstation: [id number] [facility] Work Phone: Radiology Study observation (narrative) [facility] Work Phone: XR Hip ViewsOrdered By: Tonny Alves on 06-14-2023 [facility] Work Phone: CT HIP RIGHT WO IV CONTRASTo n 06-02-2023 CT HIP RIGHT WO IV CONTRAST These images are not reportable by radiology and will not be interpreted by Radiologists. Normal [facility] Comment on above: Order Comment: Jamal protocol CT Hip - right WO contraston 06-02-2023 These images are not reportable by radiology and will not be interpreted by Radiologists. IMAGING ECG 12-LEADon 05-22-2023 ECG 12-LEAD Ventricular Rate 74 Atrial Rate 74 P-R Interval 174 QRS Duration 86 Q-T Interval 392 QTC Calculation(Bazett) 435 P Cobb 45 R Cobb 4 T Cobb 27 QRS Count 12 Q Onset 220 P Onset 133 P Offset 191 T Offset 416 QTC Fredericia 420 Diagnosis Normal sinus rhythm Normal ECG No previous ECGs available Confirmed by Ambrose Griffith ([id number]) on 05/23/2023 7:11:15 AM Normal [facility] Staphylococcus aureus.methic illin resistant isolateon 05-22-2023 MRSA isol Org specific cx Ql (Nose) Test: Staphylococcus aureus/MRSA colonization, Culture Specimen Source: Nares/Axilla/Groin Specimen Type: Swab Specimen Date: 05/22/2023 9:40 AM Result Date: 05/24/2023 9:27 AM Result Status: Final result Abnormal: No Resulting Lab: [facility] [address] [place] [address] CULTURE No Staphylococcus aureus isolated [facility] Comment on above: Performed By: #### 5 2969-3 #### LEANDRA CHILD L ([id number]) [facility] ([facility]) [address] [place] [address] Lab Reportson 10-04-2022 Lab Reports [id number] .[id number]:127 Normal [facility] XR HIP RT INJon 08-29-2022 XR [...] by: ANALISA HUBBARD Date: 2022-08-29 14:16 Normal [facility] CNOVon 08-12-2022 OV Office Visit (ORTHMN ) KARINAITALIA ([id number]) 1965 F Date Time Provider Department 08/12/22 8:00 AM LEONORA CURIEL During your visit today, we recorded the following information about you: Weight Height 121.6 kg 1.6 m Leonora Curiel MD 08/12/2022 10:03 AM Signed Subjective: Italia Larry Karina is a 57 year old female. Patient was accompanied to the office by her . 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 She has been seen closer to home in [facility] and surgery was deferred secondary to her weight. She has had bariatric surgery in the past. Uses a rolling walker for ambulation. 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 Past Social History: Past Surgical History: No [...] Patient has history of stage III CKD. HALF BACKER: Negative for abnormal vaginal bleeding, abnormal vaginal [...] provided. MD NAI WuA Professor, Orthopaedic Surgery [employer] Referring Provider: JAKE MARKS JR [[id number]] Allergies As of Date: 08/12/2022 Noted Allergy Reaction MORPHINE 08/12/2022 8 - GI Upset Date Reviewed: 08/12/2022 Reviewed by: Leandra Sarah Ma - Fully Assessed Reason for Visit: Right Hip Pain [1554] Primary Visit Diagnosis:Class 2 severe obesity with serious comorbidity in adult, unspecified BMI, unspecified obesity type (HCC) [E66.01] Other Visit Diagnosis:Primary osteoarthritis of right hip [M16.11] Order(s):[facility]ULT [facility] [4657052] Order #: [id number]: 1 FUTURE P (more content not included)... Normal [facility] Covid-19 PCR (CVDTB)on SARS-CoV-2 (COVID-19) RNA VERNON+probe Ql (Unsp spec) Detected Critically abnormal NOT DETECTED [facility] Comment on above: Result Comment: This test is not yet approved or cleared by the [place] FDA. When there are no FDA-approved or cleared tests available, and other criteria are met, FDA can make tests available under an emergency access mechanism called an Emergency Use Authorization (EUA). The EUA for this test is supported by the Internal Controls Analyst of Health and Human Service's (HHS's) declaration [...] longer be used). Performed By: #### C [facility] #### [facility] [address] [place] [address] UROGRAMon 03-11-2022 CT [...] Reshma Rodriguez DO 03/11/22 Final result Normal [facility] BUN & Creatinineon 2 Creatinine [Mass/Vol] 0.94 mg/dL High 0.50 - 0.90 mg/dL [facility] GFR/1.73 sq M.predicted MDRD (S/P/Bld) [Vol rate/Area] - PINF [facility] Comment on above: Effective Feb 07, 2022 [...] Interpretation and review of laboratory results Abnormal [facility] Urea nitrogen (BldV) [Mass/Vol] 25 mg/dL High 6 - 20 mg/dL [facility] BUN + Creatinineon 2 Creatinine [Mass/Vol] 0.94 mg/dL High 0.50-0.90 [facility] Comment on above: Performed By: #### B UNCRT #### [facility] [address] [place] [address] Newspaper Inserter: Jamari Landry MD GFR/1.73 sq M.predicted among non-blacks MDRD (S/P/Bld) [Vol rate/Area] mL/min/{1.73_m2} Normal >60 [facility] Comment on above: Result Comment: [...] secretion. Performed By: #### B UNCRT #### [facility] [address] [place] [address] [place] [address] Newspaper Inserter: Jamari Landry MD Urea nitrogen [Mass/Vol] 25 mg/dL High 6-20 [facility] Comment on above: Performed By: #### B UNCRT #### [address] [place] [address] Newspaper Inserter: Jamari Landry MD Cult,Urineon 02-26-2022 Cult,Urine Specimen Description .CLEAN CATCH URINE Culture NO SIGNIFICANT GROWTH Report Status FINAL 02/26/2022 Normal [facility] Comment on above: Performed By: #### U #### [facility] [address] [place] [address] Newspaper Inserter: [place] MD [facility] [address] [place] [address] Newspaper Inserter: Jamari Landry MD Urinalysis w/ Microon 2021 Bacteria 2+ Abnormal NONE [facility] Comment on above: Performed By: #### U AMIC #### [facility] [address] [place] [address] Newspaper Inserter: Jamari Landry MD Epithelial cells LM Ql (Urine sed) 10 TO 20 Normal 0-25 [facility] Comment on above: Performed By: #### U AMIC #### [facility] [address] [place], [place] [address] Newspaper Inserter: Jamari Landry MD Urine RBC's 5 TO 10 Normal 0-2 [facility] Comment on above: Performed By: #### U AMIC #### [facility] [address] [place], [place] [address] Newspaper Inserter: Jamari Landry MD Urine WBC's GREATER THAN 100 Normal 0-5 [facility] Comment on above: Performed By: #### U AMIC #### [facility] [address] [place], [place] [address] Newspaper Inserter: Jamari Landry MD Bilirubin, SemiQt,Ur Negative Normal NEG [facility] Comment on above: Performed By: #### U AMIC #### [facility] [address] [place], [place] [address] Newspaper Inserter: Jamari Landry MD Blood, Urine 1+ Abnormal NEG [facility] Comment on above: Performed By: #### U AMIC #### [facility] [address] [place], [place] [address] Newspaper Inserter: Jamari Landry MD Clarity (U) Cloudy Abnormal CLEAR [facility] Comment on above: Performed By: #### U AMIC #### [facility] [address] [place], [place] [address] Newspaper Inserter: Jamari Landry MD Color (U) Yellow Normal YEL [facility] Comment on above: Performed By: #### U AMIC #### [facility] [address] [place], [place] [address] Newspaper Inserter: Jamari Landry MD Glucose Ql (U) Negative Normal NEG [facility] Comment on above: Performed By: #### U AMIC #### [facility] [address] [place] [address] [place] [address] Newspaper Inserter: Jamari Landry MD Ketones Ql (U) TRACE Abnormal NEG [facility] Comment on above: Performed By: #### U AMIC #### [facility] [address] [place] [address] Dr. [place], [facility] Newspaper Inserter: Jamari Landry MD Leukocyte esterase Test strip Ql (U) MODERATE Abnormal NEG [facility] Comment on above: Performed By: #### U AMIC #### [address] [place] [id number] Newspaper Inserter: Jamari Landry MD Nitrite,Ur Negative Normal NEG [facility] Comment on above: Performed By: #### U AMIC #### [facility] [address] [place] [address] Dr. [place], [facility] Newspaper Inserter: Jamari Landry MD PH,Ur 6.0 Normal 5.0-9.0 [facility] Comment on above: Performed By: #### U AMIC #### [facility] [address] [place] [address] Dr[address] [place] [id number] Newspaper Inserter: Jamari Landry MD Protein Ql (U) Negative Normal NEG [facility] Comment on above: Performed By: #### U AMIC #### [facility] [address] [place] [address] Dr. [place], [facility] Newspaper Inserter: Jamari Landry MD Spec. [place],Ur >1.030 High 1.010-1.020 [facility] Comment on above: Performed By: #### U AMIC #### [facility] [address] [place] [address] [address] [place], [place] [address] Newspaper Inserter: Jmaari Landry MD Urobilinogen,Ur Normal Normal NORM [facility] Comment on above: Performed By: #### U AMIC #### [facility] [address] [place] [address] Newspaper Inserter: Jamari Landry MD US Venous Reflux/Insuff, Esvin Loweron 11-23-2021 US Venous Reflux/Insuff, Esvin Lower RIGHT LEFT DIAMETER RELUX (msec) DIAMETER REFLUX 1.2 CFV1.5 1.1 SFV PROX.65 795 .61SFV MID.88 1522 .84SFV DIS1.09 0 .84SF JUNCTION.92 3064 .94POP1.11 0 .62 GSV PROX1.05 905 .46GSV MID.66 2395 .51GSV DIST.53 2576 .[id number] KNEE.47 1284 .36499KSX CALF.55 1479 .36GSV ANKLE .33 1292 .11SP [...] by John Yanes on 11/23/2021 1210 Normal [facility] [employer] Supervisor PAP ACOG PANEL 2: 30 to 65on 10-19-2021 . . Normal [facility] Comment on above: Result Comment: Perf ormed at: WB Performed By: #### 4 [id number] #### [facility] [address] [address] [address] Marquise Ha Age Gdln ACOG Testing 30-65 [facility] Comment on above: Performed By: #### 4 [id number] #### [facility] [address] [place], [place] [address] Dr. Marquise Ha DIAGNOSIS: Comment [facility] Comment on above: Result Comment: NEGA TIVE FOR INTRAEPITHELIAL LESION OR MALIGNANCY. Performed at: WB Performed By: #### 4 [id number] #### [facility] [address] [place] [address] Dr. Marquise Ha HPV Aptima Negative Normal Negative [facility] Comment on above: Result Comment: This nucleic acid amplification test detects fourteen high-risk HPV types (16,18,31,33,35,39,45,51,52,56,58,59,66,68) without differentiation. Performed at: =G Performed By: #### 4 [id number] #### [facility] [address] [place] [address] Dr. Marquise Ha Methodology: Comment Normal [facility] Comment on above: Result Comment: This liquid based ThinPrep(R) pap test was screened with the use of an image guided system. Performed at: WB Performed By: #### 4 [id number] #### [facility] [address] [place] [address] Dr. Marquise Ha Note: Comment Normal [facility] Comment on above: Result Comment: The Pap smear is a screening test designed to aid in the detection of premalignant and malignant conditions of the uterine cervix. It is not a diagnostic procedure and should not be used as the sole means of detecting cervical cancer. Both false-positive and false-negative reports do occur. . Performed at: WB Performed By: #### 4 [id number] #### [facility] [address] [place] [address] Dr. Marquise Ha Performed by: Comment Normal [facility] Comment on above: Result Comment: Lisandra De Los Santos Investment Banking Analyst (ASCP) Performed at: WB Performed By: #### 4 [id number] #### [facility] [address] [place] [address] Dr. Marquise Ha Specimen adequacy: Comment Normal [facility] Comment on above: Result Comment: Sati sfactory for evaluation. No endocervical cells are present. This is consistent with a history of hysterectomy. Performed at: WB Performed By: #### [id number] #### [facility] [address] [place] [address] Dr. Marquise Ha Duplex Scan of Illiac Vessel s, Completeon 02-21-2022 Duplex Scan of Illiac Vessels, Complete HISTORY: [...] by John Yanes on 06/29/2021 1215 Normal [facility] Free T3on 06-14-2021 FT3 3.29 pg/mL Normal 2.00-4.40 [facility] Specialist Comment on above: Performed By: #### F T3, FT4 #### [facility] [address] [place], [place] [id number] Free T4on 06-14-2021 Free T4 [Mass/Vol] 1.22 ng/dL Normal 0.80-1.80 [facility] Comment on above: Performed By: #### F T3, FT4 #### [facility] [address] [place], [place] [id number] Q - T3 TOTALon 06-14-2021 T3, TOTAL 137 ng/dL Normal 76-181 [facility] Comment on above: Order Comment: [facility] Testing performed at: QPT, [facility], [address] [place] [address], [address] [place] [address], [place], [address], Agricultural Adviser: Spencer Aguero MD [facility] Collection Date/Time: [facility] Results Received Date/Time: [id number] [facility] Reported Date/Time: Performed By: #### 8 [id number], [id number] #### [facility] Default [address] [place] [address] Q - T3,REVERSE,LC/MS/MSon T3 REVERSE, LC/MS/MS 14 ng/dL Normal 8-25 [facility] [employer] Supervisor Comment on above: Order Comment: [facility] Testing performed at: [facility], [facility], [address], [place], [place], , Agricultural Adviser: Joao Langston M.D.,PhD [facility] Collection Date/Time: [id number] [facility] Results Received Date/Time: [id number] [facility] Reported Date/Time: Result Comment: This test was developed and its analytical performance characteristics have been determined by [employer] [place], [place]. It has not been cleared or approved by the U.S. Food and Drug Administration. This assay has been validated pursuant to the CLIA regulations and is used for clinical purposes. Performed By: #### 8 59X, [id number] #### [facility] Laboratory Default [address] [place] [address] US Venous, Bilateral, Lower [place]upp 05-06-2021 US Venous, Bilateral, Lower Ext ASK [...] by John Yanes on 05/10/2021 0852 Normal [facility] Specialist Vital Signs Date Time Vital Sign Value Performing Clinician Facility 04-29-2024 10:52-0500 Body mass index (BMI) [Ratio] 42.51 kg/m2 Shena Licona Heyday Work Phone: [facility] 04-29-2024 10:52-0500 Body weight 108.86 kg Shena Viviane [employer] Work Phone: [facility] 04-29-2024 10:52-0500 Diastolic blood pressure 88 mm[Hg] Shena Licona HOMEBIRTH 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 Work Phone: [facility] 04-29-2024 10:52-0500 Heart rate 78 /min Shena Licona HOMEBIRTH 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 Work Phone: [facility] 04-29-2024 10:52-0500 Systolic blood pressure 132 mm[Hg] Shena Licona HOMEBIRTH 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 Work Phone: [facility] 02-26-2024 11:46-0400 Body height 160 cm Prosper Zendejas MD Work Phone: [facility] 02-26-2024 11:46-0400 Body mass index (BMI) [Ratio] 42.16 kg/m2 Prosper Zendejas MD Work Phone: [facility] 02-26-2024 11:46-0400 Body weight 107.96 kg Prosper Zendejas MD Work Phone: [facility] 02-26-2024 11:46-0400 Heart rate 98 /min Prosper Zendejas MD Work Phone: [facility] 02-26-2024 11:46-0400 SaO2% (BldA) [Mass fraction] 98 % Prosper Zendejas MD Work Phone: [facility] 02-12-2024 09:52-0400 Body height 160 cm Prosper Zendejas MD Work Phone: [facility] 02-12-2024 09:52-0400 Body mass index (BMI) [Ratio] 42.16 kg/m2 Prosper Zendejas MD Work Phone: [facility] 02-12-2024 09:52-0400 Body weight 107.96 kg Prosper Zendejas MD Work Phone: [facility] 02-12-2024 09:52-0400 Heart rate 74 /min Prosper Zendejas MD Work Phone: [facility] 02-12-2024 09:52-0400 SaO2% (BldA) [Mass fraction] 99 % Prosper Zendejas MD Work Phone: [facility] 01-29-2024 10:51-0400 Body mass index (BMI) [Ratio] 42.16 kg/m2 Shena Beverly-Nossek HOMEBIRTH 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 Work Phone: [facility] 01-29-2024 10:51-0400 Body weight 107.96 kg Shena Beverly-Nossek HOMEBIRTH 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 Work Phone: [facility] 01-29-2024 10:51-0400 Diastolic blood pressure 64 mm[Hg] Shena Beverly-Nossek HOMEBIRTH 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 Work Phone: [facility] 01-29-2024 10:51-0400 Heart rate 81 /min Shena Beverly-Nossek HOMEBIRTH 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 Work Phone: [facility] 01-29-2024 10:51-0400 Systolic blood pressure 128 mm[Hg] Shena Beverly-Nossek HOMEBIRTH 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 Work Phone: [facility] 06-15-2023 16:00-0500 Body temperature 97.9 [degF] Tomasz Otero MD Work Phone: [facility] 06-15-2023 16:00-0500 Diastolic blood pressure 56 mm[Hg] Tomasz Otero MD Work Phone: [facility] 06-15-2023 16:00-0500 Heart rate 85 /min Tomasz Otero MD Work Phone: [facility] 06-15-2023 16:00-0500 Respiratory rate 15 /min Tomasz Otero MD Work Phone: [facility] 06-15-2023 16:00-0500 SaO2% (BldA) [Mass fraction] 97 % Tomasz Otero MD Work Phone: [facility] 06-15-2023 16:00-0500 Systolic blood pressure 118 mm[Hg] Tomasz tOero MD Work Phone: [facility] 06-14-2023 06:44-0500 Body height 160 cm Tomasz Otero MD Work Phone: [facility] 06-14-2023 06:44-0500 Body mass index (BMI) [Ratio] 39.68 kg/m2 Tomasz Otero MD Work Phone: [facility] 06-14-2023 06:44-0500 Body weight 101.61 kg Tomasz Otero MD Work Phone: [facility] 08-12-2022 08:31-0400 Body height 160 cm Leonora Curiel MD Work Phone: [facility] 08-12-2022 08:31-0400 Body weight 121.56 kg Leonora Curiel MD Work Phone: [facility] 02-17-2021 10:50-0400 Body height 160.02 cm Tete Carpentermond Other [employer] Other 02-17-2021 10:50-0400 Body mass index (BMI) [Ratio] 46.94 kg/m2 Tete Carpentermond Other [employer] Other 02-17-2021 10:50-0400 Body temperature 96.8 [degF] Tete Carpentermond Other [employer] Other 02-17-2021 10:50-0400 Body weight 120.2 kg Tete Heather Other [employer] Other 02-17-2021 10:50-0400 Diastolic blood pressure 61 mm[Hg] Tete Heather Other [employer] Other 02-17-2021 10:50-0400 Respiratory rate 18 /min Tete Heather Other [employer] Other 02-17-2021 10:50-0400 SaO2% (BldA) [Mass fraction] 99 % Tete Romero Other [employer] Other 02-17-2021 10:50-0400 Systolic blood pressure 125 mm[Hg] Tete Romero Other [employer] Other Encounters Encounter Date Encounter Type Care Provider Facility Start: 05-07-2024 End: 05-07-2024 Telephone encounter Prosper Zendejas MD Work Phone: [facility] Start: 05-06-2024 End: 05-06-2024 Office outpatient visit 25 minutes Prosper Zendejas MD Work Phone: [facility] Comment on above: Central hypothyroidi sm (CMS/HCC) (Primary Dx); ESS (euthyroid sick syndrome); Morbid obesity (CMS/HCC); Chronic fatigue syndrome; Malabsorption syndrome (CMS/HCC); Anemia of chronic disease; History of Rosendo-en-Y gastric bypass; Iron deficiency Start: 05-06-2024 End: 05-06-2024 ambulatory PROSPER ZENDEJAS Not Available Start: 04-29-2024 End: 04-29-2024 Clinisync Result Encounter Prosper Zendejas MD Work Phone: [facility] Department Unsolicited Start: 04-29-2024 End: 04-29-2024 Clinisync Result Encounter Prosper Zendejas MD Work Phone: [facility] External Department Unsolicited Start: 04-29-2024 End: 04-29-2024 Telephone encounter August Sara KAHN [facility] Start: 04-29-2024 End: 04-29-2024 Office outpatient visit 25 minutes Shena Licona [employer]BIR[employer] 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 Work Phone: [facility] Comment on above: Bipolar affective di sorder, currently depressed, moderate (CMS/HCC); RON (generalized anxiety disorder) (CMS/HCC); Other insomnia; High risk medication use Start: 04-29-2024 End: 04-29-2024 ambulatory SHENA PAULJacquelineМАРИЯ Not Available Start: 03-04-2024 End: 03-04-2024 Orders Only Prosper [...] agreement signed; Former cigarette smoker; Morbid obesity (CMS/HCC); BMI 40.0-44.9, adult (CMS/HCC); Insulin resistance Start: 02-12-2024 End: 02-12-2024 ambulatory PROSPER ZENDEJAS Not Available Start: 01-29-2024 End: 01-29-2024 Bamboo flowsheet Shena Licona 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 Work Phone: [facility] Start: 01-29-2024 End: 01-29-2024 Bamboo flowsheet Shena MoreauNossek [employer] 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 Work Phone: [facility] Start: 01-29-2024 End: 01-29-2024 Office outpatient visit 25 minutes Shena Paul-Nossealok [employer] 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 Work Phone: [facility] Comment on above: RON (generalized anx iety disorder) (CMS/HCC); Bipolar 1 disorder, depressed, moderate (CMS/HCC); Bipolar affective disorder, currently depressed, moderate (CMS/HCC); Other insomnia Start: 01-29-2024 End: 01-29-2024 ambulatory SHENA LICONA Not Available Start: 12-28-2023 End: 12-28-2023 Telephone encounter August Sara KAHN [facility] Comment on above: Care Coordination Start: 11-15-2023 End: 11-15-2023 ambulatory SHENA LICONA Not Available Start: 11-06-2023 End: 11-06-2023 ambulatory PROSPER ZENDEJAS Not Available Start: 09-20-2023 End: 09-20-2023 ambulatory CLEO MARIE Not Available Start: 09-15-2023 End: 09-19-2023 ambulatory [facility] Start: 09-11-2023 End: 09-15-2023 ambulatory [facility] Start: 09-04-2023 End: 09-04-2023 ambulatory QUINCY [...] Unsolicited Start: 06-14-2023 End: 06-15-2023 ambulatory TOMASZ Brady [facility] Start: 06-14-2023 End: 06-15-2023 Subsequent hospital visit by physician Tomasz Otero MD Work Phone: [facility] 4 Observation Comment on above: S/P total right hip arthroplasty (Primary Dx); History of total hip replacement, right Start: 06-13-2023 Refill Prosper garcía MD Work Phone: [facility] Start: 06-12-2023 End: 06-12-2023 ambulatory SHENA LICONA Not Available Start: 06-06-2023 End: 06-06-2023 ambulatory PROSPER ZENDEJAS Not Available Start: 06-02-2023 End: 06-02-2023 ambulatory [facility] Start: 06-02-2023 End: 06-02-2023 Subsequent hospital visit by physician [address] [facility] Comment on above: Unilateral primary o steoarthritis, right hip Start: 05-22-2023 End: 05-22-[address] [facility] Start: 05-22-2023 End: 05-22-2023 Encounter for other preprocedural examination PROSPER ZENDEJAS [facility] Start: 05-11-2023 End: 05-11-2023 ambulatory PROSPER ZENDEJAS Not Available Start: 09-29-2022 ambulatory Facility:[facility] Hern[facility]dez Start: 08-29-2022 End: 08-29-[address] JAKE MARKS Facility: Start: 08-12-2022 End: 08-12-2022 ambulatory LEONORA CURIEL Facility:[facility] Start: 08-12-2022 End: 08-12-2022 Patient encounter procedure Leonora Curiel MD Work Phone: Orthopaedics Comment on above: Class 2 severe obesi ty with serious comorbidity in adult, unspecified BMI, unspecified obesity type (HCC) (Primary Dx); Primary osteoarthritis of right hip Start: 04-11-2022 End: 04-11-[address] PROSPER ZENDEJAS . Facility:[facility] Start: 03-08-2022 End: 03-11-2022 ambulatory [facility]L RODGERS [facility] Start: 03-08-2022 End: 03-10-2022 Subsequent hospital visit by physician [facility] Scan Room [facility] Laboratory Comment on above: Microscopic hematuri a Start: 02-25-2022 End: 02-26-2022 [facility] Start: 01-06-[address] PROSPER ZENDEJAS . Fac ility:[facility] Start: 10-15-2021 End: 10-15-[address] PROSPER ZENDEJAS . Facility:[facility] Start: 09-06-2021 End: 09-06-2021 Lab Drop off Aldo Holder [facility] Start: 06-24-2021 End: 10-13-2021 Recurring [facility] Start: 02-17-2021 Office outpatient ne w 20 minutes Tete Romero [facility] [place] Procedures Date Procedure Procedure Detail Performing Clinician Start: 04-29-2024 [employer] Prosper Zendejas MD Work Phone: Start: 10-03-2023 Mammography Sowmya Sara KAHN Start: 06-15-2023 DISCHARGE PATIENT TOMASZ OTERO Start: 06-15-2023 Basic metabolic 2000 panel - Serum or Plasma TOMASZ OTERO Start: 06-15-2023 CBC panel - Blood by Automated count TOMASZ OTERO Start: 06-15-2023 ALL CBC WITH AUTO DIFF Generic External Data Provider Start: 06-15-2023 Basic metabolic panel calcium total Jenifer Paulino PA-C Work Phone: Start: 06-14-2023 FOLLOW-UP EDUCATION ORDER TOMASZ OTERO Start: 06-14-2023 INITIATE EXTENDED RECOVERY TOMASZ OTERO Start: 06-14-2023 INITIATE OBSERVATION STATUS TOMASZ Gifford Start: 06-14-2023 ECG 12-LEAD TOMASZ OTERO Start: 06-14-2023 XR HIP RIGHT WITH PELVIS WHEN PERFORMED 2 OR 3 VIEWS TOMASZ ADALID Start: 06-14-2023 PULSE OXIMETRY, CONTINUOUS TOMASZ ADALID Start: 06-14-2023 Ecg routine ecg w/least 12 lds trcg only w/o i&r Jenifer Paulino PA-C Work Phone: Start: 06-14-2023 Radex hip unilateral with pelvis 2-3 views Tomasz Otero MD Work Phone: Start: 06-14-2023 PULSE OXIMETRY, CONTINUOUS Liv kraus MD Work Phone: Start: 06-14-2023 FULL CODE TOMASZ OTERO Start: 06-14-2023 PULSE OXIMETRY, SPOT TOMASZ OTERO Start: 06-14-2023 PLACE IN OUTPATIENT/HOSPITAL AMBULATORY SURGERY TOMASZ OTERO Start: 06-14-2023 End: 06-14-2023 Arthrp acetblr/prox fem prostc agrft/algrft Tomasz Otero MD Work Phone: Start: 06-14-2023 PULSE OXIMETRY, SPOT Tomasz Otero MD Work Phone: Start: 06-02-2023 CT HIP RIGHT WO IV CONTRAST TOMASZ [place]ifford Start: 06-02-2023 Ct lower extremity w/o contrast material Tomasz Otero MD Work Phone: Start: 05-22-2023 STAPHYLOCOCCUS AUREUS/MRSA COLONIZATION, CULTURE TOMASZ OTERO Start: 05-22-2023 ECG 12-LEAD TOMASZ OTERO Start: 03-08-2022 Assay of urea nitrogen quantitative Carl Rodgers [employer]IRTH MIDWIFE - STRESS TEST TECHNICIAN Work Phone: Start: 10-15-2021 Microscopic observation [Identifier] in Cervix by Cyto stain Prosper Zendejas MD Work Phone: Start: 10-10-2017 Mammography Prosper Zendejas MD Work Phone: Start: 09-16-2013 Colonoscopy Prosper Zendejas MD Work Phone: History of gastroint estinal tract bypass History of Rosendo-en-Y gastric bypass Prosper Zendejas MD Work Phone: Plan of Treatment Date Care Activity Detail Author Start: 10-15-2026 Screening for malign ant neoplasm of cervix [facility] Start: 10-15-2024 Screening for malign ant neoplasm of cervix Pap smear [facility] Start: 10-02-2024 Screening for malign ant neoplasm of breast Mammogram [facility] Start: 08-28-2024 End: 08-28-2024 Patient encounter procedure 08/28/2024 11:00 AM EDT Office Visit [facility] [address] [facility] [address] [place] [id number] Shena Licona, HOMEBIRTH MIDWIFE-[facility] [address] [facility] [address] [place] [address] [facility] Start: 06-06-2024 End: 05-06-2025 Thyroxine (T4) free [Mass/volume] in Serum or Plasma T4, free Lab Routine Central hypothyroidism (CMS/HCC) Chronic fatigue syndrome Expected: 06/06/2024, Expires: 05/06/2025 [facility] [email or web address] Work Phone: Comment on above: Expected: 06/06/2024 , Expires: 05/06/2025 Start: 06-06-2024 End: 05-06-2025 Triiodothyronine (T3) Free [Mass/volume] in Serum or Plasma T3, free Lab Routine ESS (euthyroid sick syndrome) Chronic fatigue syndrome Expected: 06/06/2024, Expires: 05/06/2025 [facility] Comment on above: Expected: 06/06/2024 , Expires: 05/06/2025 Start: 05-06-2024 End: 05-06-2024 Telemedicine consultation with patient [facility] Start: 04-29-2024 End: 04-29-2025 CBC W Auto Differential panel - Blood CBC and differential Lab Routine High risk medication use Expected: 04/29/2024 (Approximate), Expires: 04/29/2025 [facility] Work Phone: Comment on above: Expected: 04/29/2024 (Approximate), Expires: 04/29/2025 Start: 04-29-2024 End: 04-29-2025 Comprehensive metabolic 2000 panel - Serum or Plasma Comprehensive metabolic panel Lab Routine High risk medication use Expected: 04/29/2024 (Approximate), Expires: 04/29/2025 [facility] Comment on above: Expected: 04/29/2024 (Approximate), Expires: 04/29/2025 Start: 04-29-2024 End: 04-29-2025 Lipid 1996 panel - Serum or Plasma Lipid panel Lab Routine High risk medication use Expected: 04/29/2024 (Approximate), Expires: 04/29/2025 [facility] Comment on above: Expected: 04/29/2024 (Approximate), Expires: 04/29/2025 Start: 04-29-2024 End: 04-29-2024 Patient encounter procedure 04/29/2024 11:00 AM EST Office Visit [facility] [address] [facility] [address] [place] [address] Shena Licona, HOMEBIRTH 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 [address] [facility] [address] [place] [address] [facility] Start: 02-26-2024 End: 02-26-2024 Patient encounter procedure 02/26/2024 11:45 AM EDT Office Visit [facility] [address] [facility] [address] [place] [address] Prosper Zendejas MD [address] [place] [address] Arrived [facility] Comment on above: Arrived Start: 02-12-2024 End: 02-12-2024 Patient encounter procedure [facility] Comment on above: Chronic pain syndrom e; Lumbar radiculopathy; Arthralgia of multiple joints; Cervical myofascial pain syndrome; Primary osteoarthritis of right hip; Nocturnal muscle cramps; Controlled substance agreement signed; Former cigarette smoker; Morbid obesity ([facility]); BMI 40.0-44.9, adult ([facility]) Start: 01-29-2024 End: 01-29-2024 Patient encounter procedure 01/29/2024 11:00 AM EDT Office Visit [facility] [address] [facility] [address] [place] [address] Shena Licona, HOMEBIRTH 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 [address] [facility] [address] [place] [address] [facility] Comment on above: Arrived Start: 01-16-2024 End: 01-16-2024 Patient encounter procedure 01/16/2024 9:30 AM EDT Office Visit [facility] [address] [facility] [address] [place] [address] Shena Licona, HOMEBIRTH 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 [address] [facility] [address] [place] [address] [facility] Start: 01-07-2024 Influenza vaccination Influenza Vacc ine (#1) [facility] Start: 09-17-2023 Screening for malign ant neoplasm of colon [facility] Start: 09-11-2023 End: 09-11-2023 Patient encounter procedure 09/11/2023 1:00 PM EDT Office Visit [facility] [address] [facility] [address] [place] [address] Shena Licona, HOMEBIRTH 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 [address] [facility] [address] [place] [address] [facility] Start: 08-08-2023 End: 08-08-2023 Patient encounter procedure 08/08/2023 10:00 AM EDT Office Visit [facility] [address] [place] [address] Prosper Zendejas MD [address] [place] [address] [facility] Start: 06-14-2023 End: 06-14-2023 Admission to same day surgery center 06/14/2023 1:45 PM EST - 06/14/2023 5:00 PM EST Surgery [facility] [place] [id number] [place] [address] [place] [address] [place] [address] [place] [address] Right posterior total hip replacement with Jamal [41944 (CPT )] [facility] [place] Comment on above: Right posterior tota l hip replacement with Jamal [[id number] (CPT )] Start: 06-14-2023 End: 06-14-2023 Arthrp acetblr/prox fem prostc agrft/algrft Arthroplasty Total Hip Posterior Approach Unilateral primary osteoarthritis, right hip 06/14/2023 1:45 PM EST [facility] Start: 06-14-2023 Subsequent hospital visit by physician 06/14/2023 12:15 PM EST Hospital Encounter [facility] [place] [id number] [place] [id number] [place] [address] [place] [address] [facility] [place] Start: 01-06-2023 Influenza vaccination C [facility] Start: 05-08-2022 DEPRESSION ASSESSMENT DEPRESSION ASS [facility] Start: 03-10-2022 End: 03-10-2022 Patient encounter procedure 03/10/2022 Procedure visit [facility] Start: 12-06-2021 Influenza vaccination Flu vaccine (# 1) [facility] Start: 10-10-2018 Screening for malign ant neoplasm of breast Mammogram [facility] Start: 02-03-2014 Screening for malign ant neoplasm of breast Breast cancer screen [facility] Start: 02-03-2014 Shingles vaccine (1 of 2) Gibson gles vaccine (1 of 2) [facility] Start: 02-03-2014 SHINGRIX VACCINE (1 of 2) GIBSON GRIX VACCINE (1 of 2) [facility] Start: 02-03-2014 Zoster Vaccines (1 of 2) Zoste r Vaccines (1 of 2) [facility] Start: 07-24-2009 MMR Vaccines (1 of 1 - Standard series) MMR Vaccines (1 of 1 - Standard series) [facility] Start: 02-03-2009 COLOGUARD (FIT-DNA) COLOGUARD (FIT-D NA) [facility] Start: 02-03-2009 Colonoscopy COLONOSCOPY [facility] Start: 02-03-2009 COLORECTAL CANCER SCREENING COLORECTAL CANCER SCREENING [facility] Start: 02-03-[address] COLONOGRAPHY [facility] Start: 02-03-2009 DIABETES SCREEN DIABETES SCREEN [facility] Start: 02-03-2009 FECAL OCCULT BLOOD FECAL OCCULT BLOO D [facility] Start: 02-03-2009 LIPID SCREEN LIPID SCREEN [facility] Start: 02-03-2009 Screening for malign ant neoplasm of colon [facility] Start: 02-03-2009 SIGMOIDOSCOPY SIGMOIDOSCOPY [facility] Start: 2004 Lipid panel Lipids [facility] Start: 2004 Mammography MAMMOGRAM [facility] Start: 2004 Screening for malign ant neoplasm of breast Mammogram [facility] Start: 02-03-1999 Diabetes screen Diabetes screen [facility] Start: 02-03-1994 HPV TESTING HPV TESTING [facility] Start: 02-03-1986 DTaP/Tdap/Td Vaccine s (1 - Tdap) DTaP/Tdap/Td Vaccines (1 - Tdap) [facility] Start: 02-03-1985 PAP TESTING PAP TESTING [facility] Start: 02-03-1985 Screening for malign ant neoplasm of cervix [facility] Start: 02-03-1983 DTaP/Tdap/Td vaccine (1 - Tdap) DTaP/Tdap/Td vaccine (1 - Tdap) [facility] Start: 02-03-1983 Urine microalbumin profile DTAP,TDAP ,TD (1 - Tdap) [facility] Start: 02-03-1982 Diabetes mellitus screening Diabetes Screening [facility] Start: 02-03-1982 Hepatitis C screening B [facility] Start: 02-03-1982 HEPATITIS C SCREENING HEPATITIS C SC REEJASON [facility] Start: 02-03-1982 HIV SCREENING HIV SCREENING [facility] Start: 02-03-1979 HIV screening HIV screen [facility] Start: 1976 Depression Screen Depression Screen [facility] Start: 1964 COVID-19 Vaccine (#1) COVID-19 Vacci ne (#1) [facility] Start: 1964 HEPATITIS B (1 of 3 - 3-dose series) HEPATITIS B (1 of 3 - 3-dose series) [facility] Start: 1964 Hepatitis B Vaccines (1 of 3 - 3-dose series) Hepatitis B Vaccines (1 of 3 - 3-dose series) [facility] Start: 1964 HIV screening HIV Screening [facility] Start: 1964 Lipid panel Lipid Panel [facility] Start: 1964 Screening for malign ant neoplasm of colon [facility] [facility]: 1965 Thyroid stimulating hormone measurement TSH Level [facility] Start: 1965 Yearly Adult Physical Yearly Adult P hysical [facility] End: 03-08-2022 CT UROGRAM [facility] Work Phone: Comment on above: 1 Occurrences starti ng 03/08/2022 until 03/08/2022 ECG 12 Lead ECG 12 Lead ECG STAT 06/14/2023 11:55 AM EST [facility] Work Phone: Electrocardiogram, 1 2-lead PRN ACS symptoms Electrocardiogram, 12-lead PRN ACS symptoms ECG Routine As needed until discontinued starting 06/14/2023 [facility] Work Phone: Comment on above: As needed until disc ontinued starting 06/14/2023 End: 06-14-2023 Incentive spirometry Instruct Incentive spirometry Instruct Respiratory Care Routine Once for 1 Occurrences starting 06/14/2023 until 06/14/2023 [facility] Service Area Work Phone: Comment on above: Once for 1 Occurrenc es starting 06/14/2023 until 06/14/2023 [facility] Immunizations Immunization Date Immunization Notes Care Provider Fa rupesh 02-07-2020 influenza, high dose seasonal, preservative-free Prosper Zendejas MD Work Phone: [facility] 02-07-2020 influenza, injectabl e, quadrivalent, preservative free Prosper Zendejas MD Work Phone: [facility] 02-07-2020 influenza virus vaccine, unspecified formulation St 1 [facility] Work Phone: 01-29-2019 influenza, injectabl e, quadrivalent, preservative free Prosper Zendejas MD Work Phone: [facility] 12-29-2017 influenza, injectabl e, quadrivalent, preservative free Prosper Zendejas MD Work Phone: [facility] 12-29-2017 influenza, seasonal, injectable Prosper Zendejas MD Work Phone: [facility] 02-05-2016 influenza, seasonal, injectable, preservative free Prosper Zendejas MD Work Phone: [facility] 02-18-2015 influenza, seasonal, injectable Prosper Zendejas MD Work Phone: [facility] 02-18-2015 influenza, seasonal, injectable, preservative free Prosper Zendejas MD Work Phone: [facility] 01-12-2015 influenza, injectabl e, quadrivalent, preservative free Prosper Zendejas MD Work Phone: [facility] 10-13-2014 Toradol per 15 mg Tete Dym ond Other [employer] Other 06-26-2009 novel [id number], preservative-free, injectable Prosper Zendejas MD Work Phone: [facility] Payers Date Payer Category Payer Private Health Insurance [employer] [id number] 2022 Unknown [id number] 2021 Unknown [employer] R [employer] 2021-Present [phone] [address] [place] [address] [employer] [id number] 2021 Unknown BETTY SCHMID 2013 Unknown [id number] [id number]. [id number] 1964 Unknown [id number] 2.16840.1.957025.3.579.2. 173 1964 Unknown [id number] 2.840.1.864185.3.579.2. 173 1964 Unknown [id number] 2.840.1.025151.3.579.2. 173 1964 Unknown [id number] 2.16840.1.039020.3.579.2. 593 1964 Unknown [id number] 2.16840.1.548554.3.579.2. 593 1964 Unknown [id number] 2.16840.1.189769.3.579.2. 593 1964 Unknown [id number] 2.16840.1.536730.3.579.2. 593 1964 Unknown [id number] 2.16.840.1.265988.3.579.2. 727 1964 Unknown [id number] 2.16.840.1.776847.3.579.2. 1242 1964 Unknown [id number] 2.16.840.1.018524.3.579.2. 1243 1964 Unknown [id number] 2.16.840.1.673668.3.579.2. 124 1964 Unknown [id number] 2.16.840.1.534527.3.579.2. 1258 1964 Unknown [id number] 2.16840.1.048816.3.579.2. 1258 1964 Unknown [id number] 2.840.1.929013.3.579.2. 1258 1964 Unknown [id number] 2.840.1.993571.3.579.2. 1258 1964 Unknown [id number] 2.16.840.1.769151.3.579.2. 1258 1964 Unknown [id number] 2.16840.1.558992.3.579.2. 1258 1964 Unknown [id number] 2.16840.1.703721.3.579.2. 1258 1964 Unknown [id number] 2.16840.1.058001.3.579.2. 1258 1964 Unknown [id number] 2.16.840.1.265813.3.579.2. 1258 1964 Unknown [id number] 2.16.840.1.499860.3.579.2. 1258 1964 Unknown [id number] 2.16.840.1.467607.3.579.2. 1258 1964 Unknown [id number] 2.16.840.1.487921.3.579.2. 1258 1964 Unknown [id number] 2.16.840.1.577286.3.579.2. 9 1964 Unknown [id number] 2.16.840.1.913777.3.579.2. 9 1964 Unknown [id number] 2.16.840.1.950734.3.579.2. 9 1964 Unknown [id number] 2.16.840.1.680493.3.579.2. 1259 1959 Unknown [id number] 2.16.840.1.985668.19 1959 Unknown [id number] 2.16.840.1.827275.19 1959 Unknown [id number] Social History Date Type Detail Facility Tobacco smoking status [employer] Other Start: 05-22-2023 End: 05-05-2024 Sex Assigned At Female [employer] Other Start: 02-25-2022 End: 11-06-2023 Tobacco smoking status VTIS Ex-smoker [facility] Phone: End: 05-08-2002 History of tobacco use Current smoker [employer] Phone: End: 05-08-2002 History of tobacco use Cigarette Smoker [employer] Phone: Start: 02-25-2022 End: 11-06-2023 Tobacco use and exposure Smokeless tobacco non-user [facility] Phone: Start: 02-25-2022 End: 03-10-2022 Alcohol intake Current drinker of alcohol (finding) [facility] Phone: Start: 02-25-2022 Alcohol Comment rare [facility] [employer] Phone: Start: 1965 Sex Assigned At Not on file B [facility] Phone: Tobacco smoking stat [facility] Tobacco smoking consumption unknown [facility] Start: 1965 Sex Assigned At Female C [facility] History of tobacco use Passive smoker [facility] Work Phone: Start: 05-22-2023 End: 06-14-2023 Alcohol intake Lifetime non-drinker (finding) [facility] Work Phone: Start: 05-22-2023 End: 05-05-2024 History of Social function [facility] Start: 09-25-2022 Gender identity Identifies as female gender (finding) [facility] Work Phone: Start: 05-23-2023 End: 06-14-2023 Exposure to SARS-CoV-2 (event) Not sure [facility] Has the [employer], oil, or water company threatened to shut off services in your home in past 12Mo Patient declined [facility] How often to you hav e a drink containing alcohol? Never [facility] Start: 06-12-2023 End: 04-29-2024 Alcohol intake Ex-drinker (finding) [facility] Within [...] to any clubs or organizations such as alevism groups, unions, fraternal or athletic groups, or [...] cups daily [facility] NEGATED: Highlighted rowStart: NINF History of tobacco use Passive smoker [facility] Work Phone: Medical Equipment Procedure Code Equipment Code Equipment Origin al Text Equipment Identifier Dates Insignia Hip Mark Anthony m, High Offset. [id number] [id number] (21)N/A, [id number]_[facility] FDA Start: 06-14-2023 Shell, Trident I i, Tritanium, Clusterhole, 48d - Sn/A - [id number] [id number]()N/A, [id number] FDA Start: 06-14-2023 Liner, Cocr, Mdm , 38mm D - Sn/A - [id number] Start: 06-14-2023 Head, Femur V40 22.2/+1 Cocr Lfit - Sn/A - [id number] ()[id number] [id number] ()N/A, [id number]_[facility] FDA Start: 06-14-2023 Insert, Mdm X3 Congregation, 38od 22id X 7.7mm - Sn/A - [id number] [id number] ()N/A, [id number] FDA Start: 06-14-2023 Screw, Low Profi le Hex, 6.5 X 25 Mm - Sn/A - [id number] Start: 06-14-2023 4mm X 170mm Stry ker Pin Bone (Formerly Mfr'D By Jamal) [id number] Start: 06-14-2023 Clinical Notes 02-17-2021 to 05-07-2024 Telephone Encounter - Prosper Zendejas MD - 05/07/2024 10:18 AM ESTTelephone Encounter - Prosper Zendejas MD - 05/07/2024 10:18 AM ESTTelephone Encounter - Yolis Kovacs - 05/07/2024 9:25 AM EST Note Date & Type Note Facility 05-07-2024 Telephone encounter Note Prescription sent [facility] 05-07-2024 Miscellaneous Notes Prescription sent Italia called, [facility] [employer] and when they sat her up, she was hit with Vertigo and they had to lay her back down. She is not getting better and states she does not have any Meclazine left at home. She is asking if Dr. Zendejas could send in a prescription for her. 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 She is not getting better and states she does not have any Meclazine left at home. She is asking if Dr. Zendejas could send in a prescription for her. [facility] 05-06-2024 History of Presen t illness Narrative Images from the original note were not included. Patient ID: Italia Garcia is a 59 y.o. female who presents for: Thyroid: Pt here today to review his/hers thyroid labs and any medication changes needed. Fatigue: Present, Unchanged, But still somewhat overwhelming. Weight Gain: Absent Inability to lose weight: Present, Unchanged, but has been able to loose 4 lbs. Hair Changes: Present He/She is following the thyroid diet: fair He/She are taking medications as directed: Good He/She are exercising at least 3 days out of the week for 30 minutes or more: Fair Objective The patient is pleasant and in no acute distress The patient does not appear to have a gross neurologic deficit. The patient has good eye contact and clear speech Visit Vitals OB Status Hysterectomy Smoking Status Former Component Ref Range & Units 6 mo ago (11/10/23) 10 mo ago (06/15/23) [facility] WBC 4.0 - 11.0 10 3/uL 6.9 [facility] RBC 4.20 - 5.40 10 6/uL 4.27 [facility] HGB 12.0 - 16.0 g/dL 11.0 Low 9.1 Low [facility] RDW 11.0 - 15.0 % 17.0 Component Ref Range & Units 6 mo ago [facility] IRON 50.0 - 170.0 ug/dL 52.0 [facility] TOTAL IRON BINDING CAPACITY 250.0 - 450.0 ug/dL 375.0 [facility] PERCENT IRON SATURATION % 13.9 Allergies Allergen Reactions Gabapentin Swelling Morphine Sulfate [Morphine] Itching Onion Headache Wound Dressing Adhesive Rash Current Outpatient Medications on File Prior to Visit Medication Sig Dispense Refill albuterol HFA 90 mcg/act inhaler Inhale 2 puffs every 4 (four) hours if needed for wheezing or shortness of breath 18 g 0 ALPRAZolam (Xanax) 0.25 MG tablet Take 0.25 mg by mouth Daily as needed for anxiety CHELATED IRON PO Take by mouth cholecalciferol (Vitamin D-3) 1.25 MG (28148 UT) capsule Take 50,000 Units by mouth [...] (150 mg) before bedtime. 180 tablet 0 magnesium oxide (Mag-Ox) 400 MG [...] (100 mg) before bedtime. 180 tablet 0 Spacer/Aero-Holding Chambers (BreatheRite Sofia Spacer Adult) misc 2 puffs 4 (four) times a day as needed (sob and cough) 1 each 0 spironolactone (Aldactone) 25 MG tablet Take 25 mg by mouth Daily as needed therapeutic multivitamin-minerals (Theragran-M) tablet Take 1 tablet by mouth in the morning. zaleplon (Sonata) 10 MG capsule Take 1 capsule (10 mg) by mouth at bedtime 30 capsule 1 [DISCONTINUED] levothyroxine (Synthroid) 50 MCG tablet Take 1 tablet (50 mcg) by mouth in the morning. Take before meals. 30 tablet 0 [DISCONTINUED] thyroid ([place]) 120 MG tablet Take 1 tablet (120 mg) by mouth in the morning and 1 tablet (120 mg) in the evening. Take before meals. 60 tablet 0 No current facility-administered medications on file prior to visit. 1. Central hypothyroidism (CMS/HCC) (Primary) This is a complex chronic problem, unstable, not to goal; managment requires moderate decision making I reviewed diet and exercise with the patient. I discussed the patient's current psychosocial and physical condition and the stress impact upon them. I reviewed the multiple unique laboratories and explained the results to the patient. The patient has been re-educated concerning the above diagnoses and that the treatment for some of these may not be considered the standard of care, including TSH suppression when utilized. The patient has been re-educated and instructed concerning medication timing, diet, exercise, and stress reduction as appropriate. I reviewed the patient's current prescriptions and discussed the possibilities of medication renewals, adjustments, new medication start, or stop medication as appropriate The patient has been instructed to follow up and bring a diet and exercise log, and the importance of follow up and compliance. The patient was given a chance to ask questions today and all questions were answered. The patient is to contact us if any other questions arise or if any problems occur. - thyroid ([place]) 180 MG tablet; Take 1 tablet (180 mg) by mouth in the morning and 1 tablet (180 mg) in the evening. Take before meals. Dispense: 180 tablet; Refill: 0 - T4, free; Future - T4, free 2. ESS (euthyroid sick syndrome) After discussion we have mutually agreed to increase her medication. We have also mutually agreed to be a little bit aggressive with the dosing. In prescribing an adjustment to their current medication, consideration of the following encompasses moderate decision making; the current prescriptions and supplements, the current allergies and medication intolerances, the current medical conditions, and potential drug interactions. Risks, benefits, and reason for adjusting their current medication were discussed. The patient was given a chance to ask questions today and all questions were answered. The patient is to contact us if any other questions arise or if any problems occur with the adjustment in their medication. - thyroid ([place]) 180 MG tablet; Take 1 tablet (180 mg) by mouth in the morning and 1 tablet (180 mg) in the evening. Take before meals. Dispense: 180 tablet; Refill: 0 - T3, free; Future - T3, free 3. Morbid obesity (CMS/HCC) Lifestyle changes as above 4. Chronic fatigue syndrome Chronic problem, unstable, complex in nature with moderate decision making. I discussed with the patient or their customer service representative, their fatigue issues. We discussed how this is either not improved or not inadequately addressed. We discussed how this is almost always a multifactorial problem. We discussed that the patient will almost certainly need to continue to make lifestyle changes including diet, sleep, exercise, and stress management as appropriate. We further discussed how we will continue to search for refinements in their current treatments or evaluation for further disease processes and then support or treat them as appropriate. We discussed how we can frequently improve the symptoms, but may not be able to completely cure or resolve the issue. The patient was given a chance to ask questions and all questions were answered. - T4, free; Future - T3, free; Future - T4, free - T3, free 5. 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 She has a history dating back many years to either anemia and or iron deficiency. Recently we have been treating with oral iron supplementation. And while things have improved some, they are not what we would expect. After discussion we have mutually agreed to treatment with intravenous iron. See the Stephen bed orders. 6. Anemia of chronic disease As above 7. History of Rosendo-en-Y gastric bypass As above 8. Iron deficiency As above documented in this encounter [facility] 04-29-2024 Telephone encounter Note Italia stopped in, She tried to get her labs done last week at [facility] and they did not have her labs. I printed them out for her to get done today. She had another appointment so I will call her to reschedule. She is out of meds and will need a refill for 1 month to [facility] [place] [facility] 04-29-2024 Miscellaneous Notes Italia stopped in, She tried to get her labs done last week at [facility] and they did not have her labs. I printed them out for her to get done today. She had another appointment so I will call her to reschedule. She is out of meds and will need a refill for 1 month to [facility] [place] Pt has an upcoming thyroid office visit and has been non-compliant with getting thyroid labs in a timely manner for the appointment. This appointment will need rescheduled with attention in the notes that it was rescheduled due to non-compliance. documented in this encounter [facility] 04-29-2024 Telephone encounter Note Pt has an upcoming thyroid office visit and has been non-compliant with getting thyroid labs in a timely manner for the appointment. This appointment will need rescheduled with attention in the notes that it was rescheduled due to non-compliance. [facility] 04-29-2024 History of Presen t illness Narrative Images from the original note were not included. Italia Garcia is a 59 y.o. female presents for Medication Management. HPI: Patient is here for medication follow up Patient has maintained stable mood. Mood is reported as down about the holidays. Anxiety has improved, Was anxious about work. Sleeping 7 hours. Medication compliant. No reported side effects. Denies abuse of substances. No new Medical problems since last visit. Psychosocial stressors include work. SUBJECTIVE: PAST MEDICAL HISTORY: Past Medical History: Diagnosis Date Abdominal obesity and metabolic syndrome Acquired hypothyroidism (CMS/HCC) Acute headache Acute medial meniscus tear of left knee Acute right hip pain Allergic rhinitis Anemia Anxiety Bartonellosis Bipolar depression (CMS/HCC) BMI 40.0-44.9, adult (CMS/HCC) Chronic constipation Chronic kidney disease, stage III (moderate) (HCC) (CMS/HCC) Chronic pain disorder Unknown Degeneration of intervertebral disc of mid-cervical region, unspecified spinal level Dysmetabolic syndrome X Essential hypertension, benign (CMS/HCC) Female hypogonadism GERD (gastroesophageal reflux disease) H/O degenerative disc disease H/o Lyme disease Heart murmur Hiatal hernia High blood triglycerides (CMS/HCC) Hypertensive nephropathy (CMS/HCC) IBS (irritable bowel syndrome) Incarcerated ventral hernia Incontinence of feces, unspecified fecal incontinence type Irritable bowel syndrome with diarrhea Loss of taste Major depression (CMS/HCC) Morbid obesity with BMI of 40.0-44.9, adult (CMS/HCC) Mycoplasma infection Mycoplasma infection, unspecified site Near syncope Other headache syndrome Pain in left knee Panic attack (CMS/HCC) Unknown Polycystic ovaries PONV (postoperative nausea and vomiting) Right knee pain Sleep apnea Sleep difficulties Unknown Stage 3 chronic kidney disease (HCC) (CMS/HCC) back to normal as of 12/15/16 Varicose veins of legs Venous insufficiency of both lower extremities ALLERGIES: Allergies Allergen Reactions Gabapentin Swelling Morphine Sulfate [Morphine] Itching Onion Headache Wound Dressing Adhesive Rash SURGICAL HISTORY: Past Surgical History: Procedure Laterality Date BACK SURGERY 2004 herniated disc x2 (L3-4 laminectomy) BREAST BIOPSY 2004 CHOLECYSTECTOMY 1996 COLONOSCOPY 2013 EGD 2013 ESOPHAGEAL DILATION 12/19/2016 [place] GUIDED INJECTION HIP RIGHT Right 02/20/2023 FL GUIDED INJECTION HIP RIGHT GASTRIC BYPASS 2003 HEEL SPUR EXCISION Left 07/17/2021 and tendon release HYSTERECTOMY 2005 JOINT REPLACEMENT 06/14/2023 KNEE SURGERY Right 02/2014 arthroscopy KNEE SURGERY Left 09/15/2015 LT KNEE SCOPE - DR. MARKS OTHER SURGICAL HISTORY 04/2014 Transvaginal tape - Dr Gordon : Bladder Plication OTHER SURGICAL HISTORY 06/2017 release of small bowel obstruction OTHER SURGICAL HISTORY 04/29/2019 spinal stenosis repair SHOULDER SURGERY Right SMALL INTESTINE SURGERY SPINE SURGERY FAMILY HISTORY: Family History Problem Relation Name Age of Onset Hypertension Mother Anjali Mcconnell Mental illness Mother Anjali Mcconnell Depression Mother Anjali Mcconnell Dementia Father Nathan Mcconnell Diabetes Father Nathan Mcconnell Hypertension Father Nathan Mcconnell Alzheimer's disease Father Nathan Mcconnell Stroke Father Nathan Mcconnell 2022 Alcohol abuse Father Nathan Mcconnell Other (Triple Bypass) Brother Other (Blockage) Brother Other (Other) Brother Mass on thyroid removied benign Bipolar disorder Daughter Anjali Mcconnell Mental illness Daughter Anjali Mcconnell Mental illness Father's Sister Fake Colon cancer Paternal Grandmother Alcohol abuse Maternal Grandfather Depression Brother Nathan Mcconnell Jr. SOCIAL HISTORY: Social History Tobacco Use Smoking status: Former Current packs/day: 0.00 Types: Cigarettes Quit date: 01/06/2001 Years since quittin.3 Smokeless tobacco: Never Tobacco comments: Last smoked : > 10 years Vaping Use Vaping status: Never Used Substance Use Topics Alcohol use: Not Currently Alcohol/week: 2.0 standard drinks of alcohol Types: 2 Glasses of wine per week Comment: Caffeine intake: 2-3 cups daily Drug use: Not Currently Frequency: 2.0 times per week Types: Marijuana Comment: Use was in early 1989 s for chronic pain, self-medicating Depression: At risk (01/29/2024) PHQ-2 PHQ-2 Score: 3 REVIEW OF SYMPTOMS - MENTAL STATUS EXAM Appearance Appearance: Casual dress, normal grooming and hygiene Attitude Attitude: Cooperative, conversant, engaged, and with good eye contact. Behavior Cooperative, conversant, engaged, and with good eye contact. Speech Normal, clear, regular rate, rhythm and volume Affect Blunted Mood Anxious Thought Process Organized and Clear Thought Content No Suicidal Ideation and No Homicidal ideation Perception No perceptual abnormalities noted Orientation Appropriate to age, Person, Place, and Time Memory/Concentration Short term intact and fci intact Insight/Judgement Good OBJECTIVE: Visit Vitals OB Status Hysterectomy Smoking Status Former No results found for: TSH Lab Results Component Value Date GLU 118 (H) 06/15/2023 GLU 118 (H) 06/15/2023 CALCIUM 8.9 06/15/2023 CALCIUM 8.9 06/15/2023 NA 134 (L) 06/15/2023 K 4.7 06/15/2023 CO2 25 06/15/2023 BUN 21 06/15/2023 CREATININE 0.96 06/15/2023 CREATININE 0.96 06/15/2023 Lab Results Component Value Date WBC 8.9 06/15/2023 No results found for: CHOL No results found for: HDL No results found for: LDLCALC No results found for: TRIG ASSESSMENT AND PLAN: Assessment/Plan RON (generalized anxiety disorder) (CMS/HCC) Bipolar 1 disorder, depressed, moderate (CMS/HCC) Psych Medication List Alprazolam .25mg prn severe anxiety Lamictal 150mg bid Bipolar depression Sertraline 100mg bid for depression and anxiety Seroquel 400mg at hs Sonata 10mg po at bedtime Order labs dt high risk med all but thyroid Patient declines counseling. Patient was seen Face to Face, Reviewed chart documents and documentation, Visit time : 31 min Follow up 4 months documented in this encounter [facility] 02-26-2024 History of Presen t illness Narrative Images from the original note were not included. Patient ID: Italia Garcia is a 59 y.o. female who presents [...] by mouth cholecalciferol (Vitamin D-3) 1.25 MG (93971 UT) capsule Take 50,000 Units by mouth [...] tablet by mouth in the morning. thyroid ([place]) 120 MG tablet Take 1 tablet (120 [...] patch; Refill: 3 documented in this encounter [facility] 02-12-2024 History of Presen t illness Narrative Images from the original note were not included. Patient ID: Italia Garcia is a 59 y.o. female who presents [...] by mouth cholecalciferol (Vitamin D-3) 1.25 MG (47633 UT) capsule Take 50,000 Units by mouth [...] tablet by mouth in the morning. thyroid ([place]) 120 MG tablet Take 1 tablet (120 [...] if any problems occur. (Utilizing the original 1994/1996 guidelines or the 2020 office/outpatient code guidelines [...] tablet; Refill: 1 documented in this encounter [facility] 01-29-2024 History of Presen t illness Narrative Images from the original note were not included. Italia Garcia is a 58 y.o. female presents for Medication Management. HPI: Patient is here for medication follow up. My father . States had to use alprazolam on a few occasions due to severe anxiety. Did get COVID had for 7 days. Patient feels sad about the loss of father. Mood is reported as not depressed. Anxiety is under control. Sleeping well. Medication compliant. No reported side effects. Denies abuse of substances. Medical problems since last visit. COVID. Thyroid is being adjust. Psychosocial stressors include loss of father. Frustration with . SUBJECTIVE: PAST MEDICAL HISTORY: Past Medical History: Diagnosis Date Abdominal obesity and metabolic syndrome Acquired hypothyroidism (CMS/HCC) Acute headache Acute medial meniscus tear of left knee Acute right hip pain Allergic rhinitis Anemia Anxiety Bartonellosis Bipolar depression (CMS/HCC) BMI 40.0-44.9, adult (CMS/HCC) Chronic constipation Chronic kidney disease, stage III (moderate) (HCC) (CMS/HCC) Chronic pain disorder Unknown Degeneration of intervertebral disc of mid-cervical region, unspecified spinal level Dysmetabolic syndrome X Essential hypertension, benign (CMS/HCC) Female hypogonadism GERD (gastroesophageal reflux disease) H/O degenerative disc disease H/o Lyme disease Heart murmur Hiatal hernia High blood triglycerides (CMS/HCC) Hypertensive nephropathy (CMS/HCC) IBS (irritable bowel syndrome) Incarcerated ventral hernia Incontinence of feces, unspecified fecal incontinence type Irritable bowel syndrome with diarrhea Loss of taste Major depression (CMS/HCC) Morbid obesity with BMI of 40.0-44.9, adult (CMS/HCC) Mycoplasma infection Mycoplasma infection, unspecified site Near syncope Other headache syndrome Pain in left knee Panic attack (CMS/HCC) Unknown Polycystic ovaries PONV (postoperative nausea and vomiting) Right knee pain Sleep apnea Sleep difficulties Unknown Stage 3 chronic kidney disease (HCC) (CMS/HCC) back to normal as of 12/15/16 Varicose veins of legs Venous insufficiency of both lower extremities ALLERGIES: Allergies Allergen Reactions Gabapentin Swelling Morphine Sulfate [Morphine] Itching Onion Headache Wound Dressing Adhesive Rash SURGICAL HISTORY: Past Surgical History: Procedure Laterality Date BACK SURGERY 2004 herniated disc x2 (L3-4 laminectomy) BREAST BIOPSY 2004 CHOLECYSTECTOMY 1996 COLONOSCOPY 2013 EGD 2013 ESOPHAGEAL DILATION 12/19/2016 [place] GUIDED INJECTION HIP RIGHT Right 02/20/2023 [place] GUIDED INJECTION HIP RIGHT GASTRIC BYPASS 2003 HEEL SPUR EXCISION Left 07/17/2021 and tendon release HYSTERECTOMY 2005 JOINT REPLACEMENT 06/14/2023 KNEE SURGERY Right 02/2014 arthroscopy KNEE SURGERY Left 09/15/2015 LT KNEE SCOPE - DR. MARKS OTHER SURGICAL HISTORY 04/2014 Transvaginal tape - Dr Gordon : Bladder Plication OTHER SURGICAL HISTORY 06/2017 release of small bowel obstruction OTHER SURGICAL HISTORY 04/29/2019 spinal stenosis repair SHOULDER SURGERY Right SMALL INTESTINE SURGERY SPINE SURGERY FAMILY HISTORY: Family History Problem Relation Name Age of Onset Hypertension Mother Anjali Mcconnell Mental illness Mother Anjalitomy Mcconnell Depression Mother Anjali Mcconnell Dementia Father Nathan Mcconnell Diabetes Father Nathan Mcconnell Hypertension Father Nathan Jayesh Alzheimer's disease Father Nathan Mcconnell Stroke Father Nathan Jayesh 2022 Other (Triple Bypass) Brother Other (Blockage) Brother Other (Other) Brother Mass on thyroid removied benign Bipolar disorder Daughter Anjali Mcconnell Mental illness Daughter Anjali Mcconnell Mental illness Father's Sister Fake Colon cancer Paternal Grandmother Alcohol abuse Maternal Grandfather Depression Brother Nathan Mcconnell Jr. SOCIAL HISTORY: Social History Tobacco Use Smoking status: Former Current packs/day: 0.00 Types: Cigarettes Quit date: 01/06/2001 Years since quittin.0 Smokeless tobacco: Never Tobacco comments: Last smoked : > 10 years Vaping Use Vaping status: Never Used Substance Use Topics Alcohol use: Not Currently Alcohol/week: 2.0 standard drinks of alcohol Types: 2 Glasses of wine per week Comment: Caffeine intake: 2-3 cups weekly Drug use: Not Currently Frequency: 2.0 times per week Types: Marijuana Comment: Use was in early 1989 s for chronic pain, self-medicating Depression: At risk (11/15/2023) PHQ-2 PHQ-2 Score: 4 REVIEW OF SYMPTOMS - MENTAL STATUS EXAM Appearance Appearance: Casual dress, normal grooming and hygiene Attitude Attitude: Cooperative, conversant, engaged, and with good eye contact. Behavior Cooperative, conversant, engaged, and with good eye contact. Speech Normal, clear, regular rate, rhythm and volume Affect congruent with mood Mood sad Thought Process Organized and Clear Thought Content No Suicidal Ideation and No Homicidal ideation Perception No perceptual abnormalities noted Orientation Appropriate to age, Person, Place, and Time Memory/Concentration Short term intact and fci intact Insight/Judgement Good OBJECTIVE: Visit Vitals OB Status Hysterectomy Smoking Status Former No results found for: TSH Lab Results Component Value Date GLU 118 (H) 06/15/2023 GLU 118 (H) 06/15/2023 CALCIUM 8.9 06/15/2023 CALCIUM 8.9 06/15/2023 NA 134 (L) 06/15/2023 K 4.7 06/15/2023 CO2 25 06/15/2023 BUN 21 06/15/2023 CREATININE 0.96 06/15/2023 CREATININE 0.96 06/15/2023 Lab Results Component Value Date WBC 8.9 06/15/2023 No results found for: CHOL No results found for: HDL No results found for: LDLCALC No results found for: TRIG ASSESSMENT AND PLAN: Assessment/Plan Assess/Plan SmartLinks: Diagnoses and all orders for this visit: RON (generalized anxiety disorder) ([facility]) Bipolar 1 disorder, depressed, moderate ([facility]) Psych Medication List Alprazolam .25mg prn severe anxiety Lamictal 150mg bid Sertraline 100mg bid Seroquel 400mg at hs Sonata 10mg po at bedtime Patient declined counseling. Patient was seen Face to Face, Reviewed chart documents and documentation, Visit time : 32min F/U 3months documented in this encounter [facility] 12-28-2023 Telephone encounter Note I reviewed the above and her medical. I reviewed the PDMP and it is as expected. Two new prescriptions for fentanyl sent. [facility] 12-28-2023 Miscellaneous Notes I reviewed the above and her medical. I reviewed the PDMP and it is as expected. Two new prescriptions for fentanyl sent. Agustin called and because I had to do the PA on her patches its too late to fill the one script and too early to fill the other so he is going to void them out and asked if [facility] could send one for now and one that's do not fill for 30 days. documented in this encounter [facility] 12-28-2023 Telephone encounter Note Agustin called and because I had to do the PA on her patches its too late to fill the one script and too early to fill the other so he is going to void them out and asked if [facility] could send one for now and one that's do not fill for 30 days. [facility] 06-15-2023 Nurse Note Pt discharge teaching completed. Pt & pt's voiced understanding. IV removed, Pt medicated with a pain pill before she left Home care info has been sent over to [facility] Pt waiting for a wheelchair to head down to the car Bp 118/56 Hr 85 17:50 Pt heading down to the car in the wheelchair [facility] 06-15-2023 Nurse Note Pt discharge teaching completed. Pt & pt's voiced understanding. IV removed, Pt medicated with a pain pill before she left Home care info has been sent over to [facility] Pt waiting for a wheelchair to head down to the car Bp 118/56 Hr 85 17:50 Pt heading down to the car in the wheelchair documented in this encounter [facility] Work Phone: 06-15-2023 History of Presen t illness Narrative Spiritual Care Visit Clinical Encounter Type Visited With: Patient and family together Routine Visit: Introduction Continue Visiting: No Taxonomy Intended Effects: Preserve dignity and respect, Promote sense of peace Methods: Offer spiritual/cheondoism support Interventions: Share words of hope and inspiration, [place] Patient was with her . Patient is a L[employer]. [employer] provided companionship and validation. [employer] was a supportive presence. Occupational Therapy Evaluation Patient Name: Italia Garcia Today's Date: 06/15/2023 Time Calculation Start Time: [...] Recommended upon Discharge: Wheeled walker (shower chair, water softener servicer, sock aide, LH shoe horn) OT - [...] and WW. ADL: LE Dressing Assistance: Moderate (water softener servicer) ADL Comments: Educated patient on safety with [...] and patient verbalized understanding. Patient reports owning water softener servicer and sock aide at home from previous spine surgery. Reports will have family to assist as needed. Extremities: RUE RUE : Within Functional Limits and LUE LUE: Within Functional Limits Outcome Measures: [facility] Daily Activity Putting on and taking off [...] Therapy Physical Therapy Treatment Patient Name: Italia Garcia Today's Date: 06/15/2023 Time Calculation Start Time: [...] Patient Position Up in chair Outcome Measures: [facility] Basic Mobility Turning from your back to [...] Therapy Physical Therapy Evaluation Patient Name: Italia Garcia Today's Date: 06/15/2023 Time Calculation Start Time: [...] LLE : Within Functional Limits Outcome Measures: [facility] Basic Mobility Turning from your back to [...] Pt lives with spouse and was independent REJOINER with no HHC. Pt has a walker. Pt was able to drive and obtain medications. Therapy evals pending. Pt plans to return home with [facility] PT/OT. Referral built and sent in [facility]. Will need outgoing home care referral. Family will provide transport home. 1458 Spoke with [facility] [phone]. They are able to accept patient. SOC with in 48 hours. Therapy updates, progress notes and Home care orders sent in [facility]. Italia Garcia is a 58 y.o. female presenting with History of total hip replacement, right. Subjective Ms. Garcia tells me that she is feeling much [...] Rate 65 BPM Atrial Rate 65 BPM OK Interval 188 ms QRS Duration 90 ms QT Interval 422 ms QTC Calculation(Bazett) 438 ms P Cobb 47 degrees R Cobb 10 degrees T Cobb 38 degrees QRS Count 11 beats Q [...] xrays in pacu. COMPARISON: None ACCESSION NUMBER(S): [id number] ORDERING CLINICIAN: TOMASZ OTERO FINDINGS: Right total hip arthroplasty without fracture or dislocation. Alignment normal. Satisfactory appearance status post right total hip arthroplasty. Signed by: Lei Alves 06/14/2023 11:04 AM Dictation workstation: [id number] XR hip right with pelvis when performed 2 or 3 views Result Date: 06/14/2023 ap and cross table lateral s/p hip replacement, xrays in pacu Interpreted By: Lei Alves, STUDY: XR HIP RIGHT WITH PELVIS WHEN PERFORMED 2 OR 3 VIEWS INDICATION: Signs/Symptoms:ap and cross table lateral s/p hip replacement, xrays in pacu. COMPARISON: None ACCESSION NUMBER(S): [id number] ORDERING CLINICIAN: TOMASZ OTERO FINDINGS: Right total hip arthroplasty without fracture or dislocation. Alignment normal. IMPRESSION: Satisfactory appearance status post right total hip arthroplasty. Signed by: Lei Alves 06/14/2023 11:04 AM Dictation workstation: [id number] Assessment/Plan Principal Problem: History of total hip replacement, right Active Problems: S/P total right hip arthroplasty POD #1 s/p right DONALDO Continue PT/OT, WBAT right LE Using incentive spirometer Reviewed am labs Multimodal pain regimen Surgical hip dressing to be removed at follow up appointment with Dr. Otero VTE prophylaxis: aspirin 81mg BID X 30 days When appropriate, will discharge home with [facility] Follow up with Dr. Otero in [...] Therapy Therapy Communication Note Patient Name: Italia Garcia Today's Date: 06/14/2023 Discipline: Physical Therapy Missed Visit Reason: PT order received, chart reviewed. Attempted PT evaluation at 1411. Per RN pt is not appropriate for PT evaluation at this time due to severe pain. Will reattempt PT evaluation as appropriate. Missed Time: Attempt documented in this encounter [facility] Work Phone: 06-15-2023 Plan of care note The patient's goals for the shift include The clinical goals for the shift include pain control and participate in falls intervention preventions Over the shift, the patient did make progress toward the following goals of pain control and participate in falls intervention prevention. [facility] 06-15-2023 Miscellaneous Notes The patient's goals for the shift include The clinical goals for the shift include pain control and participate in falls intervention preventions Over the shift, the patient did make progress toward the following goals of pain control and participate in falls intervention prevention. Right posterior total hip replacement with Jamal (R) Operative Note Date: 06/14/2023 OR Location: [facility] OR Name: Italia Garcia, : 1965, Age: 58 y.o., , Sex: female Procedure Summary Anesthesia: Spinal ASA: II Anesthesia Staff: Anesthesiologist: Liv Hammond MD TOURIST INFORMATION OFFICER: HARITHA Maloney Estimated Blood Loss: 300mL Intra-op [...] 943.77 mL Specimen: No specimens collected Staff: Certified Paralegal: Puma Agustin RN Scrub Person: Arlet Richardson; Sarthak Andrew; Judie Ruggiero RN Drains and/or Catheters: * None in log * Tourniquet Times: Implants: Implants Type Name Action Serial No. 4MM X 170MM ROSA PIN BONE (FORMERLY MFR'D BY JAMAL) Implanted Joint HEAD, FEMUR V40 22.2/+1 COCR LFIT - SN/A - [id number] Implanted N/A Insignia hip stem, High offset. Implanted N/A Joint INSERT, MDM X3 MU-ISM, 38OD 22ID X 7.7MM - SN/A - [id number] Implanted N/A Joint Hip SHELL, TRIDENT II, TRITANIUM, CLUSTERHOLE, 48D - SN/A - [id number] Implanted N/A Joint Hip LINER, COCR, MDM, 38MM D - SN/A - [id number] Implanted N/A Screw SCREW, LOW PROFILE HEX, 6.5 X 25 MM - SN/A - [id number] Implanted N/A SURGEON: Tomasz Otero M.D. SCRAP HOOKER(S): Wesley Andrew SA No qualified resident was [...] procedure. Tomasz Otero documented in this encounter [facility] Work Phone: 06-14-2023 Note Formatting of this n ote is different from the original. Right posterior total hip replacement with Jamal (R) Operative Note Date: 06/14/2023 OR Location: [facility] OR Name: Italia GarciaDOB: 1965, Age: 58 y.o., , Sex: female Procedure Summary Anesthesia: Spinal ASA: II Anesthesia Staff: Anesthesiologist: Liv Hammond MD TOURIST INFORMATION OFFICER: Wali Quinonez APRN-LANCE Estimated Blood Loss: 300mL [...] 943.77 mL Specimen: No specimens collected Staff: Certified Paralegal: Puma Agustin RN Scrub Person: Arlet Richardson; aSrthak Andrew; Judie Ruggiero RN Drains and/or Catheters: * None in log * Tourniquet Times: Implants: Implants Type Name Action Serial No. 4MM X 170MM ROSA PIN BONE (FORMERLY MFR'D BY JAMAL) Implanted Joint HEAD, FEMUR V40 22.2/+1 COCR LFIT - SN/A - [id number] Implanted N/A Insignia hip stem, High offset. Implanted N/A Joint INSERT, MDM X3 MU-ISM, 38OD 22ID X 7.7MM - SN/A - [id number] Implanted N/A Joint Hip SHELL, TRIDENT II, TRITANIUM, CLUSTERHOLE, 48D - SN/A - [id number] Implanted N/A Joint Hip LINER, COCR, MDM, 38MM D - SN/A - [id number] Implanted N/A Screw SCREW, LOW PROFILE HEX, 6.5 X 25 MM - SN/A - [id number] Implanted N/A SURGEON: Tomasz Otero M.D. SCRAP HOOKER(S): Wesley Andrew SA No qualified resident was [...] aid in referencing leg lengths using the eyeQ technology. After anesthesia was established, the patient [...] line to line press fit, using the eyeQ Robotic arm for assistance. The acetabular component [...] critical portions of the procedure. Tomasz Otero [facility] Work Phone: 06-14-2023 History and physical note History Of Present Illness Italia Garcia is a 58 y.o. female presenting with [...] marked. All questions answered. Tomasz Otero MD [facility] Work Phone: 06-14-2023 History and physical note History Of Present Illness Italia Garcia is a 58 y.o. female presenting with [...] Tomasz Otero MD documented in this encounter [facility] Work Phone: 06-13-2023 Hospital Discharg e instructions Tomasz Otero MD - 06/13/2023 3:06 PM EST See written discharge instructions from Dr. Otero documented in this encounter [facility] Work Phone: 08-12-2022 Note HNO ID: [id number] Author: Leonora Curiel MD Service: ? Author Type: Physician Type: Progress Notes Filed: 08/12/2022 10:03 AM Note Text: Subjective: Italia Garcia is a 57 year old female. Patient was accompanied to the office by her . 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 She has been seen closer to home in [facility] and surgery was deferred secondary to her weight. She has had bariatric surgery in the past. Uses a rolling walker for ambulation. 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 Past Social History: Past Surgical History: No [...] Patient has history of stage III CKD. HALF BACKER: Negative for abnormal vaginal bleeding, abnormal vaginal [...] provided. MD NAI WuA Professor, Orthopaedic Surgery [employer] [employer] [facility] 08-12-2022 History of Presen t illness Narrative Subjective: Italia Garcia is a 57 year old female. Patient was accompanied to the office by her . 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 She has been seen closer to home in [facility] and surgery was deferred secondary to her weight. She has had bariatric surgery in the past. Uses a rolling walker for ambulation. 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 Past Social History: Past Surgical History: No [...] Patient has history of stage III CKD. HALF BACKER: Negative for abnormal vaginal bleeding, abnormal vaginal [...] Leonora Curiel MD LAUREEN Professor, Orthopaedic Surgery [employer] [employer] documented in this encounter [facility] 09-06-2021 Evaluation + Plan note Diagnostic Tests PendingWound Culture 09/06/21 [facility] 02-17-2021 Evaluation note Encounter Date Diagnosis Assessment Notes Feb, Insect stings, accidental or unintentional , initial encounter (ICD-10 - T63.481A) 13 Feb, 2021 Cellulitis of forearm, left (ICD-10 - L03.114) Take the antibiotic as prescribed until gone. Continue home medications as prescribed. You may apply nimn-sjf-kycxzwr hydrocortisone cream to the area. Continue to take Benadryl for itching. Apply warm compresses to the area once or twice a day. Follow-up with your family physician if no improvement in 2 to 3 days [employer] Other Evaluation note* Diagnosis Microscopic hematuria documented in this encounter [employer] Phone: evaluation note* Diagnosis Microscopic hematuria documented in this encounter [employer] Phone: evaluation note* Diagnosis Class 2 severe obesity with serious comorbidity in adult, unspecified BMI, unspecified obesity type ([facility])- Primary Primary osteoarthritis of right hip Primary localized osteoarthrosis, pelvic region and thigh [facility] Diagnosis Unilateral primary osteoarthritis, right hip Unilateral primary osteoarthritis, right hip documented in this encounter [facility] Work Phone: Evaluation note* Diagnosis History of total hip replacement, right- Primary S/P total right hip arthroplasty History of total hip replacement, right S/P total right hip arthroplasty documented in this encounter [facility] Work Phone: Evaluation note* Diagnosis Sacroiliitis ([facility])- Primary Sacroiliitis, not elsewhere classified Chronic pain syndrome Lumbar radiculopathy Thoracic or lumbosacral neuritis or radiculitis, unspecified Arthralgia of multiple joints Pain in joint, multiple sites Cervical myofascial pain syndrome Primary osteoarthritis of right hip Nocturnal muscle cramps Cramp of limb Controlled substance agreement signed Former cigarette smoker Personal history of tobacco use, presenting hazards to health Morbid obesity ([facility]) Morbid obesity BMI 40.0-44.9, adult ([facility]) Insulin resistance Other abnormal glucose documented in this encounter [facility]* Diagnosis Pneumonia of right lower lobe due to infectious organism- Primary Wheezing Primary ovarian failure Other ovarian failure [facility] Diagnosis Chronic pain syndrome documented in [facility]* Diagnosis Chronic pain syndrome documented in [facility]* Diagnosis RON (generalized anxiety disorder) ([facility]) Generalized anxiety disorder Bipolar 1 disorder, depressed, moderate ([facility]/HCC) Bipolar affective disorder, currently depressed, moderate ([facility]) Bipolar I disorder, most recent episode (or current) depressed, moderate Other insomnia Chronic pain syndrome Lumbar radiculopathy Thoracic or lumbosacral neuritis or radiculitis, unspecified Arthralgia of multiple joints Pain in joint, multiple sites Cervical myofascial pain syndrome Primary osteoarthritis of right hip Nocturnal muscle cramps Cramp of limb Controlled substance agreement signed Former cigarette smoker Personal history of tobacco use, presenting hazards to health Morbid obesity ([facility]) Morbid obesity BMI 40.0-44.9, adult ([facility]) documented [facility]* Diagnosis Bipolar affective disorder, currently depressed, moderate ([facility]) Bipolar I disorder, most recent episode (or current) depressed, moderate RON (generalized anxiety disorder) ([facility]) Generalized anxiety disorder Other insomnia High risk medication use documented [facility]* Diagnosis Central hypothyroidism ([facility]) Unspecified hypothyroidism documented in [facility]* Diagnosis Vertigo- Primary Dizziness and giddiness documented in this encounter [facility]* Diagnosis Central hypothyroidism ([facility]/HCC)- Primary Unspecified hypothyroidism ESS (euthyroid sick syndrome) Euthyroid sick syndrome Morbid obesity ([facility]) Morbid obesity Chronic fatigue syndrome Malabsorption syndrome ([facility]) Unspecified intestinal malabsorption Anemia of chronic disease Anemia of other chronic disease History of Rosendo-en-Y gastric bypass Iron deficiency Disorders of iron metabolism documented [facility] encounter [facility] Narrative - Reported* Type Description [...] Surgical History ddd Hospitalization History see above [employer] Other Hospital course Narrative No data available for this section [facility] No data available for this section [facility] Summary Purpose Family History No Family [...] total hip replacement, right Jyotsna Hurtado PA-C [id number] Department [place] [address] Referral ID Status Reason Start Date Expiration Date Visits Requested Visits Authorized [id number] Authorized Specialty Services Required 06/15/2023 06/14/[phone] Specialty Diagnoses / Procedures Referred By Contac t Referred To Contact Radiology Diagnoses Unilateral primary osteoarthritis, right hip Procedures CT hip right [place] [address] [place] [address] Referral ID Status Reason Start Date Expiration Date Visits Requested Visits Authorized [id number] Authorized Perform Procedure 05/15/2023 05/14/2024 1 1 Specialty Diagnoses / Procedures Referred By Contac t Referred To Contact Diagnoses Class 2 severe obesity with serious comorbidity in adult, unspecified BMI, unspecified obesity type (HCC) Procedures [facility] Leonora Curiel MD [address], [address] [place] [address] Referral ID Status Reason Start Date Expiration Date Visits Requested Visits Authorized [id number] Ref Not Required PCP Requested Referral 08/12/2022 08/12/2023 1 1 Specialty Diagnoses / Procedures Referred By Contac t Referred To Contact Radiology Diagnoses Microscopic hematuria R31.29 (ICD-10-CM) - Microscopic hematuria Procedures CT UROGRAM CHG CT SCAN,ABDOMENT AND PELVIS,COMBO [address] - CHG CT SCAN,ABDOMENT AND PELVIS,Carl Toribio, HOMEBIRTH MIDWIFE - STRESS TEST TECHNICIAN [address] [place] [address] Referral ID Status Reason Start Date Expiration Date Visits Re quested Visits Authorized [id number] Closed 03/07/2022 02/28/2023 1 1 Additional Source Comments REASON FOR VISIT (unrecogniz ed section and content) Specialty Diagnoses / Procedures Referred By Contac t Referred To Contact Radiology Diagnoses Microscopic hematuria R31.29 (ICD-10-CM) - Microscopic hematuria Procedures CT UROGRAM CHG CT SCAN,ABDOMENT AND PELVIS,COM[place] [address]88 - CHG CT SCAN,ABDOMENT AND PELVIS,Carl Toribio, HOMEBIRTH MIDWIFE - STRESS TEST TECHNICIAN [address] [place] [address] Referral ID Status Reason Start Date Expiration Date Visits Re quested Visits Authorized [id number] Closed 03/07/2022 02/28/2023 1 1 Reason Comments Right Hip Pain Specialty Diagnoses / Procedures Referred By Contac t Referred To Contact Radiology Diagnoses Unilateral primary osteoarthritis, right hip Procedures CT hip [place] [address] [place] [address] Referral ID Status Reason Start Date Expiration Date Visits Requested Visits Authorized [id number] Authorized Perform Procedure 05/15/2023 05/14/2024 1 1 Specialty Diagnoses / Procedures Referred By Contac t Referred To Contact Diagnoses Unilateral primary osteoarthritis, right hip M16.11 - Unilateral primary osteoarthritis, right hip, 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 Reason Comments Med Management Follow-up INFORMATION SOURCE (unrecogn ized section and content) DATE CREATED AUTHOR 11/26/2021 [facility] dical Specialist DATE CREATED AUTHOR AUTHOR'S ORGANIZ ATION 03/11/2022 [facility] DATE CREATED AUTHOR AUTHOR'S ORGANIZ ATION 08/14/2022 [facility] DATE CREATED AUTHOR AUTHOR'S ORGANIZ ATION 09/02/2022 [facility] DATE CREATED AUTHOR AUTHOR'S ORGANIZ ATION 10/14/2022 [facility] DATE CREATED AUTHOR AUTHOR'S ORGANIZ ATION 06/19/2023 [facility] DATE CREATED AUTHOR AUTHOR'S ORGANIZ ATION 09/20/2023 [facility] DATE CREATED AUTHOR AUTHOR'S ORGANIZ ATION 01/29/2024 [facility] DATE CREATED AUTHOR AUTHOR'S ORGANIZ ATION 05/07/2024 [facility] dical Specialists EPIC Care Teams (unrecognized sec tion and content) University Teacher Relationship Specialty Start Date End Date Prosper Zendejas MD [address] [place] [address] PCP - General 02/25/22 University Teacher Relationship Specialty Start Date End Date Prsoper Zendejas MD [address] [place] [address] PCP - General 02/25/22 University Teacher Relationship Specialty Start Date End Date Prosper Zendejas MD [address] [place] [address] (Fax) PCP - General Family Medicine 07/27/22 Taco Flannery, RN Registered Nurse 07/26/22 University Teacher Relationship Specialty Start Date End Date Prosper Zendejas MD [address] [place] [address] (Fax) PCP - General Family Medicine 05/15/23 University Teacher Relationship Specialty Start Date End Date Prosper Zendejas MD [address] [place] [address] (Fax) PCP - General Family Medicine 05/15/23 University Teacher Relationship Specialty Start Date End Date Prosper Zendejas MD [address] [place] [address] (Fax) PCP - General 09/25/22 Prosper Zendejas MD [address] [place] [address] (Fax) PCP - Medical [employer] 10/06/22 University Teacher Relationship Specialty Start Date End Date Prosper Zendejas MD [address] [place] [address] (Fax) PCP - General 09/25/22 Prosper Zendejas MD [address] [place] [address] (Fax) PCP - Medical [employer] 10/06/22 University Teacher Relationship Specialty Start Date End Date Prosper Zendejas MD [address] [place] [address] (Fax) PCP - General 09/25/22 Idania Ku PA [address] [place] [address] [place] [address] PCP - Medical [employer] 05/08/02 05/07/99 Shena Licona HOMEBIRTH 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 [address] [address] Nurse Practitioner Behavioral Health 06/15/23 [place] [address] [place] [phone] Referring Physician Orthopaedic Surgery 06/15/23 University Teacher Relationship Specialty Start Date End Date Prosper Zendejas MD [address] [place] [address] PCP - General 09/25/22 Idania Ku PA [address] [facility] [address] [place] [id number] PCP - Medical [employer] 05/08/02 05/07/99 Shena Licona HOMEBIRTH 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 [address] [phone] Nurse Practitioner Behavioral Health 06/15/23 [place] [address] [place] [phone] Referring Physician Orthopaedic Surgery 06/15/23 University Teacher Relationship Specialty Start Date End Date Prosper Zendejas MD [address] [place] [address] Anthony [place] [address] PCP - General 09/25/22 Idania Ku PA [address] [place] [address] PCP - Medical [employer] 05/08/02 05/07/99 Shena Licona APRN-LUNCH WAGON OPERATOR [address] [phone] Nurse Practitioner Behavioral Health 06/15/23 [place] [address] [place] [address] Referring Physician Orthopaedic Surgery 06/15/23 University Teacher Relationship Specialty Start Date End Date Prosper Zendejas MD [address] [facility] [place] [address] (Fax) PCP - General 09/25/22 Idania Ku PA [address] [place] [address] [place] [address] PCP - Medical [employer] 05/08/02 05/07/99 Shena Licona APRN-LUNCH WAGON OPERATOR [address] [phone] Nurse Practitioner Behavioral Health 06/15/23 [place] [address] [place] [address] Referring Physician Orthopaedic Surgery 06/15/23 University Teacher Relationship Specialty Start Date End Date Prosper Zendejas MD [address] [place] [address] (Fax) PCP - General 09/25/22 Idania Ku PA [address] [place], [place] [address] [address] PCP - Medical [employer] 05/08/02 05/07/99 Shena Licona APRN-LUNCH WAGON OPERATOR [address] [phone] Nurse Practitioner Behavioral Health 06/15/23 [place] [address] [place] [address] Referring Physician Orthopaedic Surgery 06/15/23 University Teacher Relationship Specialty Start Date End Date Prosper Zendejas MD [address] [place] [address] PCP - General 09/25/22 Idania Ku PA [address] [place] [address] [address] [place] [id number] PCP - Medical [employer] 05/08/02 05/07/99 Shena Licona HOMEBIRTH 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 [address] [phone] Nurse Practitioner Behavioral Health 06/15/23 [place] [address] [place] [address] Referring Physician Orthopaedic Surgery 06/15/23 University Teacher Relationship Specialty Start Date End Date Prosper Zendejas MD [address] [place] [address] PCP - General 09/25/22 Idania Ku PA [address] [place] [address] [place] [address] PCP - Medical [employer] 05/08/02 05/07/99 Shena Licona HOMEBIRTH 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 [address] [phone] Nurse Practitioner Behavioral Health 06/15/23 [place] [address] [place] [address] Referring Physician Orthopaedic Surgery 06/15/23 University Teacher Relationship Specialty Start Date End Date Prosper Zendeajs MD [address] [place] [address] PCP - General 09/25/22 Idania Ku PA [address] [place] [address] PCP - Medical [employer] 05/08/02 05/07/99 Shena Licona HOMEBIRTH 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 [address] [phone] Nurse Practitioner Behavioral Health 06/15/23 [place] [address] [place] [address] Referring Physician Orthopaedic Surgery 06/15/23 University Teacher Relationship Specialty Start Date End Date Prosper Zendejas MD [address] [place] [address] PCP - General 09/25/22 Idania Ku PA [address] [place] [address] PCP - Medical [employer] 05/08/02 05/07/99 Shena Licona HOMEBIRTH 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 [address] [place] [address] Nurse Practitioner Behavioral Health 06/15/23 [place] [address] [facility] [place] [address] Referring Physician Orthopaedic Surgery 06/15/23 University Teacher Relationship Specialty Start Date End Date Prosper Zendejas MD [address] [place] [address] PCP - General 09/25/22 Idania Ku PA [address] [place] [address] PCP - Medical [employer] 05/08/02 05/07/99 Shena Licona APRN-LUNCH WAGON OPERATOR [address] [place] [address] Nurse Practitioner Behavioral Health 06/15/23 [place] [address] [facility] [place] [phone] Referring Physician Orthopaedic Surgery 06/15/23 University Teacher Relationship Specialty Start Date End Date Prosper Zendejas MD [address] [place] [address] PCP - General 09/25/22 Idania Ku PA [facility] [place] [address] PCP - Medical [employer] 05/08/02 05/07/99 Shena Licona APRN-LUNCH WAGON OPERATOR [address] [phone] Nurse Practitioner Behavioral Health 06/15/23 [place] [address] [place] [address] Referring Physician Orthopaedic Surgery 06/15/23 University Teacher Relationship Specialty Start Date End Date Prosper Zendejas MD [address] [facility] [address] [place] [address] PCP - General 09/25/22 Idania Ku PA [address] [facility] [place] [address] PCP - Medical [employer] 05/08/02 05/07/99 Shena Licona APRN-LUNCH WAGON OPERATOR [address] [address] Nurse Practitioner Behavioral Health 06/15/23 [place] [address] [place] [address] Referring Physician Orthopaedic Surgery 06/15/23 Source Comments (unrecognize d section and content) In the event this informatio n is protected by the Federal Confidentiality of Alcohol and Drug Abuse Patient Records regulations: The Federal rules restrict any use of the information to criminally investigate or prosecute any alcohol or drug abuse patient.[facility] Scheduled Active and Recently Administ ered [...] 1845 (New Bag - Provider: Tena Thomas, RN)191 (Stopped - Provider: Lennie Emerson, RN) 0237 [...] 215 (Given - Provider: Lennie Emerson RN) 2099 (Due) sennosides (Senokot) tablet 17.2 mg 17.2 [...] - Provider: Brandt Landa LPN) thyroid (pork) ([place]) tablet 60 mg 60 mg, oral, 2 [...] gravity)0730 (New Bag - Provider: Wali Quinonez APRN-TOURIST INFORMATION OFFICER)0744 (Canceled Entry - Provider: Wali Quinonez APRN-TOURIST INFORMATION OFFICER)0950 (New Bag - Provider: Wali Quinonez APRN-TOURIST INFORMATION OFFICER)1023 (Stopped - Provider: Wali Quinonez APRN-TOURIST INFORMATION OFFICER)1027 (New Bag - Provider: Beryl Nye RN)1318 (Stopped - Provider: Celio Thomas RN) lactated Ringer's infusion 85 mL/hr, intravenous, Continuous, Starting on Mon06/14/23 at 1345, For 24 hours, Phase II/On Unit 1433 (New Bag - Provider: Tena Thomas RN)2133 (Rate/Dose Verify - Provider: Lennie Emerson RN)2316 (New Bag - Provider: Patsy Neves RN) 0430 (Rate/Dose Verify - Provider: Lennie Emerson, JACLYN)0546 (Stopped - Provider: Lennie Emerson RN) oxygen [...] Beryl Nye RN)1200 (Given - Provider: Ladonna Bedolla, JACLYN) HYDROmorphone (Dilaudid) injection 0.5 mg 0.5 mg, [...] pain scores based on patient preference? Yes 4856 (Given - Provider: Lennie Emerson RN) oxyCODONE [...] BE BASED ON THE PRIMARY CLINICAL RECORDS. [facility] [employer] [facility]. provides no warranty or guarantee of the accuracy or completeness of information in this document.
[2024-05-21 10:23] LABS: Basophils Absolute Auto 0.1 10^3/uL (0.0-0.1); Basophils Percent Auto 1.3 % (0.2-2.0); Eosinophils Absolute Auto 0.4 10^3/uL (0.0-0.7); Eosinophils Percent Auto 6.6 % (0.9-7.0); Hematocrit 37.7 % (36.0-48.0); Hemoglobin 11.4 g/dL (12.0-16.0); Immature Granulocytes Abs Auto 0.02 10^3/uL (0.00-0.03); Immature Granulocytes Pct Auto 0.3 % (0.0-0.5); Lymphocytes Absolute Auto 1.5 10^3/uL (1.2-3.8); Lymphocytes Percent Auto 23.4 % (20.5-60.0); Mean Corpuscular HGB Conc 30.2 g/dL (29.9-35.2); Mean Corpuscular Hemoglobin 26.2 pg (26.7-34.0); Mean Corpuscular Volume 86.7 fL (81.0-99.0); Mean Platelet Volume 8.8 fL (9.5-13.5); Monocytes Absolute Auto 0.5 10^3/uL (0.3-0.8); Neutrophils Absolute Auto 3.9 10^3/uL (1.4-6.5); Neutrophils Percent Auto 61.4 % (43.0-75.0); Platelet Count 327 10^3/uL (150-450); Red Blood Count 4.35 10^6/uL (4.20-5.40); Red Cell Distribution Width 16.6 % (11.0-15.0); White Blood Count 6.4 10^3/uL (4.0-11.0)
[2024-05-21 10:46] LABS: Alanine Aminotransferase 25 U/L (14-59); Albumin Globulin Ratio 0.7; Albumin Level 3.1 g/dL (3.4-5.0); Alkaline Phosphatase 175 U/L (46-116); Anion Gap 5.5; Aspartate Amino Transferase 22 U/L (15-37); BUN Creatinine Ratio 17.4; Bilirubin Total 0.2 mg/dL (0.2-1.0); Calcium 8.6 mg/dL (8.5-10.1); Carbon Dioxide 31.6 mmol/L (21.0-32.0); Chloride 107 mmol/L (98-107); Chol HDL Ratio 2.3; Cholesterol 168 mg/dL (<=200); Estimated GFR (African America >60 (>=60 mL/min/1.73m^2); Estimated GFR (Non-African Ame 51 (>=60 mL/min/1.73m^2); Globulin 4.4 g/dL; Glucose 104 mg/dL (74-106); HDL Cholesterol 72 mg/dL (40-60); Potassium 4.1 mmol/L (3.5-5.1); Sodium 140 mmol/L (136-145); Total Protein 7.5 g/dL (6.4-8.2); Triglycerides 43 mg/dL (<=150); VLDL CHOLESTEROL 8.6 mg/dL
== END 2024-05-21 09:59 | disposition home or self-care (01) ==
PROVIDERS: PCP Family Medicine
DX: Z79.899 Other long term (current) drug therapy (principal)
CPT/HCPCS: 36415; 80053; 80061; 85025

== ENCOUNTER 2024-05-22 07:33 | Outpatient (RCR) | payer OTHER, SELFPAY ==
[2024-05-15 10:03] VITALS: BP 134/82; PULSE 78; TEMP 36.6; O2SAT 96
[2024-05-15] MEDS: FERRIC CARBOXYMALTOSE 750 MG in 0.9 % SODIUM CHLORIDE 250 ML 795 MG IV (10:19)
[2024-05-22] MEDS: FERRIC CARBOXYMALTOSE 750 MG in 0.9 % SODIUM CHLORIDE 250 ML 795 MG IV (10:10)
[2024-05-22 10:27] VITALS: BP 131/81; PULSE 71; TEMP 35.3; O2SAT 96
== END 2024-05-23 13:11 | disposition home or self-care (01) ==
LOC: INF 07:33
PROVIDERS: PCP Family Medicine; Visit Provider Family Medicine
DX: K90.9 Intestinal malabsorption, unspecified (principal); E61.1 Iron deficiency; Z98.84 Bariatric surgery status; E07.81 Sick-euthyroid syndrome; G93.32 Myalgic encephalomyelitis/chronic fatigue syndrome; D63.8 Anemia in other chronic diseases classified elsewhere
CPT/HCPCS: 96365; J1439

== ENCOUNTER 2024-09-10 11:19 | Outpatient (OUT) | payer OTHER, SELFPAY ==
[2024-09-10 11:46] LABS: Basophils Absolute Auto 0.1 10^3/uL (0.0-0.1); Basophils Percent Auto 0.8 % (0.2-2.0); Eosinophils Absolute Auto 0.3 10^3/uL (0.0-0.7); Eosinophils Percent Auto 2.9 % (0.9-7.0); Hematocrit 44.7 % (36.0-48.0); Hemoglobin 14.1 g/dL (12.0-16.0); Immature Granulocytes Abs Auto 0.04 10^3/uL (0.00-0.03); Immature Granulocytes Pct Auto 0.4 % (0.0-0.5); Lymphocytes Absolute Auto 1.4 10^3/uL (1.2-3.8); Lymphocytes Percent Auto 12.3 % (20.5-60.0); Mean Corpuscular HGB Conc 31.5 g/dL (29.9-35.2); Mean Corpuscular Volume 88.9 fL (81.0-99.0); Mean Platelet Volume 9.4 fL (9.5-13.5); Monocytes Absolute Auto 0.7 10^3/uL (0.3-0.8); Monocytes Percent Auto 6.2 % (1.7-12.0); Neutrophils Absolute Auto 8.8 10^3/uL (1.4-6.5); Neutrophils Percent Auto 77.4 % (43.0-75.0); Platelet Count 348 10^3/uL (150-450); Red Blood Count 5.03 10^6/uL (4.20-5.40); Red Cell Distribution Width 14.5 % (11.0-15.0); White Blood Count 11.4 10^3/uL (4.0-11.0)
[2024-09-10 12:23] LABS: Free T3 3.23 pg/mL (2.18-3.98)
[2024-09-10 12:30] LABS: Percent Iron Saturation 24.8 %
[2024-09-10 12:38] LABS: Free T4 0.71 ng/dL (0.76-1.46)
== END 2024-09-10 11:20 | disposition home or self-care (01) ==
LOC: LAB 11:19
PROVIDERS: PCP Family Medicine; Visit Provider Family Medicine
DX: E03.8 Other specified hypothyroidism (principal); D63.8 Anemia in other chronic diseases classified elsewhere; E61.1 Iron deficiency; K90.9 Intestinal malabsorption, unspecified; Z98.84 Bariatric surgery status; G93.32 Myalgic encephalomyelitis/chronic fatigue syndrome; E07.81 Sick-euthyroid syndrome
CPT/HCPCS: 36415; 83540; 83550; 84439; 84481; 85025